=== PATIENT | female | born 1935 | race Caucasian/White ===

== ENCOUNTER 2021-02-03 11:57 | Inpatient (IN) | payer OTHER, SELFPAY ==
[2021-02-03] VITALS (9 sets, daily range): BP systolic 113–153; BP diastolic 66–95; PULSE 71–93; RESP 16–26; TEMP 36.2–36.6; O2SAT 92–95; BMI 28.5; BMI 29.1
--- NOTE | ~2021-02-03 | XR_ITS ---
XR chest 2V DATE: 02/03/2021 13:33 INDICATION: Cough. Weakness. TECHNIQUE: AP and lateral views COMPARISON: 07/11/2017 CTA chest scan 07/10/2017 two-view chest FINDINGS: Cardiomegaly. Aortic calcification and ectasia and unfolding. Minimal atelectasis is suggested at the lung bases. The lungs otherwise appear clear of infiltrate or consolidation. Diffuse osteopenia. IMPRESSION: Cardiomegaly; aortic calcification, ectasia and unfolding Reviewed, dictated and finalized at location A.
--- NOTE | ~2021-02-03 | CT_ITS ---
EXAMINATION: CT brain wo con DATE: 02/07/2021 11:18 INDICATION: Confusion. Hyponatremia. TECHNIQUE: Computed tomography (CT) of the head was performed without intravenous contrast. The mA wa s adjusted according to patient size. Iterative reconstruction technique was employed. The dose-lengt h product was 605.33 mGy-cm. COMPARISON: None FINDINGS: There are scattered areas of low attenuation in the cerebral white matter. There is no intr acranial hemorrhage, acute infarction, or abnormal intracranial mass lesion. The ventricles are david l in size. There are likely changes of right ocular lens replacement surgery. There is mild mucosal t hickening in the paranasal sinuses. The mastoid air cells are normal. IMPRESSION: 1. Moderate nonspecific cerebral white matter disease, which likely represents chronic small vessel i schemic disease. Reviewed, dictated and finalized at location B. IMPRESSION: 1. Moderate nonspecific cerebral white matter disease, which likely represents chronic small vessel ischemic disease.
--- NOTE | 2021-02-03 12:33 | ECG_ITS ---
Measurements Intervals [place] Rate: 73 P: [place]: 0 QRS: -35 QRSD: 114 T: 97 QT: 411 QTc: 453 Interpretive Statements ATRIAL FIBRILLATION LEFT AXIS DEVIATION BORDERLINE R WAVE PROGRESSION, ANTERIOR LEADS BORDERLINE ST-T WAVE ABNORMALITY- DIFFUSE LEADS BASELINE WANDER- V4-V6 ABNORMAL ECG Electronically Signed On 02-03-2021 14:35:37 CDT by Chung Soares D.O.
[2021-02-03 13:20] LABS: Add Urine Microscopic? YES; Appearance Urine Turbid (Clear); Bilirubin Urine Negative (Negative); Blood Urine 1+ (Negative); Color Urine Yellow (Yellow); Glucose Urine UA Negative (Negative); Ketones Urine Negative (Negative); Leukocyte Esterase Ur 3+ LEU/UL (Negative); Nitrate Urine Negative (Negative); Protein Urine 2+ mg/dL (Negative); RBC Urine 51-75 /hpf (0-2); Specific Grav Ur 1.016 (1.001-1.035); WBC Clumps Urine Present /HPF; WBC Urine >75 /hpf
--- NOTE | 2021-02-03 13:51 | ED.WEAKNESS ---
HPI - Weakness General Chief complaint: Weakness Stated complaint: fatigue Time Seen by Provider: 02/03/21 12:26 Source: patient Mode of arrival: EMS Limitations: clinical condition History of Present Illness HPI Narrative: 85-year-old female Patient complains of malaise for indeterminate amount of time Also notes that she feels blah She does not express any more acute or focal complaints Specifically she denies any new focal weakness, cough shortness of breath or fever, chest pains, nausea vomiting diarrhea or constipation MD Complaint: generalized weakness and lack of energy Related Data Home Medications Medication Instructions Recorded Confirmed amlodipine 02/03/21 02/03/21 aspirin [Adult Aspirin EC Low 02/03/21 Strength] cholecalciferol (vitamin D3) 02/03/21 [Vitamin D3] furosemide 02/03/21 levothyroxine 02/03/21 metoprolol tartrate 02/03/21 metoprolol tartrate 02/03/21 metoprolol tartrate 02/03/21 olmesartan-hydrochlorothiazide tablet 02/03/21 Allergies Allergy/AdvReac Type Severity Reaction Status Date / Time No Known Allergies Allergy Unverified 07/10/17 14:04 Review of Systems Review of Systems: All systems reviewed & are unremarkable except as noted in HPI and below Constitutional: Constitutional: Reports no additional constitutional complaints, Denies chills, Reports fatigue, Denies fever(s), Denies headache(s) and Reports weakness Eyes: Eyes: Reports no additional eye complaints and Denies change in vision ENT: Denies headache(s) and Denies sore throat Cardiovascular: Cardiovascular: Denies chest pain and Denies dyspnea Respiratory: Respiratory: Denies cough and Denies dyspnea Gastrointestinal: Gastrointestinal: Denies abdominal pain, Denies diarrhea and Denies vomiting Genitourinary: Genitourinary: Denies hematuria, Denies urinary frequency, Denies dysuria and Denies flank pain Musculoskeletal: Musculoskeletal: Denies deformity, Denies arthralgias, Denies joint swelling and Denies numbness Integumentary/Breasts: Skin/Breast: Denies rash and Denies wounds Neurologic: Denies headache(s), Denies focal weakness and Denies numbness Psychiatric: Psychiatric: Reports no additional psychiatric complaints Endocrine: Endocrine: Reports no additional endocrine complaints Hematologic/Lymphatic: Hematologic/Lymphatic: Reports no additional hematologic/lymphatic complaints Allergic/Immunologic: Allergic/Immunologic: Reports no additional allergic/immunologic complaints Exam Const: General: cooperative, no acute distress and alert Orientation/consciousness: patient oriented x3 (alert) Other: Frail, elderly HENMT: Head: normal to inspection, normocephalic, atraumatic, no contusions and no hematomas Ears: external ears normal General nose exam: no epistaxis Eyes: Conjunctivae: conjunctivae normal EOM: EOMs intact bilaterally Neck: Neck: normal visual inspection, supple and no JVD Resp: Effort & Inspection: normal respiratory effort and not labored Auscultation: clear to auscultation bilaterally, no rales, no rhonchi, no wheezes and other (BS =) Cardio: Rhythm: abnormal rhythm irregularly irregular Heart sounds: no murmurs GI: GI Palp: Yes Soft to palpation, No Tenderness to palpation present (GI), No Guarding due to palpation present (GI) and No Rebound tenderness present : General: Yes no CVA tenderness Skin: General skin exam: normal color and no rashes or lesions noted Neuro: General: patient oriented x3 (alert) and moves all extremities Speech: normal speech Other: Motor symmetric x4, no facial asymmetry Extrem: Other: 1-2+ edema bilaterally Psych: Attitude: cooperative Course Course Emergency Course: Started treatment for UTI, consideration of discharge until sodium returned to 117 and she will need to be admitted to correct that, discussed with Dr. Morley for admission, just wants normal saline and not hypertonic saline Vital Signs Vital
[2021-02-03 14:52] LABS: Basophils Percent Auto 0.3 % (0.2-1.2); Eosinophils Percent Auto 0.2 % (0-4.4); Hematocrit 38.6 % (37.0-47.0); Hemoglobin 13.6 g/dL (12.0-15.0); Immature Granulocyte Absolute 0.05 K/mm3 (0.00-0.031); Immature Granulocyte Percent A 0.4 % (0-0.5); Lymphocytes Absolute Auto 1.64 K/mm3 (0.9-3.2); Lymphocytes Percent Auto 14.1 % (18.3-44.2); Mean Corpuscular HGB Conc 35.2 g/dl (32-36); Mean Corpuscular Hemoglobin 31.1 pg (26-34); Mean Corpuscular Volume 88.1 fl (80-100); Mean Platelet Volume 8.9 fl (7.4-10.4); Monocytes Absolute Auto 1.1 K/mm3 (0.1-0.6); Monocytes Percent Auto 9.1 % (2.6-8.5); Neutrophils Absolute Auto 8.9 K/mm3 (1.3-6.7); Neutrophils Percent Auto 75.9 % (45.5-73.1); Platelet Count Result 328 k/mm3 (150-375); Red Blood Count 4.38 M/mm3 (4.2-5.4); Red Cell Distribution Width 13.7 % (11.5-14.5); White Blood Count 11.7 K/mm3 (4.5-10.0)
[2021-02-03 15:08] LABS: Alanine Aminotransferase 26 U/L (4-35); Albumin Level 4.1 g/dL (3.5-5.1); Alkaline Phosphatase 64 U/L (38-126); Anion Gap 10 mmol/L (8-16); Aspartate Amino Transferase 35 U/L (14-36); Bilirubin,Total 1.5 mg/dL (0.2-1.3); Blood Urea Nitrogen 16 mg/dL (7-17); Calcium 8.7 mg/dL (8.4-10.2); Carbon Dioxide 29 mmol/L (22-30); Chloride 78 mmol/L (98-107); Estimated Glomerular Filt Rate > 60; Glucose 96 mg/dL (65-110); Potassium 2.9 mmol/L (3.4-5.0); Sodium 117 mmol/L (137-145)
[2021-02-03] MEDS: SODIUM CHLORIDE 0.9% IV 1,000 ML 999 ML IV CONT (15:50)
[2021-02-03 17:04] LABS: Creatinine Urine 34.9 mg/dL
[2021-02-03 17:13] LABS: Sodium Urine Random 78 meq/L
[2021-02-03 17:37] LABS: Anion Gap 4 mmol/L (8-16); Blood Urea Nitrogen 13 mg/dL (7-17); Calcium 8.5 mg/dL (8.4-10.2); Carbon Dioxide 34 mmol/L (22-30); Chloride 78 mmol/L (98-107); Estimated Glomerular Filt Rate 59; Glucose 99 mg/dL (65-110); Potassium 2.6 mmol/L (3.4-5.0); Sodium 116 mmol/L (137-145)
[2021-02-03] MEDS: POTASSIUM CHLORIDE 20 MEQ PACKET (FOR LIQUID) 40 MEQ PO (17:58)
--- NOTE | 2021-02-03 18:55 | ADMGEN ---
This patient, Paula Gonzalez, was admitted to Medical Room 244-. Patient/family oriented to hospital policies and general routines including ID bracelet, bed and alarms, visiting hours, pain management, procedures, bathroom and other care routines, personal items, smoking policy, room service/diet, and visiting hours. Information on how to activate the Rapid Response Team has been discussed. Patient/Family are encouraged to report perceived risks to care and to ask questions if they do not understand what they are told or what they should do.
[2021-02-03] MEDS: SODIUM CHLORIDE 0.9% IV 1,000 ML 125 ML IV CONT (20:27)
[2021-02-03] MEDS: FAMOTIDINE 20 MG/2 ML VIAL IV PUSH (20:42)
--- NOTE | 2021-02-03 22:31 | PM.IMHP ---
H&P: HPI History of Present Illness Date/Time: 02/03/21 22:31 Chief Complaint: Increasing weakness Narrative: 85-year-old female with past medical history of vitamin-D deficiency, hypertension and hypothyroidism who presented to the ER via EMS from [facility] for evaluation of increasing weakness. The patient was reportedly evaluated at [place] recently and ?nothing was found?. detention decided to send her to our facility a day to see if they could find some answers for her weakness. Nursing staff tells me that when the interviewed the patient on admission she was alert orient x3 but had significant confusion regarding why she was at the hospital or recent events. At the time of my evaluation the patient was sleeping soundly. When I tried to wake the patient she asked me why she needed open her eyes. She would not open her eyes for me. She is chronically incontinent of urine. The patient will not answer questions. She does allow nursing staff to provide care. She has been afebrile since presentation. In the ER labs demonstrated significant hyponatremia and hypokalemia. Her urine was suggestive of UTI. She also had leukocytosis. At the time of my evaluation she smells strongly of urine. [facility] Past Medical History Medical History (Updated 02/04/21 @ 01:08 by Brittany Morley DO) Aortic aneurysm Atrial fibrillation Diastolic heart failure secondary to hypertension Diverticulitis Essential hypertension Hypothyroidism Urinary incontinence Vitamin D deficiency Surgical History Surgical History (Updated 02/04/21 @ 01:08 by Brittany Morley DO) History of hysterectomy Family History Family History Other Cerebrovascular accident Essential hypertension Social History Social History (Updated 02/03/21 @ 22:35 by Brittany Morley DO) Social History: Patient resides at [facility]. Code status: DNR/DNI Healthcare power of real estate attorney: Ana Maria Caballero Smoking status: Unknown if ever smoked Alcohol intake: unknown Substance use: unknown Substance use type: unknown Spiritual care concerns: No Meds Home Medications and Allergies Home Medications Medication Instructions Recorded Confirmed Type acetaminophen 650 mg PO Q4H PRN 02/03/21 02/03/21 History amlodipine 5 mg PO DAILY 02/03/21 02/03/21 History aspirin [Adult Aspirin EC Low 81 mg PO DAILY 02/03/21 02/03/21 History Strength] cholecalciferol (vitamin D3) 1,000 unit PO BID 02/03/21 02/03/21 History [Vitamin D3] furosemide 20 mg PO DAILY 02/03/21 02/03/21 History guaifenesin [Siltussin] 200 mg PO Q6H PRN 02/03/21 02/03/21 History levothyroxine 112 mcg PO DAILY 02/03/21 02/03/21 History lisinopril 40 mg PO DAILY 02/03/21 02/03/21 History metoprolol tartrate 25 mg PO BID 02/03/21 02/03/21 History Allergies Allergy/AdvReac Type Severity Reaction Status Date / Time No Known Allergies Allergy Verified 02/03/21 19:50 Vital Signs Vital Signs - 24 hr 02/03/21 11:57 02/03/21 12:06 02/03/21 13:00 Temperature 97.2 F L Pulse Rate 72 71 77 Respiratory Rate 20 20 20 Blood Pressure 149/80 H 149/80 H 136/85 Pulse Oximetry 93 93 93 02/03/21 14:10 02/03/21 15:00 02/03/21 16:32 Temperature Pulse Rate 72 77 71 Respiratory Rate 20 20 26 H Blood Pressure 141/66 H 144/83 H 153/95 H Pulse Oximetry 93 93 93 02/03/21 18:25 02/03/21 21:37 Temperature 97.8 F Pulse Rate 77 93 Respiratory Rate 20 16 Blood Pressure 113/70 135/89 Pulse Oximetry 95 92 Exam Narrative: PHYSICAL EXAM: WEIGHT 79.4 kg BMI 29.1 General: obese, elderly, no acute distress HEENT: Mucous membranes are dry, good dentition, pupils are equal and reactive, head is normocephalic atraumatic, large neck circumference Respiratory: Snoring respirations, otherwise clear, no tachypnea Cardiovascular: Regular rate, irregular rhythm, 2+ bilateral ra
[2021-02-03 23:06] LABS: Magnesium 1.8 mg/dL (1.6-2.3)
[2021-02-03] MEDS: METOPROLOL TARTRATE 25 MG TABLET PO (23:29)
[2021-02-04] MEDS: POTASSIUM CHLORIDE INJ 40 MEQ in DEXTROSE 5% IN WATER 500 ML 130 MEQ IVPB ×2 (01:09→05:36)
[2021-02-04 03:16] LABS: Hematocrit 36.3 % (37.0-47.0); Hemoglobin 12.7 g/dL (12.0-15.0); Mean Corpuscular Hemoglobin 31.3 pg (26-34); Mean Corpuscular Volume 89.4 fl (80-100); Mean Platelet Volume 8.7 fl (7.4-10.4); Platelet Count Result 301 k/mm3 (150-375); Red Blood Count 4.06 M/mm3 (4.2-5.4); Red Cell Distribution Width 13.6 % (11.5-14.5); White Blood Count 8.1 K/mm3 (4.5-10.0)
[2021-02-04 03:43] LABS: Sodium 120 mmol/L (137-145)
[2021-02-04 05:43] VITALS: BP 134/55; PULSE 84; RESP 16; TEMP 36; O2SAT 94
[2021-02-04] MEDS: LEVOTHYROXINE SODIUM 112 MCG TABLET PO (06:55)
[2021-02-04 08:30] LABS: Anion Gap 8 mmol/L (8-16); Blood Urea Nitrogen 8 mg/dL (7-17); Calcium 8.4 mg/dL (8.4-10.2); Carbon Dioxide 25 mmol/L (22-30); Chloride 83 mmol/L (98-107); Estimated CRCL calculation 60 ml/min; Estimated Glomerular Filt Rate > 60; Glucose 112 mg/dL (65-110); Potassium 4.4 mmol/L (3.4-5.0); Sodium 116 mmol/L (137-145)
[2021-02-04] MEDS: ASPIRIN 81 MG ENTERIC TABLET PO (09:19)
[2021-02-04] MEDS: FAMOTIDINE 20 MG/2 ML VIAL IV PUSH ×2 (09:19→22:08)
[2021-02-04] MEDS: lisinopriL 20 MG TABLET 40 MG PO (09:19)
[2021-02-04] MEDS: amLODIPine BESYLATE 5 MG TABLET PO (09:19)
[2021-02-04 09:20] VITALS: PULSE 81
[2021-02-04] MEDS: CHOLECALCIFEROL 1,000 UNITS TABLET 1000 UNITS PO ×2 (09:20→17:26)
[2021-02-04] MEDS: METOPROLOL TARTRATE 25 MG TABLET PO ×2 (09:20→22:09)
[2021-02-04 11:17] LABS: Anion Gap 7 mmol/L (8-16); Blood Urea Nitrogen 7 mg/dL (7-17); Calcium 8.8 mg/dL (8.4-10.2); Carbon Dioxide 30 mmol/L (22-30); Chloride 83 mmol/L (98-107); Estimated CRCL calculation 52 ml/min; Estimated Glomerular Filt Rate > 60; Glucose 115 mg/dL (65-110); Potassium 4.1 mmol/L (3.4-5.0); Sodium 120 mmol/L (137-145)
[2021-02-04 14:00] VITALS: BP 113/55; PULSE 76; RESP 20; TEMP 36.1; O2SAT 97
--- NOTE | 2021-02-04 14:48 | PM.IMPN ---
Progress Note: A&P Assessment and Plan (1) Urinary tract infection: Qualifiers: Hematuria presence: with hematuria Urinary tract infection type: site unspecified Qualified Code(s): N39.0 - Urinary tract infection, site not specified; R31.9 - Hematuria, unspecified Code(s): N39.0 - Urinary tract infection, site not specified Status: Acute Assessment and Plan: Follow UC Continue with rocephin (2) Hyponatremia: Code(s): E87.1 - Hypo-osmolality and hyponatremia Status: Acute Assessment and Plan: 117 on admission-->116-->120-->116-->120 this morning S/p IVF Fluid restriction 1200 ml daily Holding Lasix Urine osmolarity pending Monitor (3) Hypokalemia: Code(s): E87.6 - Hypokalemia Status: Acute Assessment and Plan: Resolved 4.4-->4.1 today S/p 80 meq IVPB Mg+ wnl Monitor (4) Lower extremity edema: Code(s): R60.0 - Localized edema Status: Acute Assessment and Plan: Generalized Could be 2/2 CCD Monitor Subjective Date/time seen: 02/04/21 14:48 Interval history: pt seen and evaluated; no acute events overnight; pt is confused Review of Systems Review of Systems: All systems reviewed & are unremarkable except as noted in HPI and below Exam Const: General: no acute distress, alert and awake Orientation/consciousness: oriented to person and confusion HENMT: Head: normocephalic and atraumatic Ears: hearing grossly normal bilaterally and external ears normal Face and sinus: face symmetric Mouth: Yes Normal oral and palatal mucosa present Eyes: EOM: EOMs intact bilaterally Neck: Neck: full ROM, trachea midline and no JVD Thyroid: thyroid normal Chest: Chest palpation & inspection: normal inspection of the chest Resp: Effort & Inspection: normal respiratory effort Auscultation: clear to auscultation bilaterally Cardio: Jugular venous distension: no JVD Rate: regular rate Heart sounds: S1 normal heart sound present and S2 normal heart sound present GI: Inspection: normal to inspection GI Palp: Yes Soft to palpation Percussion: Yes normal to percussion Auscultation: normal bowel sounds : General: Yes no CVA tenderness Back/Spine/Pelvis: Back: no CVA tenderness Skin: General skin exam: normal color Rashes: no rashes Neuro: General: oriented to person and confusion Cranial nerves: Yes Equal, round and reactive pupils present Speech: normal speech Extrem: Left upper extremity: edema Other: BLE generalzied edema Psych: Appearance: grossly normal Affect: normal affect Judgement: Good judgement present (Psych) Objective Data Vital Signs Vital Signs: Vital Signs - 24 hr 02/03/21 15:00 02/03/21 16:32 02/03/21 18:25 Temperature Pulse Rate 77 71 77 Respiratory Rate 20 26 H 20 Blood Pressure 144/83 H 153/95 H 113/70 Pulse Oximetry 93 93 95 02/03/21 21:37 02/03/21 23:29 02/04/21 05:43 Temperature 36.6 C 36.0 C L Pulse Rate 93 93 84 Respiratory Rate 16 16 Blood Pressure 135/89 134/55 L Pulse Oximetry 92 94 02/04/21 09:20 Temperature Pulse Rate 81 Respiratory Rate Blood Pressure Pulse Oximetry Intake/Output Intake/Output: Intake & Output 02/01/21 02/02/21 02/03/21 02/04/21 23:59 23:59 23:59 23:59 Intake Total 50 1710 Output Total 300 Balance -250 1710 Meds/Results Medications: Active Medications Generic Name Dose Route Start Last Admin Trade Name Freq PRN Reason Stop Dose Admin Acetaminophen 650 mg 02/03/21 16:33 Acetaminophen 325 Mg Tablet PO Q4H PRN Mild Pain (1-3) or Fever Amlodipine Besylate 5 mg 02/04/21 09:00 02/04/21 09:19 Amlodipine Besylate 5 Mg Tablet PO 5 mg DAILY LORI Administration Aspirin 81 mg 02/04/21 09:00 02/04/21 09:19 Aspirin 81 Mg Enteric Tablet PO 81 mg DAILY LORI Administration Famotidine 20 mg 02/03/21 21:00 02/04/21 09:19 Famotidine 20 Mg/2 Ml Vial IV PUSH 20 mg Q12HR LORI
[2021-02-04 16:43] LABS: Anion Gap 6 mmol/L (8-16); Blood Urea Nitrogen 8 mg/dL (7-17); Calcium 9.2 mg/dL (8.4-10.2); Carbon Dioxide 32 mmol/L (22-30); Chloride 83 mmol/L (98-107); Estimated CRCL calculation 52 ml/min; Estimated Glomerular Filt Rate > 60; Glucose 105 mg/dL (65-110); Sodium 121 mmol/L (137-145)
[2021-02-04 20:17] LABS: Anion Gap 10 mmol/L (8-16); Blood Urea Nitrogen 9 mg/dL (7-17); Calcium 8.7 mg/dL (8.4-10.2); Carbon Dioxide 26 mmol/L (22-30); Chloride 81 mmol/L (98-107); Estimated CRCL calculation 52 ml/min; Estimated Glomerular Filt Rate > 60; Glucose 99 mg/dL (65-110); Potassium 3.9 mmol/L (3.4-5.0); Sodium 117 mmol/L (137-145)
[2021-02-04 22:00] VITALS: BP 111/68; PULSE 76; RESP 20; TEMP 36.1; O2SAT 91
[2021-02-04] MEDS: SODIUM CHLORIDE 3% 500 ML 70 ML IV CONT (22:07)
[2021-02-04 22:09] VITALS: PULSE 76
[2021-02-05 02:31] LABS: Sodium 119 mmol/L (137-145)
[2021-02-05 05:20] VITALS: BP 138/65; PULSE 79; RESP 16; TEMP 36.1; O2SAT 91
[2021-02-05] MEDS: LEVOTHYROXINE SODIUM 112 MCG TABLET PO (06:12)
[2021-02-05 08:29] LABS: Albumin Level 3.6 g/dL (3.5-5.1); Anion Gap 3 mmol/L (8-16); Blood Urea Nitrogen 7 mg/dL (7-17); Calcium 8.4 mg/dL (8.4-10.2); Carbon Dioxide 27 mmol/L (22-30); Chloride 87 mmol/L (98-107); Estimated CRCL calculation 70 ml/min; Estimated Glomerular Filt Rate > 60; Glucose 98 mg/dL (65-110); Phosphorus 3.4 mg/dL (2.5-4.5); Potassium 3.7 mmol/L (3.4-5.0); Sodium 117 mmol/L (137-145)
--- NOTE | 2021-02-05 09:35 | PM.CNNEP ---
Assessment and Plan Assessment and plan (1) Hyponatremia: Code(s): E87.1 - Hypo-osmolality and hyponatremia Status: Acute Assessment and Plan: acute versus chronic versus acute on chronic? initially thought to be due to poor oral intake/volume depletion - however, no real improvement with normal saline infusion started on fluid restriction yesterday etiology?? - due to outpatient diuretics (but currently off) - urine lytes not prerenal check TSH, cortisol, UPEP, SPEP, and follow-up on serum/urine osmolality consider malignancy screening as well may need to use 3% saline just to get sodium above 120 mmol/L (particulary given her on/off confusion) goal of therapy is 4 - 6mmol/L rate of change in 24hours (at a minimum) but not to exceed 8mmol/L follow trend of repeat sodium levels (2) Hypokalemia: Code(s): E87.6 - Hypokalemia Status: Acute Assessment and Plan: due to poor oral intake versus diuretic therapy replete as needed follow magnesium (3) Urinary tract infection: Qualifiers: Hematuria presence: with hematuria Urinary tract infection type: site unspecified Qualified Code(s): N39.0 - Urinary tract infection, site not specified; R31.9 - Hematuria, unspecified Code(s): N39.0 - Urinary tract infection, site not specified Status: Acute Assessment and Plan: urine culture with E.coli on antibiotics (4) Altered mental status: Code(s): R41.82 - Altered mental status, unspecified Status: Acute Assessment and Plan: contineus to fluctuate due to UTI versus low sodium versus combination of both? follow mentation Will continue to follow. History of Present Illness Reason for Consult Consult date: 02/05/21 Reason for consult: hyponatremia Chief Complaint Chief complaint: Hyponatremia, UTI History of Present Illness Narrative: Most of the information I have obtained is from review of electronic medical record and discussion with the nurses involved in her care as is difficult to get a full and complete history from the patient. The patient is a 5-year-old female with a past medical history as outlined below who presented to [facility] Emergency room via EMS from her nursing facility for further evaluation of progressive/ generalized weakness. Apparently, the patient was recently hospitalized at [facility] for this same issue but despite a fairly extensive workup and evaluation at that facility, no discrete/concrete E all a GB was found with regard to her weakness. For reasons that are not entirely clear to me, her nursing facility decided to send her to [facility] to see if they could find an answer to her ongoing issues /problems with weakness. Further complicating matters is the fact that on admission to their facility, the patient was alert oriented x3 but has had recently had issues with confusion and altered mental status. Workup and evaluation in the emergency room demonstrated the patient to be hemodynamically stable. Routine blood test demonstrated significant hyponatremia in association with hypokalemia. Her urinalysis was also somewhat suggestive of a urinary tract infection and her CBC did show an elevated white blood cell count as well. ER notes also note that the patient smelled strongly of urine as well arguing in favor of urinary incontinence. For given her issues with confusion, weakness, along with her electrolyte abnormalities and a possible UTI, she was admitted the hospital for further evaluation therapy. Since her admission, her confusion has waxed and waned without a clear etiology. On the assumption that her low sodium level and hypokalemia were due to poor oral intake / volume depletion, she has received aggressive replacement potassium as well as normal saline IV fluids and although her potassium seems to be doing somewhat be
--- NOTE | 2021-02-05 10:18 | PM.IMPN ---
Progress Note: A&P Assessment and Plan (1) Urinary tract infection: Qualifiers: Hematuria presence: with hematuria Urinary tract infection type: site unspecified Qualified Code(s): N39.0 - Urinary tract infection, site not specified; R31.9 - Hematuria, unspecified Code(s): N39.0 - Urinary tract infection, site not specified Status: Acute Assessment and Plan: UC-->Escherichia Coli (ESBL) D/c Rocephin Will start zosyn (2) Hyponatremia: Code(s): E87.1 - Hypo-osmolality and hyponatremia Status: Acute Assessment and Plan: 117 on admission-->116-->120-->116-->120-->121-->117-->119-->117 S/p IVF Fluid restriction 1200 ml daily Holding Lasix Urine osmolarity pending Added Na+ tabs Nephrology consulted, will await recommendations, Monitor (3) Hypokalemia: Code(s): E87.6 - Hypokalemia Status: Acute Assessment and Plan: Resolved 4.4-->4.1-->3.7 today S/p 80 meq IVPB Mg+ wnl Monitor (4) Lower extremity edema: Code(s): R60.0 - Localized edema Status: Acute Assessment and Plan: Resolved Generalized Could be 2/2 CCD Monitor Additional Plan dvt ppx heparin Code status: DNR Subjective Date/time seen: 02/05/21 10:18 Interval history: pt seen and evaluated; no acute events overnight; pt is AOX 3 today; na+ unstableis confused Review of Systems Review of Systems: All systems reviewed & are unremarkable except as noted in HPI and below Exam Const: General: no acute distress and awake Orientation/consciousness: oriented to person and confusion HENMT: Head: normocephalic and atraumatic Ears: hearing grossly normal bilaterally and external ears normal Face and sinus: face symmetric Mouth: Yes Normal oral and palatal mucosa present Eyes: Pupils: Equal, round and reactive pupils present EOM: EOMs intact bilaterally Neck: Neck: full ROM, trachea midline and no JVD Thyroid: thyroid normal Chest: Chest palpation & inspection: normal inspection of the chest Resp: Effort & Inspection: normal respiratory effort Auscultation: clear to auscultation bilaterally Cardio: Jugular venous distension: no JVD Rate: regular rate Heart sounds: S1 normal heart sound present and S2 normal heart sound present GI: Inspection: normal to inspection Auscultation: normal bowel sounds : General: Yes no CVA tenderness Back/Spine/Pelvis: Back: no CVA tenderness Skin: General skin exam: normal color Rashes: no rashes Neuro: General: patient oriented x3 Cranial nerves: Yes Bilaterally intact EOM present Speech: normal speech Extrem: General: normal to inspection Psych: Appearance: grossly normal Affect: normal affect Judgement: Good judgement present (Psych) Objective Data Vital Signs Vital Signs: Vital Signs - 24 hr 02/04/21 14:00 02/04/21 22:00 02/04/21 22:09 Temperature 36.1 C L 36.1 C L Pulse Rate 76 76 76 Respiratory Rate 20 20 Blood Pressure 113/55 L 111/68 Pulse Oximetry 97 91 02/05/21 05:20 Temperature 36.1 C L Pulse Rate 79 Respiratory Rate 16 Blood Pressure 138/65 Pulse Oximetry 91 Intake/Output Intake/Output: Intake & Output 02/02/21 02/03/21 02/04/21 02/05/21 23:59 23:59 23:59 23:59 Intake Total 50 1880 210 Output Total 300 Balance -250 1880 210 Meds/Results Medications: Active Medications Generic Name Dose Route Start Last Admin Trade Name Simeon PRN Reason Stop Dose Admin Acetaminophen 650 mg 02/03/21 16:33 Acetaminophen 325 Mg Tablet PO Q4H PRN Mild Pain (1-3) or Fever Amlodipine Besylate 5 mg 02/04/21 09:00 02/04/21 09:19 Amlodipine Besylate 5 Mg Tablet PO 5 mg DAILY LORI Administration Aspirin 81 mg 02/04/21 09:00 02/04/21 09:19 Aspirin 81 Mg Enteric Tablet PO 81 mg DAILY LORI Administration Famotidine 20 mg 02/03/21 21:00 02/04/21 22:08 Famotidine 20 Mg/2 Ml Vial IV PUSH 20 mg Q12HR LORI Administration Guaifene
[2021-02-05 11:21] VITALS: PULSE 85
[2021-02-05] MEDS: METOPROLOL TARTRATE 25 MG TABLET PO ×2 (11:21→20:54)
[2021-02-05] MEDS: amLODIPine BESYLATE 5 MG TABLET PO (11:22)
[2021-02-05] MEDS: CHOLECALCIFEROL 1,000 UNITS TABLET 1000 UNITS PO ×2 (11:22→18:24)
[2021-02-05] MEDS: ASPIRIN 81 MG ENTERIC TABLET PO (11:23)
[2021-02-05] MEDS: lisinopriL 20 MG TABLET 40 MG PO (11:23)
[2021-02-05] MEDS: FAMOTIDINE 20 MG/2 ML VIAL IV PUSH ×2 (11:23→20:54)
[2021-02-05] MEDS: SODIUM CHLORIDE 1 GM TABLET PO (11:24)
[2021-02-05] MEDS: SODIUM CHLORIDE 3% 225 ML 75 ML IV CONT (12:09)
[2021-02-05 14:00] VITALS: BP 144/61; PULSE 73; RESP 20; TEMP 36.9; O2SAT 94
[2021-02-05 20:54] VITALS: PULSE 72
[2021-02-05] MEDS: HEPARIN SODIUM 5,000 UNITS/ML VIAL 5000 UNITS SUB-Q (20:54)
[2021-02-05 22:00] VITALS: BP 122/56; PULSE 86; RESP 16; TEMP 36.5; O2SAT 93
[2021-02-06 01:08] LABS: Anion Gap 4 mmol/L (8-16); Blood Urea Nitrogen 8 mg/dL (7-17); Calcium 8.7 mg/dL (8.4-10.2); Carbon Dioxide 27 mmol/L (22-30); Chloride 89 mmol/L (98-107); Estimated CRCL calculation 60 ml/min; Estimated Glomerular Filt Rate > 60; Glucose 99 mg/dL (65-110); Potassium 3.8 mmol/L (3.4-5.0); Sodium 120 mmol/L (137-145)
[2021-02-06 03:57] LABS: Free T4 Free Thyroxine Reflex 1.32 ng/dL (0.78-2.19)
[2021-02-06 05:08] LABS: Total Triiodothyronine (T3) 0.69 NG/ML (0.97-1.69)
[2021-02-06 05:32] LABS: Creatinine Urine 81.4 mg/dL; Total Protein Urine Random 38 mg/dL; Ur Ttl Prot Creatinine Ratio 0.47 mg/mg (0-0.20)
[2021-02-06 05:34] LABS: Sodium Urine Random 107 meq/L
[2021-02-06 06:00] VITALS: BP 142/67; PULSE 72; RESP 16; TEMP 36.6; O2SAT 94
[2021-02-06 06:03] LABS: Osmolality, Urine 310 mOsm/kg (50-1200)
[2021-02-06] MEDS: LEVOTHYROXINE SODIUM 112 MCG TABLET PO (06:24)
[2021-02-06 06:29] LABS: Albumin Level 3.5 g/dL (3.5-5.1); Anion Gap 3 mmol/L (8-16); Blood Urea Nitrogen 8 mg/dL (7-17); Calcium 8.6 mg/dL (8.4-10.2); Carbon Dioxide 28 mmol/L (22-30); Chloride 89 mmol/L (98-107); Estimated CRCL calculation 60 ml/min; Estimated Glomerular Filt Rate > 60; Glucose 94 mg/dL (65-110); Phosphorus 3.5 mg/dL (2.5-4.5); Potassium 3.6 mmol/L (3.4-5.0); Sodium 120 mmol/L (137-145)
--- NOTE | 2021-02-06 07:55 | PM.IMPN ---
Progress Note: A&P Assessment and Plan (1) Urinary tract infection: Qualifiers: Hematuria presence: with hematuria Urinary tract infection type: site unspecified Qualified Code(s): N39.0 - Urinary tract infection, site not specified; R31.9 - Hematuria, unspecified Code(s): N39.0 - Urinary tract infection, site not specified Status: Acute Assessment and Plan: UC-->Escherichia Coli (ESBL) D/c Rocephin Continue zosyn (2) Hyponatremia: Code(s): E87.1 - Hypo-osmolality and hyponatremia Status: Acute Assessment and Plan: 117 on admission-->116-->120-->116-->120-->121-->117-->119-->117 S/p IVF Fluid restriction 800 ml daily Holding Lasix Urine osmolarity pending Na+ tabs Nephrology consulted, will await recommendations TSH elevated, levothyroxine increased UPEP, SPEP pending CT of brain Consider oncology consult sodium tabs increased to bid; lasix added Monitor (3) Hypokalemia: Code(s): E87.6 - Hypokalemia Status: Acute Assessment and Plan: Resolved S/p 80 meq IVPB Mg+ wnl Monitor (4) Lower extremity edema: Code(s): R60.0 - Localized edema Status: Acute Assessment and Plan: Resolved Generalized Could be 2/2 CCD Monitor Additional Plan dvt ppx heparin Code status: DNR Subjective Date/time seen: 02/06/21 07:55 Interval history: pt seen and evaluated; no acute events overnight; pt is resting comfortably in bed; denies any complaints Review of Systems Review of Systems: All systems reviewed & are unremarkable except as noted in HPI and below Exam Const: General: no acute distress and awake Orientation/consciousness: patient oriented x3 HENMT: Head: normocephalic and atraumatic Ears: hearing grossly normal bilaterally and external ears normal Face and sinus: face symmetric Mouth: Yes Normal oral and palatal mucosa present Eyes: Pupils: Equal, round and reactive pupils present EOM: EOMs intact bilaterally Neck: Neck: full ROM, trachea midline and no JVD Thyroid: thyroid normal Chest: Chest palpation & inspection: normal inspection of the chest Resp: Effort & Inspection: normal respiratory effort Auscultation: clear to auscultation bilaterally Cardio: Jugular venous distension: no JVD Rate: regular rate Heart sounds: S1 normal heart sound present and S2 normal heart sound present GI: Inspection: normal to inspection Auscultation: normal bowel sounds : General: Yes no CVA tenderness Back/Spine/Pelvis: Back: no CVA tenderness Skin: General skin exam: normal color Rashes: no rashes Neuro: General: patient oriented x3 Cranial nerves: Yes Equal, round and reactive pupils present and Yes Bilaterally intact EOM present Speech: normal speech Extrem: General: normal to inspection Left upper extremity: edema Other: BLE generalzied edema Psych: Appearance: grossly normal Affect: normal affect Judgement: Good judgement present (Psych) Objective Data Vital Signs Vital Signs: Vital Signs - 24 hr 02/05/21 11:21 02/05/21 14:00 02/05/21 20:54 Temperature 36.9 C Pulse Rate 85 73 72 Respiratory Rate 20 Blood Pressure 144/61 H Pulse Oximetry 94 02/05/21 22:00 02/06/21 06:00 Temperature 36.5 C 36.6 C Pulse Rate 86 72 Respiratory Rate 16 16 Blood Pressure 122/56 L 142/67 H Pulse Oximetry 93 94 Intake/Output Intake/Output: Intake & Output 02/03/21 02/04/21 02/05/21 02/06/21 23:59 23:59 23:59 23:59 Intake Total 50 1880 620 50 Output Total 300 0 300 Balance -250 1880 620 -250 Meds/Results Medications: Active Medications Generic Name Dose Route Start Last Admin Trade Name Freq PRN Reason Stop Dose Admin Acetaminophen 650 mg 02/03/21 16:33 Acetaminophen 325 Mg Tablet PO Q4H PRN Mild Pain (1-3) or Fever Amlodipine Besylate 5 mg 02/04/21 09:00 02/05/21 11:22 Amlodipine Besylate 5 Mg Tablet PO 5 mg DAILY LORI Administration Aspi
[2021-02-06] MEDS: COSYNTROPIN 0.25 MG/ML VIAL IV PUSH (08:11)
[2021-02-06] MEDS: CHOLECALCIFEROL 1,000 UNITS TABLET 1000 UNITS PO ×2 (08:20→16:59)
[2021-02-06] MEDS: HEPARIN SODIUM 5,000 UNITS/ML VIAL 5000 UNITS SUB-Q ×2 (08:20→20:10)
[2021-02-06] MEDS: amLODIPine BESYLATE 5 MG TABLET PO (08:20)
[2021-02-06] MEDS: FAMOTIDINE 20 MG/2 ML VIAL IV PUSH ×2 (08:20→20:10)
[2021-02-06] MEDS: ASPIRIN 81 MG ENTERIC TABLET PO (08:20)
[2021-02-06 08:21] VITALS: PULSE 80
[2021-02-06] MEDS: lisinopriL 20 MG TABLET 40 MG PO (08:21)
[2021-02-06] MEDS: SODIUM CHLORIDE 1 GM TABLET PO ×2 (08:21→17:51)
[2021-02-06] MEDS: METOPROLOL TARTRATE 25 MG TABLET PO ×2 (08:21→20:10)
--- NOTE | 2021-02-06 10:26 | P.PNNP_ITS ---
Progress Note: A&P Assessment and Plan (1) Hyponatremia: Code(s): E87.1 - Hypo-osmolality and hyponatremia Status: Acute Assessment and Plan: * acute versus chronic versus acute on chronic? * cortisol level is borderline low. Will check Cortrosyn stim test. * TSH is high so will increase the levothyroxine supplementation. * S PE is pending. * Chest x-ray does not show any thing that would cause low sodium. 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 * Consider cancer workup? * Fluid restriction enhanced [id number] per day. * will increase sodium chloride tablets to b.i.d. and add furosemide 20 b.i.d. (2) Hypokalemia: Code(s): E87.6 - Hypokalemia Status: Acute Assessment and Plan: * Resolved * will continue to watch this though because I am putting her on furosemide (3) Urinary tract infection: Qualifiers: Hematuria presence: with hematuria Urinary tract infection type: site unspecified Qualified Code(s): N39.0 - Urinary tract infection, site not specified; R31.9 - Hematuria, unspecified Code(s): N39.0 - Urinary tract infection, site not specified Status: Acute Assessment and Plan: * urine culture with E.coli * on antibiotics (4) Altered mental status: Code(s): R41.82 - Altered mental status, unspecified Status: Acute Assessment and Plan: * contineus to fluctuate * due to UTI versus low sodium versus combination of both? * follow mentation * she seems alert and oriented to me. Subjective Date/time seen: 02/06/21 10:26 Interval history: Paula is feeling about the same. No chest pain or shortness of breath Review of Systems Cardiovascular: Cardiovascular: Reports no additional cardiovascular complaints Respiratory: Respiratory: Reports no additional respiratory complaints Gastrointestinal: Gastrointestinal: Reports no additional gastrointestinal complaints Genitourinary: Genitourinary: Reports no additional female genitourinary complaints Exam Narrative: WDWN in NAD skin no rash head ncat lungs clear cor reg no rub abd BS+ nontender and soft ext no edema. Objective Data Vital Signs Vital Signs: Vital Signs - 24 hr 02/05/21 11:21 02/05/21 14:00 02/05/21 20:54 Temperature 36.9 C Pulse Rate 85 73 72 Respiratory Rate 20 Blood Pressure 144/61 H Pulse Oximetry 94 02/05/21 22:00 02/06/21 06:00 02/06/21 08:21 Temperature 36.5 C 36.6 C Pulse Rate 86 72 80 Respiratory Rate 16 16 Blood Pressure 122/56 L 142/67 H Pulse Oximetry 93 94 Intake/Output Intake/Output: Intake & Output 02/03/21 02/04/21 02/05/21 02/06/21 23:59 23:59 23:59 23:59 Intake Total 50 1880 620 170 Output Total 300 0 300 Balance -250 1880 620 -130 Meds/Results Medications: Active Medications Generic Name Dose Route Start Last Admin Trade Name Freq PRN Reason Stop Dose Admin Acetaminophen 650 mg 02/03/21 16:33 Acetaminophen 325 Mg Tablet PO Q4H PRN Mild Pain (1-3) or Fever Amlodipine Besylate 5 mg 02/04/21 09:00 02/06/21 08:20 Amlodipine Besylate 5 Mg Tab
--- NOTE | 2021-02-06 10:26 | PM.PNNEP ---
Progress Note: A&P Assessment and Plan (1) Hyponatremia: Code(s): E87.1 - Hypo-osmolality and hyponatremia Status: Acute Assessment and Plan: acute versus chronic versus acute on chronic? cortisol level is borderline low. Will check Cortrosyn stim test. TSH is high so will increase the levothyroxine supplementation. S PE is pending. Chest x-ray does not show any thing that would cause low sodium. Will check CT of the brain to make sure there is nothing in the [employer]AD. Consider cancer workup? Fluid restriction enhanced [id number] per day. will increase sodium chloride tablets to b.i.d. and add furosemide 20 b.i.d. (2) Hypokalemia: Code(s): E87.6 - Hypokalemia Status: Acute Assessment and Plan: Resolved will continue to watch this though because I am putting her on furosemide (3) Urinary tract infection: Qualifiers: Hematuria presence: with hematuria Urinary tract infection type: site unspecified Qualified Code(s): N39.0 - Urinary tract infection, site not specified; R31.9 - Hematuria, unspecified Code(s): N39.0 - Urinary tract infection, site not specified Status: Acute Assessment and Plan: urine culture with E.coli on antibiotics (4) Altered mental status: Code(s): R41.82 - Altered mental status, unspecified Status: Acute Assessment and Plan: contineus to fluctuate due to UTI versus low sodium versus combination of both? follow mentation she seems alert and oriented to me. Subjective Date/time seen: 02/06/21 10:26 Interval history: Paula is feeling about the same. No chest pain or shortness of breath Review of Systems Cardiovascular: Cardiovascular: Reports no additional cardiovascular complaints Respiratory: Respiratory: Reports no additional respiratory complaints Gastrointestinal: Gastrointestinal: Reports no additional gastrointestinal complaints Genitourinary: Genitourinary: Reports no additional female genitourinary complaints Exam Narrative: WDWN in NAD skin no rash head ncat lungs clear cor reg no rub abd BS+ nontender and soft ext no edema. Objective Data Vital Signs Vital Signs: Vital Signs - 24 hr 02/05/21 11:21 02/05/21 14:00 02/05/21 20:54 Temperature 36.9 C Pulse Rate 85 73 72 Respiratory Rate 20 Blood Pressure 144/61 H Pulse Oximetry 94 02/05/21 22:00 02/06/21 06:00 02/06/21 08:21 Temperature 36.5 C 36.6 C Pulse Rate 86 72 80 Respiratory Rate 16 16 Blood Pressure 122/56 L 142/67 H Pulse Oximetry 93 94 Intake/Output Intake/Output: Intake & Output 02/03/21 02/04/21 02/05/21 02/06/21 23:59 23:59 23:59 23:59 Intake Total 50 1880 620 170 Output Total 300 0 300 Balance -250 1880 620 -130 Meds/Results Medications: Active Medications Generic Name Dose Route Start Last Admin Trade Name Freq PRN Reason Stop Dose Admin Acetaminophen 650 mg 02/03/21 16:33 Acetaminophen 325 Mg Tablet PO Q4H PRN Mild Pain (1-3) or Fever Amlodipine Besylate 5 mg 02/04/21 09:00 02/06/21 08:20 Amlodipine Besylate 5 Mg Tablet PO 5 mg DAILY LORI Administration Aspirin 81 mg 02/04/21 09:00 02/06/21 08:20 Aspirin 81 Mg Enteric Tablet PO 81 mg DAILY LORI Administration Famotidine 20 mg 02/03/21 21:00 02/06/21 08:20 Famotidine 20 Mg/2 Ml Vial IV PUSH 20 mg Q12HR LORI Administration Guaifenesin 200 mg 02/03/21 22:45 Guaifenesin 200 Mg/10 Ml Udc PO Q6H PRN Cough Heparin Sodium (Porcine) 5,000 units 02/05/21 21:00 02/06/21 08:20 Heparin Sodium 5,000 Units/Ml Vial SUB-Q 5,000 units Q12HR LORI Administration Piperacillin/Tazobactam/Dextrose 3.375 gm in 50 mls @ 100 mls/hr 02/06/21 09:00 02/06/21 09:36 Zosyn 3.375 Gm/D5w 50ml Pm IVPB 100 mls/hr Q6H LORI Administration Levothyroxine Sodium 125 mcg 02/07/21 06:30 Levothyroxine Sodium 125 Mcg Table
[2021-02-06 11:42] VITALS: BMI 29.1
[2021-02-06 14:15] VITALS: BP 131/68; PULSE 77; RESP 18; TEMP 36.7; O2SAT 93
[2021-02-06 16:11] LABS: Sodium 120 mmol/L (137-145)
[2021-02-06] MEDS: FUROSEMIDE 20 MG TABLET PO (16:59)
[2021-02-06 20:10] VITALS: PULSE 80
[2021-02-06 22:00] VITALS: BP 138/75; PULSE 76; RESP 20; TEMP 36.7; O2SAT 96
[2021-02-07] MEDS: LEVOTHYROXINE SODIUM 125 MCG TABLET PO (05:33)
[2021-02-07 06:00] VITALS: BP 142/81; PULSE 78; RESP 20; TEMP 36.6; O2SAT 94
[2021-02-07 06:07] LABS: Albumin Level 3.7 g/dL (3.5-5.1); Anion Gap 7 mmol/L (8-16); Blood Urea Nitrogen 9 mg/dL (7-17); Calcium 8.6 mg/dL (8.4-10.2); Carbon Dioxide 30 mmol/L (22-30); Chloride 86 mmol/L (98-107); Estimated CRCL calculation 52 ml/min; Estimated Glomerular Filt Rate > 60; Glucose 98 mg/dL (65-110); Phosphorus 3.3 mg/dL (2.5-4.5); Potassium 2.9 mmol/L (3.4-5.0); Sodium 123 mmol/L (137-145)
--- NOTE | 2021-02-07 07:36 | PM.PNNEP ---
Progress Note: A&P Assessment and Plan (1) Hyponatremia: Code(s): E87.1 - Hypo-osmolality and hyponatremia Status: Acute Assessment and Plan: acute versus chronic versus acute on chronic? cortisol level is borderline low. cosyntropin test was okay. TSH is high: increased the levothyroxine supplementation. S PE is pending. Chest x-ray does not show any thing that would cause low sodium. Will check CT of the brain to make sure there is nothing in the [employer]. Consider cancer workup? currently on fluid restriction, as well as sodium chloride tablets to b.i.d. and add furosemide 20 b.i.d. sodium increased to 123 today. Will check another sodium this afternoon (2) Hypokalemia: Code(s): E87.6 - Hypokalemia Status: Acute Assessment and Plan: low. supplement (3) Urinary tract infection: Qualifiers: Hematuria presence: with hematuria Urinary tract infection type: site unspecified Qualified Code(s): N39.0 - Urinary tract infection, site not specified; R31.9 - Hematuria, unspecified Code(s): N39.0 - Urinary tract infection, site not specified Status: Acute Assessment and Plan: urine culture with E.coli on antibiotics (4) Altered mental status: Code(s): R41.82 - Altered mental status, unspecified Status: Acute Assessment and Plan: contineus to fluctuate due to UTI versus low sodium versus combination of both? follow mentation conversive but a bit confused at times. Subjective Date/time seen: 02/07/21 07:36 Interval history: Paula is feeling about the same. She is a bit confused. She says people are in the room watching over her. No chest pain or shortness of breath Exam Narrative: WDWN in NAD skin no rash Or subcu nodule head ncat lungs clear cor reg no rub or gallop abd BS+ nontender and soft ext no edema. Objective Data Vital Signs Vital Signs: Vital Signs - 24 hr 02/06/21 08:21 02/06/21 14:15 02/06/21 20:10 Temperature 36.7 C Pulse Rate 80 77 80 Respiratory Rate 18 Blood Pressure 131/68 Pulse Oximetry 93 02/06/21 22:00 02/07/21 06:00 Temperature 36.7 C 36.6 C Pulse Rate 76 78 Respiratory Rate 20 20 Blood Pressure 138/75 142/81 H Pulse Oximetry 96 94 Intake/Output Intake/Output: Intake & Output 02/04/21 02/05/21 02/06/21 02/07/21 23:59 23:59 23:59 23:59 Intake Total 1880 620 660 150 Output Total 0 300 Balance 1880 620 360 150 Meds/Results Medications: Active Medications Generic Name Dose Route Start Last Admin Trade Name Freq PRN Reason Stop Dose Admin Acetaminophen 650 mg 02/03/21 16:33 Acetaminophen 325 Mg Tablet PO Q4H PRN Mild Pain (1-3) or Fever Amlodipine Besylate 5 mg 02/04/21 09:00 02/06/21 08:20 Amlodipine Besylate 5 Mg Tablet PO 5 mg DAILY LORI Administration Aspirin 81 mg 02/04/21 09:00 02/06/21 08:20 Aspirin 81 Mg Enteric Tablet PO 81 mg DAILY LORI Administration Famotidine 20 mg 02/03/21 21:00 02/06/21 20:10 Famotidine 20 Mg/2 Ml Vial IV PUSH 20 mg Q12HR LORI Administration Furosemide 20 mg 02/06/21 17:00 02/06/21 16:59 Furosemide 20 Mg Tablet PO 20 mg BIDWM LORI Administration Guaifenesin 200 mg 02/03/21 22:45 Guaifenesin 200 Mg/10 Ml Udc PO Q6H PRN Cough Heparin Sodium (Porcine) 5,000 units 02/05/21 21:00 02/06/21 20:10 Heparin Sodium 5,000 Units/Ml Vial SUB-Q 5,000 units Q12HR LORI Administration Piperacillin/Tazobactam/Dextrose 3.375 gm in 50 mls @ 100 mls/hr 02/06/21 09:00 02/07/21 03:53 Zosyn 3.375 Gm/D5w 50ml Pm IVPB Infused Q6H LORI Infusion Levothyroxine Sodium 125 mcg 02/07/21 06:30 02/07/21 05:33 Levothyroxine Sodium 125 Mcg Tablet PO 125 mcg DAILY@0630 LORI Administration Lisinopril 40 mg 02/04/21 09:00 02/06/21 08:21 Lisinopril 20 Mg Tablet PO 40 mg DAILY LORI Administrati
--- NOTE | 2021-02-07 09:26 | PCOTNOTE ---
Attempted to see patient this am, however patient refused stating, I've already cleaned up several times before. Encouraged patient to sit up in chair and participate in exercises, however patient replied, I have other things I have to do, and I won't be able to reach the things that you want me to do today. Thank you.
[2021-02-07] MEDS: lisinopriL 20 MG TABLET 40 MG PO (10:14)
[2021-02-07] MEDS: CHOLECALCIFEROL 1,000 UNITS TABLET 1000 UNITS PO ×2 (10:14→17:51)
[2021-02-07] MEDS: SODIUM CHLORIDE 1 GM TABLET PO ×2 (10:18→17:52)
[2021-02-07] MEDS: ASPIRIN 81 MG ENTERIC TABLET PO (10:18)
[2021-02-07] MEDS: POTASSIUM CHLORIDE 20 MEQ TABLET.ER 40 MEQ PO (10:18)
[2021-02-07] MEDS: FUROSEMIDE 20 MG TABLET PO ×2 (10:18→17:52)
[2021-02-07] MEDS: amLODIPine BESYLATE 5 MG TABLET PO (10:18)
[2021-02-07 10:19] VITALS: PULSE 80
[2021-02-07] MEDS: METOPROLOL TARTRATE 25 MG TABLET PO ×2 (10:19→22:47)
[2021-02-07] MEDS: FAMOTIDINE 20 MG/2 ML VIAL IV PUSH ×2 (10:20→22:47)
[2021-02-07] MEDS: HEPARIN SODIUM 5,000 UNITS/ML VIAL 5000 UNITS SUB-Q ×2 (10:20→22:46)
--- NOTE | 2021-02-07 12:00 | PM.IMPN ---
Progress Note: A&P Assessment and Plan (1) Urinary tract infection: Qualifiers: Hematuria presence: with hematuria Urinary tract infection type: site unspecified Qualified Code(s): N39.0 - Urinary tract infection, site not specified; R31.9 - Hematuria, unspecified Code(s): N39.0 - Urinary tract infection, site not specified Status: Acute Assessment and Plan: Urine culture growing Escherichia Coli (ESBL) -patient was placed on ceftriaxone initially which was switched to Zosyn due to culture results. Because of her mild symptoms and improving case, I will switch her to oral Bactrim and watch her renal function to narrow coverage. She has no signs or symptoms of UTI at this time -patient has slight confusion today and was unsure of the date. Will monitor her cognition throughout her stay -continue PT and OT. Patient plans to go back to her assisted living at discharge (2) Hyponatremia: Code(s): E87.1 - Hypo-osmolality and hyponatremia Status: Acute Assessment and Plan: 117 and now 123 -continue fluid restriction, sodium tablets, and Lasix was added today by Nephrology -CT of the brain without acute pathology, TSH elevated with a normal T4. Levothyroxine was increased by previous provider -will obtain records to see what her baseline is (3) Hypokalemia: Code(s): E87.6 - Hypokalemia Status: Acute Assessment and Plan: Low again today at 2.9 -40 mEq of potassium started daily today and she will get an extra 20 mEq tonight -will recheck with magnesium tomorrow morning (4) Lower extremity edema: Code(s): R60.0 - Localized edema Status: Acute Assessment and Plan: Resolved Additional Plan dvt ppx heparin Code status: DNR Time Spent With Patient Time with patient: 25 - 35 minutes Subjective Date/time seen: 02/07/21 12:00 Interval history: Pt is a 85-year-old female here for UTI and hyponatremia. Patient was seen today and states that she is feeling much better than yesterday. She denies any pain, nausea, vomiting, dysuria, hematuria, fevers, chills, abdominal pain, diarrhea, or constipation. She states she is eating and drinking okay. She thinks we are micro managing her . I explained her about the importance of a fluid restriction. She agrees to the plan. She does appear to have some baseline confusion. Review of Systems Review of Systems: All systems reviewed & are unremarkable except as noted in HPI and below Exam Narrative: General: Well developed well nourished patient in NAD HEENT: normocephalic Neck: supple Neuro: Alert and oriented to herself, birthday, location but she did not know the year. Cranial nerves 2-12 intact. Equal strength the upper lower extremities 5/5. Able to do rapid alternating movements and [id number] CV:RRR Resp: Coarse breath sounds throughout, no wheezing or rhonchi. No conversational dyspnea Abd: Soft, non distended. No pain to palpation. Positive bowel sounds Extremities: No swelling, erythema, or pain to palpation. Objective Data Vital Signs Vital Signs: Vital Signs - 24 hr 02/06/21 14:15 02/06/21 20:10 02/06/21 22:00 Temperature 98.0 F 98.0 F Pulse Rate 77 80 76 Respiratory Rate 18 20 Blood Pressure 131/68 138/75 Pulse Oximetry 93 96 02/07/21 06:00 02/07/21 10:19 Temperature 97.9 F Pulse Rate 78 80 Respiratory Rate 20 Blood Pressure 142/81 H Pulse Oximetry 94 Intake/Output Intake/Output: Intake & Output 02/04/21 02/05/21 02/06/21 02/07/21 23:59 23:59 23:59 23:59 Intake Total 1880 620 660 270 Output Total 0 300 Balance 1880 620 360 270 Meds/Results Medications: Active Medications Generic Name Dose Route Start Last Admin Trade Name Freq PRN Reason Stop Dose Admin Acetaminophen 650 mg 02/03/21 16:33 Acetaminophen 325 Mg Tablet PO Q4H PRN Mild Pain (1-3) or Fever Amlodipine Besylate 5 mg 08
--- NOTE | 2021-02-07 12:44 | PCOTNOTE ---
Attempted to see patient for PM after AM refusal. Pt. refused stating you are the third person to bother me today, no I don't want to do anything, no exercises, nothing!
[2021-02-07 14:00] VITALS: BP 137/78; PULSE 78; RESP 16; TEMP 36.3; O2SAT 96
[2021-02-07 16:01] LABS: Sodium 126 mmol/L (137-145)
[2021-02-07] MEDS: POTASSIUM CHLORIDE 20 MEQ TABLET PO (17:52)
[2021-02-07 20:59] VITALS: BP 125/75; PULSE 79; RESP 18; TEMP 36.7; O2SAT 96
[2021-02-07 22:47] VITALS: PULSE 80
[2021-02-08 06:00] VITALS: BP 148/84; PULSE 90; RESP 16; TEMP 37; O2SAT 95
[2021-02-08 06:10] LABS: Alanine Aminotransferase 19 U/L (4-35); Albumin Level 3.7 g/dL (3.5-5.1); Alkaline Phosphatase 59 U/L (38-126); Anion Gap 6 mmol/L (8-16); Aspartate Amino Transferase 24 U/L (14-36); Bilirubin,Total 0.9 mg/dL (0.2-1.3); Blood Urea Nitrogen 10 mg/dL (7-17); Calcium 9.1 mg/dL (8.4-10.2); Carbon Dioxide 29 mmol/L (22-30); Chloride 93 mmol/L (98-107); Estimated CRCL calculation 46 ml/min; Estimated Glomerular Filt Rate > 60; Glucose 88 mg/dL (65-110); Magnesium 1.7 mg/dL (1.6-2.3); Phosphorus 3.5 mg/dL (2.5-4.5); Potassium 4.1 mmol/L (3.4-5.0); Sodium 128 mmol/L (137-145)
[2021-02-08] MEDS: LEVOTHYROXINE SODIUM 125 MCG TABLET PO (06:54)
--- NOTE | 2021-02-08 07:39 | PM.PNNEP ---
Progress Note: A&P Assessment and Plan (1) Hyponatremia: Code(s): E87.1 - Hypo-osmolality and hyponatremia Status: Acute Assessment and Plan: acute versus chronic versus acute on chronic? cortisol level is borderline low. cosyntropin test was okay. TSH is high: increased the levothyroxine supplementation. SPE is pending. Chest x-ray does not show any thing that would cause low sodium. CT brain is okay. Consider cancer workup? currently on fluid restriction, as well as sodium chloride tablets b.i.d. and furosemide 20 b.i.d. 02/07 Na 123 02/08 Na 128 sodium increased to 128 today. Will check another sodium this afternoon. once above 130 she can go home but will need outpatient followup. (2) Hypokalemia: Code(s): E87.6 - Hypokalemia Status: Acute Assessment and Plan: Okay today. (3) Urinary tract infection: Qualifiers: Hematuria presence: with hematuria Urinary tract infection type: site unspecified Qualified Code(s): N39.0 - Urinary tract infection, site not specified; R31.9 - Hematuria, unspecified Code(s): N39.0 - Urinary tract infection, site not specified Status: Acute Assessment and Plan: urine culture with E.coli on TMP/sulfa (4) Altered mental status: Code(s): R41.82 - Altered mental status, unspecified Status: Acute Assessment and Plan: conversive but a bit confused at times. Subjective Date/time seen: 02/08/21 07:39 Interval history: Paula is feeling about the same. Conversive. No chest pain or shortness of breath Exam Narrative: WDWN in NAD skin no rash Or subcu nodule head ncat lungs clear bilaterally cor reg no rub or gallop abd BS+ nontender and soft ext no edema. Objective Data Vital Signs Vital Signs: Vital Signs - 24 hr 02/07/21 10:19 02/07/21 14:00 02/07/21 20:59 Temperature 36.3 C L 36.7 C Pulse Rate 80 78 79 Respiratory Rate 16 18 Blood Pressure 137/78 125/75 Pulse Oximetry 96 96 02/07/21 22:47 02/08/21 06:00 Temperature 37.0 C Pulse Rate 80 90 Respiratory Rate 16 Blood Pressure 148/84 H Pulse Oximetry 95 Intake/Output Intake/Output: Intake & Output 02/05/21 02/06/21 02/07/21 02/08/21 23:59 23:59 23:59 23:59 Intake Total 620 660 470 150 Output Total 0 300 Balance 620 360 470 150 Meds/Results Medications: Active Medications Generic Name Dose Route Start Last Admin Trade Name Freq PRN Reason Stop Dose Admin Acetaminophen 650 mg 02/03/21 16:33 Acetaminophen 325 Mg Tablet PO Q4H PRN Mild Pain (1-3) or Fever Amlodipine Besylate 5 mg 02/04/21 09:00 02/07/21 10:18 Amlodipine Besylate 5 Mg Tablet PO 5 mg DAILY LORI Administration Aspirin 81 mg 02/04/21 09:00 02/07/21 10:18 Aspirin 81 Mg Enteric Tablet PO 81 mg DAILY LORI Administration Famotidine 20 mg 02/03/21 21:00 02/07/21 22:47 Famotidine 20 Mg/2 Ml Vial IV PUSH 20 mg Q12HR LORI Administration Furosemide 20 mg 02/06/21 17:00 02/07/21 17:52 Furosemide 20 Mg Tablet PO 20 mg BIDWM LORI Administration Guaifenesin 200 mg 02/03/21 22:45 Guaifenesin 200 Mg/10 Ml Udc PO Q6H PRN Cough Heparin Sodium (Porcine) 5,000 units 02/05/21 21:00 02/07/21 22:46 Heparin Sodium 5,000 Units/Ml Vial SUB-Q 5,000 units Q12HR LORI Administration Levothyroxine Sodium 125 mcg 02/07/21 06:30 02/08/21 06:54 Levothyroxine Sodium 125 Mcg Tablet PO 125 mcg DAILY@0630 LORI Administration Lisinopril 40 mg 02/04/21 09:00 02/07/21 10:14 Lisinopril 20 Mg Tablet PO 40 mg DAILY LORI Administration Metoprolol Tartrate 25 mg 02/03/21 22:50 02/07/21 22:47 Metoprolol Tartrate 25 Mg Tablet PO 25 mg Q12HR LORI Administration Ondansetron HCl 4 mg 02/03/21 16:33 Ondansetron Inj 4 Mg/2 Ml Vial IV PUSH Q4H PRN Nausea Potassium Chloride 40 meq 08
--- NOTE | 2021-02-08 09:42 | PM.IMPN ---
Progress Note: A&P Assessment and Plan (1) Urinary tract infection: Qualifiers: Hematuria presence: with hematuria Urinary tract infection type: site unspecified Qualified Code(s): N39.0 - Urinary tract infection, site not specified; R31.9 - Hematuria, unspecified Code(s): N39.0 - Urinary tract infection, site not specified Status: Acute Assessment and Plan: Urine culture growing Escherichia Coli (ESBL) -patient was placed on ceftriaxone initially which was switched to Zosyn due to culture results. Because of her mild symptoms and improving case, Bactrim was started 02/07/21 -patient has slight confusion today and was unsure of the date. Will monitor her cognition throughout her stay. Rn from [place] states she usually does not have confusion. No neurofocal deficits noted -continue PT and OT. Patient plans to go back to her assisted living at discharge. I emphasized the importance of getting out of bed today with the patient if she wants to go back to assisted living. (2) Hyponatremia: Code(s): E87.1 - Hypo-osmolality and hyponatremia Status: Acute Assessment and Plan: 117 and now 128 -continue fluid restriction, sodium tablets, and Lasix -CT of the brain without acute pathology, TSH elevated with a normal T4. Levothyroxine was increased by previous provider -will obtain records to see what her baseline is (3) Hypokalemia: Code(s): E87.6 - Hypokalemia Status: Acute Assessment and Plan: Normal today, 4.1 -monitor (4) Lower extremity edema: Code(s): R60.0 - Localized edema Status: Acute Assessment and Plan: Resolved Additional Plan dvt ppx heparin Code status: DNR Subjective Date/time seen: 02/08/21 09:42 Interval history: Pt is a 85-year-old female here for UTI and hyponatremia. Patient was seen today and states that she is feeling fine. She did have dysuria earlier in the stay but this has resovled. She denies any pain, nausea, vomiting, dysuria, hematuria, fevers, chills, abdominal pain, diarrhea, or constipation. States her last BM was 2 days ago. She states she is eating and drinking okay. She states she uses the walker when she leaves her apartment for medium distances but uses the wheelchair around the apartment and long distances. Spoke to the RN at the assist living states pt is usually very sharp with no confusion. Exam Narrative: General: Well developed well nourished patient in NAD HEENT: normocephalic Neck: supple Neuro: Alert and oriented to herself, birthday, president, location (medical facility) but she did not know the year or month. no focal deficits CV:RRR Resp: Decreased breath sounds bilaterally with faint crackles. No conversational dyspnea Abd: Soft, non distended. No pain to palpation. Positive bowel sounds Extremities: Trace edema to the LE. No pain or erythema Objective Data Vital Signs Vital Signs: Vital Signs - 24 hr 02/07/21 10:19 02/07/21 14:00 02/07/21 20:59 Temperature 97.4 F L 98.0 F Pulse Rate 80 78 79 Respiratory Rate 16 18 Blood Pressure 137/78 125/75 Pulse Oximetry 96 96 02/07/21 22:47 02/08/21 06:00 Temperature 98.6 F Pulse Rate 80 90 Respiratory Rate 16 Blood Pressure 148/84 H Pulse Oximetry 95 Intake/Output Intake/Output: Intake & Output 02/05/21 02/06/21 02/07/21 02/08/21 23:59 23:59 23:59 23:59 Intake Total 620 660 470 150 Output Total 0 300 Balance 620 360 470 150 Meds/Results Medications: Active Medications Generic Name Dose Route Start Last Admin Trade Name Freq PRN Reason Stop Dose Admin Acetaminophen 650 mg 02/03/21 16:33 Acetaminophen 325 Mg Tablet PO Q4H PRN Mild Pain (1-3) or Fever Amlodipine Besylate 5 mg 02/04/21 09:00 02/07/21 10:18 Amlodipine Besylate 5 Mg Tablet PO 5 mg DAILY LORI Administration Aspirin 81 mg 02/04/21 09:00 02/07/21 10:18 Aspirin 81 Mg Enteric Table
[2021-02-08 10:14] VITALS: PULSE 83
[2021-02-08] MEDS: lisinopriL 20 MG TABLET 40 MG PO (10:14)
[2021-02-08] MEDS: METOPROLOL TARTRATE 25 MG TABLET PO ×2 (10:14→21:11)
[2021-02-08] MEDS: amLODIPine BESYLATE 5 MG TABLET PO (10:15)
[2021-02-08] MEDS: SODIUM CHLORIDE 1 GM TABLET PO ×2 (10:16→19:03)
[2021-02-08] MEDS: CHOLECALCIFEROL 1,000 UNITS TABLET 1000 UNITS PO ×2 (10:16→19:02)
[2021-02-08] MEDS: ASPIRIN 81 MG ENTERIC TABLET PO (10:16)
[2021-02-08] MEDS: FAMOTIDINE 20 MG/2 ML VIAL IV PUSH ×2 (10:17→21:11)
[2021-02-08] MEDS: HEPARIN SODIUM 5,000 UNITS/ML VIAL 5000 UNITS SUB-Q ×2 (10:18→21:11)
[2021-02-08] MEDS: FUROSEMIDE 20 MG TABLET PO ×2 (10:24→19:03)
[2021-02-08] MEDS: POTASSIUM CHLORIDE 20 MEQ TABLET.ER 40 MEQ PO (10:24)
[2021-02-08 13:54] VITALS: BP 112/63; PULSE 75; RESP 18; TEMP 36.6; O2SAT 97
[2021-02-08 18:07] LABS: Sodium 129 mmol/L (137-145)
[2021-02-08 21:11] VITALS: PULSE 80
[2021-02-08 22:00] VITALS: BP 105/84; PULSE 69; RESP 16; TEMP 36; O2SAT 92
[2021-02-08 23:31] LABS: Osmolality, Urine 427 mOsm/kg (50-1200)
[2021-02-09 05:45] VITALS: BP 139/68; PULSE 87; RESP 16; TEMP 36.2; O2SAT 96
[2021-02-09] MEDS: LEVOTHYROXINE SODIUM 125 MCG TABLET PO (05:49)
[2021-02-09 06:24] LABS: Albumin Level 3.8 g/dL (3.5-5.1); Anion Gap 7 mmol/L (8-16); Blood Urea Nitrogen 12 mg/dL (7-17); Carbon Dioxide 25 mmol/L (22-30); Chloride 96 mmol/L (98-107); Estimated CRCL calculation 41 ml/min; Estimated Glomerular Filt Rate 59; Glucose 85 mg/dL (65-110); Phosphorus 3.8 mg/dL (2.5-4.5); Potassium 4.4 mmol/L (3.4-5.0); Sodium 128 mmol/L (137-145)
--- NOTE | 2021-02-09 07:49 | PM.PNNEP ---
Progress Note: A&P Assessment and Plan (1) Hyponatremia: Code(s): E87.1 - Hypo-osmolality and hyponatremia Status: Acute Assessment and Plan: acute versus chronic versus acute on chronic? cortisol level is borderline low. cosyntropin test was okay. TSH is high: increased the levothyroxine supplementation. SPE is pending. Chest x-ray does not show any thing that would cause low sodium. CT brain is okay. Consider cancer workup? currently on fluid restriction, as well as sodium chloride tablets b.i.d. and furosemide 20 b.i.d. 02/07 Na 123 02/08 Na 128 01/31 Na 129 Will increase sodium chloride to 2g b.i.d.. (2) Hypokalemia: Code(s): E87.6 - Hypokalemia Status: Acute Assessment and Plan: Normal today (3) Urinary tract infection: Qualifiers: Hematuria presence: with hematuria Urinary tract infection type: site unspecified Qualified Code(s): N39.0 - Urinary tract infection, site not specified; R31.9 - Hematuria, unspecified Code(s): N39.0 - Urinary tract infection, site not specified Status: Acute Assessment and Plan: urine culture with E.coli on TMP/sulfa (4) Altered mental status: Code(s): R41.82 - Altered mental status, unspecified Status: Acute Assessment and Plan: conversive but a bit confused at times. Subjective Date/time seen: 02/09/21 07:49 Interval history: Paula is feeling about the same. Slept well and is in good spirits Conversive. No chest pain or shortness of breath Exam Narrative: WDWN in NAD skin no rash Or subcu nodule head ncat lungs clear to auscultation cor reg no rub or gallop abd BS+ nontender and soft ext no edema. Objective Data Vital Signs Vital Signs: Vital Signs - 24 hr 02/08/21 10:14 02/08/21 13:54 02/08/21 21:11 Temperature 36.6 C Pulse Rate 83 75 80 Respiratory Rate 18 Blood Pressure 112/63 Pulse Oximetry 97 02/08/21 22:00 02/09/21 05:45 Temperature 36.0 C L 36.2 C L Pulse Rate 69 87 Respiratory Rate 16 16 Blood Pressure 105/84 139/68 Pulse Oximetry 92 96 Intake/Output Intake/Output: Intake & Output 02/06/21 02/07/21 02/08/21 02/09/21 23:59 23:59 23:59 23:59 Intake Total 660 470 680 100 Output Total 300 Balance 360 470 680 100 Meds/Results Medications: Active Medications Generic Name Dose Route Start Last Admin Trade Name Freq PRN Reason Stop Dose Admin Acetaminophen 650 mg 02/03/21 16:33 Acetaminophen 325 Mg Tablet PO Q4H PRN Mild Pain (1-3) or Fever Amlodipine Besylate 5 mg 02/04/21 09:00 02/08/21 10:15 Amlodipine Besylate 5 Mg Tablet PO 5 mg DAILY LORI Administration Aspirin 81 mg 02/04/21 09:00 02/08/21 10:16 Aspirin 81 Mg Enteric Tablet PO 81 mg DAILY LORI Administration Famotidine 20 mg 02/03/21 21:00 02/08/21 21:11 Famotidine 20 Mg/2 Ml Vial IV PUSH 20 mg Q12HR LORI Administration Furosemide 20 mg 02/06/21 17:00 02/08/21 19:03 Furosemide 20 Mg Tablet PO 20 mg BIDWM LORI Administration Guaifenesin 200 mg 02/03/21 22:45 Guaifenesin 200 Mg/10 Ml Udc PO Q6H PRN Cough Heparin Sodium (Porcine) 5,000 units 02/05/21 21:00 02/08/21 21:11 Heparin Sodium 5,000 Units/Ml Vial SUB-Q 5,000 units Q12HR LORI Administration Levothyroxine Sodium 125 mcg 02/07/21 06:30 02/09/21 05:49 Levothyroxine Sodium 125 Mcg Tablet PO 125 mcg DAILY@0630 LORI Administration Lisinopril 40 mg 02/04/21 09:00 02/08/21 10:14 Lisinopril 20 Mg Tablet PO 40 mg DAILY LORI Administration Metoprolol Tartrate 25 mg 02/03/21 22:50 02/08/21 21:11 Metoprolol Tartrate 25 Mg Tablet PO 25 mg Q12HR LORI Administration Ondansetron HCl 4 mg 02/03/21 16:33 Ondansetron Inj 4 Mg/2 Ml Vial IV PUSH Q4H PRN Nausea Potassium Chloride 40 meq 02/07/21 08:00 02/08/21 10:24 Potassium Chlor
[2021-02-09 08:30] VITALS: BP 121/69; PULSE 77
[2021-02-09] MEDS: CHOLECALCIFEROL 1,000 UNITS TABLET 1000 UNITS PO (08:32)
[2021-02-09] MEDS: FUROSEMIDE 20 MG TABLET PO (08:32)
[2021-02-09] MEDS: amLODIPine BESYLATE 5 MG TABLET PO (08:32)
[2021-02-09] MEDS: lisinopriL 20 MG TABLET 40 MG PO (08:33)
[2021-02-09] MEDS: SODIUM CHLORIDE 1 GM TABLET 2 GM PO (08:33)
[2021-02-09] MEDS: ASPIRIN 81 MG ENTERIC TABLET PO (08:33)
[2021-02-09] MEDS: METOPROLOL TARTRATE 25 MG TABLET PO (08:33)
[2021-02-09] MEDS: POTASSIUM CHLORIDE 20 MEQ TABLET.ER 40 MEQ PO (08:33)
[2021-02-09] MEDS: HEPARIN SODIUM 5,000 UNITS/ML VIAL 5000 UNITS SUB-Q (08:34)
[2021-02-09] MEDS: FAMOTIDINE 20 MG/2 ML VIAL IV PUSH (08:34)
--- NOTE | 2021-02-09 09:53 | PM.DS ---
DS: Admitting Diagnosis Admitting Diagnosis uti hyponatremia DS: Discharge Diagnosis Discharge Diagnosis (1) Urinary tract infection: Qualifiers: Hematuria presence: with hematuria Urinary tract infection type: site unspecified Qualified Code(s): N39.0 - Urinary tract infection, site not specified; R31.9 - Hematuria, unspecified Code(s): N39.0 - Urinary tract infection, site not specified Status: Acute Assessment and Plan: Urine culture growing Escherichia Coli (ESBL) -patient was placed on ceftriaxone initially which was switched to Zosyn due to culture results. Because of her mild symptoms and improving case, Bactrim was started 02/07/21 and she was discharged on this. -pt worked with PT and OT while here and was contact guard with walker and was discharged back to [place] (2) Hyponatremia: Code(s): E87.1 - Hypo-osmolality and hyponatremia Status: Acute Assessment and Plan: 117 on admission and now 128 -pt was 123 in 12/2020 and 08/28/2019 it was 118 -discharged on sodium tabs and repeat bmp ordered for 1 week with results to go to dr. cooper -CT of the brain without acute pathology, TSH elevated with a normal T4. Levothyroxine was increased (3) Hypokalemia: Code(s): E87.6 - Hypokalemia Status: Acute Assessment and Plan: Normal today, 4.4 -monitor (4) Lower extremity edema: Code(s): R60.0 - Localized edema Status: Acute Assessment and Plan: Resolved DS: Summary Hospital Course Hospital Course: DOS 02/09/21 Patient is an 85-year-old female who presented emergency room for malaise and confusion (as told by the assisted living facility). Vitals in the ER were temperature 36.2? C, pulse 72, respiratory rate 20, blood pressure 149/80, pulse ox 93 on room air. Initial white blood cell count 11.7. UA suspicious for UTI. Chest x-ray without acute pathology. Patient was admitted to the hospital service and started on ceftriaxone. Her urine culture grew E coli ESBL and the patient was transition to Zosyn. Since she was doing well and was then transition to oral Bactrim. She did have low sodium throughout her stay. She was 117 on admission and improved to 128 at discharge. She does have a history of hyponatremia. She was started on salt tabs and was discharged on these. Nephrology was on board and recommended BMP in 1 week with results to be sent to him. Please see above for further details of this stay. Overall, the patient improved and was ready to go. She was educated about the worrisome signs and symptoms come back to emergency room for and was discharged stable condition. Status at Discharge Functional status at discharge: uses cane/walker Overall status at discharge: patient is progressing back to baseline Time Spent with Patient Time attestation: Total time spent providing and/or coordinating discharge services:36 min Time spent: Greater than 30 minutes Exam Narrative: General: Well developed well nourished patient in NAD HEENT: normocephalic Neck: supple Neuro: Alert and oriented to herself, birthday, president, location but she did not know the year or month. no focal deficits CV:RRR Resp: Decreased breath sounds bilaterally with faint crackles. No conversational dyspnea Abd: Soft, non distended. No pain to palpation. Positive bowel sounds Extremities: Trace edema to the LE. No pain or erythema DS: Data Data Completed and Pending Labs on day of discharge: Labs from last 24 hours 02/09/21 02/08/21 02/06/21 05:28 17:08 04:40 Sodium 128 L 129 L Potassium 4.4 Chloride 96 L Carbon Dioxide 25 Anion Gap 7 L BUN 12 Creatinine 0.90 Estim Creat Clear Calc 41 Estimated GFR 59 Glucose 85 Serum Osmolality Calcium 9.0 Phosphorus 3.8 Albumin 3.8 Urine Osmolality 427 02/06/21 00:36 Sodium Potassium Chloride Carbon Dioxide Anion Gap BUN
[2021-02-10 03:53] LABS: Albumin 3.4 g/dL (3.8-4.8); Alpha 1 Globulin 0.4 g/dL (0.2-0.3); Alpha 2 Globulin 0.9 g/dL (0.5-0.9); Beta 1 Globulin 0.4 g/dL (0.4-0.6); Gamma Globulin 1.6 g/dL (0.8-1.7); Protein, Total 6.9 g/dL (6.1-8.1)
[2021-02-10 05:13] LABS: Creatinine, Random Urine 84 mg/dL (20-275); Total Protein/Creatinine Ratio 762 mg/g creat (21-161)
[2021-02-11 05:27] LABS: Kappa\\Lambda Light Chains 1.88 (0.26-1.65); Lambda Light Chain 23.6 mg/L (5.7-26.3)
== END 2021-02-09 13:20 | DRG 690 ==
LOC: ANHED 15:09 → ANH2MED 02-04 14:50
PROVIDERS: Internal Medicine Nephrology; Admitting Provider Internal Medicine; Emergency Provider Emergency Medicine; PCP Family Medicine; Visit Provider Physician Assistant
DX: N39.0 Urinary tract infection, site not specified (principal); E87.1 Hypo-osmolality and hyponatremia; I50.32 Chronic diastolic (congestive) heart failure; Z16.12 Extended spectrum beta lactamase (ESBL) resistance; I11.0 Hypertensive heart disease with heart failure; R31.9 Hematuria, unspecified; B96.20 Unspecified Escherichia coli [E. coli] as the cause of diseases classified elsewhere; R41.82 Altered mental status, unspecified; E87.6 Hypokalemia; R60.0 Localized edema; E55.9 Vitamin D deficiency, unspecified; E03.9 Hypothyroidism, unspecified; Z66 Do not resuscitate; Z79.82 Long term (current) use of aspirin; Z79.899 Other long term (current) drug therapy
CPT/HCPCS: 36415; 51701; 70450; 71046; 80048; 80053; 80069; 81001; 82533; 82570; 83735; 83883; 83930; 83935; 84100; 84155; 84156; 84165; 84166; 84295; 84300; 84439; 84443; 84480; 85025; 85027; 87077; 87086; 87088; 87186; 93005; 96365; 97110; 97116; 97162; 97165; 97535; 99285; A9270; J0696; J0834; J1644; J2543; J3480; J7030; J7060; J7131

== ENCOUNTER 2022-06-07 11:51 | Inpatient (IN) | payer OTHER, SELFPAY ==
[2022-06-07] VITALS (7 sets, daily range): BP systolic 124–167; BP diastolic 60–74; PULSE 70; RESP 12–20; TEMP 36.3–36.5; O2SAT 92–99; BMI 28.3
--- NOTE | ~2022-06-07 | CT_ITS ---
EXAMINATION: CT brain wo con DATE: 06/07/2022 17:48 INDICATION: Neurologic symptoms with hyponatremia and confusion TECHNIQUE: Computed tomography (CT) of the head was performed without intravenous contrast. Sagittal and coronal reconstructions were performed. The mA was adjusted according to patient size. Iterative reconstruction technique was employed. The dose-length product was 605.33 mGy-cm. COMPARISON: head CT dated 02/07/2021 FINDINGS: Unchanged small old lacunar infarct at the left thalamus. There is moderate scattered white matter hy poattenuation consistent with chronic small vessel ischemic disease. No acute intracranial hemorrhag e, acute infarction or abnormal extra axial fluid collection. Symmetric prominence of the sulci consi stent with moderate age-appropriate diffuse cerebral volume loss. Ventricles are normal and symmetric . No mass/mass effect. Changes of right intraocular lens replacement. The orbits, paranasal sinuses a nd mastoid air cells are normal. IMPRESSION: 1. No acute intracranial process. 2. 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 3. Age-related changes including moderate diffuse on loss and moderate scattered white matter hypoatt enuation consistent with chronic small vessel ischemic disease. Reviewed, dictated and finalized at location A. ING TEACHER IMPRESSION: 1. No acute intracranial process. 2. 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 3. Age-related changes including moderate diffuse on loss and moderate scattere d white matter hypoattenuation consistent with chronic small vessel ischemic di sease.
--- NOTE | ~2022-06-07 | XR_ITS ---
Portable chest x-ray Comparison: 02/03/2021 Clinical History: Cough Findings: Lungs are clear, without focal consolidation or pleural effusion. Cardiomediastinal silho uette is stable, with pacemaker device. Bones and soft tissues are unremarkable. Impression: Clear lungs. Pacemaker device. Reviewed, dictated and finalized at location [] LITATION SPECIALIST Impression: Clear lungs. Pacemaker device.
--- NOTE | ~2022-06-07 | US_ITS ---
EXAMINATION: US venous doppler [facility] DATE: 06/07/2022 20:08 INDICATION: Lower limb pain, swelling and erythema TECHNIQUE: Grayscale ultrasound images without and with compression and Doppler ultrasound images of the bilateral lower extremity veins were obtained. COMPARISON: None. FINDINGS: The visualized portions of right common femoral vein, profunda (deep) femoral vein, femoral vein, pop liteal vein, posterior tibial veins, peroneal veins, gastrocnemius vein and greater saphenous vein ou tflow are patent. Subcutaneous edema at the right calf. The visualized portions of left common femoral vein, profunda femoral vein, femoral vein, popliteal v ein, posterior tibial veins, peroneal veins, gastrocnemius vein and greater saphenous vein outflow ar e patent. IMPRESSION: 1. No deep venous thrombosis in either lower limb. Reviewed, dictated and finalized at location A. OM SCRUBBER
--- NOTE | 2022-06-07 12:06 | ECG_ITS ---
Measurements Intervals [place] Rate: 69 P: 236 MT: 262 QRS: 123 QRSD: 182 T: 67 QT: 483 QTc: 521 Interpretive Statements ELECTRONIC ATRIAL PACEMAKER ELECTRONIC VENTRICULAR PACEMAKER ABNORMAL RHYTHM ECG COMPARED TO ECG 02/03/2021 14:28:32 PACED RHYTHM NOW PRESENT Electronically Signed On 06-07-2022 16:08:06 MACHINE HOOP MAKER HELPER by Ronda Jane M.D.
[2022-06-07 12:32] LABS: Basophils Percent Auto 0.6 % (0.2-1.2); Eosinophils Absolute Auto 0.1 K/mm3 (0-0.3); Eosinophils Percent Auto 1.9 % (0-4.4); Hemoglobin 9.9 g/dL (12.0-15.0); Immature Granulocyte Absolute 0.03 K/mm3 (0.00-0.031); Immature Granulocyte Percent A 0.6 % (0-0.5); Lymphocytes Absolute Auto 0.92 K/mm3 (0.9-3.2); Lymphocytes Percent Auto 17.7 % (18.3-44.2); Mean Corpuscular Hemoglobin 30.2 pg (26-34); Mean Corpuscular Volume 91.5 fl (80-100); Mean Platelet Volume 9.1 fl (7.4-10.4); Monocytes Absolute Auto 0.7 K/mm3 (0.1-0.6); Monocytes Percent Auto 13.2 % (2.6-8.5); Neutrophils Absolute Auto 3.4 K/mm3 (1.3-6.7); Platelet Count Result 270 k/mm3 (150-375); Red Blood Count 3.28 M/mm3 (4.2-5.4); Red Cell Distribution Width 16.2 % (11.5-14.5); White Blood Count 5.2 K/mm3 (4.5-10.0)
[2022-06-07 12:41] LABS: Add Urine Microscopic? NO; Appearance Urine Clear (Clear); Bilirubin Urine Negative (Negative); Blood Urine Negative (Negative); Color Urine Light Yellow (Yellow); Glucose Urine UA Negative (Negative); Ketones Urine Negative (Negative); Leukocyte Esterase Ur Negative LEU/UL (Negative); Nitrate Urine Negative (Negative); Protein Urine Negative (Negative); Urobilinogen Urine 0.2 mg/dL (<2.0); pH Urine 5.5 (5.0-9.0)
[2022-06-07 12:42] LABS: Alanine Aminotransferase 64 U/L (6-35); Albumin Level 3.4 g/dL (3.5-5.1); Alkaline Phosphatase 184 U/L (38-126); Anion Gap 5 mmol/L (8-16); Aspartate Amino Transferase 89 U/L (14-36); Bilirubin,Total 0.6 mg/dL (0.2-1.3); Blood Urea Nitrogen 14 mg/dL (7-17); Carbon Dioxide 27 mmol/L (22-30); Chloride 93 mmol/L (98-107); Estimated CRCL calculation 31 ml/min; Estimated Glomerular Filt Rate 42; Glucose 105 mg/dL (65-110); Potassium 3.9 mmol/L (3.4-5.0); Sodium 125 mmol/L (137-145)
[2022-06-07 12:43] LABS: INR 3.9; Prothrombin Time 37.2 Seconds (11.1-14.7)
[2022-06-07 12:44] LABS: Partial Thromboplastin Time 47.1 SECONDS (22.3-36.8)
--- NOTE | 2022-06-07 13:05 | ED.GENADULT ---
HPI - General Adult General Chief complaint: Psychiatric Symptoms Stated complaint: psych eval Time Seen by Provider: 06/07/22 12:15 Source: patient Mode of arrival: EMS Limitations: no limitations History of Present Illness HPI narrative: 86-year-old with a history of hypertension, atrial fibrillation, aortic stenosis recurrent UTI, hyponatremia was sent from [facility] with complaints of having auditory and visual hallucination since last night. Patient states that she was diagnosed with cellulitis of her right leg and UTI and was started on Bactrim which she thinks is making her to have these hallucinations. Patient presently denies any chest pain, shortness of breath has occasional cough. She denies any fever or chills. No history of nausea or vomiting. She states that her right leg is bothering her. Onset (ago): week(s) (1) Location: lower extremity (Right leg) Severity: moderate Quality: aching Pain Consistency: constant Relieving factors: none Exacerbating factors: none Associated symptoms: confusion Related Data Home Medications Medication Instructions Recorded Confirmed acetaminophen 325 mg tablet 650 mg PO Q4H PRN Pain 02/03/21 02/03/21 amlodipine 10 mg tablet 5 mg PO DAILY 02/03/21 02/03/21 aspirin 81 mg tablet,delayed 81 mg PO DAILY 02/03/21 02/03/21 release cholecalciferol (vitamin D3) 25 1,000 unit PO BID 02/03/21 02/03/21 mcg (1,000 unit) tablet (Vitamin D3) furosemide 40 mg tablet 20 mg PO DAILY 02/03/21 02/03/21 guaifenesin 100 mg/5 mL oral syrup 200 mg PO Q6H PRN Cough 02/03/21 02/03/21 lisinopril 40 mg tablet 40 mg PO DAILY 02/03/21 02/03/21 metoprolol tartrate 25 mg tablet 25 mg PO BID 02/03/21 02/03/21 Allergies Allergy/AdvReac Type Severity Reaction Status Date / Time No Known Allergies Allergy Verified 02/03/21 19:50 Review of Systems Review of Systems: All systems reviewed & are unremarkable except as noted in HPI and below Constitutional: Constitutional: Reports no additional constitutional complaints Eyes: Eyes: Reports no additional eye complaints ENT: Reports system reviewed and no additional complaints, except as documented Cardiovascular: Cardiovascular: Reports no additional cardiovascular complaints Respiratory: Respiratory: Reports no additional respiratory complaints Gastrointestinal: Gastrointestinal: Reports as per HPI Genitourinary: Genitourinary: Reports as per HPI Musculoskeletal: Musculoskeletal: Reports as per HPI Integumentary/Breasts: Skin/Breast: Reports as per HPI Neurologic: Reports system reviewed and no additional complaints, except as documented PMFSH Past Medical History Medical History Aortic aneurysm Artificial pacemaker Atrial fibrillation Diastolic heart failure secondary to hypertension Diverticulitis Essential hypertension Hypothyroidism Urinary incontinence Vitamin D deficiency Surgical History Surgical History H/O cataract extraction History of hysterectomy Family History Family History (Reviewed 06/07/22 @ 15: by See Rees MD) Other Cerebrovascular accident Essential hypertension Social History Social History (Reviewed 06/07/22 @ 15: by See Rees MD) Social History: 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 HEAD: Normocephalic, atraumatic. EYES: PERRLA and EOMI.. NECK: Supple. CHEST: Clear to auscultation. No respiratory distress. HEART: Regular rate and rhythm. No murmur heard. Normal peripheral pulses. ABDOMEN: Soft, nontender
[2022-06-07 13:33] LABS: Influenza A QL RT-PCR Negative (Negative); Influenza B QL RT-PCR Negative (Negative); SARS-CoV-2 RNA PCR Negative
[2022-06-07 13:35] LABS: NT Pro B Type Natriuretic Pept 1170 pg/mL (5-100)
[2022-06-07 13:59] LABS: Lactic Acid Reflex 1.2 mmol/L (0.7-2.0)
--- NOTE | 2022-06-07 14:52 | PM.IMHP ---
H&P: HPI History of Present Illness Date/Time: 06/07/22 14:52 Chief Complaint: Hallucinations Narrative: This is a 86-year-old female patient who has a history of hypertension, atrial fibrillation, aortic stenosis, recurrent UTIs and hyponatremia. The patient comes from [facility] with auditory and visual hallucinations since last night. She recently was diagnosed with a right leg cellulitis and UTI and was placed on Bactrim. She has significant redness to her right lower extremity that is comes up to her right knee. The patient denies any fever chills. Her white count is normal. H&H is 9.9 and 30.0. Her sodium is 125 which appears to be her baseline. Creatinine is 1.2 which is normally within normal limits. AST is 89 ALT 64 alkaline phosphatase 184 BNP 1170. Patient is negative for influenza A/B and COVID. Chest x-ray was read as clear lungs. No head CT was performed today. Her urinalysis was clear. The patient was started on cefepime and vancomycin. The patient had previously been on Bactrim and she stated she could not tolerate the Bactrim. She said the Bactrim made her sick. The patient is being admitted to inpatient status on the date of service of 06/07/2022. Review of Systems Review of Systems: See HPI All systems reviewed & are unremarkable except as noted in HPI and below Constitutional: Constitutional: Reports as per HPI and Reports no additional constitutional complaints Eyes: Eyes: Reports as per HPI and Reports no additional eye complaints ENT: Reports system reviewed and no additional complaints, except as documented and Reports Normal hearing present Cardiovascular: Cardiovascular: Reports no additional cardiovascular complaints Respiratory: Respiratory: Reports no additional respiratory complaints and Reports no additional respiratory complaints Gastrointestinal: Gastrointestinal: Reports as per HPI and Reports no additional gastrointestinal complaints Musculoskeletal: Musculoskeletal: Reports no additional musculoskeletal complaints Integumentary/Breasts: Skin/Breast: Reports system reviewed and no additional complaints, except as docu and Reports as per HPI Neurologic: Reports system reviewed and no additional complaints, except as documented, Reports as per HPI and Reports Normal hearing present Psychiatric: Psychiatric: Reports no additional psychiatric complaints and Reports as per HPI Endocrine: Endocrine: Reports no additional endocrine complaints Hematologic/Lymphatic: Hematologic/Lymphatic: Reports no additional hematologic/lymphatic complaints Allergic/Immunologic: Allergic/Immunologic: Reports no additional allergic/immunologic complaints [facility] Past Medical History Medical History (Updated 12/15/22 @ 18:06 by Sylvia Albarran NP) Aortic aneurysm Artificial pacemaker Atrial fibrillation Diastolic 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. 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 She is single and has not had any children. She is a lifelong nonsmoker. She does not use any alcohol, marijuana or illicit drugs. Code status: DNR/DNI Healthcare power of metal handler: Ana Maria Caballero Smoking status: Never smoker Alcohol intake: unknown Substance use: unknown Substance use type: unknown Spiritual care concerns: No Meds Home Medications and Allergies Home Medications Medication Instructions Recorded Confirmed Type acetaminoph
--- NOTE | 2022-06-07 18:05 | PC.NURSE ---
This patient, Paula Gonzalez, was admitted to [facility] Surg Room 324-01. Patient/family oriented to hospital policies and general routines including ID bracelet, bed and alarms, visiting hours, pain management, procedures, bathroom and other care routines, personal items, smoking policy, room service/diet, and visiting hours. Information on how to activate the Rapid Response Team has been discussed. Patient/Family are encouraged to report perceived risks to care and to ask questions if they do not understand what they are told or what they should do.
[2022-06-07] MEDS: carvediloL 6.25 MG TABLET PO (23:49)
[2022-06-08] MEDS: LEVOTHYROXINE SODIUM 75 MCG TABLET PO (05:36)
[2022-06-08] MEDS: LEVOTHYROXINE SODIUM 100 MCG TABLET PO (05:36)
[2022-06-08 06:36] VITALS: BP 136/60; PULSE 70; RESP 20; TEMP 36.8; O2SAT 96
[2022-06-08 08:00] VITALS: PULSE 70; RESP 20; O2SAT 96
[2022-06-08 09:11] LABS: Basophils Absolute Auto 0.1 K/mm3 (0.0-0.1); Eosinophils Absolute Auto 0.2 K/mm3 (0-0.3); Eosinophils Percent Auto 3.1 % (0-4.4); Hematocrit 27.2 % (37.0-47.0); Hemoglobin 9.1 g/dL (12.0-15.0); Immature Granulocyte Absolute 0.02 K/mm3 (0.00-0.031); Immature Granulocyte Percent A 0.4 % (0-0.5); Lymphocytes Percent Auto 24.9 % (18.3-44.2); Mean Corpuscular HGB Conc 33.5 g/dl (32-36); Mean Corpuscular Hemoglobin 30.5 pg (26-34); Mean Corpuscular Volume 91.3 fl (80-100); Mean Platelet Volume 8.4 fl (7.4-10.4); Monocytes Absolute Auto 0.7 K/mm3 (0.1-0.6); Monocytes Percent Auto 13.4 % (2.6-8.5); Neutrophils Percent Auto 57.2 % (45.5-73.1); Platelet Count Result 246 k/mm3 (150-375); Red Blood Count 2.98 M/mm3 (4.2-5.4); Red Cell Distribution Width 16.1 % (11.5-14.5); White Blood Count 5.2 K/mm3 (4.5-10.0)
[2022-06-08 09:22] LABS: Lactic Acid Reflex 0.8 mmol/L (0.7-2.0)
[2022-06-08 09:23] LABS: Anion Gap 3 mmol/L (8-16); Blood Urea Nitrogen 12 mg/dL (7-17); Calcium 7.6 mg/dL (8.4-10.2); Carbon Dioxide 29 mmol/L (22-30); Chloride 94 mmol/L (98-107); Estimated CRCL calculation 40 ml/min; Estimated Glomerular Filt Rate 59; Glucose 91 mg/dL (65-110); Magnesium 1.9 mg/dL (1.6-2.3); Potassium 4.2 mmol/L (3.4-5.0); Sodium 126 mmol/L (137-145)
[2022-06-08] MEDS: OLMESARTAN MEDOXOMIL 20 MG TABLET 40 MG PO (09:42)
[2022-06-08] MEDS: carvediloL 6.25 MG TABLET PO ×2 (09:43→20:31)
[2022-06-08] MEDS: SENNA/DOCUSATE SODIUM TABLET 1 TAB PO (09:43)
[2022-06-08] MEDS: CHOLECALCIFEROL 1,000 UNITS TABLET 1000 UNITS PO ×2 (09:43→17:59)
[2022-06-08] MEDS: POTASSIUM CHLORIDE 10 MEQ TABLET.ER 20 MEQ PO (09:43)
[2022-06-08] MEDS: SODIUM CHLORIDE 1 GM TABLET PO ×2 (09:44→17:59)
[2022-06-08] MEDS: FUROSEMIDE 40 MG TABLET PO (09:44)
[2022-06-08] MEDS: MAGNESIUM OXIDE 400 MG TABLET PO ×2 (09:44→17:59)
[2022-06-08 13:55] LABS: Free T4 Free Thyroxine Reflex 1.69 ng/dL (0.78-2.19)
[2022-06-08 14:00] VITALS: BP 133/63; PULSE 70; RESP 20; TEMP 36.2; O2SAT 96
--- NOTE | 2022-06-08 14:56 | PM.IMPN ---
Progress Note: A&P Assessment and Plan (1) Cellulitis of leg, right: Code(s): L03.115 - Cellulitis of right lower limb Status: Acute Assessment and Plan: -the patient had been on outpatient Bactrim which she cannot tolerate -the patient has extensive redness from her toes to just below her right knee. -the patient was started on cefazolin and vancomycin as per antibiotic stewardship. -the patient does not appear to be septic. -no leukocytosis is noted. -blood pressure is 141/70. Heart rate is in the 70s. The patient is afebrile. -tailor antibiotics according to cultures (2) Hallucination: Code(s): R44.3 - Hallucinations, unspecified Status: Acute Assessment and Plan: -unknown etiology. Possible adverse reaction to antibiotics? Possibly related to infectious process. (3) Atrial fibrillation: Qualifiers: Atrial fibrillation type: unspecified Qualified Code(s): I48.91 - Unspecified atrial fibrillation Code(s): I48.91 - Unspecified atrial fibrillation Status: Acute Assessment and Plan: The patient is paced on the monitor. -patient is on metoprolol continue with that. The patient is not on any anticoagulation. (4) Hyponatremia: Code(s): E87.1 - Hypo-osmolality and hyponatremia Status: Acute Assessment and Plan: -patient's creatinine is 125 however she is chronically low. Her low sodiums go back 1 year It is not clear if the patient is on any diuretics or have any chronic diarrhea. -however on an old med reconciliation she was on Lasix (5) Hypothyroidism: Code(s): E03.9 - Hypothyroidism, unspecified Status: Acute Assessment and Plan: -check thyroid level continue with levothyroxine. (6) Essential hypertension: Code(s): I10 - Essential (primary) hypertension Status: Acute Assessment and Plan: -continue metoprolol -continue amlodipine -continue lisinopril Plan Medication reconciliation is have not been completed at this time. Subjective Date/time seen: 06/08/22 14:56 Patient was seen during the morning rounds today. Patient right leg is slightly less swollen. No shortness of breath or chest pain. No pain, nausea, no vomiting. Mood stable. Review of Systems Review of Systems: All systems reviewed & are unremarkable except as noted in HPI and below Constitutional: Constitutional: Reports as per HPI and Reports no additional constitutional complaints Eyes: Eyes: Reports as per HPI and Reports no additional eye complaints ENT: Reports system reviewed and no additional complaints, except as documented and Reports Normal hearing present Cardiovascular: Cardiovascular: Reports no additional cardiovascular complaints Respiratory: Respiratory: Reports no additional respiratory complaints and Reports no additional respiratory complaints Gastrointestinal: Gastrointestinal: Reports as per HPI and Reports no additional gastrointestinal complaints Musculoskeletal: Musculoskeletal: Reports no additional musculoskeletal complaints Integumentary/Breasts: Skin/Breast: Reports system reviewed and no additional complaints, except as docu and Reports as per HPI Neurologic: Reports system reviewed and no additional complaints, except as documented, Reports as per HPI and Reports Normal hearing present Psychiatric: Psychiatric: Reports no additional psychiatric complaints and Reports as per HPI Endocrine: Endocrine: Reports no additional endocrine complaints Hematologic/Lymphatic: Hematologic/Lymphatic: Reports no additional hematologic/lymphatic complaints Allergic/Immunologic: Allergic/Immunologic: Reports no additional allergic/immunologic complaints Exam Const: General: cooperative, comfortable, no acute distress, well developed, alert, awake, Physically active, average body habitus, well nourished and overweight Nutritional Appearance: average body habitus, well nourished and overweight Iván
[2022-06-08 14:59] LABS: Total Triiodothyronine (T3) 0.75 NG/ML (0.97-1.69)
[2022-06-08] MEDS: RIVAROXABAN 20 MG TABLET PO (17:59)
[2022-06-08 20:00] VITALS: PULSE 70; RESP 20; O2SAT 96
[2022-06-08 22:00] VITALS: BP 114/56; PULSE 69; RESP 18; TEMP 36.9; O2SAT 95
[2022-06-09 06:00] VITALS: BP 139/57; PULSE 70; RESP 18; TEMP 36.6; O2SAT 95
[2022-06-09] MEDS: LEVOTHYROXINE SODIUM 75 MCG TABLET PO (06:02)
[2022-06-09] MEDS: LEVOTHYROXINE SODIUM 150 MCG TABLET PO (06:02)
[2022-06-09 07:00] LABS: INR 2.9; Prothrombin Time 29.3 Seconds (11.1-14.7)
[2022-06-09 07:03] LABS: Alanine Aminotransferase 56 U/L (6-35); Albumin Level 2.9 g/dL (3.5-5.1); Alkaline Phosphatase 163 U/L (38-126); Anion Gap 2 mmol/L (8-16); Aspartate Amino Transferase 92 U/L (14-36); Bilirubin,Total 0.7 mg/dL (0.2-1.3); Blood Urea Nitrogen 12 mg/dL (7-17); Calcium 7.8 mg/dL (8.4-10.2); Carbon Dioxide 32 mmol/L (22-30); Chloride 89 mmol/L (98-107); Estimated CRCL calculation 40 ml/min; Estimated Glomerular Filt Rate 59; Glucose 90 mg/dL (65-110); Potassium 3.9 mmol/L (3.4-5.0); Sodium 123 mmol/L (137-145)
[2022-06-09 08:00] VITALS: O2SAT 95
[2022-06-09] MEDS: SODIUM CHLORIDE 1 GM TABLET PO ×2 (08:43→16:11)
[2022-06-09] MEDS: OLMESARTAN MEDOXOMIL 20 MG TABLET 40 MG PO (08:43)
[2022-06-09] MEDS: POTASSIUM CHLORIDE 10 MEQ TABLET.ER 20 MEQ PO (08:43)
[2022-06-09 08:44] VITALS: PULSE 86
[2022-06-09] MEDS: carvediloL 6.25 MG TABLET PO ×2 (08:44→20:48)
[2022-06-09] MEDS: FUROSEMIDE 40 MG TABLET PO (08:44)
[2022-06-09] MEDS: MAGNESIUM OXIDE 400 MG TABLET PO ×2 (08:44→16:11)
[2022-06-09] MEDS: CHOLECALCIFEROL 1,000 UNITS TABLET 1000 UNITS PO ×2 (08:44→16:10)
--- NOTE | 2022-06-09 10:42 | PM.IMPN ---
Progress Note: A&P Assessment and Plan (1) Cellulitis of leg, right: Code(s): L03.115 - Cellulitis of right lower limb Status: Acute Assessment and Plan: -the patient had been on outpatient Bactrim which she cannot tolerate -the patient has extensive redness from her toes to just below her right knee. -the patient was started on cefazolin and vancomycin as per antibiotic stewardship. -the patient does not appear to be septic. -no leukocytosis is noted. -blood pressure is 141/70. Heart rate is in the 70s. The patient is afebrile. -tailor antibiotics according to cultures (2) Hallucination: Code(s): R44.3 - Hallucinations, unspecified Status: Acute Assessment and Plan: -unknown etiology. Possible adverse reaction to antibiotics? Possibly related to infectious process. (3) Atrial fibrillation: Qualifiers: Atrial fibrillation type: unspecified Qualified Code(s): I48.91 - Unspecified atrial fibrillation Code(s): I48.91 - Unspecified atrial fibrillation Status: Acute Assessment and Plan: The patient is paced on the monitor. -patient is on metoprolol continue with that. The patient is not on any anticoagulation. (4) Hyponatremia: Code(s): E87.1 - Hypo-osmolality and hyponatremia Status: Acute Assessment and Plan: -patient's creatinine is 125 however she is chronically low. Her low sodiums go back 1 year It is not clear if the patient is on any diuretics or have any chronic diarrhea. -however on an old med reconciliation she was on Lasix (5) Hypothyroidism: Code(s): E03.9 - Hypothyroidism, unspecified Status: Acute Assessment and Plan: -check thyroid level continue with levothyroxine. (6) Essential hypertension: Code(s): I10 - Essential (primary) hypertension Status: Acute Assessment and Plan: -continue metoprolol -continue amlodipine -continue lisinopril Plan Medication reconciliation is have not been completed at this time. Subjective Date/time seen: 06/09/22 10:42 Patient was seen during the morning rounds today. Patient is feeling slightly better. Slight decrease in swelling and redness of leg. No shortness of breath or chest pain. Mood stable. Review of Systems Review of Systems: All systems reviewed & are unremarkable except as noted in HPI and below Constitutional: Constitutional: Reports as per HPI and Reports no additional constitutional complaints Eyes: Eyes: Reports as per HPI and Reports no additional eye complaints ENT: Reports system reviewed and no additional complaints, except as documented and Reports Normal hearing present Cardiovascular: Cardiovascular: Reports no additional cardiovascular complaints Respiratory: Respiratory: Reports no additional respiratory complaints and Reports no additional respiratory complaints Gastrointestinal: Gastrointestinal: Reports as per HPI and Reports no additional gastrointestinal complaints Musculoskeletal: Musculoskeletal: Reports no additional musculoskeletal complaints Integumentary/Breasts: Skin/Breast: Reports system reviewed and no additional complaints, except as docu and Reports as per HPI Neurologic: Reports system reviewed and no additional complaints, except as documented, Reports as per HPI and Reports Normal hearing present Psychiatric: Psychiatric: Reports no additional psychiatric complaints and Reports as per HPI Endocrine: Endocrine: Reports no additional endocrine complaints Hematologic/Lymphatic: Hematologic/Lymphatic: Reports no additional hematologic/lymphatic complaints Allergic/Immunologic: Allergic/Immunologic: Reports no additional allergic/immunologic complaints Exam Const: General: cooperative, comfortable, no acute distress, well developed, alert, awake, Physically active, average body habitus, well nourished and overweight Nutritional Appearance: average body habitus, well nourished and overweigh
[2022-06-09 14:00] VITALS: BP 128/71; PULSE 70; RESP 20; TEMP 36.5; O2SAT 96
[2022-06-09] MEDS: RIVAROXABAN 20 MG TABLET PO (16:10)
[2022-06-09 20:31] VITALS: BP 145/54; PULSE 70; RESP 17; TEMP 36.9; O2SAT 97
[2022-06-09 20:48] VITALS: PULSE 70
--- NOTE | 2022-06-09 22:18 | PC.NURSE ---
Pt is forgetful at times. Pt has been in bed, getting up to the commode x1 when needing to use the restroom. Pt partially participated and contributed in plan of care. Pt denies any pain and expresses no needs at this time. Will continue to monitor pt.
[2022-06-10 04:19] VITALS: BP 107/53; PULSE 58; RESP 20; TEMP 36.6; O2SAT 92
[2022-06-10] MEDS: LEVOTHYROXINE SODIUM 150 MCG TABLET PO (05:50)
[2022-06-10] MEDS: LEVOTHYROXINE SODIUM 75 MCG TABLET PO (05:50)
[2022-06-10] MEDS: POTASSIUM CHLORIDE 10 MEQ TABLET.ER 20 MEQ PO (08:41)
[2022-06-10] MEDS: OLMESARTAN MEDOXOMIL 20 MG TABLET 40 MG PO (08:41)
[2022-06-10] MEDS: MAGNESIUM OXIDE 400 MG TABLET PO ×2 (08:41→17:01)
[2022-06-10 08:42] VITALS: PULSE 62
[2022-06-10] MEDS: carvediloL 6.25 MG TABLET PO ×2 (08:42→20:26)
[2022-06-10] MEDS: FUROSEMIDE 40 MG TABLET PO (08:42)
[2022-06-10] MEDS: CHOLECALCIFEROL 1,000 UNITS TABLET 1000 UNITS PO ×2 (08:42→17:01)
[2022-06-10] MEDS: SODIUM CHLORIDE 1 GM TABLET PO ×2 (08:42→17:01)
[2022-06-10 09:00] VITALS: O2SAT 97
--- NOTE | 2022-06-10 11:27 | PM.IMPN ---
Progress Note: A&P Assessment and Plan (1) Cellulitis of leg, right: Code(s): L03.115 - Cellulitis of right lower limb Status: Acute Assessment and Plan: -the patient had been on outpatient Bactrim which she cannot tolerate -the patient has extensive redness from her toes to just below her right knee. -the patient was started on cefazolin and vancomycin as per antibiotic stewardship. -the patient does not appear to be septic. -no leukocytosis is noted. -blood pressure is 141/70. Heart rate is in the 70s. The patient is afebrile. -tailor antibiotics according to cultures (2) Hallucination: Code(s): R44.3 - Hallucinations, unspecified Status: Acute Assessment and Plan: -unknown etiology. Possible adverse reaction to antibiotics? Possibly related to infectious process. (3) Atrial fibrillation: Qualifiers: Atrial fibrillation type: unspecified Qualified Code(s): I48.91 - Unspecified atrial fibrillation Code(s): I48.91 - Unspecified atrial fibrillation Status: Acute Assessment and Plan: The patient is paced on the monitor. -patient is on metoprolol continue with that. The patient is not on any anticoagulation. (4) Hyponatremia: Code(s): E87.1 - Hypo-osmolality and hyponatremia Status: Acute Assessment and Plan: -patient's creatinine is 125 however she is chronically low. Her low sodiums go back 1 year It is not clear if the patient is on any diuretics or have any chronic diarrhea. -however on an old med reconciliation she was on Lasix (5) Hypothyroidism: Code(s): E03.9 - Hypothyroidism, unspecified Status: Acute Assessment and Plan: -check thyroid level continue with levothyroxine. (6) Essential hypertension: Code(s): I10 - Essential (primary) hypertension Status: Acute Assessment and Plan: -continue metoprolol -continue amlodipine -continue lisinopril Plan Medication reconciliation is have not been completed at this time. Subjective Date/time seen: 06/10/22 11:27 Patient was seen during the morning rounds today. Patient right leg is less swollen. No shortness for chest pain. No abdominal pain, nausea, no vomiting. Mood stable. Review of Systems Review of Systems: All systems reviewed & are unremarkable except as noted in HPI and below Constitutional: Constitutional: Reports as per HPI and Reports no additional constitutional complaints Eyes: Eyes: Reports as per HPI and Reports no additional eye complaints ENT: Reports system reviewed and no additional complaints, except as documented and Reports Normal hearing present Cardiovascular: Cardiovascular: Reports no additional cardiovascular complaints Respiratory: Respiratory: Reports no additional respiratory complaints and Reports no additional respiratory complaints Gastrointestinal: Gastrointestinal: Reports as per HPI and Reports no additional gastrointestinal complaints Musculoskeletal: Musculoskeletal: Reports no additional musculoskeletal complaints Integumentary/Breasts: Skin/Breast: Reports system reviewed and no additional complaints, except as docu and Reports as per HPI Neurologic: Reports system reviewed and no additional complaints, except as documented, Reports as per HPI and Reports Normal hearing present Psychiatric: Psychiatric: Reports no additional psychiatric complaints and Reports as per HPI Endocrine: Endocrine: Reports no additional endocrine complaints Hematologic/Lymphatic: Hematologic/Lymphatic: Reports no additional hematologic/lymphatic complaints Allergic/Immunologic: Allergic/Immunologic: Reports no additional allergic/immunologic complaints Exam Const: General: cooperative, comfortable, no acute distress, well developed, alert, awake, Physically active, average body habitus, well nourished and overweight Nutritional Appearance: average body habitus, well nourished and overweight Orientation
[2022-06-10 14:00] VITALS: BP 117/58; PULSE 67; RESP 16; TEMP 36.2; O2SAT 97
[2022-06-10 16:54] LABS: Vancomycin Trough 11.6 ug/mL (10.0-20.0)
[2022-06-10] MEDS: RIVAROXABAN 20 MG TABLET PO (17:02)
[2022-06-10 20:26] VITALS: PULSE 76; O2SAT 97
[2022-06-10 22:00] VITALS: BP 129/62; PULSE 70; RESP 2; TEMP 36.6; O2SAT 97
[2022-06-11] VITALS (8 sets, daily range): BP systolic 107–125; BP diastolic 58–67; PULSE 69–82; RESP 17–18; TEMP 36.2–36.6; O2SAT 86–99
[2022-06-11] MEDS: LEVOTHYROXINE SODIUM 150 MCG TABLET PO (05:55)
[2022-06-11] MEDS: LEVOTHYROXINE SODIUM 75 MCG TABLET PO (05:55)
[2022-06-11 06:47] LABS: Hematocrit 27.1 % (37.0-47.0); Hemoglobin 8.8 g/dL (12.0-15.0); Mean Corpuscular HGB Conc 32.5 g/dl (32-36); Mean Corpuscular Volume 89.4 fl (80-100); Mean Platelet Volume 8.3 fl (7.4-10.4); Platelet Count Result 258 k/mm3 (150-375); Red Blood Count 3.03 M/mm3 (4.2-5.4); Red Cell Distribution Width 16.1 % (11.5-14.5); White Blood Count 4.4 K/mm3 (4.5-10.0)
[2022-06-11 06:56] LABS: Alanine Aminotransferase 53 U/L (6-35); Albumin Level 2.8 g/dL (3.5-5.1); Alkaline Phosphatase 165 U/L (38-126); Anion Gap 1 mmol/L (8-16); Aspartate Amino Transferase 113 U/L (14-36); Bilirubin,Total 0.6 mg/dL (0.2-1.3); Blood Urea Nitrogen 11 mg/dL (7-17); Calcium 7.6 mg/dL (8.4-10.2); Carbon Dioxide 37 mmol/L (22-30); Chloride 92 mmol/L (98-107); Estimated CRCL calculation 39 ml/min; Estimated Glomerular Filt Rate 59; Glucose 88 mg/dL (65-110); Sodium 130 mmol/L (137-145)
[2022-06-11] MEDS: POTASSIUM CHLORIDE 10 MEQ TABLET.ER 20 MEQ PO (09:19)
[2022-06-11] MEDS: carvediloL 6.25 MG TABLET PO ×2 (09:19→21:07)
[2022-06-11] MEDS: CHOLECALCIFEROL 1,000 UNITS TABLET 1000 UNITS PO ×2 (09:20→17:19)
[2022-06-11] MEDS: MAGNESIUM OXIDE 400 MG TABLET PO ×2 (09:20→17:19)
[2022-06-11] MEDS: SODIUM CHLORIDE 1 GM TABLET PO ×2 (09:20→17:19)
[2022-06-11] MEDS: OLMESARTAN MEDOXOMIL 20 MG TABLET 40 MG PO (09:20)
[2022-06-11] MEDS: FUROSEMIDE 40 MG TABLET PO (09:20)
--- NOTE | 2022-06-11 15:20 | PM.IMPN ---
Progress Note: A&P Assessment and Plan (1) Cellulitis of leg, right: Code(s): L03.115 - Cellulitis of right lower limb Status: Acute Assessment and Plan: -the patient had been on outpatient Bactrim which she cannot tolerate continue Abx, symptoms improving possible discharge tomorrow (2) Hallucination: Code(s): R44.3 - Hallucinations, unspecified Status: Acute Assessment and Plan: -unknown etiology. Possible adverse reaction to antibiotics? Possibly related to infectious process. (3) Atrial fibrillation: Qualifiers: Atrial fibrillation type: unspecified Qualified Code(s): I48.91 - Unspecified atrial fibrillation Code(s): I48.91 - Unspecified atrial fibrillation Status: Acute Assessment and Plan: The patient is paced on the monitor. -Patient is on metoprolol continue with that. -Patient noted she has recurrent epistaxis at least every 10 days -Patient declined to start anticoagulation therefore -Recommended watchman device evaluation outpatient. (4) Hyponatremia: Code(s): E87.1 - Hypo-osmolality and hyponatremia Status: Acute Assessment and Plan: Na 130 today Low sodium noted about 1 year ago, ?Chronic hyponatremia Clarify chronic diarrhea vs lasix use -however on an old med reconciliation she was on Lasix (5) Hypothyroidism: Code(s): E03.9 - Hypothyroidism, unspecified Status: Acute Assessment and Plan: -check thyroid level continue with levothyroxine. (6) Essential hypertension: Code(s): I10 - Essential (primary) hypertension Status: Acute Assessment and Plan: -continue metoprolol -continue amlodipine -continue lisinopril Plan Medication reconciliation is have not been completed at this time. Subjective Date/time seen: 06/11/22 15:20 Interval history: Seen and examined at bedside this morning, noted improving pain right leg, denies any chest pain or SOB or bad pain. Review of Systems Review of Systems: All systems reviewed & are unremarkable except as noted in HPI and below Constitutional: Constitutional: Reports as per HPI and Reports no additional constitutional complaints Eyes: Eyes: Reports as per HPI and Reports no additional eye complaints ENT: Reports system reviewed and no additional complaints, except as documented and Reports Normal hearing present Cardiovascular: Cardiovascular: Reports no additional cardiovascular complaints Respiratory: Respiratory: Reports no additional respiratory complaints and Reports no additional respiratory complaints Gastrointestinal: Gastrointestinal: Reports as per HPI and Reports no additional gastrointestinal complaints Musculoskeletal: Musculoskeletal: Reports no additional musculoskeletal complaints Integumentary/Breasts: Skin/Breast: Reports system reviewed and no additional complaints, except as docu and Reports as per HPI Comments: right leg erythema and differential warmth Neurologic: Reports system reviewed and no additional complaints, except as documented, Reports as per HPI and Reports Normal hearing present Psychiatric: Psychiatric: Reports no additional psychiatric complaints and Reports as per HPI Endocrine: Endocrine: Reports no additional endocrine complaints Hematologic/Lymphatic: Hematologic/Lymphatic: Reports no additional hematologic/lymphatic complaints Allergic/Immunologic: Allergic/Immunologic: Reports no additional allergic/immunologic complaints Exam Const: General: cooperative, comfortable, no acute distress, well developed, alert, awake, Physically active, average body habitus, well nourished and overweight Nutritional Appearance: average body habitus, well nourished and overweight Orientation/consciousness: oriented to person, oriented to place, oriented to time and patient oriented x3 Limitations: no limitations HENMT: Head: normal to inspection, No palpable skull fracture present, normoc
[2022-06-11] MEDS: RIVAROXABAN 20 MG TABLET PO (17:19)
[2022-06-12] VITALS (7 sets, daily range): BP systolic 91–136; BP diastolic 43–67; PULSE 68–70; RESP 18–20; TEMP 36.2–36.7; O2SAT 95–98
[2022-06-12] MEDS: LEVOTHYROXINE SODIUM 75 MCG TABLET PO (05:43)
[2022-06-12] MEDS: LEVOTHYROXINE SODIUM 150 MCG TABLET PO (05:44)
[2022-06-12] MEDS: carvediloL 6.25 MG TABLET PO ×2 (08:55→20:44)
[2022-06-12] MEDS: OLMESARTAN MEDOXOMIL 20 MG TABLET 40 MG PO (08:55)
[2022-06-12] MEDS: SODIUM CHLORIDE 1 GM TABLET PO ×2 (08:55→17:41)
[2022-06-12] MEDS: FUROSEMIDE 40 MG TABLET PO (08:55)
[2022-06-12] MEDS: POTASSIUM CHLORIDE 10 MEQ TABLET.ER 20 MEQ PO (08:56)
[2022-06-12] MEDS: CHOLECALCIFEROL 1,000 UNITS TABLET 1000 UNITS PO ×2 (08:56→17:40)
[2022-06-12] MEDS: MAGNESIUM OXIDE 400 MG TABLET PO ×2 (08:56→17:41)
[2022-06-12 10:31] LABS: Iron 36 ug/dL (37-170)
[2022-06-12 10:40] LABS: Percent Iron Saturation 9 % (20-50)
--- NOTE | 2022-06-12 16:20 | PM.IMPN ---
Progress Note: A&P Assessment and Plan (1) Cellulitis of leg, right: Code(s): L03.115 - Cellulitis of right lower limb Status: Acute Assessment and Plan: -the patient had been on outpatient Bactrim which she could not tolerate continue Vancomcyin Blood culture negative possible discharge tomorrow on MRSA coverage (2) Hallucination: Code(s): R44.3 - Hallucinations, unspecified Status: Acute Assessment and Plan: -unknown etiology. Possible adverse reaction to antibiotics? Possibly related to infectious process. (3) Atrial fibrillation: Qualifiers: Atrial fibrillation type: unspecified Qualified Code(s): I48.91 - Unspecified atrial fibrillation Code(s): I48.91 - Unspecified atrial fibrillation Status: Acute Assessment and Plan: The patient is paced on the monitor. -Patient is on metoprolol continue with that. -Patient noted she has recurrent epistaxis at least every 10 days -Patient declined to start anticoagulation therefore -Recommended watchman device evaluation outpatient. (4) Hyponatremia: Code(s): E87.1 - Hypo-osmolality and hyponatremia Status: Acute Assessment and Plan: Na 130 today Low sodium noted about 1 year ago, ?Chronic hyponatremia Clarify chronic diarrhea vs lasix use -however on an old med reconciliation she was on Lasix Monitor (5) Hypothyroidism: Code(s): E03.9 - Hypothyroidism, unspecified Status: Acute Assessment and Plan: -check thyroid level continue with levothyroxine. (6) Essential hypertension: Code(s): I10 - Essential (primary) hypertension Status: Acute Assessment and Plan: -continue metoprolol -continue amlodipine -continue lisinopril (7) Anemia: Code(s): D64.9 - Anemia, unspecified Status: Acute Assessment and Plan: Likely from chronically recurernt epistaxis Iron panel ordered, threshold for transfusion of Hb of 7 f/u (8) Epistaxis: Code(s): R04.0 - Epistaxis Status: Acute Assessment and Plan: Reccurrent epistaxis patient noted she was not on anticogulation, but review today showed she may be on Xarelto and currently on Xarelto. she yesterday declined AC, will hold Xarelto while epistaxis is on going and rediscuss Ac with her ENT has been consulted Plan Medication reconciliation is have not been completed at this time. Subjective Date/time seen: 06/12/22 16:20 Interval history: Seen and examined at bedside this morning, noted improving pain right leg, denies any chest pain or SOB or bad pain. Patient having epistaxis. WIll need to discuss anticoagulation beofre discharge, patient thinks she is not on AC, but home appears to show she is on and Xarelto stopped today. If epistaxis resolved will discharge tomorrow, ENT consult also put in too. Review of Systems Review of Systems: All systems reviewed & are unremarkable except as noted in HPI and below Constitutional: Constitutional: Reports as per HPI and Reports no additional constitutional complaints Eyes: Eyes: Reports as per HPI and Reports no additional eye complaints ENT: Reports system reviewed and no additional complaints, except as documented and Reports Normal hearing present Cardiovascular: Cardiovascular: Reports no additional cardiovascular complaints Respiratory: Respiratory: Reports no additional respiratory complaints and Reports no additional respiratory complaints Gastrointestinal: Gastrointestinal: Reports as per HPI and Reports no additional gastrointestinal complaints Musculoskeletal: Musculoskeletal: Reports no additional musculoskeletal complaints Integumentary/Breasts: Skin/Breast: Reports system reviewed and no additional complaints, except as docu and Reports as per HPI Neurologic: Reports system reviewed and no additional complaints, except as documented, Reports as per HPI and Reports Normal hearing present Psychi
[2022-06-12 18:55] LABS: Iron 22 ug/dL (37-170)
[2022-06-12 19:06] LABS: Percent Iron Saturation 6 % (20-50)
[2022-06-12 21:40] LABS: IFOB Positive Control Positive; Immunochemical Fecal Occult Bl Negative (N)
[2022-06-13 06:00] VITALS: BP 123/53; PULSE 70; RESP 20; TEMP 36.3; O2SAT 97
[2022-06-13] MEDS: LEVOTHYROXINE SODIUM 150 MCG TABLET PO (06:27)
[2022-06-13] MEDS: LEVOTHYROXINE SODIUM 75 MCG TABLET PO (06:27)
[2022-06-13 07:59] VITALS: RESP 20; O2SAT 97
[2022-06-13 08:00] LABS: Basophils Absolute Auto 0.1 K/mm3 (0.0-0.1); Eosinophils Absolute Auto 0.3 K/mm3 (0-0.3); Eosinophils Percent Auto 4.8 % (0-4.4); Hematocrit 27.8 % (37.0-47.0); Hemoglobin 8.7 g/dL (12.0-15.0); Immature Granulocyte Absolute 0.03 K/mm3 (0.00-0.031); Immature Granulocyte Percent A 0.6 % (0-0.5); Lymphocytes Percent Auto 24.9 % (18.3-44.2); Mean Corpuscular HGB Conc 31.3 g/dl (32-36); Mean Corpuscular Hemoglobin 28.8 pg (26-34); Mean Corpuscular Volume 92.1 fl (80-100); Mean Platelet Volume 8.8 fl (7.4-10.4); Monocytes Absolute Auto 0.7 K/mm3 (0.1-0.6); Neutrophils Absolute Auto 2.9 K/mm3 (1.3-6.7); Neutrophils Percent Auto 54.7 % (45.5-73.1); Platelet Count Result 276 k/mm3 (150-375); Red Blood Count 3.02 M/mm3 (4.2-5.4); Red Cell Distribution Width 16.2 % (11.5-14.5); White Blood Count 5.2 K/mm3 (4.5-10.0)
[2022-06-13 08:32] LABS: Alanine Aminotransferase 60 U/L (6-35); Albumin Level 2.8 g/dL (3.5-5.1); Alkaline Phosphatase 188 U/L (38-126); Anion Gap 2 mmol/L (8-16); Aspartate Amino Transferase 117 U/L (14-36); Bilirubin,Total 0.6 mg/dL (0.2-1.3); Blood Urea Nitrogen 22 mg/dL (7-17); Calcium 7.7 mg/dL (8.4-10.2); Carbon Dioxide 37 mmol/L (22-30); Chloride 94 mmol/L (98-107); Estimated CRCL calculation 23 ml/min; Estimated Glomerular Filt Rate 30; Glucose 85 mg/dL (65-110); Potassium 4.4 mmol/L (3.4-5.0); Sodium 133 mmol/L (137-145)
[2022-06-13] MEDS: POTASSIUM CHLORIDE 10 MEQ TABLET.ER 20 MEQ PO (08:38)
[2022-06-13] MEDS: MAGNESIUM OXIDE 400 MG TABLET PO ×2 (08:39→17:31)
[2022-06-13] MEDS: FUROSEMIDE 40 MG TABLET PO (08:39)
[2022-06-13] MEDS: SODIUM CHLORIDE 1 GM TABLET PO ×2 (08:39→17:30)
[2022-06-13] MEDS: OLMESARTAN MEDOXOMIL 20 MG TABLET 40 MG PO (08:39)
[2022-06-13] MEDS: CHOLECALCIFEROL 1,000 UNITS TABLET 1000 UNITS PO ×2 (08:39→17:30)
[2022-06-13 08:40] VITALS: PULSE 70
[2022-06-13] MEDS: carvediloL 6.25 MG TABLET PO ×2 (08:40→20:17)
--- NOTE | 2022-06-13 09:05 | PCNWS ---
Weekly nutritional screen. Patient is tolerating current diet with adequate intake. No weight loss reported. No nutritional needs at this time.
[2022-06-13] MEDS: NEOMYCIN/POLYMYXIN/BACITRACIN OINTMENT PACKET 1 PACKET TOPICAL (10:54)
[2022-06-13 15:46] VITALS: BP 106/55; PULSE 70; RESP 16; TEMP 36.4; O2SAT 91
--- NOTE | 2022-06-13 17:34 | WPDCN ---
Assessment and Plan Assessment and plan (1) Epistaxis: Code(s): R04.0 - Epistaxis Status: Acute Assessment and Plan: mupirocin, not Neosporin, upfront 3-4 times per day saline 4 times per day follow-up with me as needed. HPI Data of Consult Date/Time: 06/13/22 17:34 Requesting Physician: Low Mejia MD Primary Care Provider: Sree Valero MD Consult Narrative Narrative: Paula Gonzalez is a 87 year old female with epistaxis Review of Systems Review of Systems: All systems reviewed & are unremarkable except as noted in HPI and below PMFSH Past Medical History Medical History (Updated 06/12/22 @ 16:23 by Leatha Wilkins MD) Aortic aneurysm Artificial pacemaker Atrial fibrillation Diastolic heart failure secondary to hypertension Diverticulitis Essential hypertension Hypothyroidism Urinary incontinence Vitamin D deficiency Surgical History Surgical History H/O cataract extraction History of hysterectomy Family History Family History (Updated 06/07/22 @ 18:40 by Iris Kellogg RN) Mother Essential hypertension Social History Social History (Updated 06/07/22 @ 17:30 by Sylvia Albarran NP) Social History: Patient resides at [facility]. 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 She is single and has not had any children. She is a lifelong nonsmoker. She does not use any alcohol, marijuana or illicit drugs. Code status: DNR/DNI Healthcare power of associate attorney: Ana Maria Caballero Smoking status: Never smoker Alcohol intake: never Substance use: never Substance use type: unknown Lack of Transportation: No Lack of Food: Never True Current Housing: I Have Housing Concerned About Future Housing: No Difficulty Paying Gas/Electric Bills: No Difficulty Paying for Meds: No Currently Unemployed: No Education: Bachelor's Degree Difficulty w/ Childcare or Family Care: No Spiritual care concerns: No Meds Home Medications and Allergies Home Medications Medication Instructions Recorded Confirmed Type acetaminophen 325 mg tablet 650 mg PO Q4H PRN Pain 02/03/21 06/07/22 History cholecalciferol (vitamin D3) 25 1,000 unit PO BID 02/03/21 06/07/22 History mcg (1,000 unit) tablet (Vitamin D3) furosemide 40 mg tablet 40 mg PO DAILY 02/03/21 06/07/22 History sulfamethoxazole 800 1 tablet PO Q12HR 4 days #8 tabs 02/09/21 06/07/22 Rx mg-trimethoprim 160 mg tablet albuterol sulfate 90 mcg/actuation 2 puff inhalation QID PRN SOB 06/07/22 06/07/22 History aerosol inhaler (ProAir HFA) amiodarone 200 mg tablet 200 mg PO DAILY 06/07/22 06/07/22 History bisacodyl 5 mg tablet 10 mg PO DAILY PRN Constipation 06/07/22 06/07/22 History carvedilol 6.25 mg tablet 6.25 mg PO BID 06/07/22 06/07/22 History diltiazem HCl 30 mg tablet 30 mg PO TID 06/07/22 06/07/22 History levothyroxine 175 mcg tablet 175 mcg PO DAILY 06/07/22 06/07/22 History magnesium oxide 400 mg (241.3 mg 400 mg PO BID 06/07/22 06/07/22 History magnesium) tablet olmesartan 40 mg tablet 40 mg PO DAILY 06/07/22 06/07/22 History polyethylene glycol 3350 17 gram 17 g PO DAILY PRN Constipation 06/07/22 06/07/22 History oral powder packet (ClearLax) potassium chloride 10 mEq 20 meq PO DAILY 06/07/22 06/07/22 History tablet,extended release rivaroxaban 20 mg tablet (Xarelto) 20 mg PO DAILY 06/07/22 06/07/22 History sennosides 8.6 mg-docusate sodium 1 tab-cap PO BID PRN Constipation 06/07/22 06/07/22 History 50 mg tablet (Senna Plus) sodium chloride 0.65 % nasal spray 2 spray intranasal Q4H PRN 06/07/22 06/07/22 History aerosol (Deep Sea Nasal) Allergic Symptoms sodium chloride 1,000 mg soluble 1,000 mg PO BID 06/07/22 06/07/22 History tablet vibegron 75 mg tablet (Gemtesa) 75 mg PO DAILY 06/07/22 06/07/22 History Allergies Allergy/AdvReac Type Severity Reaction Status Date / Time No K
--- NOTE | 2022-06-13 18:10 | PM.IMPN ---
Progress Note: A&P Assessment and Plan (1) Cellulitis of leg, right: Code(s): L03.115 - Cellulitis of right lower limb Status: Acute Assessment and Plan: -the patient had been on outpatient Bactrim which she could not tolerate continue Vancomcyin Blood culture negative possible discharge tomorrow on MRSA coverage 06/13/2022 interval history: patient with epistaxis patient was seen by by ENT examine the patient recommended apply Bactroban and monitor, patient is also found to right lower extremity cellulitis failed outpatient therapy and being treated with vancomycin, will culture no growth so far, patient remains clinically stable, will continue to monitor (2) Hallucination: Code(s): R44.3 - Hallucinations, unspecified Status: Acute Assessment and Plan: -unknown etiology. Possible adverse reaction to antibiotics? Possibly related to infectious process. (3) Atrial fibrillation: Qualifiers: Atrial fibrillation type: unspecified Qualified Code(s): I48.91 - Unspecified atrial fibrillation Code(s): I48.91 - Unspecified atrial fibrillation Status: Acute Assessment and Plan: The patient is paced on the monitor. -Patient is on metoprolol continue with that. -Patient noted she has recurrent epistaxis at least every 10 days -Patient declined to start anticoagulation therefore -Recommended watchman device evaluation outpatient. (4) Hyponatremia: Code(s): E87.1 - Hypo-osmolality and hyponatremia Status: Acute Assessment and Plan: Na 130 today Low sodium noted about 1 year ago, ?Chronic hyponatremia Clarify chronic diarrhea vs lasix use -however on an old med reconciliation she was on Lasix Monitor (5) Hypothyroidism: Code(s): E03.9 - Hypothyroidism, unspecified Status: Acute Assessment and Plan: -check thyroid level continue with levothyroxine. (6) Essential hypertension: Code(s): I10 - Essential (primary) hypertension Status: Acute Assessment and Plan: -continue metoprolol -continue amlodipine -continue lisinopril (7) Anemia: Code(s): D64.9 - Anemia, unspecified Status: Acute Assessment and Plan: Likely from chronically recurernt epistaxis Iron panel ordered, threshold for transfusion of Hb of 7 f/u (8) Epistaxis: Code(s): R04.0 - Epistaxis Status: Acute Assessment and Plan: Reccurrent epistaxis patient noted she was not on anticogulation, but review today showed she may be on Xarelto and currently on Xarelto. she yesterday declined AC, will hold Xarelto while epistaxis is on going and rediscuss Ac with her ENT has been consulted Plan Medication reconciliation is have not been completed at this time. Subjective Date/time seen: 06/13/22 18:10 Interval history: Seen and examined at bedside this morning, noted improving pain right leg, denies any chest pain or SOB or bad pain. Patient having epistaxis. WIll need to discuss anticoagulation beofre discharge, patient thinks she is not on AC, but home appears to show she is on and Xarelto stopped today. If epistaxis resolved will discharge tomorrow, ENT consult also put in too. 06/13/2022 interval history: patient with epistaxis patient was seen by by ENT examine the patient recommended apply Bactroban and monitor, patient is also found to right lower extremity cellulitis failed outpatient therapy and being treated with vancomycin, will culture no growth so far, patient remains clinically stable, will continue to monitor Review of Systems Review of Systems: All systems reviewed & are unremarkable except as noted in HPI and below Exam Narrative: elderly frail Patient is comfortable, NAD HEENT: eyes are clear and none icteric LUNGS:CTA HEART: RR S1S2 ABD: BS+, Soft and nontender Lower extremities: no edema SKIN: nonjaundiced Neuro: grossly intact. Objective Data Vital
[2022-06-13 20:17] VITALS: PULSE 88; RESP 16; O2SAT 91
[2022-06-13 22:00] VITALS: BP 139/52; PULSE 70; RESP 14; TEMP 36.4; O2SAT 92
[2022-06-14] MEDS: LEVOTHYROXINE SODIUM 150 MCG TABLET PO (05:41)
[2022-06-14] MEDS: LEVOTHYROXINE SODIUM 75 MCG TABLET PO (05:41)
[2022-06-14 06:00] VITALS: BP 159/59; PULSE 70; RESP 16; TEMP 36.5; O2SAT 90
[2022-06-14 06:45] LABS: Estimated CRCL calculation 21 ml/min; Estimated Glomerular Filt Rate 28
[2022-06-14] MEDS: POTASSIUM CHLORIDE 10 MEQ TABLET.ER 20 MEQ PO (09:16)
[2022-06-14] MEDS: MAGNESIUM OXIDE 400 MG TABLET PO (09:17)
[2022-06-14 09:18] VITALS: PULSE 70
[2022-06-14] MEDS: SODIUM CHLORIDE 1 GM TABLET PO (09:18)
[2022-06-14] MEDS: carvediloL 6.25 MG TABLET PO (09:18)
[2022-06-14] MEDS: FUROSEMIDE 40 MG TABLET PO (09:18)
[2022-06-14] MEDS: OLMESARTAN MEDOXOMIL 20 MG TABLET 40 MG PO (09:18)
[2022-06-14] MEDS: CHOLECALCIFEROL 1,000 UNITS TABLET 1000 UNITS PO (09:18)
[2022-06-14] MEDS: MUPIROCIN 2% OINT 22 GM TUBE 1 APPLIC EACH NARE ×2 (09:18→12:40)
--- NOTE | 2022-06-14 12:36 | PM.DS ---
DS: Admitting Diagnosis Discharge Date 06/14/2022 Admitting Diagnosis Hallucinations DS: Discharge Diagnosis Discharge Diagnosis (1) Cellulitis of leg, right: Code(s): L03.115 - Cellulitis of right lower limb Status: Acute Assessment and Plan: -the patient had been on outpatient Bactrim which she could not tolerate continue Vancomcyin Blood culture negative possible discharge tomorrow on MRSA coverage 06/13/2022 interval history: patient with epistaxis patient was seen by ENT examine the patient recommended apply Bactroban and monitor, patient is also found to right lower extremity cellulitis failed outpatient therapy and being treated with vancomycin, will culture no growth so far, patient remains clinically stable, will continue to monitor. (2) Hallucination: Code(s): R44.3 - Hallucinations, unspecified Status: Acute Assessment and Plan: -unknown etiology. Possible adverse reaction to antibiotics? Possibly related to infectious process. (3) Atrial fibrillation: Qualifiers: Atrial fibrillation type: unspecified Qualified Code(s): I48.91 - Unspecified atrial fibrillation Code(s): I48.91 - Unspecified atrial fibrillation Status: Acute Assessment and Plan: The patient is paced on the monitor. -Patient is on metoprolol continue with that. -Patient noted she has recurrent epistaxis at least every 10 days -Patient declined to start anticoagulation therefore -Recommended watchman device evaluation outpatient. (4) Hyponatremia: Code(s): E87.1 - Hypo-osmolality and hyponatremia Status: Acute Assessment and Plan: Na 130 today Low sodium noted about 1 year ago, ?Chronic hyponatremia Clarify chronic diarrhea vs lasix use -however on an old med reconciliation she was on Lasix Monitor (5) Hypothyroidism: Code(s): E03.9 - Hypothyroidism, unspecified Status: Acute Assessment and Plan: -check thyroid level continue with levothyroxine. (6) Essential hypertension: Code(s): I10 - Essential (primary) hypertension Status: Acute Assessment and Plan: -continue metoprolol -continue amlodipine -continue lisinopril (7) Anemia: Code(s): D64.9 - Anemia, unspecified Status: Acute Assessment and Plan: Likely from chronically recurernt epistaxis Iron panel ordered, threshold for transfusion of Hb of 7 f/u (8) Epistaxis: Code(s): R04.0 - Epistaxis Status: Acute Assessment and Plan: Reccurrent epistaxis patient noted she was not on anticogulation, but review today showed she may be on Xarelto and currently on Xarelto. she yesterday declined AC, will hold Xarelto while epistaxis is on going and rediscuss Ac with her ENT has been consulted Plan Medication reconciliation is have not been completed at this time. DS: Summary Hospital Course Reason for hospitalization: Hallucinations Narrative: This is a 86-year-old female patient who has a history of hypertension, atrial fibrillation, aortic stenosis, recurrent UTIs and hyponatremia.? The patient comes from [facility] with auditory and visual hallucinations since last night.? She recently was diagnosed with a right leg cellulitis and UTI and was placed on Bactrim.? She has significant redness to her right lower extremity that is comes up to her right knee.? The patient denies any fever chills.? Her white count is normal.? H&H is 9.9 and 30.0.? Her sodium is 125 which appears to be her baseline.? Creatinine is 1.2 which is normally within normal limits.? AST is 89 ALT 64 alkaline phosphatase 184 BNP 1170.? Patient is negative for influenza A/B and COVID.? Chest x-ray was read as clear lungs.? No head CT was performed today.? Her urinalysis was clear.? The patient was started on cefepime and vancomycin.? The patient had previously been on Bactrim and she stated she could not tolerate the Bactrim.? She sa
[2022-06-14 12:58] LABS: EDCOVIDSCREEN Negative (Negative)
[2022-06-14 14:00] VITALS: BP 121/53; PULSE 70; RESP 22; TEMP 36.7; O2SAT 94
== END 2022-06-14 16:59 | DRG 603 ==
LOC: ANHED 15:32 → ANH3MEDSUR 17:23
PROVIDERS: Emergency Medicine; Internal Medicine; Nurse Practitioner; Admitting Provider Internal Medicine; Emergency Provider Family Medicine; PCP Family Medicine; Visit Provider Family Medicine
DX: L03.115 Cellulitis of right lower limb (principal); E87.1 Hypo-osmolality and hyponatremia; I50.32 Chronic diastolic (congestive) heart failure; R44.0 Auditory hallucinations; N39.0 Urinary tract infection, site not specified; T36.95XA Adverse effect of unspecified systemic antibiotic, initial encounter; D64.9 Anemia, unspecified; E55.9 Vitamin D deficiency, unspecified; E03.9 Hypothyroidism, unspecified; I48.91 Unspecified atrial fibrillation; I35.0 Nonrheumatic aortic (valve) stenosis; I11.0 Hypertensive heart disease with heart failure; R44.1 Visual hallucinations; R04.0 Epistaxis; Z20.822 Contact with and (suspected) exposure to COVID-19; Z90.710 Acquired absence of both cervix and uterus; Z98.49 Cataract extraction status, unspecified eye; Z66 Do not resuscitate; Z79.82 Long term (current) use of aspirin; Z95.0 Presence of cardiac pacemaker
CPT/HCPCS: 36415; 51701; 70450; 71045; 80048; 80053; 80202; 81003; 82274; 82565; 83540; 83550; 83605; 83735; 83880; 84439; 84443; 84480; 85025; 85027; 85610; 85730; 87040; 87426; 87636; 93005; 93970; 99285; A9270; C9803; J0690; J0692; J3370

== ENCOUNTER 2022-06-21 17:35 | Emergency (ER) | payer OTHER, SELFPAY ==
[2022-06-21 17:42] VITALS: BP 167/76; PULSE 70; RESP 16; TEMP 36.4; O2SAT 96
[2022-06-21 19:05] LABS: Basophils Absolute Auto 0.1 K/mm3 (0.0-0.1); Basophils Percent Auto 1.1 % (0.2-1.2); Eosinophils Absolute Auto 0.1 K/mm3 (0-0.3); Eosinophils Percent Auto 2.5 % (0-4.4); Hematocrit 28.7 % (37.0-47.0); Hemoglobin 9.2 g/dL (12.0-15.0); Immature Granulocyte Absolute 0.03 K/mm3 (0.00-0.031); Immature Granulocyte Percent A 0.5 % (0-0.5); Lymphocytes Absolute Auto 1.25 K/mm3 (0.9-3.2); Lymphocytes Percent Auto 22.2 % (18.3-44.2); Mean Corpuscular HGB Conc 32.1 g/dl (32-36); Mean Corpuscular Hemoglobin 29.4 pg (26-34); Mean Corpuscular Volume 91.7 fl (80-100); Mean Platelet Volume 8.5 fl (7.4-10.4); Monocytes Absolute Auto 0.7 K/mm3 (0.1-0.6); Monocytes Percent Auto 12.8 % (2.6-8.5); Neutrophils Absolute Auto 3.4 K/mm3 (1.3-6.7); Neutrophils Percent Auto 60.9 % (45.5-73.1); Platelet Count Result 286 k/mm3 (150-375); Red Blood Count 3.13 M/mm3 (4.2-5.4); Red Cell Distribution Width 16.3 % (11.5-14.5); White Blood Count 5.6 K/mm3 (4.5-10.0)
[2022-06-21 19:16] LABS: Alanine Aminotransferase 77 U/L (6-35); Albumin Level 3.3 g/dL (3.5-5.1); Alkaline Phosphatase 221 U/L (38-126); Anion Gap 4 mmol/L (8-16); Aspartate Amino Transferase 129 U/L (14-36); Bilirubin,Total 0.6 mg/dL (0.2-1.3); Blood Urea Nitrogen 23 mg/dL (7-17); Calcium 8.2 mg/dL (8.4-10.2); Carbon Dioxide 30 mmol/L (22-30); Chloride 100 mmol/L (98-107); Estimated CRCL calculation 16 ml/min; Estimated Glomerular Filt Rate 24; Glucose 104 mg/dL (65-110); Lactic Acid Reflex 1.5 mmol/L (0.7-2.0); Potassium 4.5 mmol/L (3.4-5.0); Sodium 134 mmol/L (137-145)
--- NOTE | 2022-06-21 22:31 | ED.SKABFB ---
HPI - Skin/Abscess/Foreign Bdy General Chief complaint: Skin/Abscess/Foreign Body Stated complaint: CELLULITIS Time Seen by Provider: 06/21/22 21:08 Source: patient and RN notes reviewed Mode of arrival: ambulatory Limitations: no limitations History of Present Illness HPI narrative: THis is an 87 year old female who presents for evaluation of bilateral leg swelling and redness. PAtient was discharged from hospital 1 week ago after treatment for right leg cellulitis. PAtient states that her swelling has worsened again and she is also having right leg redness again. She reports pain to right leg with palpation. She denies fever, chills, nausea, vomiting, chest pain or sob. Related Data Home Medications Medication Instructions Recorded Confirmed acetaminophen 325 mg tablet 650 mg PO Q4H PRN Pain 02/03/21 06/07/22 cholecalciferol (vitamin D3) 25 1,000 unit PO BID 02/03/21 06/07/22 mcg (1,000 unit) tablet (Vitamin D3) furosemide 40 mg tablet 40 mg PO DAILY 02/03/21 06/07/22 albuterol sulfate 90 mcg/actuation 2 puff inhalation QID PRN SOB 06/07/22 06/07/22 aerosol inhaler (ProAir HFA) amiodarone 200 mg tablet 200 mg PO DAILY 06/07/22 06/07/22 bisacodyl 5 mg tablet 10 mg PO DAILY PRN Constipation 06/07/22 06/07/22 carvedilol 6.25 mg tablet 6.25 mg PO BID 06/07/22 06/07/22 diltiazem HCl 30 mg tablet 30 mg PO TID 06/07/22 06/07/22 levothyroxine 175 mcg tablet 175 mcg PO DAILY 06/07/22 06/07/22 magnesium oxide 400 mg (241.3 mg 400 mg PO BID 06/07/22 06/07/22 magnesium) tablet olmesartan 40 mg tablet 40 mg PO DAILY 06/07/22 06/07/22 polyethylene glycol 3350 17 gram 17 g PO DAILY PRN Constipation 06/07/22 06/07/22 oral powder packet (ClearLax) potassium chloride 10 mEq 20 meq PO DAILY 06/07/22 06/07/22 tablet,extended release rivaroxaban 20 mg tablet (Xarelto) 20 mg PO DAILY 06/07/22 06/07/22 sennosides 8.6 mg-docusate sodium 1 tab-cap PO BID PRN Constipation 06/07/22 06/07/22 50 mg tablet (Senna Plus) sodium chloride 0.65 % nasal spray 2 spray intranasal Q4H PRN 06/07/22 06/07/22 aerosol (Deep Sea Nasal) Allergic Symptoms sodium chloride 1,000 mg soluble 1,000 mg PO BID 06/07/22 06/07/22 tablet vibegron 75 mg tablet (Gemtesa) 75 mg PO DAILY 06/07/22 06/07/22 Allergies Allergy/AdvReac Type Severity Reaction Status Date / Time No Known Allergies Allergy Verified 06/07/22 20:00 Review of Systems Review of Systems: All systems reviewed & are unremarkable except as noted in HPI and below Constitutional: Constitutional: Denies chills, Denies fatigue and Denies fever(s) Cardiovascular: Cardiovascular: Denies chest pain and Denies rapid heart rate Respiratory: Respiratory: Denies chest congestion and Denies dyspnea Gastrointestinal: Gastrointestinal: Denies abdominal pain, Denies nausea and Denies vomiting Integumentary/Breasts: Skin/Breast: Reports erythema and Reports rash PMFSH Past Medical History Medical History Aortic aneurysm Artificial pacemaker Atrial fibrillation Diastolic heart failure secondary to hypertension Diverticulitis Essential hypertension Hypothyroidism Urinary incontinence Vitamin D deficiency Surgical History Surgical History H/O cataract extraction History of hysterectomy Family History Family History (Updated 06/07/22 @ 18:40 by Iris Kellogg RN) Mother Essential hypertension Social History Social History Social History: Patient resides at [facility]. 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 She is single and has not had any children. She is a lifelong nonsmoker. She does not use any alcohol, marijuana or illicit drugs. Code status: DNR/DNI Healthcare power of trade mark attorney: Ana Maria Caballero Smoking status: Never smoker Alcohol intake: never Substance use: never Lizama
--- NOTE | 2022-06-21 22:47 | PM.IMHP ---
H&P: HPI History of Present Illness Date/Time: 06/21/22 22:47 [facility] Past Medical History Medical History (Updated 06/12/22 @ 16:23 by Leatha Wilkins MD) Aortic aneurysm Artificial pacemaker Atrial fibrillation Diastolic heart failure secondary to hypertension Diverticulitis Essential hypertension Hypothyroidism Urinary incontinence Vitamin D deficiency Surgical History Surgical History H/O cataract extraction History of hysterectomy Family History Family History (Updated 06/07/22 @ 18:40 by Iris Kellogg RN) Mother Essential hypertension Social History Social History (Updated 06/07/22 @ 17:30 by Sylvia Albarran NP) Social History: Patient resides at [facility]. 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 She is single and has not had any children. She is a lifelong nonsmoker. She does not use any alcohol, marijuana or illicit drugs. Code status: DNR/DNI Healthcare power of staff attorney: Ana Maria Caballero Smoking status: Never smoker Alcohol intake: never Substance use: never Substance use type: unknown Lack of Transportation: No Lack of Food: Never True Current Housing: I Have Housing Concerned About Future Housing: No Difficulty Paying Gas/Electric Bills: No Difficulty Paying for Meds: No Currently Unemployed: No Education: Bachelor's Degree Difficulty w/ Childcare or Family Care: No Spiritual care concerns: No Meds Home Medications and Allergies Home Medications Medication Instructions Recorded Confirmed Type acetaminophen 325 mg tablet 650 mg PO Q4H PRN Pain 02/03/21 06/07/22 History cholecalciferol (vitamin D3) 25 1,000 unit PO BID 02/03/21 06/07/22 History mcg (1,000 unit) tablet (Vitamin D3) furosemide 40 mg tablet 40 mg PO DAILY 02/03/21 06/07/22 History albuterol sulfate 90 mcg/actuation 2 puff inhalation QID PRN SOB 06/07/22 06/07/22 History aerosol inhaler (ProAir HFA) amiodarone 200 mg tablet 200 mg PO DAILY 06/07/22 06/07/22 History bisacodyl 5 mg tablet 10 mg PO DAILY PRN Constipation 06/07/22 06/07/22 History carvedilol 6.25 mg tablet 6.25 mg PO BID 06/07/22 06/07/22 History diltiazem HCl 30 mg tablet 30 mg PO TID 06/07/22 06/07/22 History levothyroxine 175 mcg tablet 175 mcg PO DAILY 06/07/22 06/07/22 History magnesium oxide 400 mg (241.3 mg 400 mg PO BID 06/07/22 06/07/22 History magnesium) tablet olmesartan 40 mg tablet 40 mg PO DAILY 06/07/22 06/07/22 History polyethylene glycol 3350 17 gram 17 g PO DAILY PRN Constipation 06/07/22 06/07/22 History oral powder packet (ClearLax) potassium chloride 10 mEq 20 meq PO DAILY 06/07/22 06/07/22 History tablet,extended release rivaroxaban 20 mg tablet (Xarelto) 20 mg PO DAILY 06/07/22 06/07/22 History sennosides 8.6 mg-docusate sodium 1 tab-cap PO BID PRN Constipation 06/07/22 06/07/22 History 50 mg tablet (Senna Plus) sodium chloride 0.65 % nasal spray 2 spray intranasal Q4H PRN 06/07/22 06/07/22 History aerosol (Deep Sea Nasal) Allergic Symptoms sodium chloride 1,000 mg soluble 1,000 mg PO BID 06/07/22 06/07/22 History tablet vibegron 75 mg tablet (Gemtesa) 75 mg PO DAILY 06/07/22 06/07/22 History mupirocin 2 % topical ointment 1 applic EACH NARE TID #22 grams 06/14/22 Rx Allergies Allergy/AdvReac Type Severity Reaction Status Date / Time No Known Allergies Allergy Verified 06/07/22 20:00 Vital Signs Vital Signs - 24 hr 06/21/22 17:42 Temperature 97.6 F Pulse Rate 70 Respiratory Rate 16 Blood Pressure 167/76 H Pulse Oximetry 96 Oxygen Delivery Room Air H&P: Results Labs Labs: Short CBC 06/21/22 Range/Units 19:00 WBC 5.6 (4.5-10.0) K/mm3 Hgb 9.2 L (12.0-15.0) g/dL Hct 28.7 L (37.0-47.0) % Plt Count 286 (150-375) k/mm3 BMP 06/21/22 19:00 Sodium 134 L Potassium 4.5 Chloride 100 Carbon Dioxide 30 BUN 23 H Creatinine 2.00 H Glucose 1
== END 2022-06-22 05:14 ==
PROVIDERS: Nurse Practitioner Family; Emergency Provider General Practice; PCP Internal Medicine
DX: N17.9 Acute kidney failure, unspecified (principal); R60.0 Localized edema; I48.91 Unspecified atrial fibrillation; I11.0 Hypertensive heart disease with heart failure; I50.30 Unspecified diastolic (congestive) heart failure; E03.9 Hypothyroidism, unspecified; E55.9 Vitamin D deficiency, unspecified; R32 Unspecified urinary incontinence; Z95.0 Presence of cardiac pacemaker; Z98.49 Cataract extraction status, unspecified eye; Z90.710 Acquired absence of both cervix and uterus; Z66 Do not resuscitate; Z79.01 Long term (current) use of anticoagulants
CPT/HCPCS: 36415; 80053; 83605; 85025; 99283

== ENCOUNTER 2022-08-22 15:02 | Inpatient (IN) | payer OTHER, SELFPAY ==
[2022-08-22] VITALS (18 sets, daily range): BP systolic 117–180; BP diastolic 50–78; PULSE 70–80; RESP 17–24; TEMP 36.3–36.9; O2SAT 88–99; BMI 28.5
--- NOTE | ~2022-08-22 | XR_ITS ---
EXAMINATION: XR chest 1V portable DATE: 09/02/2022 09:05 INDICATION: Hypoxia TECHNIQUE: frontal view of the chest was obtained. COMPARISON: Chest radiograph dated 08/30/2022 FINDINGS: Unchanged linear discoid atelectasis/scarring at the right midlung zone. Interval decrease in the int erstitial and airspace opacities in the left mid to lower lung zone. No pleural effusion or pneumotho rax. Cardiomegaly. Dual lead pacemaker/AICD seen with leads projecting over the expected locations of the right atrium and right ventricle. IMPRESSION: 1. Decreasing opacities in the left mid and lower lung zones consistent with improving pulmonary scott a or pneumonia. 2. Cardiomegaly. Reviewed, dictated and finalized at location A. IMPRESSION: 1. Decreasing opacities in the left mid and lower lung zones consistent with im proving pulmonary edema or pneumonia. 2. Cardiomegaly.
--- NOTE | ~2022-08-22 | XR_ITS ---
EXAMINATION: XR chest 1V portable DATE: 08/28/2022 06:34 INDICATION: Congestive heart failure TECHNIQUE: frontal view of the chest was obtained. COMPARISON: Chest radiograph dated 08/26/22 and 07/10/[address] dated 07/11/2014 FINDINGS: No significant interval change in diffuse increased interstitial pattern with subtle patchy airspace opacities in the right lower and bilateral mid lung zones. No pleural effusion or pneumothorax. Cardi omegaly. Chronic widening of the right side of the superior mediastinum which on prior CT corresponds to tortuous vasculature. Dual lead pacemaker seen with leads projecting over the expected locations of the right atrium and right ventricle. IMPRESSION: 1. No significant change in bilateral interstitial and airspace opacities which could represent pulmo nary edema, pneumonia, atelectasis or combination thereof. 2. Cardiomegaly. Reviewed, dictated and finalized at location A. NG MACHINES SALESPERSON IMPRESSION: 1. No significant change in bilateral interstitial and airspace opacities which could represent pulmonary edema, pneumonia, atelectasis or combination thereof . 2. Cardiomegaly.
--- NOTE | ~2022-08-22 | XR_ITS ---
XR chest 1V portable DATE: 08/30/2022 12:46 INDICATION: Hypoxia TECHNIQUE: Portable upright AP chest on 09/09/2022 at 1237 hours COMPARISON: 08/29/2022 portable AP chest at 1710 hours FINDINGS: Left dual-lead pacemaker device, leads overlying right atrium and right ventricle. Cardiomegaly. Aortic calcification, unfolding and tortuosity. Mild discoid atelectasis or scarring in the right mid lung. There is patchy infiltrate and/atelectasis in the left mid and to a greater extent left lower lung fi eld. No pleural effusion or pulmonary vascular congestion or pneumothorax is detected. Diffuse osteopenia. Dextroscoliosis and degenerative change of the thoracic spine. IMPRESSION: Dual-lead left pacemaker Cardiomegaly Aortic atherosclerosis Mild discoid atelectasis or scarring, right mid lung Infiltrate and/atelectasis of mid and to a greater extent left lower lung, increased since 08/29/2022 Reviewed, dictated and finalized at location L. TENDER IMPRESSION: Dual-lead left pacemaker Cardiomegaly Aortic atherosclerosis Mild discoid atelectasis or scarring, right mid lung Infiltrate and/atelectasis of mid and to a greater extent left lower lung, incr eased since 08/29/2022
--- NOTE | ~2022-08-22 | XR_ITS ---
EXAMINATION: XR chest 1V portable Exam Date/Time: 08/29/2022 16:50 TELEPHONE LINEWORKER HISTORY: CHF Comparison: 08/28/2022. RESULT: Lines, tubes, and devices: Left chest pacer with intact leads. Surgical clips or anchors over the GE junction. Lungs and pleura: Decreasing diffuse reticular and patchy airspace opacities. Cardiomediastinal silhouette: Stable. Other: No acute osseous or upper abdominal finding. IMPRESSION: Improving pulmonary opacities, likely representing improving edema and atelectasis. Reviewed, dictated and finalized at location K. PHONE LINEWORKER IMPRESSION: Improving pulmonary opacities, likely representing improving edema and atelecta sis.
--- NOTE | ~2022-08-22 | XR_ITS ---
EXAMINATION: XR chest 1V portable DATE: 08/25/2022 13:44 INDICATION: Congestive heart failure. TECHNIQUE: A single frontal view of the chest was obtained. COMPARISON: Chest 2 views 08/22/2022, chest CT 07/11/2017 FINDINGS: There is a diffuse interstitial pattern, consistent with mild pulmonary edema. No pleural e ffusion or pneumothorax. Cardiomegaly is noted. There is a left chest wall pacer with leads in the ri ght atrium and right ventricle. IMPRESSION: 1. Mild pulmonary edema. 2. Cardiomegaly. Reviewed, dictated and finalized at location A. N SORTER
--- NOTE | ~2022-08-22 | XR_ITS ---
XR chest 2V 08/22/2022 15:49 Indication: Shortness of breath for 2 days Procedure: 2 view chest Comparison: 06/07/2022 Findings: Cardiomegaly with mild interstitial edema. No significant effusion. There is atherosclerosi s. No pneumothorax. No acute osseous abnormality. Impression: 1: Cardiomegaly with mild interstitial edema. Reviewed, dictated and finalized at location B. LE SAW OPERATOR Impression: 1: Cardiomegaly with mild interstitial edema.
--- NOTE | ~2022-08-22 | XR_ITS ---
EXAMINATION: XR chest 1V portable DATE: 08/26/2022 07:56 INDICATION: Hypoxia. TECHNIQUE: A single frontal view of the chest was obtained. COMPARISON: Chest single view 08/25/2022, chest CT 07/11/2017 FINDINGS: There is a diffuse interstitial pattern, consistent with mild pulmonary edema. No pleural e ffusion or pneumothorax. Cardiomegaly is noted. There is a left chest wall pacer with leads in the ri ght atrium and right ventricle. Again seen is a fusiform aneurysm of ascending aorta. IMPRESSION: 1. Mild pulmonary edema. 2. Cardiomegaly. 3. Ascending aortic aneurysm again seen. Reviewed, dictated and finalized at location A. HHA
--- NOTE | 2022-08-22 15:17 | ECG_ITS ---
Measurements Intervals [place] Rate: 69 P: 225 VA: 251 QRS: 158 QRSD: 197 T: 43 QT: 468 QTc: 504 Interpretive Statements ELECTRONIC ATRIAL PACEMAKER ELECTRONIC VENTRICULAR PACEMAKER BASELINE ARTIFACT- I, III, AVR, AVL, V6 NO FURTHER INTERPRETATION IS POSSIBLE ATYPICAL ECG COMPARED TO ECG 06/07/2022 11:58:33 NO SIGNIFICANT CHANGES Electronically Signed On 08-22-2022 15:39:49 [employer] by Chung Soares D.O.
--- NOTE | 2022-08-22 15:19 | ED.GENADULT ---
HPI - General Adult General Chief complaint: Shortness of Breath/Dyspnea Stated complaint: SOB History of Present Illness HPI narrative: 87-year-old female with history of CHF, atrial fibrillation, hyponatremia hypokalemia hypothyroidism hypertension presented the emergency department for evaluation of increased shortness of breath and lower extremity swelling. Patient normally has not oxygen but was complaining of shortness of breath and was found to be 88% on room air. Patient was placed on 2 L of oxygen by nasal cannula during transport and was saturating at 98% upon arrival to the ED. Patient states she has had some worsening lower extremity edema over the last few days but denies any associated chest pain. Patient denies any falls or injuries. Patient denies any cough colds or fevers. Medical record states patient is on Xarelto Related Data Home Medications Medication Instructions Recorded Confirmed acetaminophen 325 mg tablet 650 mg PO Q4H PRN Pain 02/03/21 06/07/22 cholecalciferol (vitamin D3) 25 1,000 unit PO BID 02/03/21 06/07/22 mcg (1,000 unit) tablet (Vitamin D3) furosemide 40 mg tablet 40 mg PO DAILY 02/03/21 06/07/22 albuterol sulfate 90 mcg/actuation 2 puff inhalation QID PRN SOB 06/07/22 06/07/22 aerosol inhaler (ProAir HFA) amiodarone 200 mg tablet 200 mg PO DAILY 06/07/22 06/07/22 bisacodyl 5 mg tablet 10 mg PO DAILY PRN Constipation 06/07/22 06/07/22 carvedilol 6.25 mg tablet 6.25 mg PO BID 06/07/22 06/07/22 diltiazem HCl 30 mg tablet 30 mg PO TID 06/07/22 06/07/22 levothyroxine 175 mcg tablet 175 mcg PO DAILY 06/07/22 06/07/22 magnesium oxide 400 mg (241.3 mg 400 mg PO BID 06/07/22 06/07/22 magnesium) tablet olmesartan 40 mg tablet 40 mg PO DAILY 06/07/22 06/07/22 polyethylene glycol 3350 17 gram 17 g PO DAILY PRN Constipation 06/07/22 06/07/22 oral powder packet (ClearLax) potassium chloride 10 mEq 20 meq PO DAILY 06/07/22 06/07/22 tablet,extended release rivaroxaban 20 mg tablet (Xarelto) 20 mg PO DAILY 06/07/22 06/07/22 sennosides 8.6 mg-docusate sodium 1 tab-cap PO BID PRN Constipation 06/07/22 06/07/22 50 mg tablet (Senna Plus) sodium chloride 0.65 % nasal spray 2 spray intranasal Q4H PRN 06/07/22 06/07/22 aerosol (Deep Sea Nasal) Allergic Symptoms sodium chloride 1,000 mg soluble 1,000 mg PO BID 06/07/22 06/07/22 tablet vibegron 75 mg tablet (Gemtesa) 75 mg PO DAILY 06/07/22 06/07/22 Allergies Allergy/AdvReac Type Severity Reaction Status Date / Time No Known Allergies Allergy Verified 06/07/22 20:00 Review of Systems Review of Systems: CONSTITUTIONAL: Denies fever, chills, or sweats. EYES: Denies visual changes, redness, or discharge. ENT: Denies rhinorrhea, congestion, sore throat, or otalgia. CARDIOVASCULAR: See HPI RESPIRATORY: See HPI GASTROINTESTINAL: Denies abdominal pain, nausea, vomiting, or diarrhea. GENITOURINARY: Denies dysuria or hematuria. SKIN: Denies rash or itching. MUSCULOSKELETAL: Denies back pain, joint pain, or myalgia. NEUROLOGIC: Denies headache, numbness, or weakness. [facility] Past Medical History Medical History (Updated 08/22/22 @ 19:45 by Brody Faulkner MD) Aortic aneurysm Artificial pacemaker Atrial fibrillation Diastolic heart failure secondary to hypertension Diverticulitis Essential hypertension Hepatitis Hypothyroidism Urinary incontinence Vitamin D deficiency Surgical History Surgical History H/O cataract extraction History of hysterectomy Family History Family History (Updated 06/07/22 @ 18:40 by Iris Kellogg RN) Mother Essential hypertension Social History Social History Social History: Patient resides at [facility]. 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 She is single and has not had any children. She is a lifelong nonsmoker. She does not use any alcohol, marijuana or illicit drug
[2022-08-22 15:30] LABS: Basophils Percent Auto 0.5 % (0.2-1.2); Eosinophils Absolute Auto 0.1 K/mm3 (0-0.3); Eosinophils Percent Auto 2.2 % (0-4.4); Immature Granulocyte Absolute 0.03 K/mm3 (0.00-0.031); Immature Granulocyte Percent A 0.5 % (0-0.5); Lymphocytes Absolute Auto 1.25 K/mm3 (0.9-3.2); Mean Corpuscular HGB Conc 31.3 g/dl (32-36); Mean Corpuscular Hemoglobin 26.4 pg (26-34); Mean Corpuscular Volume 84.1 fl (80-100); Mean Platelet Volume 8.9 fl (7.4-10.4); Monocytes Absolute Auto 0.9 K/mm3 (0.1-0.6); Monocytes Percent Auto 15.6 % (2.6-8.5); Neutrophils Absolute Auto 3.6 K/mm3 (1.3-6.7); Neutrophils Percent Auto 60.2 % (45.5-73.1); Platelet Count Result 356 k/mm3 (150-375); Red Blood Count 2.39 M/mm3 (4.2-5.4); Red Cell Distribution Width 15.1 % (11.5-14.5)
[2022-08-22 15:36] LABS: Hemoglobin 6.3 g/dL (12.0-15.0)
[2022-08-22 15:37] LABS: Hematocrit 20.1 % (37.0-47.0)
[2022-08-22 15:46] LABS: INR 2.8; Partial Thromboplastin Time 41.6 SECONDS (22.3-36.8); Prothrombin Time 28.9 Seconds (11.1-14.7)
[2022-08-22] MEDS: PANTOPRAZOLE SODIUM IV 40 MG VIAL 80 MG IV PUSH (16:55)
[2022-08-22 17:42] LABS: NT Pro B Type Natriuretic Pept 682 pg/mL (19.9-100); Troponin I < 0.012 ng/mL (0.000-0.034)
--- NOTE | 2022-08-22 17:43 | PM.IMHP ---
H&P: HPI History of Present Illness Date/Time: 08/22/22 17:43 Chief Complaint: Shortness of breath Narrative: This is an 87-year-old female patient who resides at a [facility]. Her POA is at the bedside answering most questions for her. The patient has a history of congestive heart failure, atrial fibrillation and hypertension. The patient came to the emergency room with complaints of increased shortness of breath and increased swelling to her lower extremities. The patient was found to be 88% on room air was placed on oxygen at 2 L per nasal cannula. The patient is very pale and fatigued. Her H&H is 6.3 and 20.1. Patient's baseline hemoglobin is somewhere between 8 and 9. She does have chronic renal failure. Her creatinine is 1.1 today with a baseline somewhere around 1.6. Her GFR is 47 which is improved from her last GFR of 24. Her BMP is 682. Patient was found to be guaiac-positive. Patient was ordered 2 units of packed red blood cells. Patient has a history of being on Xarelto for her AFib. Chest x-ray was read as cardiomegaly with mild interstitial edema. She also has 3+ pitting edema to lower extremities. The patient was given IV fluids in the emergency room and started on a Protonix drip. GI has been consulted. The patient is being admitted to inpatient status on the date of service of 08/22/2022. Review of Systems Review of Systems: See HPI All systems reviewed & are unremarkable except as noted in HPI and below Constitutional: Constitutional: Reports as per HPI and Reports no additional constitutional complaints Eyes: Eyes: Reports as per HPI and Reports no additional eye complaints ENT: Reports system reviewed and no additional complaints, except as documented and Reports Normal hearing present Cardiovascular: Cardiovascular: Reports no additional cardiovascular complaints Respiratory: Respiratory: Reports no additional respiratory complaints and Reports no additional respiratory complaints Gastrointestinal: Gastrointestinal: Reports as per HPI and Reports no additional gastrointestinal complaints Musculoskeletal: Musculoskeletal: Reports no additional musculoskeletal complaints Integumentary/Breasts: Skin/Breast: Reports system reviewed and no additional complaints, except as docu and Reports as per HPI Neurologic: Reports system reviewed and no additional complaints, except as documented, Reports as per HPI and Reports Normal hearing present Psychiatric: Psychiatric: Reports no additional psychiatric complaints and Reports as per HPI Endocrine: Endocrine: Reports no additional endocrine complaints Hematologic/Lymphatic: Hematologic/Lymphatic: Reports no additional hematologic/lymphatic complaints Allergic/Immunologic: Allergic/Immunologic: Reports no additional allergic/immunologic complaints [facility] Past Medical History Medical History Aortic aneurysm Artificial pacemaker Atrial fibrillation Diastolic heart failure secondary to hypertension Diverticulitis Essential hypertension Hepatitis Hypothyroidism Urinary incontinence Vitamin D deficiency Surgical History Surgical History H/O cataract extraction History of hysterectomy Family History Family History (Updated 08/23/22 @ 00:52 by Sylvia Albarran NP) Mother Essential hypertension Father Heart disease Sibling Heart disease Social History Social History Social History: Patient resides at [facility]. 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 She is single and has not had any children. She is a lifelong nonsmoker. She does not use any alcohol, marijuana or illicit drugs. Code status: DNR/DNI Healthcare power of trial attorney: Ana Maria Caballero Smoking status: Never smoker Alcohol intake: never Substance use: never Subst
[2022-08-22 17:50] LABS: Alanine Aminotransferase 44 U/L (6-35); Albumin Level 3.2 g/dL (3.5-5.1); Alkaline Phosphatase 194 U/L (38-126); Anion Gap 3 mmol/L (8-16); Aspartate Amino Transferase 55 U/L (14-36); Bilirubin,Total 0.5 mg/dL (0.2-1.3); Blood Urea Nitrogen 20 mg/dL (7-17); Carbon Dioxide 26 mmol/L (22-30); Chloride 95 mmol/L (98-107); Estimated CRCL calculation 34 ml/min; Estimated Glomerular Filt Rate 47; Glucose 100 mg/dL (65-110); Potassium 4.6 mmol/L (3.4-5.0); Sodium 124 mmol/L (137-145)
[2022-08-22] MEDS: SODIUM CHLORIDE 0.9% IV 250 ML 30 ML IV CONT (18:41)
[2022-08-22] MEDS: TUBING, BLOOD PLUM PUMP TUBING 1 EACH XX (18:52)
--- NOTE | 2022-08-22 19:09 | PC.NURSE ---
Patient report received from TODD Strange. All questions answered and care of patient assumed.
--- NOTE | 2022-08-22 19:35 | PC.NURSE ---
Updates provided to NORBERT at [facility] in [place].
--- NOTE | 2022-08-22 20:32 | ADMGEN ---
This patient, Paula Gonzalez, was admitted to IMU Room 204-01. Patient/family oriented to hospital policies and general routines including ID bracelet, bed and alarms, visiting hours, pain management, procedures, bathroom and other care routines, personal items, smoking policy, room service/diet, and visiting hours. Information on how to activate the Rapid Response Team has been discussed. Patient/Family are encouraged to report perceived risks to care and to ask questions if they do not understand what they are told or what they should do.
[2022-08-22] MEDS: FUROSEMIDE INJ 40 MG/4 ML VIAL IV PUSH (21:57)
[2022-08-23] VITALS (15 sets, daily range): BP systolic 112–151; BP diastolic 59–87; PULSE 65–72; RESP 14–20; TEMP 36.3–36.6; O2SAT 90–97
--- NOTE | 2022-08-23 | ECHO_ITS ---
Patient Info Name: Paula Gonzalez Age: 87 years : 1935 Gender: Female Ht: 64 in Wt: 195 lbs BSA: 2.03 m2 HR: 72 bpm BP: 151 / 65 mmHg Heart Rhythm: Paced Exam Date: 08/23/2022 8:17 AM Exam Location: [facility] Patient Status: Inpatient Admit Date: 08/22/2022 Staff Ordering Physician: Sylvia Albarran NP Workforce Management Manager: Maynor Tracy RDCS, RT Attending Provider: Juan Ford MD Referring Physician: Avis KOVACS; Exam Type: CA echo dop color flow w con Study Info Indications I50.9 - Heart failure, unspecified Complete two-dimensional, color flow and Doppler transthoracic echocardiogram is performed with contrast to opacify the left ventricle and to improve the deliniation of the left ventricle endocardial borders. Strain analysis performed. Summary 1. Left ventricular chamber dimension is normal. 2. There is mildly increased left ventricular wall thickness. 3. Left ventricular systolic function is moderately reduced, estimated at 35-40%. 4. Left ventricular septal wall motion is abnormal with septal motion related to pacing. 5. The apex appears akinetic. 6. The left ventricular diastolic function is grade I diastolic dysfunction. 7. Global longitudinal strain is abnormal at -10 %. 8. Right ventricular systolic function is normal. 9. Left atrial chamber dimension is mildly enlarged. 10. Right atrial chamber dimension is mildly enlarged. 11. There is moderate aortic valve calcification. 12. There is moderate aortic valve regurgitation. 13. The mitral valve has thickened leaflets. 14. The mitral valve annulus is moderately calcified. 15. There is mild mitral valve regurgitation. 16. There is mild to moderate tricuspid valve regurgitation. 17. Dilated inferior vena cava with <50% collapse upon inspiration consistent with elevated right atrial pressure, 15 mmHg. 18. The aortic root size at the sinus of Valsalva is dilated. 19. Pulmonary hypertension with estimated PASP of 68mmHg. Left Ventricle The apex appears akinetic. Left ventricular chamber dimension is normal. Left ventricular systolic function is moderately reduced, estimated at 35-40%. There is mildly increased left ventricular wall thickness. Left ventricular septal wall motion is abnormal with septal motion related to pacing. The left ventricular diastolic function is grade I diastolic dysfunction. Global longitudinal strain is abnormal at -10 %. Right Ventricle Linear artifact in right ventricle suggestive of catheter(s), pacemaker lead(s), or ICD lead(s). Right ventricular chamber dimension is normal. Right ventricular systolic function is normal. Left Atria Left atrial chamber dimension is mildly enlarged. Right Atria Linear artifact in the right atrium suggestive of catheter(s), pacemaker lead(s), or ICD lead(s). Right atrial chamber dimension is mildly enlarged. Atrial Septum Intact interatrial septum visualized by color flow imaging. Aortic Valve The aortic valve is not well visualized. There is no aortic valve stenosis. There is moderate aortic valve regurgitation. There is moderate aortic valve calcification. Pulmonic Valve The pulmonic valve is not well visualized. Mitral Valve The mitral valve has thickened leaflets. There is mild mitral valve regurgitation. The mitral valve annulus is moderately calcified. Tricuspid Valve There is mild to moderate tricuspid valve regurgitation. Pericardium/Pleural There is no pericardial effusion.
[2022-08-23 02:43] LABS: Basophils Absolute Auto 0.1 K/mm3 (0.0-0.1); Basophils Percent Auto 0.9 % (0.2-1.2); Eosinophils Absolute Auto 0.1 K/mm3 (0-0.3); Eosinophils Percent Auto 1.4 % (0-4.4); Hematocrit 27.8 % (37.0-47.0); Hemoglobin 9.1 g/dL (12.0-15.0); Immature Granulocyte Absolute 0.04 K/mm3 (0.00-0.031); Immature Granulocyte Percent A 0.6 % (0-0.5); Lymphocytes Absolute Auto 1.11 K/mm3 (0.9-3.2); Lymphocytes Percent Auto 15.7 % (18.3-44.2); Mean Corpuscular HGB Conc 32.7 g/dl (32-36); Mean Corpuscular Hemoglobin 27.5 pg (26-34); Mean Platelet Volume 8.2 fl (7.4-10.4); Monocytes Absolute Auto 1.1 K/mm3 (0.1-0.6); Monocytes Percent Auto 15.3 % (2.6-8.5); Neutrophils Absolute Auto 4.7 K/mm3 (1.3-6.7); Neutrophils Percent Auto 66.1 % (45.5-73.1); Platelet Count Result 324 k/mm3 (150-375); Red Blood Count 3.31 M/mm3 (4.2-5.4); Red Cell Distribution Width 14.1 % (11.5-14.5); White Blood Count 7.1 K/mm3 (4.5-10.0)
[2022-08-23 02:55] LABS: Alanine Aminotransferase 47 U/L (6-35); Albumin Level 3.4 g/dL (3.5-5.1); Alkaline Phosphatase 177 U/L (38-126); Anion Gap 6 mmol/L (8-16); Aspartate Amino Transferase 61 U/L (14-36); Bilirubin,Total 1.2 mg/dL (0.2-1.3); Blood Urea Nitrogen 18 mg/dL (7-17); Calcium 8.1 mg/dL (8.4-10.2); Carbon Dioxide 27 mmol/L (22-30); Chloride 90 mmol/L (98-107); Estimated CRCL calculation 35 ml/min; Estimated Glomerular Filt Rate 52; Glucose 104 mg/dL (65-110); Phosphorus 3.5 mg/dL (2.5-4.5); Sodium 123 mmol/L (137-145)
[2022-08-23 03:06] LABS: Potassium Urine Random 15.8 meq/L; Sodium Urine Random 118 meq/L
[2022-08-23 03:29] LABS: Eosinophil Urine None Seen % (None Seen); Urine Eos QC 2nd Tech Confirmed
[2022-08-23] MEDS: LEVOTHYROXINE SODIUM 75 MCG TABLET PO (06:09)
--- NOTE | 2022-08-23 06:10 | PC.NURSE ---
monitored the charting and medication dispensing on this patient done by deb medina rn and i agree with everything.
--- NOTE | 2022-08-23 06:44 | WPDGICN ---
Assessment and Plan Assessment and plan (1) Acute upper GI bleeding: Code(s): K92.2 - Gastrointestinal hemorrhage, unspecified Status: Acute Assessment and Plan: although there is no definite evidence of bleeding at this point, her hemoglobin did drop from 9.9 month or 2 ago to 6.3. This is accompanied by significant shortness of breath. It is now up to 9.1 after transfusion. (2) Anemia: Qualifiers: Anemia type: unspecified type Qualified Code(s): D64.9 - Anemia, unspecified Code(s): D64.9 - Anemia, unspecified Status: Acute Assessment and Plan: She is not think that she has been anemic in the past. It appears that she usually runs around 10 however (3) Hyponatremia: Code(s): E87.1 - Hypo-osmolality and hyponatremia Status: Acute Assessment and Plan: her sodium has dropped to 123. in May was 134 still somewhat low. She has been started on sodium tablets. (4) CHF (congestive heart failure): Qualifiers: Heart failure chronicity: unspecified Code(s): I50.9 - Heart failure, unspecified Status: Acute Assessment and Plan: She has chronic congestive heart failure. Her maintenance medications are furosemide 40 mg per day, amiodarone 200 mg per day, carvedilol 6.25 mg daily. (5) Atrial fibrillation: Qualifiers: Atrial fibrillation type: unspecified Qualified Code(s): I48.91 - Unspecified atrial fibrillation Code(s): I48.91 - Unspecified atrial fibrillation Status: Acute Assessment and Plan: She is on Xarelto 20 mg daily. This has been held given the possible GI bleed (6) Artificial pacemaker: Code(s): Z95.0 - Presence of cardiac pacemaker Status: Acute GI Consult Note Consult date/time: 08/23/22 06:44 HPI: Paula Gonzalez is a 87 year old female who was a resident of [facility]. She states that she was feeling short of breath. She was brought to the emergency room with complaints of swelling of the lower extremities and dyspnea. She was found to be markedly anemic with a hemoglobin of 6.3. She states that she has had dark stools lately but was not aware that that might be blood. She does not believe that she has ever had an ulcer or gastrointestinal bleeding in the past. She does take Xarelto for atrial fibrillation but denies taking any other NSAIDs. She is not having abdominal pain nausea vomiting or dysphagia. She denies chronic heartburn. 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 She is single and has not had any children. She is a lifelong nonsmoker. She does not use any alcohol, marijuana or illicit drugs. Code status: DNR/DNI Healthcare power of admitted attorneys: Ana Maria Caballero Smoking status: Never smoker Alcohol intake: never Substance use: never Substance use type: does not use Lack of Transportation: No Lack of Food: Never True Current Housing: I Have Housing Concerned About Future Housing: No Difficulty Paying Gas/Electric Bills: No Difficul
[2022-08-23 07:00] LABS: Free T4 Free Thyroxine Reflex 1.93 ng/dL (0.78-2.19)
[2022-08-23] MEDS: PERFLUTREN LIPID MICROSPHERES 1.5 ML VIAL DILUTED TO 10 ML TOTAL VOLUME IV PUSH (08:43)
--- NOTE | 2022-08-23 08:44 | IVDEFINITY ---
Prior to administration of IV Definity the patient was educated on the risks and benefits of the imaging enhancing agent including potential adverse side effects. The patient verbalized understanding. Allergies were verified. No exclusion criteria were identified and at least one of the following inclusion criteria were met: 1) physician request, 2) patient technically difficult to image (per the [place] [employer]ocardi[employer] guidelines of two or more segments not discernable within the apical view), or 3) questionable left ventricular function. ?
[2022-08-23] MEDS: dilTIAZem HCL 60 MG TABLET PO ×2 (08:53→16:30)
[2022-08-23] MEDS: FUROSEMIDE 40 MG TABLET PO (08:53)
[2022-08-23] MEDS: OLMESARTAN MEDOXOMIL 20 MG TABLET 40 MG PO (08:54)
[2022-08-23] MEDS: carvediloL 12.5 MG TABLET PO ×2 (08:54→20:36)
[2022-08-23] MEDS: SODIUM CHLORIDE 1 GM TABLET PO ×2 (08:55→16:30)
[2022-08-23 09:40] LABS: Hematocrit 26.5 % (37.0-47.0); Hemoglobin 8.9 g/dL (12.0-15.0)
[2022-08-23 09:48] LABS: Total Triiodothyronine (T3) 1.29 NG/ML (0.97-1.69)
[2022-08-23] MEDS: CHOLECALCIFEROL 1,000 UNITS TABLET 2000 UNITS PO (16:30)
[2022-08-23] MEDS: MAGNESIUM OXIDE 400 MG TABLET PO (16:30)
--- NOTE | 2022-08-23 17:17 | PM.IMPN ---
Progress Note: A&P Assessment and Plan (1) Acute upper GI bleeding: Code(s): K92.2 - Gastrointestinal hemorrhage, unspecified Status: Acute Assessment and Plan: H&H every 6 hours -the patient will receive 2 units of packed red blood cells with Lasix in between. -stool was found to be positive for occult blood GI has been consulted The patient is on a Protonix drip Holding Xarelto HPI-Narrative: This is an 87-year-old female patient who resides at a [facility].? Her POA is at the bedside answering most questions for her.? The patient has a history of congestive heart failure, atrial fibrillation and hypertension.? The patient came to the emergency room with complaints of increased shortness of breath and increased swelling to her lower extremities.? The patient was found to be 88% on room air was placed on oxygen at 2 L per nasal cannula.? The patient is very? pale and fatigued.? Her H&H is 6.3 and 20.1.? Patient's baseline hemoglobin is somewhere between 8 and 9.? She does have chronic renal failure.? Her creatinine is 1.1 today with a baseline somewhere around 1.6.? Her GFR is 47 which is improved from her last GFR of 24.? Her BMP is 682.? Patient was found to be guaiac-positive.? Patient was ordered 2 units of packed red blood cells.? Patient has a history of being on Xarelto for her AFib.? Chest x-ray was read as cardiomegaly with mild interstitial edema.? She also has 3+ pitting edema to lower extremities.? The patient was given IV fluids in the emergency room and started on a Protonix drip.? GI has been consulted.? 08/23/2022 interval history: 87-year-old female presented with shortness of her oxygen saturation was 88% on room patient was found to have anemia with a hemoglobin of 6.3 resulting in shortness of breath with also history of stent congestive heart, patient was given 2 units of pack RBC her hemoglobin has improved to 9.1 her clinical symptoms have also improved, patient seen by GI there is no obvious source of bleeding her recommending EGD and colonoscopy which is scheduled for tomorrow, patient with history congestive heart failure cardiac echo showed severe cardiomyopathy with ejection fraction 35-40%, and grade 1 diastolic dysfunction most likely patient is having, combine acute on chronic systolic diastolic congestive heart failure, will continue to diurese the patient. (2) Hyponatremia: Code(s): E87.1 - Hypo-osmolality and hyponatremia Status: Acute Assessment and Plan: The patient is on sodium tablets. Her sodium is 124 today and recently had been 134. She does have history of congestive heart failure. (3) Anemia: Qualifiers: Anemia type: unspecified type Qualified Code(s): D64.9 - Anemia, unspecified Code(s): D64.9 - Anemia, unspecified Status: Acute Assessment and Plan: Patient typically has anemia which could be related to her renal failure. However today her hemoglobin is worse than her baseline. Her H&H was found to be 6.3 and 20.1 with a baseline hemoglobin anywhere between 8 and 9. She was found to be Hemoccult positive She is currently on a Protonix drip and GI has been consulted She is to receive 2 units of packed red blood cells and her Xarelto on hold (4) CHF (congestive heart failure): Qualifiers: Heart failure chronicity: unspecified Code(s): I50.9 - Heart failure, unspecified Status: Acute Assessment and Plan: I was unable to locate any recent echo to determine what her EF. An echo has been ordered. Continue with p.o. Lasix Continue with Coreg if blood pressure allows initially a blood pressure was 163/58 and currently it is 149/50. (5) Essential hypertension: Code(s): I10 - Essential (primary) hypertension Status: Acute Assessment and Plan: Continue with Coreg -continue with Benicar (6) Hypothyroidism: Code(s): E03.9 - Hypothyroidism, unspecified
--- NOTE | 2022-08-23 17:26 | PC.NURSE ---
This patient, Paula Gonzalez, was transferred to [[facility] ] on 08/23/22 at 1710. Personal belongings sent with patient. Report given to [ ]. Appropriate documentation sent with patient.
--- NOTE | 2022-08-23 17:26 | PC.NURSE ---
This patient, Paula Gonzalez, was transferred to [ [facility]] on 08/23/22 at 1726. Personal belongings sent with patient. Report given to [ [facility]]. Appropriate documentation sent with patient.
--- NOTE | 2022-08-23 17:43 | PC.NURSE ---
This patient, Paula Gonzalez, was received from IMU on 08/23/22 at 1705. Report received from TODD Strange. Patient/family oriented to unit policies and routines.
[2022-08-23] MEDS: TOLNAFTATE 1% POWDER 45 GM BTL 1 APPLIC TOPICAL (20:50)
[2022-08-24] VITALS (8 sets, daily range): BP systolic 107–158; BP diastolic 57–68; PULSE 66–84; RESP 14–20; TEMP 36–36.4; O2SAT 90–94
[2022-08-24] MEDS: LEVOTHYROXINE SODIUM 75 MCG TABLET PO (06:17)
[2022-08-24] MEDS: LEVOTHYROXINE SODIUM 100 MCG TABLET PO (06:19)
[2022-08-24 06:31] LABS: Magnesium 1.8 mg/dL (1.6-2.3)
[2022-08-24 08:52] LABS: Hematocrit 27.1 % (37.0-47.0); Hemoglobin 8.9 g/dL (12.0-15.0); Mean Corpuscular HGB Conc 32.8 g/dl (32-36); Mean Corpuscular Hemoglobin 27.6 pg (26-34); Mean Corpuscular Volume 83.9 fl (80-100); Mean Platelet Volume 8.5 fl (7.4-10.4); Platelet Count Result 328 k/mm3 (150-375); Red Blood Count 3.23 M/mm3 (4.2-5.4); Red Cell Distribution Width 14.6 % (11.5-14.5); White Blood Count 6.6 K/mm3 (4.5-10.0)
[2022-08-24 09:09] LABS: Anion Gap 3 mmol/L (8-16); Blood Urea Nitrogen 13 mg/dL (7-17); Calcium 7.9 mg/dL (8.4-10.2); Carbon Dioxide 28 mmol/L (22-30); Chloride 84 mmol/L (98-107); Estimated CRCL calculation 39 ml/min; Estimated Glomerular Filt Rate 59; Glucose 101 mg/dL (65-110); Potassium 3.9 mmol/L (3.4-5.0); Sodium 115 mmol/L (137-145)
[2022-08-24] MEDS: SODIUM CHLORIDE 1 GM TABLET PO (09:39)
[2022-08-24] MEDS: TOLNAFTATE 1% POWDER 45 GM BTL 1 APPLIC TOPICAL ×2 (09:41→21:30)
[2022-08-24 10:18] LABS: Sodium 115 mmol/L (137-145)
[2022-08-24] MEDS: PANTOPRAZOLE SODIUM IV 80 MG in SODIUM CHLORIDE 0.9% IV 500 ML 50 MG IV CONT (10:21)
[2022-08-24] MEDS: OLMESARTAN MEDOXOMIL 20 MG TABLET 40 MG PO (10:21)
[2022-08-24] MEDS: MAGNESIUM OXIDE 400 MG TABLET PO (10:21)
[2022-08-24] MEDS: carvediloL 12.5 MG TABLET PO (10:21)
[2022-08-24] MEDS: FUROSEMIDE 40 MG TABLET PO (10:22)
[2022-08-24] MEDS: CYANOCOBALAMIN 1,000 MCG TABLET 1000 MCG PO (10:22)
[2022-08-24] MEDS: CHOLECALCIFEROL 1,000 UNITS TABLET 2000 UNITS PO (10:22)
[2022-08-24] MEDS: POTASSIUM CHLORIDE 10 MEQ TABLET.ER 20 MEQ PO (10:22)
[2022-08-24] MEDS: dilTIAZem HCL 60 MG TABLET PO (10:22)
--- NOTE | 2022-08-24 13:10 | PM.CNNEP ---
Assessment and Plan Assessment and plan (1) Hyponatremia: Code(s): E87.1 - Hypo-osmolality and hyponatremia Status: Acute Assessment and Plan: acute on chronic (has been present at least as far back as January 2021) baseline sodium runs ~ 128 - 134 (at her best) admitted with a sodium of 123 with acute drop to 115 by AM labs likely due to D5W carrier fluid in protonix gtt - carrier fluid changed to normal saline suspect a component of CHF playing a role as well extensive evaluation on past hospitalization (01/2021) regarding this issue: TSH elevated but on levothyroxine cortisol borderline low but cosyntropin testing okay CT of brain negative CXR without massess/tumors; recent CXR with PVC she responded to fluid restriction, salt tabs, and lasix in the past will re-institute these measures may need 3% saline depending on response to therapy (2) Acute upper GI bleeding: Code(s): K92.2 - Gastrointestinal hemorrhage, unspecified Status: Acute Assessment and Plan: low H/H on admission guaiac positive on protonix gtt following serial H/Hs Gastroenterology following xarelto on hold (3) CHF (congestive heart failure): Qualifiers: Heart failure chronicity: unspecified Code(s): I50.9 - Heart failure, unspecified Status: Acute Assessment and Plan: acute on chronic versus acute (?) recent echo (08/23/22) with EF 35-40%, mild LVH, grade I diastolic dysfunction, mild biatrial enlargement, mild MR, mild-mod TR, RVSP 68 Cardiology consulted already on diuretic therapy (4) Essential hypertension: Code(s): I10 - Essential (primary) hypertension Status: Acute Assessment and Plan: a bit elevated follow trend of hemodynamics continue current medications for now (5) Atrial fibrillation: Qualifiers: Atrial fibrillation type: unspecified Qualified Code(s): I48.91 - Unspecified atrial fibrillation Code(s): I48.91 - Unspecified atrial fibrillation Status: Acute Assessment and Plan: s/p pacemaker placement on amiodarone holding anticoagulation give #2 Will continue to follow. History of Present Illness Reason for Consult Consult date: 08/24/22 Reason for consult: hyponatremia Chief Complaint Chief complaint: Hypoxia, CHF, anemia History of Present Illness Narrative: The patient is an 87-year-old female with a past medical history as outlined below who presented to [facility] Emergency room with complaints of increased shortness of breath and lower extremity edema. It is difficult to get a full incomplete history from the patient as she seems to go off on tangents when I ask her questions so most information I have obtained is from review of the electronic medical record and discussion with the physician/nurses involved in her care. Apparently for an undisclosed period of time, patient has had worsening shortness of breath and increase in her lower extremity edema. These symptoms became an issue to the point where eventually she was transferred to the emergency room here at [facility] for further assessment. Workup and evaluation in the emergency room demonstrated patient be hypoxic at 88% on room air but this improved with application of 2 L of oxygen by nasal cannula. Routine blood test demonstrated a CBC with severe anemia with a hemoglobin of 6.3 and hematocrit 20.1. Her BNP was mildly elevated and her chest x-ray demonstrated cardiomegaly with mild interstitial edema. Her chemistry showed her renal function being somewhat better than baseline but with a sodium level of 123 (she does have known chronic hyponatremia). On exam, she appeared to be pale and fatigued and was noted to have two to 3+ pitting edema in her lower extremities. She was found to be guaiac-positive. In the emergency room, she was started on a Protonix drip and gastroenterology was consu
--- NOTE | 2022-08-24 13:10 | P.CONNP_ITS ---
Assessment and Plan Assessment and plan (1) Hyponatremia: Code(s): E87.1 - Hypo-osmolality and hyponatremia Status: Acute Assessment and Plan: * acute on chronic (has been present at least as far back as January 2021) * baseline sodium runs ~ 128 - 134 (at her best) * admitted with a sodium of 123 with acute drop to 115 by AM labs * likely due to D5W carrier fluid in protonix gtt - carrier fluid changed to normal saline * suspect a component of CHF playing a role as well * extensive evaluation on past hospitalization (01/2021) regarding this issue: * TSH elevated but on levothyroxine * cortisol borderline low but cosyntropin testing okay * CT of brain negative * CXR without massess/tumors; recent CXR with PVC * she responded to fluid restriction, salt tabs, and lasix in the past * will re-institute these measures * may need 3% saline depending on response to therapy (2) Acute upper GI bleeding: Code(s): K92.2 - Gastrointestinal hemorrhage, unspecified Status: Acute Assessment and Plan: * low H/H on admission * guaiac positive * on protonix gtt * following serial H/Hs * Gastroenterology following * xarelto on hold (3) CHF (congestive heart failure): Qualifiers: Heart failure chronicity: unspecified Code(s): I50.9 - Heart failure, unspecified Status: Acute Assessment and Plan: * acute on chronic versus acute (?) * recent echo (08/23/22) with EF 35-40%, mild LVH, grade I diastolic dysfunction, mild biatrial enlargement, mild MR, mild-mod TR, RVSP 68 * Cardiology consulted * already on diuretic therapy (4) Essential hypertension: Code(s): I10 - Essential (primary) hypertension Status: Acute Assessment and Plan: * a bit elevated * follow trend of hemodynamics * continue current medications for now (5) Atrial fibrillation: Qualifiers: Atrial fibrillation type: unspecified Qualified Code(s): I48.91 - Unspecified atrial fibrillation Code(s): I48.91 - Unspecified atrial fibrillation Status: Acute Assessment and Plan: * s/p pacemaker placement * on amiodarone * holding anticoagulation give #2 Will continue to follow. History of Present Illness Reason for Consult Consult date: 08/24/22 Reason for consult: hyponatremia Chief Complaint Chief complaint: Hypoxia, CHF, anemia History of Present Illness Narrative: The patient is an 87-year-old female with a past medical history as outlined below who presented to [facility] Emergency room with complaints of increased shortness of breath and lower extremity edema. It is difficult to get a full incomplete history from the patient as she seems to go off on tangents when I ask her questions so most information I have obtained is from review of the electronic medical record and discussion with the physician/nurses involved in her care. Apparently for an undisclosed period of time, patient has had worsening shortness of breath and increase in her lower extremity edema. These symptoms became an issue to the point where eventually she was transferred to the emergency room here at [facility] for further assessment. Workup and evaluation in the emergency room demonstrated patient be hypoxic at 88% on room air but this improved with application of 2 L of oxygen by nasal cannula. Routine blood test demonstrated a CBC with severe anemia with a hemoglobin of 6.3 and hematocrit 20.1. Her BNP was mildly elevated and her chest x-ray demonstrated cardiomegal
--- NOTE | 2022-08-24 13:27 | PM.IMPN ---
Progress Note: A&P Assessment and Plan (1) Acute upper GI bleeding: Code(s): K92.2 - Gastrointestinal hemorrhage, unspecified Status: Acute Assessment and Plan: H&H every 6 hours -the patient will receive 2 units of packed red blood cells with Lasix in between. -stool was found to be positive for occult blood GI has been consulted The patient is on a Protonix drip Holding Xarelto HPI-Narrative: This is an 87-year-old female patient who resides at a [facility].? Her POA is at the bedside answering most questions for her.? The patient has a history of congestive heart failure, atrial fibrillation and hypertension.? The patient came to the emergency room with complaints of increased shortness of breath and increased swelling to her lower extremities.? The patient was found to be 88% on room air was placed on oxygen at 2 L per nasal cannula.? The patient is very? pale and fatigued.? Her H&H is 6.3 and 20.1.? Patient's baseline hemoglobin is somewhere between 8 and 9.? She does have chronic renal failure.? Her creatinine is 1.1 today with a baseline somewhere around 1.6.? Her GFR is 47 which is improved from her last GFR of 24.? Her BMP is 682.? Patient was found to be guaiac-positive.? Patient was ordered 2 units of packed red blood cells.? Patient has a history of being on Xarelto for her AFib.? Chest x-ray was read as cardiomegaly with mild interstitial edema.? She also has 3+ pitting edema to lower extremities.? The patient was given IV fluids in the emergency room and started on a Protonix drip.? GI has been consulted.? 08/24/2022 interval history: 87-year-old female presented with shortness of her oxygen saturation was 88% on room patient was found to have anemia with a hemoglobin of 6.3 resulting in shortness of breath with also history of congestive heart failure, patient was given 2 units of pack RBC her hemoglobin has improved to 8.9 her clinical symptoms have also improved, patient was seen by GI, her stool hemoccult is positive, recommended EGD and colonoscopy which was scheduled for today however it is cancel for today as her sodium has dropped to 115 today, we have placed her on fluid restriction and patient will be seen media analytics manager and further recommendation to follow, , patient with history congestive heart failure cardiac echo showed severe cardiomyopathy with ejection fraction 35-40%, and grade 1 diastolic dysfunction most likely patient is having, combine acute on chronic systolic diastolic congestive heart failure, will consult slider assembler for further recomendation to follow, will continue to diurese the patient. (2) Hyponatremia: Code(s): E87.1 - Hypo-osmolality and hyponatremia Status: Acute Assessment and Plan: The patient is on sodium tablets. Her sodium is 124 today and recently had been 134. She does have history of congestive heart failure. (3) Anemia: Qualifiers: Anemia type: unspecified type Qualified Code(s): D64.9 - Anemia, unspecified Code(s): D64.9 - Anemia, unspecified Status: Acute Assessment and Plan: Patient typically has anemia which could be related to her renal failure. However today her hemoglobin is worse than her baseline. Her H&H was found to be 6.3 and 20.1 with a baseline hemoglobin anywhere between 8 and 9. She was found to be Hemoccult positive She is currently on a Protonix drip and GI has been consulted She is to receive 2 units of packed red blood cells and her Xarelto on hold (4) CHF (congestive heart failure): Qualifiers: Heart failure chronicity: unspecified Code(s): I50.9 - Heart failure, unspecified Status: Acute Assessment and Plan: I was unable to locate any recent echo to determine what her EF. An echo has been ordered. Continue with p.o. Lasix Continue with Coreg if blood pressure allows initially a blood pressure was 163/58 and currently it is 149/50. (5) Radhika
[2022-08-24 15:10] LABS: Sodium 119 mmol/L (137-145)
--- NOTE | 2022-08-24 15:42 | PM.CNCAR ---
Assessment and Plan Assessment and plan (1) CHF (congestive heart failure): Qualifiers: Heart failure chronicity: unspecified Code(s): I50.9 - Heart failure, unspecified Status: Acute Assessment and Plan: Acute on chronic systolic and diastolic heart failure. I don't have her last echo to see if this is new LV systolic dysfunction or chronic. 08/23/22 Echo: EF 35-40%, mild LVH, grade I diastolic dysfunction, mild biatrial enlargement, mild MR, mild-mod TR, RVSP 68 mmHg. She does not want any invasive procedures. She is on Coreg, Olmesartan, Lasix 40 mg daily. Stop Diltiazem and Olmesartan. Increase Coreg 25 mg BID. Start Entresto 49-51 mg BID. Monitor BP and HR. (2) Atrial fibrillation: Qualifiers: Atrial fibrillation type: unspecified Qualified Code(s): I48.91 - Unspecified atrial fibrillation Code(s): I48.91 - Unspecified atrial fibrillation Status: Acute Assessment and Plan: She is in paced rhythm. Was on Amiodarone 200 mg daily. Resume Amiodarone. On Xarelto normally but on hold due to GI bleed. (3) Artificial pacemaker: Code(s): Z95.0 - Presence of cardiac pacemaker Status: Acute Assessment and Plan: Follows with Dr. Sauceda. (4) Essential hypertension: Code(s): I10 - Essential (primary) hypertension Status: Acute Assessment and Plan: High. Monitor. (5) Hyponatremia: Code(s): E87.1 - Hypo-osmolality and hyponatremia Status: Acute Assessment and Plan: Monitor sodium level. On salt tablets. History of Present Illness History of Present Illness Consult date/time: 08/24/22 15:42 Reason For Visit: Hypoxia, CHF, anemia Narrative: 87 yr old woman admitted on 08/22/22 from [facility] for sob. She has a history of pacemaker, hypertension, CHF, PAF. Her regular foot tender is Dr. Sauceda. Reports she was sob but not anymore. It was found she was anemic with Hb 6.3, and given 2 units PRBC. She is able to walk 3 blocks normally. Has moderate edema of legs. Denies chest pain, orthopnea, PND, palpitations, dizziness. Review of Systems Review of Systems: All systems reviewed & are unremarkable except as noted in HPI and below Constitutional: Constitutional: Reports as per HPI, Denies chills and Denies fever(s) Cardiovascular: Cardiovascular: Reports as per HPI, Denies chest pain, Denies irregular heart rhythm, Reports leg edema and Denies lightheadedness Respiratory: Respiratory: Reports as per HPI and Reports dyspnea Gastrointestinal: Gastrointestinal: Reports as per HPI and Denies abdominal pain Genitourinary: Genitourinary: Reports as per HPI and Denies dysuria Musculoskeletal: Musculoskeletal: Reports as per HPI Neurologic: Reports as per HPI, Denies dizziness and Denies syncope [facility] Past Medical History Medical History Aortic aneurysm Artificial pacemaker Atrial fibrillation Diastolic heart failure secondary to hypertension Diverticulitis Essential hypertension Hepatitis Hypothyroidism Urinary incontinence Vitamin D deficiency Surgical History Surgical History H/O cataract extraction History of hysterectomy Family History Family History (Updated 08/23/22 @ 00:52 by Sylvia Albarran NP) Mother Essential hypertension Father Heart disease Sibling Heart disease Social History Social History Social History: Patient resides at [facility]. 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 She is single and has not had any children. She is a lifelong nonsmoker. She does not use any alcohol, marijuana or illicit drugs. Code status: DNR/DNI Healthcare power of attorney law clerk: Ana Maria Caballero Smoking status: Never smoker Alcohol intake: never Substance use: never Substance use t
[2022-08-24 20:10] LABS: Sodium 120 mmol/L (137-145)
[2022-08-24] MEDS: SACUBITRIL/VALSARTAN 49-51 MG TABLET 1 TABLET PO (20:36)
[2022-08-24] MEDS: carvediloL 25 MG TABLET PO (20:36)
[2022-08-25] VITALS (11 sets, daily range): BP systolic 105–130; BP diastolic 40–54; PULSE 69–82; RESP 16–22; TEMP 36.3–36.7; O2SAT 90–98
[2022-08-25 00:09] LABS: Sodium 120 mmol/L (137-145)
[2022-08-25] MEDS: PANTOPRAZOLE SODIUM IV 80 MG in SODIUM CHLORIDE 0.9% IV 500 ML 50 MG IV CONT ×3 (00:26→17:45)
[2022-08-25] MEDS: LEVOTHYROXINE SODIUM 75 MCG TABLET PO (06:28)
[2022-08-25] MEDS: LEVOTHYROXINE SODIUM 100 MCG TABLET PO (06:28)
[2022-08-25 06:38] LABS: Hematocrit 27.3 % (37.0-47.0); Hemoglobin 9.2 g/dL (12.0-15.0); Mean Corpuscular HGB Conc 33.7 g/dl (32-36); Mean Corpuscular Hemoglobin 27.8 pg (26-34); Mean Corpuscular Volume 82.5 fl (80-100); Mean Platelet Volume 7.9 fl (7.4-10.4); Platelet Count Result 285 k/mm3 (150-375); Red Blood Count 3.31 M/mm3 (4.2-5.4); Red Cell Distribution Width 14.5 % (11.5-14.5); White Blood Count 7.6 K/mm3 (4.5-10.0)
[2022-08-25 06:49] LABS: Anion Gap 2 mmol/L (8-16); Blood Urea Nitrogen 12 mg/dL (7-17); Calcium 7.6 mg/dL (8.4-10.2); Carbon Dioxide 31 mmol/L (22-30); Chloride 85 mmol/L (98-107); Estimated CRCL calculation 44 ml/min; Estimated Glomerular Filt Rate > 60; Glucose 100 mg/dL (65-110); Potassium 3.5 mmol/L (3.4-5.0); Sodium 118 mmol/L (137-145)
--- NOTE | 2022-08-25 07:43 | PM.PNCARD ---
Progress Note: A&P Assessment and Plan (1) CHF (congestive heart failure): Qualifiers: Heart failure chronicity: unspecified Code(s): I50.9 - Heart failure, unspecified Status: Acute Assessment and Plan: Acute on chronic systolic and diastolic heart failure. I don't have her last echo to see if this is new LV systolic dysfunction or chronic. 08/23/22 Echo: EF 35-40%, mild LVH, grade I diastolic dysfunction, mild biatrial enlargement, mild MR, mild-mod TR, RVSP 68 mmHg. She does not want any invasive procedures. She was on Coreg, Olmesartan, Lasix 40 mg daily. Stopped Diltiazem and Olmesartan. Increased Coreg 25 mg BID. Started Entresto 49-51 mg BID. Monitor BP and HR. (2) Atrial fibrillation: Qualifiers: Atrial fibrillation type: unspecified Qualified Code(s): I48.91 - Unspecified atrial fibrillation Code(s): I48.91 - Unspecified atrial fibrillation Status: Acute Assessment and Plan: She is in paced rhythm. Was on Amiodarone 200 mg daily. Resumed Amiodarone. On Xarelto normally but on hold due to GI bleed. (3) Artificial pacemaker: Code(s): Z95.0 - Presence of cardiac pacemaker Status: Acute Assessment and Plan: Follows with Dr. Sauceda. (4) Essential hypertension: Code(s): I10 - Essential (primary) hypertension Status: Acute Assessment and Plan: Stable. Monitor. (5) Hyponatremia: Code(s): E87.1 - Hypo-osmolality and hyponatremia Status: Acute Assessment and Plan: Monitor sodium level. On salt tablets. Subjective Date/time seen: 08/25/22 07:43 Interval history: Denies chest pain or sob. Exam Const: General: cooperative, healthy appearing and comfortable Orientation/consciousness: oriented to person, oriented to place and oriented to time Resp: Auscultation: no crackles, no rales, no rhonchi and no wheezes Cardio: Rate: regular rate Rhythm: regular rhythm Heart sounds: no murmurs Peripheral pulses: dorsalis pedis present Neuro: General: oriented to person, oriented to place and oriented to time Extrem: Right lower extremity: edema Left lower extremity: edema Other: Mild-moderate edema of both legs Objective Data Vital Signs Vital Signs: Vital Signs - 24 hr 08/24/22 08:00 08/24/22 08:10 08/24/22 10:21 Temperature 97.0 F L Pulse Rate 70 66 Respiratory Rate 20 Blood Pressure 158/66 H Pulse Oximetry 93 91 Oxygen Delivery Nasal Cannula Oxygen Flow Rate 1 08/24/22 16:00 08/24/22 20:36 08/24/22 22:00 Temperature 96.8 F L 97.5 F L Pulse Rate 70 84 70 Respiratory Rate 20 18 Blood Pressure 132/57 L 107/68 Pulse Oximetry 94 91 Oxygen Delivery Oxygen Flow Rate 08/24/22 20:00 08/25/22 06:00 Temperature 97.3 F L Pulse Rate 70 Respiratory Rate 22 H Blood Pressure 130/46 L Pulse Oximetry 91 90 Oxygen Delivery Nasal Cannula Oxygen Flow Rate 1 Intake/Output Intake/Output: Intake & Output 08/22/22 08/23/22 08/24/22 08/25/22 23:59 23:59 23:59 23:59 Intake Total 350 2346 1000 510 Output Total 2500 400 Balance 350 -154 1000 110 Meds/Results Medications: Active Medications Generic Name Dose Route Start Last Admin Trade Name Freq PRN Reason Stop Dose Admin Acetaminophen 650 mg 08/23/22 00:43 Acetaminophen 325 Mg Tablet PO Q4H PRN Pain Rated 1-3 Albuterol 2 puff 08/23/22 00:43 Albuterol Sulfate (*Sp) Aerosol 1 Puff INHALATION QID PRN Shortness Of Breath Amiodarone HCl 200 mg 08/25/22 08:00 Amiodarone Hcl 200 Mg Tablet PO DAILY@0800 [facility] Bisacodyl 10 mg 08/23/22 00:43 Bisacodyl 5 Mg Tablet Ec PO DAILY PRN Constipation Carvedilol 25 mg 08/24/22 21:00 08/24/22 20:36 Carvedilol 25 Mg Tablet PO 25 mg Q12HR [facility] Administration Cyanocobalamin 1,000 mcg 08/23/22 09:00 08/24/22 10:22 Cyanocobalamin 1,000 Mcg Tablet PO 1,000 mcg DAILY [facility] Adminis
[2022-08-25] MEDS: SODIUM CHLORIDE 3% 225 ML 75 ML IV CONT (08:28)
[2022-08-25] MEDS: CHOLECALCIFEROL 1,000 UNITS TABLET 2000 UNITS PO ×2 (08:36→17:46)
[2022-08-25] MEDS: POTASSIUM CHLORIDE 10 MEQ TABLET.ER 20 MEQ PO (08:36)
[2022-08-25] MEDS: CYANOCOBALAMIN 1,000 MCG TABLET 1000 MCG PO (08:36)
[2022-08-25] MEDS: MAGNESIUM OXIDE 400 MG TABLET PO ×2 (08:36→17:46)
[2022-08-25] MEDS: AMIODARONE HCL 200 MG TABLET PO (08:36)
[2022-08-25] MEDS: carvediloL 25 MG TABLET PO ×2 (08:37→20:44)
[2022-08-25] MEDS: TOLNAFTATE 1% POWDER 45 GM BTL 1 APPLIC TOPICAL ×2 (08:37→20:46)
[2022-08-25] MEDS: SODIUM CHLORIDE 1 GM TABLET PO ×2 (08:37→17:46)
[2022-08-25] MEDS: FUROSEMIDE 40 MG TABLET PO (08:37)
[2022-08-25] MEDS: SACUBITRIL/VALSARTAN 49-51 MG TABLET 1 TABLET PO ×2 (08:37→20:45)
--- NOTE | 2022-08-25 10:47 | WPDGIPROGNO ---
Progress Note: A&P Assessment and Plan (1) Acute upper GI bleeding: Code(s): K92.2 - Gastrointestinal hemorrhage, unspecified Status: Acute Assessment and Plan: although there is no definite evidence of bleeding at this point, her hemoglobin did drop from 9.9 month or 2 ago to 6.3. This is accompanied by significant shortness of breath. It is now up to 9.1 after transfusion. 08/25/2022 hemoglobin is still hovering around 9 with no further drop since transfusion, and since Xarelto has been held (2) Anemia: Qualifiers: Anemia type: unspecified type Qualified Code(s): D64.9 - Anemia, unspecified Code(s): D64.9 - Anemia, unspecified Status: Acute Assessment and Plan: She is not think that she has been anemic in the past. It appears that she usually runs around 10 however (3) Hyponatremia: Code(s): E87.1 - Hypo-osmolality and hyponatremia Status: Acute Assessment and Plan: her sodium has dropped to 123. in May was 134 still somewhat low. She has been started on sodium tablets. now sodium is down to 118. She has been started on sodium chloride 3% infusion. (4) CHF (congestive heart failure): Qualifiers: Heart failure chronicity: unspecified Code(s): I50.9 - Heart failure, unspecified Status: Acute Assessment and Plan: She has chronic congestive heart failure. Her maintenance medications are furosemide 40 mg per day, amiodarone 200 mg per day, carvedilol 6.25 mg daily. (5) Atrial fibrillation: Qualifiers: Atrial fibrillation type: unspecified Qualified Code(s): I48.91 - Unspecified atrial fibrillation Code(s): I48.91 - Unspecified atrial fibrillation Status: Acute Assessment and Plan: She is on Xarelto 20 mg daily. This has been held given the possible GI bleed (6) Artificial pacemaker: Code(s): Z95.0 - Presence of cardiac pacemaker Status: Acute Plan We will then she perform EGD for suspected upper gastrointestinal bleed, before restarting her on anticoagulation. We will need to wait until her sodium reaches a level acceptable for anesthesia, at least high 120s Subjective Date/time seen: 08/25/22 10:47 Paula Gonzalez is a 87 year old female? who was a resident of [facility].? She states that she was feeling short of breath.? She was brought to the emergency room with complaints of swelling of the lower extremities and dyspnea.? She was found to be markedly anemic with a hemoglobin of 6.3.? She states that she has had dark stools lately but was not aware that that might be blood.? She does not believe that she has ever had an ulcer or gastrointestinal bleeding in the past.? She does take Xarelto for atrial fibrillation but denies taking any other NSAIDs.? She is not having abdominal pain nausea vomiting or dysphagia.? She denies chronic heartburn. we had scheduled her for endoscopy to be done yesterday but unfortunately she has had a persistent hyponatremia. Her sodium had been in the low 120s and then dropped to 118. She is currently receiving sodium chloride 3%. Exam Const: General: other ( Drowsy and sleepy this morning) Orientation/consciousness: patient oriented x3 Resp: Auscultation: clear to auscultation bilaterally Cardio: Rhythm: regular rhythm GI: Inspection: normal to inspection GI Palp: No abdominal tenderness, Yes Soft to palpation and No Guarding due to palpation present (GI) Auscultation: normal bowel sounds Neuro: General: patient oriented x3 Objective Data Vital Signs Vital Signs: Vital Signs - 24 hr 08/24/22 16:00 08/24/22 20:36 08/24/22 22:00 Temperature 36.0 C L 36.4 C L Pulse Rate 70 84 70 Respiratory Rate 20 18 Blood Pressure 132/57 L 107/68 Pulse Oximetry 94 91 Oxygen Delivery Oxygen Flow Rate Fraction of Inspired Oxygen 08/24/22 20:00 08/25/22 06:00 08/25/22 08:13 Temperature 36.3
--- NOTE | 2022-08-25 11:35 | PCPTNOTE ---
Attempted to do evaluation, but the patient is asleep and unable to stay awake. Will attempt to do evaluation tomorrow
--- NOTE | 2022-08-25 12:35 | P.PNNP_ITS ---
Progress Note: A&P Assessment and Plan (1) Hyponatremia: Code(s): E87.1 - Hypo-osmolality and hyponatremia Status: Acute Assessment and Plan: * acute on chronic (has been present at least as far back as January 2021) * baseline sodium runs ~ 128 - 134 (at her best) * admitted with a sodium of 123 with acute drop to 115 on 08/25/22 * likely due to D5W carrier fluid in protonix gtt - carrier fluid changed to normal saline * suspect a component of CHF playing a role as well * extensive evaluation on past hospitalization (01/2021) regarding this issue: * TSH elevated but on levothyroxine * cortisol borderline low but cosyntropin testing okay * CT of brain negative * CXR without massess/tumors; recent CXR with PVC * she responded to fluid restriction, salt tabs, and lasix in the past * will re-institute these measures * 3% saline today (this is not a good skilled nursing solution given #3) * may need to consider more aggressive diuresis * follow trend of repeat sodium levels (2) Acute upper GI bleeding: Code(s): K92.2 - Gastrointestinal hemorrhage, unspecified Status: Acute Assessment and Plan: * low H/H on admission * guaiac positive * on protonix gtt * following serial H/Hs * Gastroenterology following * xarelto on hold (3) CHF (congestive heart failure): Qualifiers: Heart failure chronicity: unspecified Code(s): I50.9 - Heart failure, unspecified Status: Acute Assessment and Plan: * acute on chronic versus acute (?) * recent echo (08/23/22) with EF 35-40%, mild LVH, grade I diastolic dysfunction, mild biatrial enlargement, mild MR, mild-mod TR, RVSP 68 * Cardiology recommendations noted * already on diuretic therapy (4) Essential hypertension: Code(s): I10 - Essential (primary) hypertension Status: Acute Assessment and Plan: * better control at this time * follow trend of hemodynamics * continue current medications with recent changes by Cardiology (5) Atrial fibrillation: Qualifiers: Atrial fibrillation type: unspecified Qualified Code(s): I48.91 - Unspecified atrial fibrillation Code(s): I48.91 - Unspecified atrial fibrillation Status: Acute Assessment and Plan: * s/p pacemaker placement * on amiodarone * holding anticoagulation give #2 Will continue to follow. Subjective Date/time seen: 08/25/22 12:35 Seems to be doing reasonably well at this time; sodium level transiently improved but by AM labs, sodium dropped again so 3% saline being given to compensate; H/H appears stable after PRBC transfusion; no apparent distress voiced. Exam Narrative: General: elderly female in NAD Heart: normal S1 and S2; no rub Lungs: coarse and decreased at bases Abdomen: soft, nontender, nondistended, positive bowel sounds Extremities: no cyanosis or clubbing; 2+ edema Skin: warm and dry Objective Data Vital Signs Vital Signs: Vital Signs Temp Pulse Resp BP Pulse Ox O2 Del Method O2 Flow Rate 08/25/22 08:40 92 Nasal Cannula 1 08/25/22 08:37 70 08/25/22 08:36 70 08/25/22 08:13 92 Nasal Cannula 1 08/25/22 06:00 97.3 F L 70 22 H 130/46 L 90 08/24/22 20:00 91 Nasal Cannula 1 08/24/22 22:00 97.5 F L 70 18 107/68 91 08/24/22 20:36 84
--- NOTE | 2022-08-25 12:35 | PM.PNNEP ---
Progress Note: A&P Assessment and Plan (1) Hyponatremia: Code(s): E87.1 - Hypo-osmolality and hyponatremia Status: Acute Assessment and Plan: acute on chronic (has been present at least as far back as January 2021) baseline sodium runs ~ 128 - 134 (at her best) admitted with a sodium of 123 with acute drop to 115 on 08/25/22 likely due to D5W carrier fluid in protonix gtt - carrier fluid changed to normal saline suspect a component of CHF playing a role as well extensive evaluation on past hospitalization (01/2021) regarding this issue: TSH elevated but on levothyroxine cortisol borderline low but cosyntropin testing okay CT of brain negative CXR without massess/tumors; recent CXR with PVC she responded to fluid restriction, salt tabs, and lasix in the past will re-institute these measures 3% saline today (this is not a good mcc solution given #3) may need to consider more aggressive diuresis follow trend of repeat sodium levels (2) Acute upper GI bleeding: Code(s): K92.2 - Gastrointestinal hemorrhage, unspecified Status: Acute Assessment and Plan: low H/H on admission guaiac positive on protonix gtt following serial H/Hs Gastroenterology following xarelto on hold (3) CHF (congestive heart failure): Qualifiers: Heart failure chronicity: unspecified Code(s): I50.9 - Heart failure, unspecified Status: Acute Assessment and Plan: acute on chronic versus acute (?) recent echo (08/23/22) with EF 35-40%, mild LVH, grade I diastolic dysfunction, mild biatrial enlargement, mild MR, mild-mod TR, RVSP 68 Cardiology recommendations noted already on diuretic therapy (4) Essential hypertension: Code(s): I10 - Essential (primary) hypertension Status: Acute Assessment and Plan: better control at this time follow trend of hemodynamics continue current medications with recent changes by Cardiology (5) Atrial fibrillation: Qualifiers: Atrial fibrillation type: unspecified Qualified Code(s): I48.91 - Unspecified atrial fibrillation Code(s): I48.91 - Unspecified atrial fibrillation Status: Acute Assessment and Plan: s/p pacemaker placement on amiodarone holding anticoagulation give #2 Will continue to follow. Subjective Date/time seen: 08/25/22 12:35 Seems to be doing reasonably well at this time; sodium level transiently improved but by AM labs, sodium dropped again so 3% saline being given to compensate; H/H appears stable after PRBC transfusion; no apparent distress voiced. Exam Narrative: General: elderly female in NAD Heart: normal S1 and S2; no rub Lungs: coarse and decreased at bases Abdomen: soft, nontender, nondistended, positive bowel sounds Extremities: no cyanosis or clubbing; 2+ edema Skin: warm and dry Objective Data Vital Signs Vital Signs: Vital Signs Temp Pulse Resp BP Pulse Ox O2 Del Method O2 Flow Rate 08/25/22 08:40 92 Nasal Cannula 1 08/25/22 08:37 70 08/25/22 08:36 70 08/25/22 08:13 92 Nasal Cannula 1 08/25/22 06:00 97.3 F L 70 22 H 130/46 L 90 08/24/22 20:00 91 Nasal Cannula 1 08/24/22 22:00 97.5 F L 70 18 107/68 91 08/24/22 20:36 84 08/24/22 16:00 96.8 F L 70 20 132/57 L 94 Intake/Output Intake/Output: Intake & Output 08/22/22 08/23/22 08/24/22 08/25/22 23:59 23:59 23:59 23:59 Intake Total 350 2346 1000 1353 Output Total 2500 400 Balance 350 -154 1000 953 Meds/Results Medications: Active Medications Generic Name Dose Route Start Last Admin Trade Name Freq PRN Reason Stop Dose Admin Acetaminophen 650 mg 08/23/22 00:43 Acetaminophen 325 Mg Tablet PO Q4H PRN Pain Rated 1-3 Albuterol 2 puff 08/23/22 00:43 Albuterol Sulfate (*Sp) Aerosol 1 Puff INHALATION QID PRN Shortness Of Breath Amiod
[2022-08-25 13:14] LABS: Sodium 123 mmol/L (137-145)
--- NOTE | 2022-08-25 13:56 | PM.IMPN ---
Progress Note: A&P Assessment and Plan (1) Acute upper GI bleeding: Code(s): K92.2 - Gastrointestinal hemorrhage, unspecified Status: Acute Assessment and Plan: H&H every 6 hours -the patient will receive 2 units of packed red blood cells with Lasix in between. -stool was found to be positive for occult blood GI has been consulted The patient is on a Protonix drip Holding Xarelto HPI-Narrative: This is an 87-year-old female patient who resides at a [facility].? Her POA is at the bedside answering most questions for her.? The patient has a history of congestive heart failure, atrial fibrillation and hypertension.? The patient came to the emergency room with complaints of increased shortness of breath and increased swelling to her lower extremities.? The patient was found to be 88% on room air was placed on oxygen at 2 L per nasal cannula.? The patient is very? pale and fatigued.? Her H&H is 6.3 and 20.1.? Patient's baseline hemoglobin is somewhere between 8 and 9.? She does have chronic renal failure.? Her creatinine is 1.1 today with a baseline somewhere around 1.6.? Her GFR is 47 which is improved from her last GFR of 24.? Her BMP is 682.? Patient was found to be guaiac-positive.? Patient was ordered 2 units of packed red blood cells.? Patient has a history of being on Xarelto for her AFib.? Chest x-ray was read as cardiomegaly with mild interstitial edema.? She also has 3+ pitting edema to lower extremities.? The patient was given IV fluids in the emergency room and started on a Protonix drip.? GI has been consulted.? 08/25/2022 interval history: 87-year-old female presented with shortness of her oxygen saturation was 88% on room patient was found to have anemia with a hemoglobin of 6.3 resulting in shortness of breath with also history of congestive heart failure, patient was given 2 units of pack RBC her hemoglobin has improved to 9.2 today her clinical symptoms have also improved, patient was seen by GI, her stool hemoccult is positive, recommended EGD and colonoscopy which was scheduled for 08/24 however it was cancel as her sodium has dropped to 115 and today is 118 today, we have placed her on fluid restriction and patient is seen messenger floorperson, workup is in progress and further recommendation to follow, , patient with history congestive heart failure cardiac echo showed severe cardiomyopathy with ejection fraction 35-40%, and grade 1 diastolic dysfunction most likely patient is having, combine 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 increased Coreg 25 mg BID. Started Entresto 49-51 mg BID. Monitor BP and HR.aby, further recomendation to follow, will continue to diurese the patient. (2) Hyponatremia: Code(s): E87.1 - Hypo-osmolality and hyponatremia Status: Acute Assessment and Plan: The patient is on sodium tablets. Her sodium is 124 today and recently had been 134. She does have history of congestive heart failure. (3) Anemia: Qualifiers: Anemia type: unspecified type Qualified Code(s): D64.9 - Anemia, unspecified Code(s): D64.9 - Anemia, unspecified Status: Acute Assessment and Plan: Patient typically has anemia which could be related to her renal failure. However today her hemoglobin is worse than her baseline. Her H&H was found to be 6.3 and 20.1 with a baseline hemoglobin anywhere between 8 and 9. She was found to be Hemoccult positive She is currently on a Protonix drip and GI has been consulted She is to receive 2 units of packed red blood cells and her Xarelto on hold (4) CHF (congestive heart failure): Qualifiers: Heart failure chronicity: unspecified Code(s): I50.9 - Heart failure, unspecified Status: Acute Assessment and Plan: I was unable to locate any re
--- NOTE | 2022-08-25 16:41 | PCOTNOTE ---
Attempted to see pt for Occupational Therapy treatment. Pt was sleeping when therapist entered room and was unable to keep awake despite verbal and tactile cues from therapist. Due to decrease alertness, pt is not being seen for therapy on this date. Will continue per poc duration/frequency tomorrow.
[2022-08-25 17:23] LABS: Sodium 121 mmol/L (137-145)
[2022-08-25] MEDS: FUROSEMIDE INJ 40 MG/4 ML VIAL 20 MG IV PUSH (17:45)
[2022-08-25] MEDS: ALBUTEROL SULFATE (*SP) AEROSOL 1 PUFF 2 PUFF INHALATION (21:09)
[2022-08-25 21:41] LABS: Sodium 122 mmol/L (137-145)
[2022-08-26] VITALS (7 sets, daily range): BP systolic 95–114; BP diastolic 46–57; PULSE 68–70; RESP 12–18; TEMP 36.3–37; O2SAT 95–98
[2022-08-26] MEDS: PANTOPRAZOLE SODIUM IV 80 MG in SODIUM CHLORIDE 0.9% IV 500 ML 50 MG IV CONT ×2 (04:48→15:22)
[2022-08-26] MEDS: LEVOTHYROXINE SODIUM 75 MCG TABLET PO (05:51)
[2022-08-26] MEDS: LEVOTHYROXINE SODIUM 100 MCG TABLET PO (05:51)
[2022-08-26 06:08] LABS: Hematocrit 28.8 % (37.0-47.0); Hemoglobin 9.1 g/dL (12.0-15.0); Mean Corpuscular HGB Conc 31.6 g/dl (32-36); Mean Corpuscular Hemoglobin 26.8 pg (26-34); Mean Platelet Volume 8.1 fl (7.4-10.4); Platelet Count Result 297 k/mm3 (150-375); Red Blood Count 3.39 M/mm3 (4.2-5.4); Red Cell Distribution Width 14.8 % (11.5-14.5); White Blood Count 5.8 K/mm3 (4.5-10.0)
[2022-08-26 06:17] LABS: Anion Gap 3 mmol/L (8-16); Blood Urea Nitrogen 11 mg/dL (7-17); Calcium 7.4 mg/dL (8.4-10.2); Carbon Dioxide 33 mmol/L (22-30); Chloride 92 mmol/L (98-107); Estimated CRCL calculation 35 ml/min; Estimated Glomerular Filt Rate 52; Glucose 96 mg/dL (65-110); Potassium 3.4 mmol/L (3.4-5.0); Sodium 128 mmol/L (137-145)
--- NOTE | 2022-08-26 06:58 | ECG_ITS ---
Measurements Intervals [place] Rate: 70 P: 232 OH: 249 QRS: 258 QRSD: 180 T: 70 QT: 470 QTc: 507 Interpretive Statements ELECTRONIC ATRIAL PACEMAKER ELECTRONIC VENTRICULAR PACEMAKER NO FURTHER INTERPRETATION IS POSSIBLE ATYPICAL ECG COMPARED TO ECG 08/22/2022 15:21:06 NO SIGNIFICANT CHANGES Electronically Signed On 08-26-2022 14:31:57 SUPPORT SERVICES TECH by Chung Soares D.O.
--- NOTE | 2022-08-26 08:09 | PM.PNCARD ---
Progress Note: A&P Assessment and Plan (1) CHF (congestive heart failure): Qualifiers: Heart failure chronicity: unspecified Code(s): I50.9 - Heart failure, unspecified Status: Acute Assessment and Plan: Acute on chronic systolic and diastolic heart failure. I don't have her last echo to see if this is new LV systolic dysfunction or chronic. 08/23/22 Echo: EF 35-40%, mild LVH, grade I diastolic dysfunction, mild biatrial enlargement, mild MR, mild-mod TR, RVSP 68 mmHg. She does not want any invasive procedures. She was on Coreg, Olmesartan, Lasix 40 mg daily. Stopped Diltiazem and Olmesartan. Decrease back to Coreg 12.5 mg BID. Started Entresto 49-51 mg BID. Monitor BP and HR. (2) Atrial fibrillation: Qualifiers: Atrial fibrillation type: unspecified Qualified Code(s): I48.91 - Unspecified atrial fibrillation Code(s): I48.91 - Unspecified atrial fibrillation Status: Acute Assessment and Plan: She is in paced rhythm. Was on Amiodarone 200 mg daily. Resumed Amiodarone. On Xarelto normally but on hold due to GI bleed. Check EKG. (3) Artificial pacemaker: Code(s): Z95.0 - Presence of cardiac pacemaker Status: Acute Assessment and Plan: Follows with Dr. Sauceda. (4) Essential hypertension: Code(s): I10 - Essential (primary) hypertension Status: Acute Assessment and Plan: Stable. Monitor. (5) Hyponatremia: Code(s): E87.1 - Hypo-osmolality and hyponatremia Status: Acute Assessment and Plan: Monitor sodium level. On salt tablets and free water restriction. Subjective Date/time seen: 08/26/22 08:09 Interval history: Denies chest pain or sob. Exam Const: General: cooperative, healthy appearing and comfortable Orientation/consciousness: oriented to person, oriented to place and oriented to time Resp: Auscultation: no crackles, no rales, no rhonchi and no wheezes Cardio: Rate: regular rate Rhythm: regular rhythm Heart sounds: no murmurs Peripheral pulses: dorsalis pedis present Neuro: General: oriented to person, oriented to place and oriented to time Extrem: Right lower extremity: edema Left lower extremity: edema Other: Mild-moderate edema of both legs Objective Data Vital Signs Vital Signs: Vital Signs - 24 hr 08/25/22 08:13 08/25/22 08:36 08/25/22 08:37 Temperature Pulse Rate 70 70 Respiratory Rate Blood Pressure Pulse Oximetry 92 Oxygen Delivery Nasal Cannula Oxygen Flow Rate 1 Fraction of Inspired Oxygen 24 08/25/22 08:40 08/25/22 14:00 08/25/22 20:44 Temperature 98.0 F Pulse Rate 70 82 Respiratory Rate 20 Blood Pressure 105/40 L Pulse Oximetry 92 98 Oxygen Delivery Nasal Cannula Oxygen Flow Rate 1 Fraction of Inspired Oxygen 08/25/22 21:13 08/25/22 21:14 08/25/22 21:26 Temperature 98.1 F Pulse Rate 70 69 Respiratory Rate 16 16 Blood Pressure 118/54 L Pulse Oximetry 93 96 Oxygen Delivery Nasal Cannula Oxygen Flow Rate 1 Fraction of Inspired Oxygen 08/25/22 20:00 08/26/22 05:28 Temperature 97.6 F Pulse Rate 70 Respiratory Rate 18 Blood Pressure 110/46 L Pulse Oximetry 96 96 Oxygen Delivery Nasal Cannula Oxygen Flow Rate 1 Fraction of Inspired Oxygen Intake/Output Intake/Output: Intake & Output 08/23/22 08/24/22 08/25/22 08/26/22 23:59 23:59 23:59 23:59 Intake Total 2346 1000 2091 720 Output Total 2500 1050 Balance -154 1000 1041 720 Meds/Results Medications: Active Medications Generic Name Dose Route Start Last Admin Trade Name Freq PRN Reason Stop Dose Admin Acetaminophen 650 mg 08/23/22 00:43 Acetaminophen 325 Mg Tablet PO Q4H PRN Pain Rated 1-3 Albuterol 2 puff 08/23/22 00:43 08/25/22 21:09 Albuterol Sulfate (*Sp) Aerosol 1 Puff INHALATION 2 puff QID PRN Administration Shortness Of Breath Amiodarone HCl 200 mg 08/25/22 08:00 03
[2022-08-26] MEDS: CYANOCOBALAMIN 1,000 MCG TABLET 1000 MCG PO (08:19)
[2022-08-26] MEDS: CHOLECALCIFEROL 1,000 UNITS TABLET 2000 UNITS PO ×2 (08:19→17:33)
[2022-08-26] MEDS: carvediloL 12.5 MG TABLET PO ×2 (08:19→20:44)
[2022-08-26] MEDS: POTASSIUM CHLORIDE 10 MEQ TABLET.ER 20 MEQ PO (08:20)
[2022-08-26] MEDS: MAGNESIUM OXIDE 400 MG TABLET PO ×2 (08:20→17:34)
[2022-08-26] MEDS: AMIODARONE HCL 200 MG TABLET PO (08:20)
[2022-08-26] MEDS: TOLNAFTATE 1% POWDER 45 GM BTL 1 APPLIC TOPICAL ×2 (08:21→20:46)
[2022-08-26] MEDS: SACUBITRIL/VALSARTAN 49-51 MG TABLET 1 TABLET PO ×2 (08:21→20:44)
[2022-08-26] MEDS: POTASSIUM CHLORIDE 20 MEQ TABLET 40 MEQ PO (08:23)
[2022-08-26 10:21] LABS: Sodium 121 mmol/L (137-145)
[2022-08-26 10:23] LABS: INR 1.3
[2022-08-26] MEDS: SODIUM CHLORIDE 1 GM TABLET PO ×3 (11:21→20:44)
[2022-08-26] MEDS: FUROSEMIDE 40 MG TABLET PO (11:21)
--- NOTE | 2022-08-26 11:50 | PM.PNNEP ---
Progress Note: A&P Assessment and Plan (1) Hyponatremia: Code(s): E87.1 - Hypo-osmolality and hyponatremia Status: Acute Assessment and Plan: acute on chronic (has been present at least as far back as January 2021) baseline sodium runs ~ 128 - 134 (at her best) admitted with a sodium of 123 with acute drop to 115 on 08/25/22 likely due to D5W carrier fluid in protonix gtt - carrier fluid changed to normal saline suspect a component of CHF playing a role as well extensive evaluation on past hospitalization (01/2021) regarding this issue: TSH elevated but on levothyroxine cortisol borderline low but cosyntropin testing okay CT of brain negative CXR without massess/tumors; recent CXR with PVC she responded to fluid restriction, salt tabs, and lasix in the past will re-institute these measures s/p 3% saline on 08/25/22 (this is not a good intermodal truck driver solution given #3) may need to consider more aggressive diuresis given CXR findings follow trend of repeat sodium levels (2) Acute upper GI bleeding: Code(s): K92.2 - Gastrointestinal hemorrhage, unspecified Status: Acute Assessment and Plan: low H/H on admission guaiac positive on protonix gtt following serial H/Hs Gastroenterology following xarelto on hold (3) CHF (congestive heart failure): Qualifiers: Heart failure chronicity: unspecified Code(s): I50.9 - Heart failure, unspecified Status: Acute Assessment and Plan: acute on chronic versus acute (?) recent echo (08/23/22) with EF 35-40%, mild LVH, grade I diastolic dysfunction, mild biatrial enlargement, mild MR, mild-mod TR, RVSP 68 Cardiology recommendations noted already on diuretic therapy (4) Essential hypertension: Code(s): I10 - Essential (primary) hypertension Status: Acute Assessment and Plan: better control at this time follow trend of hemodynamics continue current medications with recent changes by Cardiology (5) Atrial fibrillation: Qualifiers: Atrial fibrillation type: unspecified Qualified Code(s): I48.91 - Unspecified atrial fibrillation Code(s): I48.91 - Unspecified atrial fibrillation Status: Acute Assessment and Plan: s/p pacemaker placement on amiodarone holding anticoagulation give #2 Will continue to follow. Subjective Date/time seen: 08/26/22 11:50 Sodium this AM was 128 which was concerning for overcorrection but then 4 hours later, sodium down to 121; suspect reading of 128 was probably incorrect; in spite of these fluctuation in her sodium level, mentation seems stable; did get 3% saline yesterday and tolerated reasonably well; no apparent distress noted. Exam Narrative: General: elderly female in NAD Heart: normal S1 and S2; no rub Lungs: coarse and decreased at bases Abdomen: soft, nontender, nondistended, positive bowel sounds Extremities: no cyanosis or clubbing; 2+ edema Skin: warm and dry Objective Data Vital Signs Vital Signs: Vital Signs Temp Pulse Resp BP Pulse Ox O2 Del Method O2 Flow Rate 08/26/22 11:29 Nasal Cannula 1 08/26/22 08:00 96 Nasal Cannula 1 08/26/22 08:20 70 08/26/22 08:19 70 08/26/22 05:28 97.6 F 70 18 110/46 L 96 08/25/22 20:00 96 Nasal Cannula 1 08/25/22 21:26 98.1 F 69 16 118/54 L 96 08/25/22 21:14 93 Nasal Cannula 1 08/25/22 21:13 70 16 08/25/22 20:44 82 08/25/22 14:00 98.0 F 70 20 105/40 L 98 Intake/Output Intake/Output: Intake & Output 08/23/22 08/24/22 08/25/22 08/26/22 23:59 23:59 23:59 23:59 Intake Total 2346 1000 2091 1078 Output Total 2500 1050 Balance -154 1000 1041 1078 Meds/Results Medications: Active Medications Generic Name Dose Route Start Last Admin Trade Name Freq PRN Reason Stop Dose Admin Acetaminophen 650 mg 08/23/22 00:43 Acetaminophen 325 M
--- NOTE | 2022-08-26 11:50 | P.PNNP_ITS ---
Progress Note: A&P Assessment and Plan (1) Hyponatremia: Code(s): E87.1 - Hypo-osmolality and hyponatremia Status: Acute Assessment and Plan: * acute on chronic (has been present at least as far back as January 2021) * baseline sodium runs ~ 128 - 134 (at her best) * admitted with a sodium of 123 with acute drop to 115 on 08/25/22 * likely due to D5W carrier fluid in protonix gtt - carrier fluid changed to normal saline * suspect a component of CHF playing a role as well * extensive evaluation on past hospitalization (01/2021) regarding this issue: * TSH elevated but on levothyroxine * cortisol borderline low but cosyntropin testing okay * CT of brain negative * CXR without massess/tumors; recent CXR with PVC * she responded to fluid restriction, salt tabs, and lasix in the past * will re-institute these measures * s/p 3% saline on 08/25/22 (this is not a good fdc solution given #3) * may need to consider more aggressive diuresis given CXR findings * follow trend of repeat sodium levels (2) Acute upper GI bleeding: Code(s): K92.2 - Gastrointestinal hemorrhage, unspecified Status: Acute Assessment and Plan: * low H/H on admission * guaiac positive * on protonix gtt * following serial H/Hs * Gastroenterology following * xarelto on hold (3) CHF (congestive heart failure): Qualifiers: Heart failure chronicity: unspecified Code(s): I50.9 - Heart failure, unspecified Status: Acute Assessment and Plan: * acute on chronic versus acute (?) * recent echo (08/23/22) with EF 35-40%, mild LVH, grade I diastolic dysfunction, mild biatrial enlargement, mild MR, mild-mod TR, RVSP 68 * Cardiology recommendations noted * already on diuretic therapy (4) Essential hypertension: Code(s): I10 - Essential (primary) hypertension Status: Acute Assessment and Plan: * better control at this time * follow trend of hemodynamics * continue current medications with recent changes by Cardiology (5) Atrial fibrillation: Qualifiers: Atrial fibrillation type: unspecified Qualified Code(s): I48.91 - Unspecified atrial fibrillation Code(s): I48.91 - Unspecified atrial fibrillation Status: Acute Assessment and Plan: * s/p pacemaker placement * on amiodarone * holding anticoagulation give #2 Will continue to follow. Subjective Date/time seen: 08/26/22 11:50 Sodium this AM was 128 which was concerning for overcorrection but then 4 hours later, sodium down to 121; suspect reading of 128 was probably incorrect; in spite of these fluctuation in her sodium level, mentation seems stable; did get 3% saline yesterday and tolerated reasonably well; no apparent distress noted. Exam Narrative: General: elderly female in NAD Heart: normal S1 and S2; no rub Lungs: coarse and decreased at bases Abdomen: soft, nontender, nondistended, positive bowel sounds Extremities: no cyanosis or clubbing; 2+ edema Skin: warm and dry Objective Data Vital Signs Vital Signs: Vital Signs Temp Pulse Resp BP Pulse Ox O2 Del Method O2 Flow Rate 08/26/22 11:29 Nasal Cannula 1 08/26/22 08:00 96 Nasal Cannula 1 08/26/22 08:20 70 08/26/22 08:19 70 08/26/22 05:28 97.6 F 70 18 110/46 L 96 08/25/22 20:00 96 Nasal Cannul
--- NOTE | 2022-08-26 12:56 | PM.IMPN ---
Progress Note: A&P Assessment and Plan (1) Acute upper GI bleeding: Code(s): K92.2 - Gastrointestinal hemorrhage, unspecified Status: Acute Assessment and Plan: H&H every 6 hours -the patient will receive 2 units of packed red blood cells with Lasix in between. -stool was found to be positive for occult blood GI has been consulted The patient is on a Protonix drip Holding Xarelto HPI-Narrative: This is an 87-year-old female patient who resides at a [facility].? Her POA is at the bedside answering most questions for her.? The patient has a history of congestive heart failure, atrial fibrillation and hypertension.? The patient came to the emergency room with complaints of increased shortness of breath and increased swelling to her lower extremities.? The patient was found to be 88% on room air was placed on oxygen at 2 L per nasal cannula.? The patient is very? pale and fatigued.? Her H&H is 6.3 and 20.1.? Patient's baseline hemoglobin is somewhere between 8 and 9.? She does have chronic renal failure.? Her creatinine is 1.1 today with a baseline somewhere around 1.6.? Her GFR is 47 which is improved from her last GFR of 24.? Her BMP is 682.? Patient was found to be guaiac-positive.? Patient was ordered 2 units of packed red blood cells.? Patient has a history of being on Xarelto for her AFib.? Chest x-ray was read as cardiomegaly with mild interstitial edema.? She also has 3+ pitting edema to lower extremities.? The patient was given IV fluids in the emergency room and started on a Protonix drip.? GI has been consulted.? 08/26/2022 interval history: 87-year-old female presented with shortness of her oxygen saturation was 88% on room patient was found to have anemia with a hemoglobin of 6.3 resulting in shortness of breath with also history of congestive heart failure, patient was given 2 units of pack RBC her hemoglobin has improved to 9.1 today her clinical symptoms have also improved, patient was seen by GI, her stool hemoccult is positive, recommended EGD and colonoscopy which was scheduled for 08/24 however it was cancel as her sodium has dropped to 115 and today is 1128 today, we have placed her on fluid restriction and patient is seen jde developer, workup is in progress and further recommendation to follow, , patient with history congestive heart failure cardiac echo showed severe cardiomyopathy with ejection fraction 35-40%, and grade 1 diastolic dysfunction most likely patient is having, combine acute on chronic systolic diastolic congestive heart failure, patient was seen by her Atomic Fuel Assembler patient refused cardiac catheterization, the operator and truck driver dc diltiazem and Olmesartan. increased Coreg 25 mg BID. Started Entresto 49-51 mg BID. Monitor BP and HR.aby, patient states feeling better denies any chest, further recommendations to follow, will continue to diurese the patient. (2) Hyponatremia: Code(s): E87.1 - Hypo-osmolality and hyponatremia Status: Acute Assessment and Plan: The patient is on sodium tablets. Her sodium is 124 today and recently had been 134. She does have history of congestive heart failure. (3) Anemia: Qualifiers: Anemia type: unspecified type Qualified Code(s): D64.9 - Anemia, unspecified Code(s): D64.9 - Anemia, unspecified Status: Acute Assessment and Plan: Patient typically has anemia which could be related to her renal failure. However today her hemoglobin is worse than her baseline. Her H&H was found to be 6.3 and 20.1 with a baseline hemoglobin anywhere between 8 and 9. She was found to be Hemoccult positive She is currently on a Protonix drip and GI has been consulted She is to receive 2 units of packed red blood cells and her Xarelto on hold (4) CHF (congestive heart failure): Qualifiers: Heart failure chronicity: unspecified Code(s): I50.9 - Heart failure, unspecified Status: Acute
[2022-08-26 14:36] LABS: Sodium 121 mmol/L (137-145)
[2022-08-26] MEDS: FUROSEMIDE INJ 40 MG/4 ML VIAL 20 MG IV PUSH (15:22)
--- NOTE | 2022-08-26 15:23 | PC.NURSE ---
Sodium chloride 1 gram po given now in place of 1700 doese, per Dr. Albrecht.
[2022-08-26 18:10] LABS: Sodium 123 mmol/L (137-145)
[2022-08-26 23:05] LABS: Sodium 123 mmol/L (137-145)
[2022-08-27] VITALS (12 sets, daily range): BP systolic 104–141; BP diastolic 37–98; PULSE 69–74; RESP 14–26; TEMP 36.4–36.9; O2SAT 90–98
[2022-08-27] MEDS: PANTOPRAZOLE SODIUM IV 80 MG in SODIUM CHLORIDE 0.9% IV 500 ML 50 MG IV CONT (02:41)
--- NOTE | 2022-08-27 03:54 | PC.NURSE ---
This nurse went to patient room to discontinue 3% saline as ordered found patient with IV pulled out and line wrapped into a ball, pump not alarming New IV placed and 3% saline restarted to infuse dose ordered
[2022-08-27 07:19] LABS: Hematocrit 28.1 % (37.0-47.0); Hemoglobin 8.9 g/dL (12.0-15.0); Mean Corpuscular HGB Conc 31.7 g/dl (32-36); Mean Corpuscular Hemoglobin 26.5 pg (26-34); Mean Corpuscular Volume 83.6 fl (80-100); Mean Platelet Volume 8.1 fl (7.4-10.4); Platelet Count Result 287 k/mm3 (150-375); Red Blood Count 3.36 M/mm3 (4.2-5.4); Red Cell Distribution Width 15.1 % (11.5-14.5); White Blood Count 5.9 K/mm3 (4.5-10.0)
[2022-08-27 07:29] LABS: Anion Gap 3 mmol/L (8-16); Blood Urea Nitrogen 13 mg/dL (7-17); Calcium 7.4 mg/dL (8.4-10.2); Carbon Dioxide 33 mmol/L (22-30); Chloride 93 mmol/L (98-107); Estimated CRCL calculation 35 ml/min; Estimated Glomerular Filt Rate 52; Glucose 103 mg/dL (65-110); Potassium 3.5 mmol/L (3.4-5.0); Sodium 129 mmol/L (137-145)
--- NOTE | 2022-08-27 07:32 | PM.PNCARD ---
Progress Note: A&P Assessment and Plan (1) CHF (congestive heart failure): Qualifiers: Heart failure chronicity: unspecified Code(s): I50.9 - Heart failure, unspecified Status: Acute Assessment and Plan: Acute on chronic systolic and diastolic heart failure. I don't have her last echo to see if this is new LV systolic dysfunction or chronic. 08/23/22 Echo: EF 35-40%, mild LVH, grade I diastolic dysfunction, mild biatrial enlargement, mild MR, mild-mod TR, RVSP 68 mmHg. She does not want any invasive procedures. She was on Coreg, Olmesartan, Lasix 40 mg daily. Stopped Diltiazem and Olmesartan. Low normal BP. Decrease back to Coreg 12.5 mg BID. Decrease Entresto 44-26 mg BID. Monitor BP and HR. (2) Atrial fibrillation: Qualifiers: Atrial fibrillation type: unspecified Qualified Code(s): I48.91 - Unspecified atrial fibrillation Code(s): I48.91 - Unspecified atrial fibrillation Status: Acute Assessment and Plan: She is in paced rhythm. Was on Amiodarone 200 mg daily. Resumed Amiodarone. On Xarelto normally but on hold due to GI bleed. Check EKG. (3) Artificial pacemaker: Code(s): Z95.0 - Presence of cardiac pacemaker Status: Acute Assessment and Plan: Follows with Dr. Sauceda. (4) Essential hypertension: Code(s): I10 - Essential (primary) hypertension Status: Acute Assessment and Plan: Stable. Monitor. (5) Hyponatremia: Code(s): E87.1 - Hypo-osmolality and hyponatremia Status: Acute Assessment and Plan: Monitor sodium level. On salt tablets and free water restriction. Subjective Date/time seen: 08/27/22 07:32 Interval history: Denies chest pain or sob. Exam Const: General: cooperative, healthy appearing and comfortable Orientation/consciousness: oriented to person, oriented to place and oriented to time Resp: Auscultation: no crackles, no rales, no rhonchi and no wheezes Cardio: Rate: regular rate Rhythm: regular rhythm Heart sounds: no murmurs Peripheral pulses: dorsalis pedis present Neuro: General: oriented to person, oriented to place and oriented to time Extrem: Right lower extremity: edema Left lower extremity: edema Other: Mild-moderate edema of both legs Objective Data Vital Signs Vital Signs: Vital Signs - 24 hr 08/26/22 08:19 08/26/22 08:20 08/26/22 08:00 Temperature Pulse Rate 70 70 Respiratory Rate Blood Pressure Pulse Oximetry 96 Oxygen Delivery Nasal Cannula Oxygen Flow Rate 1 08/26/22 11:29 08/26/22 14:00 08/26/22 20:44 Temperature 98.6 F Pulse Rate 68 70 Respiratory Rate 12 Blood Pressure 95/57 L Pulse Oximetry 98 Oxygen Delivery Nasal Cannula Oxygen Flow Rate 1 08/26/22 21:27 08/27/22 05:40 Temperature 97.4 F L 98.4 F Pulse Rate 70 70 Respiratory Rate 18 18 Blood Pressure 114/46 L 122/38 L Pulse Oximetry 95 92 Oxygen Delivery Oxygen Flow Rate Intake/Output Intake/Output: Intake & Output 08/24/22 08/25/22 08/26/22 08/27/22 23:59 23:59 23:59 23:59 Intake Total 1000 2091 1814 810 Output Total 1050 Balance 1000 1041 1814 810 Meds/Results Medications: Active Medications Generic Name Dose Route Start Last Admin Trade Name Freq PRN Reason Stop Dose Admin Acetaminophen 650 mg 08/23/22 00:43 Acetaminophen 325 Mg Tablet PO Q4H PRN Pain Rated 1-3 Albuterol 2 puff 08/23/22 00:43 08/25/22 21:09 Albuterol Sulfate (*Sp) Aerosol 1 Puff INHALATION 2 puff QID PRN Administration Shortness Of Breath Amiodarone HCl 200 mg 08/25/22 08:00 08/26/22 08:20 Amiodarone Hcl 200 Mg Tablet PO 200 mg DAILY@0800 [facility] Administration Bisacodyl 10 mg 08/23/22 00:43 Bisacodyl 5 Mg Tablet Ec PO DAILY PRN Constipation Carvedilol 12.5 mg 08/26/22 09:00 08/26/22 20:44 Carvedilol 12.5 Mg Tablet PO 12.5 mg Q12HR LORI Administration Cyanocobalamin
--- NOTE | 2022-08-27 09:05 | P.PNNP_ITS ---
Progress Note: A&P Assessment and Plan (1) Hyponatremia: Code(s): E87.1 - Hypo-osmolality and hyponatremia Status: Acute Assessment and Plan: * improving * acute on chronic (has been present at least as far back as January 2021) * baseline sodium runs ~ 128 - 134 (at her best) * admitted with a sodium of 123 with acute drop to 115 on 08/25/22 * likely due to D5W carrier fluid in protonix gtt - carrier fluid changed to normal saline * suspect a component of CHF playing a role as well * extensive evaluation on past hospitalization (01/2021) regarding this issue: * TSH elevated but on levothyroxine * cortisol borderline low but cosyntropin testing okay * CT of brain negative * CXR without massess/tumors; recent CXR with PVC * she responded to fluid restriction, salt tabs, and lasix in the past * have re-instituted these measures * s/p 3% saline on 08/25/22 and 08/26/22 (this is not a good extermination supervisor solution given #3) * may need to consider more aggressive diuresis given CXR findings * follow trend of repeat sodium levels (2) Acute upper GI bleeding: Code(s): K92.2 - Gastrointestinal hemorrhage, unspecified Status: Acute Assessment and Plan: * low H/H on admission * guaiac positive * on protonix gtt * following serial H/Hs * Gastroenterology following - EGD planned for today * xarelto on hold (3) CHF (congestive heart failure): Qualifiers: Heart failure chronicity: unspecified Code(s): I50.9 - Heart failure, unspecified Status: Acute Assessment and Plan: * acute on chronic versus acute (?) * recent echo (08/23/22) with EF 35-40%, mild LVH, grade I diastolic dysfunction, mild biatrial enlargement, mild MR, mild-mod TR, RVSP 68 * Cardiology recommendations noted * already on diuretic therapy (4) Essential hypertension: Code(s): I10 - Essential (primary) hypertension Status: Acute Assessment and Plan: * better control at this time * follow trend of hemodynamics * continue current medications with recent changes by Cardiology (5) Atrial fibrillation: Qualifiers: Atrial fibrillation type: unspecified Qualified Code(s): I48.91 - Unspecified atrial fibrillation Code(s): I48.91 - Unspecified atrial fibrillation Status: Acute Assessment and Plan: * s/p pacemaker placement * on amiodarone * holding anticoagulation give #2 Will continue to follow. Subjective Date/time seen: 08/27/22 09:05 No apparent issues or problems to report; sodium doing better by AM labs with additional salt tabs, diuretics, and 3% saline in the last 24 hours; no other acute issues/events overnight or earlier this morning; respiratory status seems stable. Exam Narrative: General: elderly female in NAD Heart: normal S1 and S2; no rub Lungs: coarse and decreased at bases Abdomen: soft, nontender, nondistended, positive bowel sounds Extremities: no cyanosis or clubbing; 2+ edema Skin: warm and intact Objective Data Vital Signs Vital Signs: Vital Signs Temp Pulse Resp BP Pulse Ox O2 Del Method O2 Flow Rate 08/27/22 07:40 92 Nasal Cannula 1 08/27/22 10:40 97.7 F 70 16 140/52 L 98 Nasal Cannula 2 08/27/22 05:40 98.4 F 70 18 122/38 L 92 08/26/22 21:27 97.4 F L 70 18 114/46 L 95 08/26/22 20:44 70
--- NOTE | 2022-08-27 09:05 | PM.PNNEP ---
Progress Note: A&P Assessment and Plan (1) Hyponatremia: Code(s): E87.1 - Hypo-osmolality and hyponatremia Status: Acute Assessment and Plan: improving acute on chronic (has been present at least as far back as January 2021) baseline sodium runs ~ 128 - 134 (at her best) admitted with a sodium of 123 with acute drop to 115 on 08/25/22 likely due to D5W carrier fluid in protonix gtt - carrier fluid changed to normal saline suspect a component of CHF playing a role as well extensive evaluation on past hospitalization (01/2021) regarding this issue: TSH elevated but on levothyroxine cortisol borderline low but cosyntropin testing okay CT of brain negative CXR without massess/tumors; recent CXR with PVC she responded to fluid restriction, salt tabs, and lasix in the past have re-instituted these measures s/p 3% saline on 08/25/22 and 08/26/22 (this is not a good care home solution given #3) may need to consider more aggressive diuresis given CXR findings follow trend of repeat sodium levels (2) Acute upper GI bleeding: Code(s): K92.2 - Gastrointestinal hemorrhage, unspecified Status: Acute Assessment and Plan: low H/H on admission guaiac positive on protonix gtt following serial H/Hs Gastroenterology following - EGD planned for today xarelto on hold (3) CHF (congestive heart failure): Qualifiers: Heart failure chronicity: unspecified Code(s): I50.9 - Heart failure, unspecified Status: Acute Assessment and Plan: acute on chronic versus acute (?) recent echo (08/23/22) with EF 35-40%, mild LVH, grade I diastolic dysfunction, mild biatrial enlargement, mild MR, mild-mod TR, RVSP 68 Cardiology recommendations noted already on diuretic therapy (4) Essential hypertension: Code(s): I10 - Essential (primary) hypertension Status: Acute Assessment and Plan: better control at this time follow trend of hemodynamics continue current medications with recent changes by Cardiology (5) Atrial fibrillation: Qualifiers: Atrial fibrillation type: unspecified Qualified Code(s): I48.91 - Unspecified atrial fibrillation Code(s): I48.91 - Unspecified atrial fibrillation Status: Acute Assessment and Plan: s/p pacemaker placement on amiodarone holding anticoagulation give #2 Will continue to follow. Subjective Date/time seen: 08/27/22 09:05 No apparent issues or problems to report; sodium doing better by AM labs with additional salt tabs, diuretics, and 3% saline in the last 24 hours; no other acute issues/events overnight or earlier this morning; respiratory status seems stable. Exam Narrative: General: elderly female in NAD Heart: normal S1 and S2; no rub Lungs: coarse and decreased at bases Abdomen: soft, nontender, nondistended, positive bowel sounds Extremities: no cyanosis or clubbing; 2+ edema Skin: warm and intact Objective Data Vital Signs Vital Signs: Vital Signs Temp Pulse Resp BP Pulse Ox O2 Del Method O2 Flow Rate 08/27/22 07:40 92 Nasal Cannula 1 08/27/22 10:40 97.7 F 70 16 140/52 L 98 Nasal Cannula 2 08/27/22 05:40 98.4 F 70 18 122/38 L 92 08/26/22 21:27 97.4 F L 70 18 114/46 L 95 08/26/22 20:44 70 08/26/22 14:00 98.6 F 68 12 95/57 L 98 08/26/22 11:29 Nasal Cannula 1 Intake/Output Intake/Output: Intake & Output 08/24/22 08/25/22 08/26/22 08/27/22 23:59 23:59 23:59 23:59 Intake Total 1000 2091 1814 810 Output Total 1050 Balance 1000 1041 1814 810 Meds/Results Medications: Active Medications Generic Name Dose Route Start Last Admin Trade Name Freq PRN Reason Stop Dose Admin Acetaminophen 650 mg 08/23/22 00:43 Acetaminophen 325 Mg Tablet PO Q4H PRN Pain Rated 1-3 Albuterol 2 puff 08/23/22 00:43 08/25/22 21:09 Albuterol Sulfate (*Sp) Aerosol
--- NOTE | 2022-08-27 10:59 | WPDANESEPPF ---
Anes - Initial Pre Proc Eval Procedure: Operation Date: 08/24/22 11:00 Proposed Procedures p Esophagogastroduodenoscopy - Karthik Galvez MD Operation Date: 08/27/22 11:30 Proposed Procedures p Esophagogastroduodenoscopy - Karthik Galvez MD Date/Time: 08/27/22 10:59 Surgeon: Juan Ford MD Pre Op Diagnosis: Hypoxia, CHF, anemia Patient Data Age: 87 Gender: F Height: 1.65 m Weight: 75 kg Last Vital Signs Temp 36.5 C 08/27/22 10:40 Pulse 70 08/27/22 10:40 Resp 16 08/27/22 10:40 BP 140/52 L 08/27/22 10:40 Pulse Ox 98 08/27/22 10:40 O2 Del Method Nasal Cannula 08/27/22 10:40 O2 Flow Rate 2 08/27/22 10:40 FiO2 24 08/25/22 08:13 Allergies Allergy/AdvReac Type Severity Reaction Status Date / Time No Known Allergies Allergy Verified 06/07/22 20:00 Home Medications Medication Instructions Recorded Confirmed Type acetaminophen 325 mg tablet 650 mg PO Q4H PRN Pain 02/03/21 08/22/22 History cholecalciferol (vitamin D3) 25 2,000 unit PO BID 02/03/21 08/22/22 History mcg (1,000 unit) tablet (Vitamin D3) furosemide 40 mg tablet 40 mg PO DAILY 02/03/21 08/22/22 History albuterol sulfate 90 mcg/actuation 2 puff inhalation QID PRN SOB 06/07/22 08/22/22 History aerosol inhaler (ProAir HFA) bisacodyl 5 mg tablet 10 mg PO DAILY PRN Constipation 06/07/22 08/22/22 History carvedilol 6.25 mg tablet 12.5 mg PO BID 06/07/22 08/22/22 History diltiazem HCl 30 mg tablet 60 mg PO BID 06/07/22 08/22/22 History levothyroxine 175 mcg tablet 175 mcg PO DAILY 06/07/22 08/22/22 History magnesium oxide 400 mg (241.3 mg 400 mg PO BID 06/07/22 08/22/22 History magnesium) tablet olmesartan 40 mg tablet 40 mg PO DAILY 06/07/22 08/22/22 History polyethylene glycol 3350 17 gram 17 g PO DAILY PRN Constipation 06/07/22 08/22/22 History oral powder packet (ClearLax) potassium chloride 10 mEq 20 meq PO DAILY 06/07/22 08/22/22 History tablet,extended release rivaroxaban 20 mg tablet (Xarelto) 20 mg PO DAILY 06/07/22 08/22/22 History sennosides 8.6 mg-docusate sodium 1 tab-cap PO BID PRN Constipation 06/07/22 08/22/22 History 50 mg tablet (Senna Plus) sodium chloride 0.65 % nasal spray 2 spray intranasal Q4H PRN 06/07/22 08/22/22 History aerosol (Deep Sea Nasal) Allergic Symptoms sodium chloride 1,000 mg soluble 1,000 mg PO BID 06/07/22 08/22/22 History tablet vibegron 75 mg tablet (Gemtesa) 75 mg PO DAILY 06/07/22 08/22/22 History cyanocobalamin (vitamin B-12) 1,000 mcg PO DAILY 08/22/22 08/22/22 History 1,000 mcg tablet Laboratory Tests 08/26/22 08/26/22 08/26/22 13:53 17:58 22:34 WBC RBC Hgb Hct MCV MCH MCHC RDW Plt Count MPV Sodium 121 mmol/L L mmol/L 123 mmol/L L mmol/L 123 mmol/L L mmol/L (137-145) (137-145) (137-145) Potassium Chloride Carbon Dioxide Anion Gap BUN Creatinine Estim Creat Clear Calc Estimated GFR Glucose Calcium 08/27/22 08/27/22 06:52 06:52 WBC 5.9 K/mm3 K/mm3 (4.5-10.0) RBC 3.36 M/mm3 L M/mm3 (4.2-5.4) Hgb 8.9 g/dL L g/dL (12.0-15.0) Hct 28.1 % L % (37.0-47.0) MCV 83.6 fl fl (80-100) MCH 26.5 pg pg (26-34) MCHC 31.7 g/dl L g/dl (32-36) RDW 15.1 % H % (11.5-14.5) Plt Count 287 k/mm3 k/mm3 (150-375) MPV 8.1 fl fl (7.4-10.4) Sodium 129 mmol/L L mmol/L (137-145) Potassium 3.5 mmol/L mmol/L (3.4-5.0) Chloride 93 mmol/L L mmol/L (98-107) Carbon Dioxide 33 mmol/L H mmol/L (22-30) Anion Gap 3 mmol/L L mmol/L (8-16) BUN 13 mg/dL mg/dL (7-17) Creatinine 1.00 mg/dL mg/dL (0.7-1.0) Estim Creat Clear Calc 35 ml/min ml/min Estimated
[2022-08-27] MEDS: LACTATED RINGERS 1,000 ML 150 ML IV CONT (12:17)
--- NOTE | 2022-08-27 13:28 | PM.IMPN ---
Progress Note: A&P Assessment and Plan (1) Acute upper GI bleeding: Code(s): K92.2 - Gastrointestinal hemorrhage, unspecified Status: Acute Assessment and Plan: H&H every 6 hours -the patient will receive 2 units of packed red blood cells with Lasix in between. -stool was found to be positive for occult blood GI has been consulted The patient is on a Protonix drip Holding Xarelto HPI-Narrative: This is an 87-year-old female patient who resides at a [facility].? Her POA is at the bedside answering most questions for her.? The patient has a history of congestive heart failure, atrial fibrillation and hypertension.? The patient came to the emergency room with complaints of increased shortness of breath and increased swelling to her lower extremities.? The patient was found to be 88% on room air was placed on oxygen at 2 L per nasal cannula.? The patient is very? pale and fatigued.? Her H&H is 6.3 and 20.1.? Patient's baseline hemoglobin is somewhere between 8 and 9.? She does have chronic renal failure.? Her creatinine is 1.1 today with a baseline somewhere around 1.6.? Her GFR is 47 which is improved from her last GFR of 24.? Her BMP is 682.? Patient was found to be guaiac-positive.? Patient was ordered 2 units of packed red blood cells.? Patient has a history of being on Xarelto for her AFib.? Chest x-ray was read as cardiomegaly with mild interstitial edema.? She also has 3+ pitting edema to lower extremities.? The patient was given IV fluids in the emergency room and started on a Protonix drip.? GI has been consulted.? 08/27/2022 interval history: 87-year-old female presented with shortness of her oxygen saturation was 88% on room patient was found to have anemia with a hemoglobin of 6.3 resulting in shortness of breath with also history of congestive heart failure, patient was given 2 units of pack RBC her hemoglobin has improved to 9.1 today her clinical symptoms have also improved, patient was seen by GI, her stool hemoccult is positive, recommended EGD and colonoscopy which was scheduled for 08/24 however it was cancel as her sodium has dropped to 115 and today is 129 we have placed her on fluid restriction and patient is seen education paraprofessional, workup is in progress and further recommendation to follow, , patient with history congestive heart failure cardiac echo showed today patient was seen by GI and patient had a EGD which showed nonbleeding varics, gastritis and polyps biopsy was collected, recommending to hold Eliquis for now, and avoid NSAIDs, 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 increased Coreg 25 mg BID. Started Entresto 49-51 mg BID. however patient BP soft molded goods operator today decreased Coreg 12.5mg BID, and Entresto 44-26 and will monitor blood pressure and HR.aby, patient states feeling better denies any chest, further recommendations to follow, will continue to diurese the patient. (2) Hyponatremia: Code(s): E87.1 - Hypo-osmolality and hyponatremia Status: Acute Assessment and Plan: The patient is on sodium tablets. Her sodium is 124 today and recently had been 134. She does have history of congestive heart failure. (3) Anemia: Qualifiers: Anemia type: unspecified type Qualified Code(s): D64.9 - Anemia, unspecified Code(s): D64.9 - Anemia, unspecified Status: Acute Assessment and Plan: Patient typically has anemia which could be related to her renal failure. However today her hemoglobin is worse than her baseline. Her H&H was found to be 6.3 and 20.1 with a baseline hemoglobin anywhere between 8 and 9. She was found to be Hemoccult positive She is currently on a Protonix
[2022-08-27 14:22] LABS: Osmolality, Urine 288 mOsm/kg (50-1200)
[2022-08-27] MEDS: CYANOCOBALAMIN 1,000 MCG TABLET 1000 MCG PO (14:44)
[2022-08-27] MEDS: TOLNAFTATE 1% POWDER 45 GM BTL 1 APPLIC TOPICAL ×2 (14:46→20:18)
[2022-08-27] MEDS: AMIODARONE HCL 200 MG TABLET PO (14:46)
[2022-08-27] MEDS: carvediloL 12.5 MG TABLET PO ×2 (14:47→20:17)
[2022-08-27] MEDS: CHOLECALCIFEROL 1,000 UNITS TABLET 2000 UNITS PO ×2 (14:48→16:26)
[2022-08-27] MEDS: MAGNESIUM OXIDE 400 MG TABLET PO ×2 (14:49→16:26)
[2022-08-27] MEDS: FUROSEMIDE 40 MG TABLET PO (14:49)
[2022-08-27] MEDS: SACUBITRIL/VALSARTAN 24-26 MG TABLET 1 TAB PO ×2 (14:50→20:17)
[2022-08-27] MEDS: POTASSIUM CHLORIDE 10 MEQ TABLET.ER 20 MEQ PO (14:50)
[2022-08-27] MEDS: SODIUM CHLORIDE 1 GM TABLET PO ×2 (14:51→16:26)
[2022-08-27] MEDS: LEVOTHYROXINE SODIUM 75 MCG TABLET PO (14:51)
[2022-08-27] MEDS: LEVOTHYROXINE SODIUM 100 MCG TABLET PO (14:51)
[2022-08-27 19:06] LABS: Sodium 128 mmol/L (137-145)
[2022-08-28] VITALS (11 sets, daily range): BP systolic 104–134; BP diastolic 45–65; PULSE 69–80; RESP 14–18; TEMP 36.1–37.5; O2SAT 79–96
[2022-08-28 06:13] LABS: Anion Gap 2 mmol/L (8-16); Blood Urea Nitrogen 12 mg/dL (7-17); Calcium 7.6 mg/dL (8.4-10.2); Carbon Dioxide 35 mmol/L (22-30); Chloride 92 mmol/L (98-107); Estimated CRCL calculation 31 ml/min; Estimated Glomerular Filt Rate 52; Glucose 111 mg/dL (65-110); Potassium 3.6 mmol/L (3.4-5.0); Sodium 129 mmol/L (137-145)
[2022-08-28 06:14] LABS: Hematocrit 27.7 % (37.0-47.0); Hemoglobin 8.7 g/dL (12.0-15.0); Mean Corpuscular HGB Conc 31.4 g/dl (32-36); Mean Corpuscular Hemoglobin 26.5 pg (26-34); Mean Corpuscular Volume 84.5 fl (80-100); Mean Platelet Volume 8.2 fl (7.4-10.4); Platelet Count Result 278 k/mm3 (150-375); Red Blood Count 3.28 M/mm3 (4.2-5.4)
--- NOTE | 2022-08-28 07:52 | PM.PNCARD ---
Progress Note: A&P Assessment and Plan (1) CHF (congestive heart failure): Qualifiers: Heart failure chronicity: unspecified Code(s): I50.9 - Heart failure, unspecified Status: Acute Assessment and Plan: Acute on chronic systolic and diastolic heart failure. I don't have her last echo to see if this is new LV systolic dysfunction or chronic. 08/23/22 Echo: EF 35-40%, mild LVH, grade I diastolic dysfunction, mild biatrial enlargement, mild MR, mild-mod TR, RVSP 68 mmHg. She does not want any invasive procedures. She was on Coreg, Olmesartan, Lasix 40 mg daily. Stopped Diltiazem and Olmesartan. Low normal BP. On Coreg 12.5 mg BID, Entresto 44-26 mg BID. Monitor BP and HR. (2) Atrial fibrillation: Qualifiers: Atrial fibrillation type: unspecified Qualified Code(s): I48.91 - Unspecified atrial fibrillation Code(s): I48.91 - Unspecified atrial fibrillation Status: Acute Assessment and Plan: She is in paced rhythm. Was on Amiodarone 200 mg daily. Resumed Amiodarone. On Xarelto normally but on hold due to GI bleed. (3) Artificial pacemaker: Code(s): Z95.0 - Presence of cardiac pacemaker Status: Acute Assessment and Plan: Follows with Dr. Sauceda. (4) Essential hypertension: Code(s): I10 - Essential (primary) hypertension Status: Acute Assessment and Plan: Stable. Monitor. (5) Hyponatremia: Code(s): E87.1 - Hypo-osmolality and hyponatremia Status: Acute Assessment and Plan: Monitor sodium level. On salt tablets and free water restriction. Subjective Date/time seen: 08/28/22 07:52 Interval history: Denies chest pain or sob. Exam Const: General: cooperative, healthy appearing and comfortable Orientation/consciousness: oriented to person, oriented to place and oriented to time Resp: Auscultation: no crackles, no rales, no rhonchi and no wheezes Cardio: Rate: regular rate Rhythm: regular rhythm Heart sounds: no murmurs Peripheral pulses: dorsalis pedis present Neuro: General: oriented to person, oriented to place and oriented to time Extrem: Right lower extremity: edema Left lower extremity: edema Other: Mild-moderate edema of both legs Objective Data Vital Signs Vital Signs: Vital Signs - 24 hr 08/27/22 10:40 08/27/22 12:15 08/27/22 12:25 Temperature 97.7 F Pulse Rate 70 70 69 Respiratory Rate 16 20 26 H Blood Pressure 140/52 L 138/56 L 134/52 L Pulse Oximetry 98 90 93 Oxygen Delivery Nasal Cannula Nasal Cannula Nasal Cannula Oxygen Flow Rate 2 4 4 08/27/22 12:35 08/27/22 14:46 08/27/22 14:47 Temperature Pulse Rate 70 74 72 Respiratory Rate 22 H Blood Pressure 130/86 Pulse Oximetry 96 Oxygen Delivery Nasal Cannula Oxygen Flow Rate 4 08/27/22 14:00 08/27/22 20:17 08/27/22 21:35 Temperature 97.5 F L 98.5 F Pulse Rate 70 69 70 Respiratory Rate 24 H 14 Blood Pressure 141/98 H 104/37 L Pulse Oximetry 95 96 Oxygen Delivery Oxygen Flow Rate 08/27/22 20:00 08/28/22 05:53 Temperature 99.5 F Pulse Rate 69 Respiratory Rate 14 Blood Pressure 134/45 L Pulse Oximetry 92 90 Oxygen Delivery Nasal Cannula Oxygen Flow Rate 2 Intake/Output Intake/Output: Intake & Output 08/25/22 08/26/22 08/27/22 08/28/22 23:59 23:59 23:59 23:59 Intake Total 2091 1814 1028 500 Output Total 1050 Balance 1041 1814 1028 500 Meds/Results Medications: Active Medications Generic Name Dose Route Start Last Admin Trade Name Freq PRN Reason Stop Dose Admin Acetaminophen 650 mg 08/23/22 00:43 Acetaminophen 325 Mg Tablet PO Q4H PRN Pain Rated 1-3 Albuterol 2 puff 08/23/22 00:43 08/25/22 21:09 Albuterol Sulfate (*Sp) Aerosol 1 Puff INHALATION 2 puff QID PRN Administration Shortness Of Breath Amiodarone HCl 200 mg 08/25/22 08:00 08/27/22 14:46 Amiodarone Hcl 200 Mg Tablet PO 200 mg DAILY@0800 [facility]
[2022-08-28] MEDS: TOLNAFTATE 1% POWDER 45 GM BTL 1 APPLIC TOPICAL ×2 (08:30→21:07)
[2022-08-28] MEDS: FUROSEMIDE 40 MG TABLET PO (08:30)
[2022-08-28] MEDS: SACUBITRIL/VALSARTAN 24-26 MG TABLET 1 TAB PO ×2 (08:30→21:07)
[2022-08-28] MEDS: AMIODARONE HCL 200 MG TABLET PO (08:30)
[2022-08-28] MEDS: CHOLECALCIFEROL 1,000 UNITS TABLET 2000 UNITS PO ×2 (08:31→16:15)
[2022-08-28] MEDS: POTASSIUM CHLORIDE 10 MEQ TABLET.ER 20 MEQ PO (08:31)
[2022-08-28] MEDS: SODIUM CHLORIDE 1 GM TABLET PO ×2 (08:31→16:15)
[2022-08-28] MEDS: carvediloL 12.5 MG TABLET PO ×2 (08:31→21:05)
[2022-08-28] MEDS: CYANOCOBALAMIN 1,000 MCG TABLET 1000 MCG PO (08:32)
[2022-08-28] MEDS: MAGNESIUM OXIDE 400 MG TABLET PO ×2 (08:32→16:15)
--- NOTE | 2022-08-28 09:42 | P.PNNP_ITS ---
Progress Note: A&P Assessment and Plan (1) Hyponatremia: Code(s): E87.1 - Hypo-osmolality and hyponatremia Status: Acute Assessment and Plan: * improving * acute on chronic (has been present at least as far back as January 2021) * baseline sodium runs ~ 128 - 134 (at her best) * admitted with a sodium of 123 with acute drop to 115 on 08/25/22 * likely due to D5W carrier fluid in protonix gtt - carrier fluid changed to normal saline * suspect a component of CHF playing a role as well * extensive evaluation on past hospitalization (01/2021) regarding this issue: * TSH elevated but on levothyroxine * cortisol borderline low but cosyntropin testing okay * CT of brain negative * CXR without masses/tumors; recent CXR results noted * she responded to fluid restriction, salt tabs, and lasix in the past * have re-instituted these measures * s/p 3% saline on 08/25/22 and 08/26/22 (this is not a good watermaster solution giv en #3) * may need to consider more aggressive diuresis given CXR findings * follow trend of repeat sodium levels (2) Acute upper GI bleeding: Code(s): K92.2 - Gastrointestinal hemorrhage, unspecified Status: Acute Assessment and Plan: * low H/H on admission * guaiac positive * Gastroenterology following * EGD (on 08/27/22) with nonbleeding esophageal varices, gastritis, and gastric polyp * xarelto on hold (3) CHF (congestive heart failure): Qualifiers: Heart failure chronicity: unspecified Code(s): I50.9 - Heart failure, unspecified Status: Acute Assessment and Plan: * acute on chronic versus acute (?) * recent echo (08/23/22) with EF 35-40%, mild LVH, grade I diastolic dysfunction, mild biatrial enlargement, mild MR, mild-mod TR, RVSP 68 * Cardiology recommendations noted * already on diuretic therapy -- need to be more aggressive(?) (4) Essential hypertension: Code(s): I10 - Essential (primary) hypertension Status: Acute Assessment and Plan: * better control at this time * follow trend of hemodynamics * continue current medications with recent changes by Cardiology (5) Atrial fibrillation: Qualifiers: Atrial fibrillation type: unspecified Qualified Code(s): I48.91 - Unspecified atrial fibrillation Code(s): I48.91 - Unspecified atrial fibrillation Status: Acute Assessment and Plan: * s/p pacemaker placement * on amiodarone * holding anticoagulation give #2 Will continue to follow. Subjective Date/time seen: 08/28/22 09:42 S/P EGD yesterday with findings noted; sodium has remained relatively stable in the last 24 hours; no other acute issues or complaints; CXR unchanged but denies any shortness of breath but requiring more oxygen support. Exam Narrative: General: elderly female in NAD Heart: normal S1 and S2; no rub Lungs: coarse and decreased at bases Abdomen: soft, nontender, nondistended, positive bowel sounds Extremities: no cyanosis or clubbing; 1 - 2+ edema Skin: no rash or nodules Objective Data Vital Signs Vital Signs: Vital Signs Temp Pulse Resp BP Pulse Ox O2 Del Method O2 Flow Rate 08/28/22 08:36 95 Nasal Cannula 4 08/28/22 08:31 79 L Room Air 08/28/22 08:31 70 08/28/22 08:30 70 08/28/22 08:29 97.6 F 70 17 130/50 L 93 08/28/22
--- NOTE | 2022-08-28 09:42 | PM.PNNEP ---
Progress Note: A&P Assessment and Plan (1) Hyponatremia: Code(s): E87.1 - Hypo-osmolality and hyponatremia Status: Acute Assessment and Plan: improving acute on chronic (has been present at least as far back as January 2021) baseline sodium runs ~ 128 - 134 (at her best) admitted with a sodium of 123 with acute drop to 115 on 08/25/22 likely due to D5W carrier fluid in protonix gtt - carrier fluid changed to normal saline suspect a component of CHF playing a role as well extensive evaluation on past hospitalization (01/2021) regarding this issue: TSH elevated but on levothyroxine cortisol borderline low but cosyntropin testing okay CT of brain negative CXR without masses/tumors; recent CXR results noted she responded to fluid restriction, salt tabs, and lasix in the past have re-instituted these measures s/p 3% saline on 08/25/22 and 08/26/22 (this is not a good long wall mining machine tender solution given #3) may need to consider more aggressive diuresis given CXR findings follow trend of repeat sodium levels (2) Acute upper GI bleeding: Code(s): K92.2 - Gastrointestinal hemorrhage, unspecified Status: Acute Assessment and Plan: low H/H on admission guaiac positive Gastroenterology following EGD (on 08/27/22) with nonbleeding esophageal varices, gastritis, and gastric polyp xarelto on hold (3) CHF (congestive heart failure): Qualifiers: Heart failure chronicity: unspecified Code(s): I50.9 - Heart failure, unspecified Status: Acute Assessment and Plan: acute on chronic versus acute (?) recent echo (08/23/22) with EF 35-40%, mild LVH, grade I diastolic dysfunction, mild biatrial enlargement, mild MR, mild-mod TR, RVSP 68 Cardiology recommendations noted already on diuretic therapy -- need to be more aggressive(?) (4) Essential hypertension: Code(s): I10 - Essential (primary) hypertension Status: Acute Assessment and Plan: better control at this time follow trend of hemodynamics continue current medications with recent changes by Cardiology (5) Atrial fibrillation: Qualifiers: Atrial fibrillation type: unspecified Qualified Code(s): I48.91 - Unspecified atrial fibrillation Code(s): I48.91 - Unspecified atrial fibrillation Status: Acute Assessment and Plan: s/p pacemaker placement on amiodarone holding anticoagulation give #2 Will continue to follow. Subjective Date/time seen: 08/28/22 09:42 S/P EGD yesterday with findings noted; sodium has remained relatively stable in the last 24 hours; no other acute issues or complaints; CXR unchanged but denies any shortness of breath but requiring more oxygen support. Exam Narrative: General: elderly female in NAD Heart: normal S1 and S2; no rub Lungs: coarse and decreased at bases Abdomen: soft, nontender, nondistended, positive bowel sounds Extremities: no cyanosis or clubbing; 1 - 2+ edema Skin: no rash or nodules Objective Data Vital Signs Vital Signs: Vital Signs Temp Pulse Resp BP Pulse Ox O2 Del Method O2 Flow Rate 08/28/22 08:36 95 Nasal Cannula 4 08/28/22 08:31 79 L Room Air 08/28/22 08:31 70 08/28/22 08:30 70 08/28/22 08:29 97.6 F 70 17 130/50 L 93 08/28/22 05:53 99.5 F 69 14 134/45 L 90 08/27/22 20:00 92 Nasal Cannula 2 08/27/22 21:35 98.5 F 70 14 104/37 L 96 08/27/22 20:17 69 08/27/22 14:00 97.5 F L 70 24 H 141/98 H 95 08/27/22 14:47 72 08/27/22 14:46 74 08/27/22 12:35 70 22 H 130/86 96 Nasal Cannula 4 08/27/22 12:25 69 26 H 134/52 L 93 Nasal Cannula 4 08/27/22 12:15 70 20 138/56 L 90 Nasal Cannula 4 08/27/22 10:40 97.7 F 70 16 140/52 L 98 Nasal Cannula 2 Intake/Output Intake/Output: Intake & Output 08/25/22 08/26/22 08/27/22 08/28/22 23:59 23:59 23:59 23:59 [place]
[2022-08-28 10:27] LABS: Alveolar/Arterial O2 Gradient 112.5 mmHg; Base Excess ABG 6.7 mEq/l (+/-2.0); Fractional Inspired Oxygen 36 %; HCO3 ABG 33.1 mEq/l (22.0-26.0); Oxyhemoglobin 93.9 % THb (90.0-100.0); PCO2 ABG 57.3 mmHg (35.0-45.0); PO2 ABG 77.7 mmHg (80.0-100.0); PO2 FiO2 Ratio Arterial Blood 2.16 %; Total Hemoglobin 9.8 g/dL (12.0-18.0); pH ABG 7.379 (7.350-7.450)
[2022-08-28 10:30] LABS: Device NASAL CANNULA; Modified Allen's Test Pass; Site Drawn RIGHT RADIAL
--- NOTE | 2022-08-28 12:41 | WPDGIPROGNO ---
Progress Note: A&P Assessment and Plan (1) Acute upper GI bleeding: Code(s): K92.2 - Gastrointestinal hemorrhage, unspecified Status: Acute Assessment and Plan: although there is no definite evidence of bleeding at this point, her hemoglobin did drop from 9.9 month or 2 ago to 6.3. This is accompanied by significant shortness of breath. It is now up to 9.1 after transfusion. 08/25/2022 hemoglobin is still hovering around 9 with no further drop since transfusion, and since Xarelto has been held 08/28/2022 EGD yesterday revealed the large polyp with superficial ulceration in the gastric cardia. This was removed. I suspect that this was the source of bleeding. The specimen for H pylori was negative. (2) Anemia: Qualifiers: Anemia type: unspecified type Qualified Code(s): D64.9 - Anemia, unspecified Code(s): D64.9 - Anemia, unspecified Status: Acute Assessment and Plan: She is not think that she has been anemic in the past. It appears that she usually runs around 10 however Her hemoglobin is holding steady, 8.7 today. (3) Hyponatremia: Code(s): E87.1 - Hypo-osmolality and hyponatremia Status: Acute Assessment and Plan: her sodium has dropped to 123. in May was 134 still somewhat low. She has been started on sodium tablets. now sodium is down to 118. She has been started on sodium chloride 3% infusion. (4) CHF (congestive heart failure): Qualifiers: Heart failure chronicity: unspecified Code(s): I50.9 - Heart failure, unspecified Status: Acute Assessment and Plan: She has chronic congestive heart failure. Her maintenance medications are furosemide 40 mg per day, amiodarone 200 mg per day, carvedilol 6.25 mg daily. (5) Atrial fibrillation: Qualifiers: Atrial fibrillation type: unspecified Qualified Code(s): I48.91 - Unspecified atrial fibrillation Code(s): I48.91 - Unspecified atrial fibrillation Status: Acute Assessment and Plan: She is on Xarelto 20 mg daily. This has been held given the possible GI bleed Will need to hold her anticoagulant for few more days because of the large polyp that was removed. (6) Artificial pacemaker: Code(s): Z95.0 - Presence of cardiac pacemaker Status: Acute Plan Await histology on the polyp. Slowly advanced her diet. Hold off another day or 2 on restarting anticoagulant because of the high risk of bleeding at the polypectomy site. Subjective Date/time seen: 08/28/22 12:41 She is resting comfortably today. She has no complaints. She has tolerated her clear liquid diet and I will therefore advance her to full liquids. Because multiple clips were placed at the gastroesophageal junction over the polypectomy site, I am reluctant to give her solid food for another day or so for fear of dislodging these clips while the cautery site heals. Exam Const: General: other ( Drowsy and sleepy this morning) Orientation/consciousness: patient oriented x3 Resp: Auscultation: clear to auscultation bilaterally Cardio: Rhythm: regular rhythm GI: Inspection: normal to inspection GI Palp: No abdominal tenderness, Yes Soft to palpation and No Guarding due to palpation present (GI) Auscultation: normal bowel sounds Neuro: General: patient oriented x3 Objective Data Vital Signs Vital Signs: Vital Signs - 24 hr 08/27/22 14:46 08/27/22 14:47 08/27/22 14:00 Temperature 36.4 C L Pulse Rate 74 72 70 Respiratory Rate 24 H Blood Pressure 141/98 H Pulse Oximetry 95 Oxygen Delivery Oxygen Flow Rate 08/27/22 20:17 08/27/22 21:35 08/27/22 20:00 Temperature 36.9 C Pulse Rate 69 70 Respiratory Rate 14 Blood Pressure 104/37 L Pulse Oximetry 96 92 Oxygen Delivery Nasal Cannula Oxygen Flow Rate 2 08/28/22 05:53 08/28/22 08:29 08/28/22 08:30 Temperature 37.5 C 36.4 C Pulse Rate 69 70 70 Respiratory R
--- NOTE | 2022-08-28 13:02 | WPDANESPN ---
Anes - Prog Note Post-Op Date/Time: 08/28/22 13:02 Cardiovascular status: normal Respiratory status: normal Airway patency: baseline Mental status: baseline Post-Op hydration status: normal Vital Signs: Last Vital Signs Temp 36.4 C 08/28/22 08:29 Pulse 70 08/28/22 08:31 Resp 17 08/28/22 08:29 BP 130/50 L 08/28/22 08:29 Pulse Ox 95 08/28/22 08:36 O2 Del Method Nasal Cannula 08/28/22 08:36 O2 Flow Rate 4 08/28/22 08:36 FiO2 24 08/25/22 08:13 Pain Score (VAS): No nonverbal signs of pain I/O: Intake & Output 08/27/22 08/28/22 08/28/22 23:59 07:59 15:59 Intake Total 118 500 340 Balance 118 500 340 Laboratory Tests 08/28/22 05:33 08/28/22 05:33 08/23/22 08/27/22 08/28/22 02:50 18:40 05:33 WBC 8.0 RBC 3.28 L Hgb 8.7 L Hct 27.7 L MCV 84.5 MCH 26.5 MCHC 31.4 L RDW 15.0 H Plt Count 278 MPV 8.2 Puncture Site ABG pH ABG pCO2 ABG pO2 ABG PO2/FiO2 Ratio ABG HCO3 ABG O2 Saturation ABG O2 Content ABG Base Excess A-a Gradient Oxyhemoglobin Total Hemoglobin O2 Delivery Device O2 Liters/Min FiO2 Sodium 128 L Potassium Chloride Carbon Dioxide Anion Gap BUN Creatinine Estim Creat Clear Calc Estimated GFR Glucose Calcium Urine Osmolality 288 08/28/22 08/28/22 05:33 10:24 WBC RBC Hgb Hct MCV MCH MCHC RDW Plt Count MPV Puncture Site Right radial ABG pH 7.379 ABG pCO2 57.3 H ABG pO2 77.7 L ABG PO2/FiO2 Ratio 2.16 ABG HCO3 33.1 H ABG O2 Saturation 95.0 ABG O2 Content 13.0 L ABG Base Excess 6.7 A-a Gradient 112.5 Oxyhemoglobin 93.9 Total Hemoglobin 9.8 L O2 Delivery Device Nasal cannula O2 Liters/Min 4.0 FiO2 36 Sodium 129 L Potassium 3.6 Chloride 92 L Carbon Dioxide 35 H Anion Gap 2 L BUN 12 Creatinine 1.00 Estim Creat Clear Calc 31 Estimated GFR 52 L Glucose 111 H Calcium 7.6 L Urine Osmolality Post-procedural complaints: none Patient Feedback: Patient satisfied with anesthetic care.
--- NOTE | 2022-08-28 14:11 | PM.IMPN ---
Progress Note: A&P Assessment and Plan (1) Acute upper GI bleeding: Code(s): K92.2 - Gastrointestinal hemorrhage, unspecified Status: Acute Assessment and Plan: H&H every 6 hours -the patient will receive 2 units of packed red blood cells with Lasix in between. -stool was found to be positive for occult blood GI has been consulted The patient is on a Protonix drip Holding Xarelto HPI-Narrative: This is an 87-year-old female patient who resides at a [facility].? Her POA is at the bedside answering most questions for her.? The patient has a history of congestive heart failure, atrial fibrillation and hypertension.? The patient came to the emergency room with complaints of increased shortness of breath and increased swelling to her lower extremities.? The patient was found to be 88% on room air was placed on oxygen at 2 L per nasal cannula.? The patient is very? pale and fatigued.? Her H&H is 6.3 and 20.1.? Patient's baseline hemoglobin is somewhere between 8 and 9.? She does have chronic renal failure.? Her creatinine is 1.1 today with a baseline somewhere around 1.6.? Her GFR is 47 which is improved from her last GFR of 24.? Her BMP is 682.? Patient was found to be guaiac-positive.? Patient was ordered 2 units of packed red blood cells.? Patient has a history of being on Xarelto for her AFib.? Chest x-ray was read as cardiomegaly with mild interstitial edema.? She also has 3+ pitting edema to lower extremities.? The patient was given IV fluids in the emergency room and started on a Protonix drip.? GI has been consulted.? 08/28/2022 interval history: 87-year-old female presented with shortness of her oxygen saturation was 88% on room patient was found to have anemia with a hemoglobin of 6.3 resulting in shortness of breath with also history of congestive heart failure, patient was given 2 units of pack RBC her hemoglobin has improved to 9.1 today her clinical symptoms have also improved, patient was seen by GI, her stool hemoccult is positive, recommended EGD and colonoscopy which was scheduled for 08/24 however it was cancel as her sodium has dropped to 115 and today is 129 we have placed her on fluid restriction and patient is seen immigration case manager, workup is in progress and further recommendation to follow, , patient with history congestive heart failure cardiac echo showed on 08/28 patient was seen by GI and patient had a EGD which showed nonbleeding varics, gastritis and polyps biopsy was collected, recommending to hold Eliquis for now, and avoid NSAIDs, severe cardiomyopathy with ejection fraction 35-40%, and grade 1 diastolic dysfunction most likely patient is having, combine acute on chronic systolic diastolic congestive heart failure, patient was seen by her Electrical Accessories Assembler patient refused cardiac catheterization, the footwear sales leader dc diltiazem and Olmesartan. increased Coreg 25 mg BID. Started Entresto 49-51 mg BID. however patient BP soft footwear sales leader on 08/27 decreased Coreg 12.5mg BID, and Entresto 44-26 and will monitor blood pressure and HR.aby, today immigration case manager gave 1 time dose of lasix 40mg IV x1, further recommendations to follow, will continue to diurese the patient. (2) Hyponatremia: Code(s): E87.1 - Hypo-osmolality and hyponatremia Status: Acute Assessment and Plan: The patient is on sodium tablets. Her sodium is 124 today and recently had been 134. She does have history of congestive heart failure. (3) Anemia: Qualifiers: Anemia type: unspecified type Qualified Code(s): D64.9 - Anemia, unspecified Code(s): D64.9 - Anemia, unspecified Status: Acute Assessment and Plan: Patient typically has anemia which could be related to her renal failure. However today her hemoglobin is worse than her baseline. Her H&H was found to be 6.3 and 20.1 with a baseline hemoglobin anywhere between 8 and 9. She was found to be Hemoccult positive She is currently
[2022-08-28] MEDS: FUROSEMIDE INJ 40 MG/4 ML VIAL IV PUSH (14:16)
--- NOTE | 2022-08-28 15:11 | PCOTNOTE ---
Patient refused treatment this session due to stating, I'm trying to nap, I need sleep, maybe tomorrow, to tired .
[2022-08-29] VITALS (9 sets, daily range): BP systolic 103–146; BP diastolic 49–66; PULSE 66–70; RESP 16–18; TEMP 36.2–36.6; O2SAT 87–97; BMI 27.1
[2022-08-29] MEDS: LEVOTHYROXINE SODIUM 100 MCG TABLET PO (05:50)
[2022-08-29] MEDS: LEVOTHYROXINE SODIUM 75 MCG TABLET PO (05:50)
[2022-08-29 07:12] LABS: Hematocrit 27.7 % (37.0-47.0); Hemoglobin 8.6 g/dL (12.0-15.0); Mean Corpuscular Volume 87.1 fl (80-100); Platelet Count Result 222 k/mm3 (150-375); Red Blood Count 3.18 M/mm3 (4.2-5.4); Red Cell Distribution Width 14.9 % (11.5-14.5); White Blood Count 6.4 K/mm3 (4.5-10.0)
[2022-08-29 07:23] LABS: Anion Gap 0 mmol/L (8-16); Blood Urea Nitrogen 11 mg/dL (7-17); Calcium 7.6 mg/dL (8.4-10.2); Carbon Dioxide 39 mmol/L (22-30); Chloride 89 mmol/L (98-107); Estimated CRCL calculation 34 ml/min; Estimated Glomerular Filt Rate 59; Glucose 106 mg/dL (65-110); Potassium 3.6 mmol/L (3.4-5.0); Sodium 128 mmol/L (137-145)
--- NOTE | 2022-08-29 07:54 | PM.PNCARD ---
Progress Note: A&P Assessment and Plan (1) CHF (congestive heart failure): Qualifiers: Heart failure chronicity: unspecified Code(s): I50.9 - Heart failure, unspecified Status: Acute Assessment and Plan: Acute on chronic systolic and diastolic heart failure. I don't have her last echo to see if this is new LV systolic dysfunction or chronic. 08/23/22 Echo: EF 35-40%, mild LVH, grade I diastolic dysfunction, mild biatrial enlargement, mild MR, mild-mod TR, RVSP 68 mmHg. She does not want any invasive procedures. She was on Coreg, Olmesartan, Lasix 40 mg daily. Stopped Diltiazem and Olmesartan. Low normal BP. On Coreg 12.5 mg BID, Entresto 44-26 mg BID. Monitor BP and HR. (2) Atrial fibrillation: Qualifiers: Atrial fibrillation type: unspecified Qualified Code(s): I48.91 - Unspecified atrial fibrillation Code(s): I48.91 - Unspecified atrial fibrillation Status: Acute Assessment and Plan: She is in paced rhythm. Was on Amiodarone 200 mg daily. Resumed Amiodarone. On Xarelto normally but on hold due to GI bleed. Resume Xarelto when OK by GI. (3) Artificial pacemaker: Code(s): Z95.0 - Presence of cardiac pacemaker Status: Acute Assessment and Plan: Follows with Dr. Sauceda. (4) Essential hypertension: Code(s): I10 - Essential (primary) hypertension Status: Acute Assessment and Plan: Stable. Monitor. (5) Hyponatremia: Code(s): E87.1 - Hypo-osmolality and hyponatremia Status: Acute Assessment and Plan: Monitor sodium level. On salt tablets and free water restriction. Subjective Date/time seen: 08/29/22 07:54 Interval history: Denies chest pain or sob. Exam Const: General: cooperative, healthy appearing and comfortable Orientation/consciousness: oriented to person, oriented to place and oriented to time Resp: Auscultation: no crackles, no rales, no rhonchi and no wheezes Cardio: Rate: regular rate Rhythm: regular rhythm Heart sounds: no murmurs Peripheral pulses: dorsalis pedis present Neuro: General: oriented to person, oriented to place and oriented to time Extrem: Right lower extremity: edema Left lower extremity: edema Other: Mild-moderate edema of both legs Objective Data Vital Signs Vital Signs: Vital Signs - 24 hr 08/28/22 08:29 08/28/22 08:30 08/28/22 08:31 Temperature 97.6 F Pulse Rate 70 70 70 Respiratory Rate 17 Blood Pressure 130/50 L Pulse Oximetry 93 Oxygen Delivery Oxygen Flow Rate Fraction of Inspired Oxygen 08/28/22 08:31 08/28/22 08:36 08/28/22 14:00 Temperature 97 F L Pulse Rate 70 Respiratory Rate 16 Blood Pressure 104/52 L Pulse Oximetry 79 L 95 96 Oxygen Delivery Room Air Nasal Cannula Oxygen Flow Rate 4 Fraction of Inspired Oxygen 08/28/22 14:15 08/28/22 16:45 08/28/22 21:05 Temperature Pulse Rate 70 80 Respiratory Rate Blood Pressure 124/65 Pulse Oximetry 95 96 Oxygen Delivery Nasal Cannula Oxygen Flow Rate 1 Fraction of Inspired Oxygen 08/28/22 20:30 08/28/22 20:45 08/29/22 05:31 Temperature 97.7 F 97.3 F L Pulse Rate 80 70 70 Respiratory Rate 16 18 18 Blood Pressure 111/45 L 146/54 H Pulse Oximetry 96 96 95 Oxygen Delivery Nasal Cannula Oxygen Flow Rate 1 Fraction of Inspired Oxygen 24 Intake/Output Intake/Output: Intake & Output 08/26/22 08/27/22 08/28/22 08/29/22 23:59 23:59 23:59 23:59 Intake Total 1814 1028 1677 Output Total 500 Balance 1814 1028 1177 Meds/Results Medications: Active Medications Generic Name Dose Route Start Last Admin Trade Name Freq PRN Reason Stop Dose Admin Acetaminophen 650 mg 08/23/22 00:43 Acetaminophen 325 Mg Tablet PO Q4H PRN Pain Rated 1-3 Albuterol 2 puff 08/23/22 00:43 08/25/22 21:09 Albuterol Sulfate (*Sp) Aerosol 1 Puff INHALATION 2 puff QID PRN Administration Shortness O
[2022-08-29] MEDS: CHOLECALCIFEROL 1,000 UNITS TABLET 2000 UNITS PO ×2 (08:14→17:34)
[2022-08-29] MEDS: SODIUM CHLORIDE 1 GM TABLET PO ×2 (08:14→17:34)
[2022-08-29] MEDS: MAGNESIUM OXIDE 400 MG TABLET PO ×2 (08:15→17:34)
[2022-08-29] MEDS: POTASSIUM CHLORIDE 10 MEQ TABLET.ER 20 MEQ PO (08:15)
[2022-08-29] MEDS: carvediloL 12.5 MG TABLET PO ×2 (08:15→21:08)
[2022-08-29] MEDS: CYANOCOBALAMIN 1,000 MCG TABLET 1000 MCG PO (08:15)
[2022-08-29] MEDS: AMIODARONE HCL 200 MG TABLET PO (08:15)
[2022-08-29] MEDS: FUROSEMIDE 40 MG TABLET PO (08:15)
[2022-08-29] MEDS: SACUBITRIL/VALSARTAN 24-26 MG TABLET 1 TAB PO ×2 (08:15→21:08)
[2022-08-29] MEDS: TOLNAFTATE 1% POWDER 45 GM BTL 1 APPLIC TOPICAL ×2 (08:16→21:09)
--- NOTE | 2022-08-29 12:14 | P.PNNP_ITS ---
Progress Note: A&P Assessment and Plan (1) Hyponatremia: Code(s): E87.1 - Hypo-osmolality and hyponatremia Status: Acute Assessment and Plan: * improving * acute on chronic (has been present at least as far back as January 2021) * baseline sodium runs ~ 128 - 134 (at her best) * admitted with a sodium of 123 with acute drop to 115 on 08/25/22 * likely due to D5W carrier fluid in protonix gtt - carrier fluid changed to normal saline * suspect a component of CHF playing a role as well * extensive evaluation on past hospitalization (01/2021) regarding this issue: * TSH elevated but on levothyroxine * cortisol borderline low but cosyntropin testing okay * CT of brain negative * CXR without masses/tumors; recent CXR results noted * she responded to fluid restriction, salt tabs, and lasix in the past * have re-instituted these measures * s/p 3% saline on 08/25/22 and 08/26/22 (this is not a good medical terminologist solution giv en #3) * may need to consider more aggressive diuresis given CXR findings * follow trend of repeat sodium levels (2) Acute upper GI bleeding: Code(s): K92.2 - Gastrointestinal hemorrhage, unspecified Status: Acute Assessment and Plan: * low H/H on admission * guaiac positive * Gastroenterology following * EGD (on 08/27/22) with nonbleeding esophageal varices, gastritis, and gastric polyp * xarelto on hold (3) CHF (congestive heart failure): Qualifiers: Heart failure chronicity: unspecified Code(s): I50.9 - Heart failure, unspecified Status: Acute Assessment and Plan: * acute on chronic versus acute (?) * recent echo (08/23/22) with EF 35-40%, mild LVH, grade I diastolic dysfunction, mild biatrial enlargement, mild MR, mild-mod TR, RVSP 68 * Cardiology recommendations noted * already on diuretic therapy -- will add low dose lasix in evening (4) Essential hypertension: Code(s): I10 - Essential (primary) hypertension Status: Acute Assessment and Plan: * better control at this time * follow trend of hemodynamics * continue current medications with recent changes by Cardiology (5) Atrial fibrillation: Qualifiers: Atrial fibrillation type: unspecified Qualified Code(s): I48.91 - Unspecified atrial fibrillation Code(s): I48.91 - Unspecified atrial fibrillation Status: Acute Assessment and Plan: * s/p pacemaker placement * on amiodarone * holding anticoagulation give #2 Will continue to follow. Subjective Date/time seen: 08/29/22 12:14 No acute issues or complaints voiced at this time; sodium remains relatively stable at this time with current interventions; breathing/respiratory status seems to be improving; no apparent distress to report when seen. Exam 2 Narrative: General: elderly female in NAD Heart: normal S1 and S2; no rub Lungs: coarse and decreased at bases Abdomen: soft, nontender, nondistended, positive bowel sounds Extremities: no cyanosis or clubbing; 1 - 2+ edema Skin: no rash or nodules Objective Data Vital Signs Vital Signs: Vital Signs Temp Pulse Resp BP Pulse Ox O2 Del Method O2 Flow Rate 08/29/22 08:00 92 Nasal Cannula 1 08/29/22 08:15 66 08/29/22 08:15 66 08/29/22 05:31 97.3 F L 70 18 146/54 H 95 08/28/22 20:45 97.7 F 70 18 111/45 L 96
--- NOTE | 2022-08-29 12:14 | PM.PNNEP ---
Progress Note: A&P Assessment and Plan (1) Hyponatremia: Code(s): E87.1 - Hypo-osmolality and hyponatremia Status: Acute Assessment and Plan: improving acute on chronic (has been present at least as far back as January 2021) baseline sodium runs ~ 128 - 134 (at her best) admitted with a sodium of 123 with acute drop to 115 on 08/25/22 likely due to D5W carrier fluid in protonix gtt - carrier fluid changed to normal saline suspect a component of CHF playing a role as well extensive evaluation on past hospitalization (01/2021) regarding this issue: TSH elevated but on levothyroxine cortisol borderline low but cosyntropin testing okay CT of brain negative CXR without masses/tumors; recent CXR results noted she responded to fluid restriction, salt tabs, and lasix in the past have re-instituted these measures s/p 3% saline on 08/25/22 and 08/26/22 (this is not a good youth services specialist solution given #3) may need to consider more aggressive diuresis given CXR findings follow trend of repeat sodium levels (2) Acute upper GI bleeding: Code(s): K92.2 - Gastrointestinal hemorrhage, unspecified Status: Acute Assessment and Plan: low H/H on admission guaiac positive Gastroenterology following EGD (on 08/27/22) with nonbleeding esophageal varices, gastritis, and gastric polyp xarelto on hold (3) CHF (congestive heart failure): Qualifiers: Heart failure chronicity: unspecified Code(s): I50.9 - Heart failure, unspecified Status: Acute Assessment and Plan: acute on chronic versus acute (?) recent echo (08/23/22) with EF 35-40%, mild LVH, grade I diastolic dysfunction, mild biatrial enlargement, mild MR, mild-mod TR, RVSP 68 Cardiology recommendations noted already on diuretic therapy -- will add low dose lasix in evening (4) Essential hypertension: Code(s): I10 - Essential (primary) hypertension Status: Acute Assessment and Plan: better control at this time follow trend of hemodynamics continue current medications with recent changes by Cardiology (5) Atrial fibrillation: Qualifiers: Atrial fibrillation type: unspecified Qualified Code(s): I48.91 - Unspecified atrial fibrillation Code(s): I48.91 - Unspecified atrial fibrillation Status: Acute Assessment and Plan: s/p pacemaker placement on amiodarone holding anticoagulation give #2 Will continue to follow. Subjective Date/time seen: 08/29/22 12:14 No acute issues or complaints voiced at this time; sodium remains relatively stable at this time with current interventions; breathing/respiratory status seems to be improving; no apparent distress to report when seen. Exam Narrative: General: elderly female in NAD Heart: normal S1 and S2; no rub Lungs: coarse and decreased at bases Abdomen: soft, nontender, nondistended, positive bowel sounds Extremities: no cyanosis or clubbing; 1 - 2+ edema Skin: no rash or nodules Objective Data Vital Signs Vital Signs: Vital Signs Temp Pulse Resp BP Pulse Ox O2 Del Method O2 Flow Rate 08/29/22 08:00 92 Nasal Cannula 1 08/29/22 08:15 66 08/29/22 08:15 66 08/29/22 05:31 97.3 F L 70 18 146/54 H 95 08/28/22 20:45 97.7 F 70 18 111/45 L 96 08/28/22 20:30 80 16 96 Nasal Cannula 1 08/28/22 21:05 80 08/28/22 16:45 96 Nasal Cannula 1 Intake/Output Intake/Output: Intake & Output 08/26/22 08/27/22 08/28/22 08/29/22 23:59 23:59 23:59 23:59 Intake Total 1814 1028 1677 120 Output Total 500 Balance 1814 1028 1177 120 Meds/Results Medications: Active Medications Generic Name Dose Route Start Last Admin Trade Name Freq PRN Reason Stop Dose Admin Acetaminophen 650 mg 08/23/22 00:43 Acetaminophen 325 Mg Tablet PO Q4H PRN Pain Rated 1-3 Albuterol 2 puff 08/23/22 00:43 08/25/22 21:09
--- NOTE | 2022-08-29 12:26 | PM.IMPN ---
Progress Note: A&P Assessment and Plan (1) Acute upper GI bleeding: Code(s): K92.2 - Gastrointestinal hemorrhage, unspecified Status: Acute Assessment and Plan: H&H every 6 hours -the patient will receive 2 units of packed red blood cells with Lasix in between. -stool was found to be positive for occult blood GI has been consulted The patient is on a Protonix drip Holding Xarelto -may resume in 1-2 days (2) Hyponatremia: Code(s): E87.1 - Hypo-osmolality and hyponatremia Status: Acute Assessment and Plan: The patient is on sodium tablets. Sodium improving She does have history of congestive heart failure. (3) Anemia: Qualifiers: Anemia type: unspecified type Qualified Code(s): D64.9 - Anemia, unspecified Code(s): D64.9 - Anemia, unspecified Status: Acute Assessment and Plan: Monitor H&H likely discharge tomorrow xarelto on hold (4) CHF (congestive heart failure): Qualifiers: Heart failure chronicity: unspecified Code(s): I50.9 - Heart failure, unspecified Status: Acute Assessment and Plan: I was unable to locate any recent echo to determine what her EF. An echo has been ordered. Continue with p.o. Lasix Continue with Coreg if blood pressure allows initially a blood pressure was 163/58 and currently it is 149/50. (5) Essential hypertension: Code(s): I10 - Essential (primary) hypertension Status: Acute Assessment and Plan: Continue with Coreg -continue with Benicar (6) Hypothyroidism: Code(s): E03.9 - Hypothyroidism, unspecified Status: Acute Assessment and Plan: Continue with levothyroxine Check thyroid level (7) Atrial fibrillation: Qualifiers: Atrial fibrillation type: unspecified Qualified Code(s): I48.91 - Unspecified atrial fibrillation Code(s): I48.91 - Unspecified atrial fibrillation Status: Acute Assessment and Plan: Holding Xarelto due to GI bleed Patient has a pacemaker and is rate controlled at this time. Continue with Coreg Subjective Date/time seen: 08/29/22 12:26 No complaints Exam Narrative: moderately obese Patient is comfortable, NAD HEENT: eyes are clear and none icteric LUNGS: normal respiratory effort ABD: distended Lower extremities edema SKIN: nonjaundiced Neuro: grossly intact. Objective Data Vital Signs Vital Signs: Vital Signs - 24 hr 08/28/22 14:00 08/28/22 14:15 08/28/22 16:45 Temperature 97 F L Pulse Rate 70 70 Respiratory Rate 16 Blood Pressure 104/52 L 124/65 Pulse Oximetry 96 95 96 Oxygen Delivery Nasal Cannula Oxygen Flow Rate 1 Fraction of Inspired Oxygen 08/28/22 21:05 08/28/22 20:30 08/28/22 20:45 Temperature 97.7 F Pulse Rate 80 80 70 Respiratory Rate 16 18 Blood Pressure 111/45 L Pulse Oximetry 96 96 Oxygen Delivery Nasal Cannula Oxygen Flow Rate 1 Fraction of Inspired Oxygen 24 08/29/22 05:31 08/29/22 08:15 08/29/22 08:15 Temperature 97.3 F L Pulse Rate 70 66 66 Respiratory Rate 18 Blood Pressure 146/54 H Pulse Oximetry 95 Oxygen Delivery Oxygen Flow Rate Fraction of Inspired Oxygen 08/29/22 08:00 Temperature Pulse Rate Respiratory Rate Blood Pressure Pulse Oximetry 92 Oxygen Delivery Nasal Cannula Oxygen Flow Rate 1 Fraction of Inspired Oxygen Intake/Output Intake/Output: Intake & Output 08/26/22 08/27/22 08/28/22 08/29/22 23:59 23:59 23:59 23:59 Intake Total 1814 1028 1677 120 Output Total 500 Balance 1814 1028 1177 120 Meds/Results Medications: Active Medications Generic Name Dose Route Start Last Admin Trade Name Freq PRN Reason Stop Dose Admin Acetaminophen 650 mg 08/23/22 00:43 Acetaminophen 325 Mg Tablet PO Q4H PRN Pain Rated 1-3 Albuterol 2 puff 08/23/22 00:43 08/25/22 21:09 Albuterol Sulfate (*Sp) Aerosol 1 Puff INHALATION 2 puff
--- NOTE | 2022-08-29 15:02 | WPDGIPROGNO ---
Progress Note: A&P Assessment and Plan (1) Acute upper GI bleeding: Code(s): K92.2 - Gastrointestinal hemorrhage, unspecified Status: Acute Assessment and Plan: although there is no definite evidence of bleeding at this point, her hemoglobin did drop from 9.9 month or 2 ago to 6.3. This is accompanied by significant shortness of breath. It is now up to 9.1 after transfusion. 08/25/2022 hemoglobin is still hovering around 9 with no further drop since transfusion, and since Xarelto has been held 08/28/2022 EGD yesterday revealed the large polyp with superficial ulceration in the gastric cardia. This was removed. I suspect that this was the source of bleeding. The specimen for H pylori was negative. 08/29/2022 the polyp that was removed was benign. (2) Anemia: Qualifiers: Anemia type: unspecified type Qualified Code(s): D64.9 - Anemia, unspecified Code(s): D64.9 - Anemia, unspecified Status: Acute Assessment and Plan: She is not think that she has been anemic in the past. It appears that she usually runs around 10 however Her hemoglobin is holding steady, 8.7 today. 08/29/2022 hemoglobin remains stable. (3) Hyponatremia: Code(s): E87.1 - Hypo-osmolality and hyponatremia Status: Acute Assessment and Plan: her sodium has dropped to 123. in May was 134 still somewhat low. She has been started on sodium tablets. now sodium is down to 118. She has been started on sodium chloride 3% infusion. (4) CHF (congestive heart failure): Qualifiers: Heart failure chronicity: unspecified Code(s): I50.9 - Heart failure, unspecified Status: Acute Assessment and Plan: She has chronic congestive heart failure. Her maintenance medications are furosemide 40 mg per day, amiodarone 200 mg per day, carvedilol 6.25 mg daily. (5) Atrial fibrillation: Qualifiers: Atrial fibrillation type: unspecified Qualified Code(s): I48.91 - Unspecified atrial fibrillation Code(s): I48.91 - Unspecified atrial fibrillation Status: Acute Assessment and Plan: She is on Xarelto 20 mg daily. This has been held given the possible GI bleed Will need to hold her anticoagulant for few more days because of the large polyp that was removed. 08/29/2022. I discussed her case with Brendan Dougherty. I think would be okay to restart her blood thinner tomorrow. We have advanced her to a soft diet. (6) Artificial pacemaker: Code(s): Z95.0 - Presence of cardiac pacemaker Status: Acute Plan Await histology on the polyp. Slowly advanced her diet. Hold off another day or 2 on restarting anticoagulant because of the high risk of bleeding at the polypectomy site. Subjective Date/time seen: 08/29/22 15:02 she has no complaints and is tolerating her diet. She is resting comfortably in bed. Exam Const: General: other ( Drowsy and sleepy this morning) Orientation/consciousness: patient oriented x3 Resp: Auscultation: clear to auscultation bilaterally Cardio: Rhythm: regular rhythm GI: Inspection: normal to inspection GI Palp: No abdominal tenderness, Yes Soft to palpation and No Guarding due to palpation present (GI) Auscultation: normal bowel sounds Neuro: General: patient oriented x3 Objective Data Vital Signs Vital Signs: Vital Signs - 24 hr 08/28/22 16:45 08/28/22 21:05 08/28/22 20:30 Temperature Pulse Rate 80 80 Respiratory Rate 16 Blood Pressure Pulse Oximetry 96 96 Oxygen Delivery Nasal Cannula Nasal Cannula Oxygen Flow Rate 1 1 Fraction of Inspired Oxygen 24 08/28/22 20:45 08/29/22 05:31 08/29/22 08:15 Temperature 36.5 C 36.3 C L Pulse Rate 70 70 66 Respiratory Rate 18 18 Blood Pressure 111/45 L 146/54 H Pulse Oximetry 96 95 Oxygen Delivery Oxygen Flow Rate Fraction of Inspired Oxygen 08/29/22 08:15 08/29/22 08:00 08/29/22 14:00 Temperatur
--- NOTE | 2022-08-29 21:00 | PC.NURSE ---
When she is sleeping her O2 drops down to 82-86% on room air, 1LNC applied and is now 90-94%.
[2022-08-30] VITALS (10 sets, daily range): BP systolic 96–131; BP diastolic 49–54; PULSE 69–77; RESP 16–18; TEMP 36.2–36.6; O2SAT 91–96
[2022-08-30] MEDS: LEVOTHYROXINE SODIUM 75 MCG TABLET PO (06:17)
[2022-08-30] MEDS: LEVOTHYROXINE SODIUM 100 MCG TABLET PO (06:17)
[2022-08-30 06:53] LABS: Hematocrit 27.3 % (37.0-47.0); Hemoglobin 8.5 g/dL (12.0-15.0); Mean Corpuscular HGB Conc 31.1 g/dl (32-36); Mean Corpuscular Hemoglobin 26.3 pg (26-34); Mean Corpuscular Volume 84.5 fl (80-100); Mean Platelet Volume 8.2 fl (7.4-10.4); Platelet Count Result 252 k/mm3 (150-375); Red Blood Count 3.23 M/mm3 (4.2-5.4); Red Cell Distribution Width 15.4 % (11.5-14.5); White Blood Count 5.4 K/mm3 (4.5-10.0)
[2022-08-30 07:04] LABS: Anion Gap -2 mmol/L (8-16); Blood Urea Nitrogen 14 mg/dL (7-17); Calcium 7.6 mg/dL (8.4-10.2); Carbon Dioxide 39 mmol/L (22-30); Chloride 89 mmol/L (98-107); Estimated CRCL calculation 34 ml/min; Estimated Glomerular Filt Rate 59; Glucose 98 mg/dL (65-110); Sodium 126 mmol/L (137-145)
--- NOTE | 2022-08-30 08:00 | PM.PNCARD ---
Progress Note: A&P Assessment and Plan (1) CHF (congestive heart failure): Qualifiers: Heart failure chronicity: unspecified Code(s): I50.9 - Heart failure, unspecified Status: Acute Assessment and Plan: Acute on chronic systolic and diastolic heart failure. I don't have her last echo to see if this is new LV systolic dysfunction or chronic. 08/23/22 Echo: EF 35-40%, mild LVH, grade I diastolic dysfunction, mild biatrial enlargement, mild MR, mild-mod TR, RVSP 68 mmHg. She does not want any invasive procedures. She was on Coreg, Olmesartan, Lasix 40 mg daily. Stopped Diltiazem and Olmesartan. Stable BP. On Coreg 12.5 mg BID, Entresto 44-26 mg BID. Monitor BP and HR. (2) Atrial fibrillation: Qualifiers: Atrial fibrillation type: unspecified Qualified Code(s): I48.91 - Unspecified atrial fibrillation Code(s): I48.91 - Unspecified atrial fibrillation Status: Acute Assessment and Plan: She is in paced rhythm. Was on Amiodarone 200 mg daily. Resumed Amiodarone. On Xarelto normally but on hold due to GI bleed. Resume Xarelto when OK by GI. (3) Artificial pacemaker: Code(s): Z95.0 - Presence of cardiac pacemaker Status: Acute Assessment and Plan: Follows with Dr. Sauceda. (4) Essential hypertension: Code(s): I10 - Essential (primary) hypertension Status: Acute Assessment and Plan: Stable. Monitor. (5) Hyponatremia: Code(s): E87.1 - Hypo-osmolality and hyponatremia Status: Acute Assessment and Plan: Monitor sodium level. On salt tablets and free water restriction. Subjective Date/time seen: 08/30/22 08:00 Interval history: Denies chest pain or sob. Exam Const: General: cooperative, healthy appearing and comfortable Orientation/consciousness: oriented to person, oriented to place and oriented to time Resp: Auscultation: no crackles, no rales, no rhonchi and no wheezes Cardio: Rate: regular rate Rhythm: regular rhythm Heart sounds: no murmurs Peripheral pulses: dorsalis pedis present Neuro: General: oriented to person, oriented to place and oriented to time Extrem: Right lower extremity: edema Left lower extremity: edema Other: Mild-moderate edema of both legs Objective Data Vital Signs Vital Signs: Vital Signs - 24 hr 08/29/22 08:15 08/29/22 08:15 08/29/22 14:00 Temperature 97.1 F L Pulse Rate 66 66 70 Respiratory Rate 16 Blood Pressure 103/49 L Pulse Oximetry 97 Oxygen Delivery Oxygen Flow Rate 08/29/22 15:21 08/29/22 21:08 08/29/22 20:00 Temperature Pulse Rate 68 Respiratory Rate Blood Pressure Pulse Oximetry 93 87 L Oxygen Delivery Room Air Room Air Oxygen Flow Rate 08/29/22 20:10 08/29/22 22:45 08/30/22 05:42 Temperature 97.9 F 97.7 F Pulse Rate 70 77 Respiratory Rate 16 18 Blood Pressure 136/66 131/54 L Pulse Oximetry 92 96 93 Oxygen Delivery Nasal Cannula Oxygen Flow Rate 1 Intake/Output Intake/Output: Intake & Output 08/27/22 08/28/22 08/29/22 08/30/22 23:59 23:59 23:59 23:59 Intake Total 1028 1677 456 Output Total 500 400 Balance 1028 1177 456 -400 Meds/Results Medications: Active Medications Generic Name Dose Route Start Last Admin Trade Name Freq PRN Reason Stop Dose Admin Acetaminophen 650 mg 08/23/22 00:43 Acetaminophen 325 Mg Tablet PO Q4H PRN Pain Rated 1-3 Albuterol 2 puff 08/23/22 00:43 08/25/22 21:09 Albuterol Sulfate (*Sp) Aerosol 1 Puff INHALATION 2 puff QID PRN Administration Shortness Of Breath Amiodarone HCl 200 mg 08/25/22 08:00 08/29/22 08:15 Amiodarone Hcl 200 Mg Tablet PO 200 mg DAILY@0800 [facility] Administration Bisacodyl 10 mg 08/23/22 00:43 Bisacodyl 5 Mg Tablet Ec PO DAILY PRN Constipation Carvedilol 12.5 mg 08/26/22 09:00 08/29/22 21:08 Carvedilol 12.5 Mg Tablet PO 12.5 mg Q12HR [facility] Administra
[2022-08-30] MEDS: carvediloL 12.5 MG TABLET PO ×2 (08:22→20:03)
[2022-08-30] MEDS: AMIODARONE HCL 200 MG TABLET PO (08:23)
[2022-08-30] MEDS: CHOLECALCIFEROL 1,000 UNITS TABLET 2000 UNITS PO ×2 (08:23→16:25)
[2022-08-30] MEDS: POTASSIUM CHLORIDE 10 MEQ TABLET.ER 20 MEQ PO (08:23)
[2022-08-30] MEDS: CYANOCOBALAMIN 1,000 MCG TABLET 1000 MCG PO (08:23)
[2022-08-30] MEDS: MAGNESIUM OXIDE 400 MG TABLET PO ×2 (08:23→16:25)
[2022-08-30] MEDS: FUROSEMIDE 40 MG TABLET PO (08:23)
[2022-08-30] MEDS: SACUBITRIL/VALSARTAN 24-26 MG TABLET 1 TAB PO ×2 (08:24→20:03)
[2022-08-30] MEDS: SODIUM CHLORIDE 1 GM TABLET PO ×2 (08:24→16:25)
[2022-08-30] MEDS: TOLNAFTATE 1% POWDER 45 GM BTL 1 APPLIC TOPICAL ×2 (08:24→20:04)
--- NOTE | 2022-08-30 11:33 | PM.IMPN ---
Progress Note: A&P Assessment and Plan (1) Acute upper GI bleeding: Code(s): K92.2 - Gastrointestinal hemorrhage, unspecified Status: Acute Assessment and Plan: Stabilized. Resume Xarelto on discharge (2) Hyponatremia: Code(s): E87.1 - Hypo-osmolality and hyponatremia Status: Acute Assessment and Plan: The patient is on sodium tablets. Sodium improving She does have history of congestive heart failure. Appreciate nephrology input (3) Anemia: Qualifiers: Anemia type: unspecified type Qualified Code(s): D64.9 - Anemia, unspecified Code(s): D64.9 - Anemia, unspecified Status: Acute Assessment and Plan: Monitor H&H likely discharge tomorrow xarelto on hold (4) CHF (congestive heart failure): Qualifiers: Heart failure chronicity: unspecified Code(s): I50.9 - Heart failure, unspecified Status: Acute Assessment and Plan: 1 dose of Lasix today. (5) Essential hypertension: Code(s): I10 - Essential (primary) hypertension Status: Acute Assessment and Plan: Continue with Coreg -continue with Benicar (6) Hypothyroidism: Code(s): E03.9 - Hypothyroidism, unspecified Status: Acute Assessment and Plan: Continue with levothyroxine Check thyroid level (7) Atrial fibrillation: Qualifiers: Atrial fibrillation type: unspecified Qualified Code(s): I48.91 - Unspecified atrial fibrillation Code(s): I48.91 - Unspecified atrial fibrillation Status: Acute Assessment and Plan: Holding Xarelto due to GI bleed Patient has a pacemaker and is rate controlled at this time. Continue with Coreg Plan Need to correct hyponatremia and get patient off oxygen and can be discharged Subjective Date/time seen: 08/30/22 11:33 No new complaints Exam Narrative: moderately obese Patient is comfortable, NAD HEENT: eyes are clear and none icteric LUNGS: normal respiratory effort ABD: distended Lower extremities edema SKIN: nonjaundiced Neuro: grossly intact. Const: General: cooperative, healthy appearing, comfortable, no acute distress, well developed, alert, awake, Physically active, average body habitus and well nourished Nutritional Appearance: average body habitus and well nourished Orientation/consciousness: oriented to person, oriented to place, oriented to time and patient oriented x3 Limitations: no limitations Other: Very pale HENMT: Head: normal to inspection, No palpable skull fracture present, normocephalic and atraumatic Ears: hearing grossly normal bilaterally and external ears normal Face/Nose/Sinus: Normal external nose present and Normal nares present Eyes: General: appearance normal, both eyes and all related structures Alignment and Position: alignment normal Periorbital: periorbital findings normal Eyelids: eyelids normal Sclera: sclerae normal Pupils: Equal, round and reactive pupils present EOM: EOMs intact bilaterally Neck: Neck: normal visual inspection, full ROM, no lymphadenopathy, trachea midline and supple Chest: Chest palpation & inspection: normal inspection of the chest Resp: Effort & Inspection: normal respiratory effort Auscultation: clear to auscultation bilaterally Percussion: percussion normal Cardio: Palpation: normal PMI Rate: regular rate Rhythm: regular rhythm Heart sounds: S1 normal heart sound present and S2 normal heart sound present Peripheral pulses: Peripheral pulses 2+ throughout Other: Pacer spikes seen on the monitor GI: Inspection: normal to inspection Auscultation: normal bowel sounds Rectal Exam: deferred Back/Spine/Pelvis: Cervical Spine: cervical ROM normal Skin: General skin exam: normal color Lesions: no lesions Rashes: no rashes Trauma: no lacerations or abrasions Wounds: no wounds Hair: normal Nails: normal Neuro: General: oriented to person, oriented to place, oriented to time
[2022-08-30] MEDS: FUROSEMIDE INJ 40 MG/4 ML VIAL 20 MG IV PUSH (11:57)
--- NOTE | 2022-08-30 13:15 | PM.PNNEP ---
Progress Note: A&P Assessment and Plan (1) Hyponatremia: Code(s): E87.1 - Hypo-osmolality and hyponatremia Status: Acute Assessment and Plan: improving acute on chronic (has been present at least as far back as January 2021) baseline sodium runs ~ 128 - 134 (at her best) admitted with a sodium of 123 with acute drop to 115 on 08/25/22 likely due to D5W carrier fluid in protonix gtt - carrier fluid changed to normal saline suspect a component of CHF playing a role as well extensive evaluation on past hospitalization (01/2021) regarding this issue: TSH elevated but on levothyroxine cortisol borderline low but cosyntropin testing okay CT of brain negative CXR without masses/tumors; recent CXR results noted she responded to fluid restriction, salt tabs, and lasix in the past have re-instituted these measures s/p 3% saline on 08/25/22 and 08/26/22 (this is not a good ocean transportation intermediary solution given #3) may need to consider more aggressive diuresis given CXR findings follow trend of repeat sodium levels (2) Acute upper GI bleeding: Code(s): K92.2 - Gastrointestinal hemorrhage, unspecified Status: Acute Assessment and Plan: low H/H on admission guaiac positive Gastroenterology following EGD (on 08/27/22) with nonbleeding esophageal varices, gastritis, and gastric polyp xarelto on hold (3) CHF (congestive heart failure): Qualifiers: Heart failure chronicity: unspecified Code(s): I50.9 - Heart failure, unspecified Status: Acute Assessment and Plan: acute on chronic versus acute (?) recent echo (08/23/22) with EF 35-40%, mild LVH, grade I diastolic dysfunction, mild biatrial enlargement, mild MR, mild-mod TR, RVSP 68 Cardiology recommendations noted already on diuretic therapy (4) Essential hypertension: Code(s): I10 - Essential (primary) hypertension Status: Acute Assessment and Plan: better control at this time follow trend of hemodynamics continue current medications with recent changes by Cardiology (5) Atrial fibrillation: Qualifiers: Atrial fibrillation type: unspecified Qualified Code(s): I48.91 - Unspecified atrial fibrillation Code(s): I48.91 - Unspecified atrial fibrillation Status: Acute Assessment and Plan: s/p pacemaker placement on amiodarone holding anticoagulation give #2 Will continue to follow. Subjective Date/time seen: 08/30/22 13:15 Breathing/respiratory status seems to be improving/stabilizing; sodium dropped a little by AM labs; remains on oral diuretic therapy along with PRN IV doses of lasix based on CXR findings; no apparent distress voiced at the time of my visit. Exam Narrative: General: elderly female in NAD Heart: normal S1 and S2; no rub Lungs: coarse and decreased at bases Abdomen: soft, nontender, nondistended, positive bowel sounds Extremities: no cyanosis or clubbing; 1+ edema Skin: warm and dry Objective Data Vital Signs Vital Signs: Vital Signs Temp Pulse Resp BP Pulse Ox O2 Del Method O2 Flow Rate 08/30/22 08:56 69 18 92 Nasal Cannula 1 08/30/22 08:00 77 18 93 Nasal Cannula 1 08/30/22 08:23 77 08/30/22 08:22 77 08/30/22 05:42 97.7 F 77 18 131/54 L 93 08/29/22 22:45 97.9 F 70 16 136/66 96 08/29/22 20:10 92 Nasal Cannula 1 08/29/22 20:00 87 L Room Air 08/29/22 21:08 68 08/29/22 15:21 93 Room Air 08/29/22 14:00 97.1 F L 70 16 103/49 L 97 Intake/Output Intake/Output: Intake & Output 08/27/22 08/28/22 08/29/22 08/30/22 23:59 23:59 23:59 23:59 Intake Total 1028 1677 456 476 Output Total 500 400 Balance 1028 1177 456 76 Meds/Results Medications: Active Medications Generic Name Dose Route Start Last Admin Trade Name Freq PRN Reason Stop Dose Admin Acetaminophen 650 mg 08/23/22 00:43 Acetaminophen 32
--- NOTE | 2022-08-30 13:15 | P.PNNP_ITS ---
Progress Note: A&P Assessment and Plan (1) Hyponatremia: Code(s): E87.1 - Hypo-osmolality and hyponatremia Status: Acute Assessment and Plan: * improving * acute on chronic (has been present at least as far back as January 2021) * baseline sodium runs ~ 128 - 134 (at her best) * admitted with a sodium of 123 with acute drop to 115 on 08/25/22 * likely due to D5W carrier fluid in protonix gtt - carrier fluid changed to normal saline * suspect a component of CHF playing a role as well * extensive evaluation on past hospitalization (01/2021) regarding this issue: * TSH elevated but on levothyroxine * cortisol borderline low but cosyntropin testing okay * CT of brain negative * CXR without masses/tumors; recent CXR results noted * she responded to fluid restriction, salt tabs, and lasix in the past * have re-instituted these measures * s/p 3% saline on 08/25/22 and 08/26/22 (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 giv en #3) * may need to consider more aggressive diuresis given CXR findings * follow trend of repeat sodium levels (2) Acute upper GI bleeding: Code(s): K92.2 - Gastrointestinal hemorrhage, unspecified Status: Acute Assessment and Plan: * low H/H on admission * guaiac positive * Gastroenterology following * EGD (on 08/27/22) with nonbleeding esophageal varices, gastritis, and gastric polyp * xarelto on hold (3) CHF (congestive heart failure): Qualifiers: Heart failure chronicity: unspecified Code(s): I50.9 - Heart failure, unspecified Status: Acute Assessment and Plan: * acute on chronic versus acute (?) * recent echo (08/23/22) with EF 35-40%, mild LVH, grade I diastolic dysfunction, mild biatrial enlargement, mild MR, mild-mod TR, RVSP 68 * Cardiology recommendations noted * already on diuretic therapy (4) Essential hypertension: Code(s): I10 - Essential (primary) hypertension Status: Acute Assessment and Plan: * better control at this time * follow trend of hemodynamics * continue current medications with recent changes by Cardiology (5) Atrial fibrillation: Qualifiers: Atrial fibrillation type: unspecified Qualified Code(s): I48.91 - Unspecified atrial fibrillation Code(s): I48.91 - Unspecified atrial fibrillation Status: Acute Assessment and Plan: * s/p pacemaker placement * on amiodarone * holding anticoagulation give #2 Will continue to follow. Subjective Date/time seen: 08/30/22 13:15 Breathing/respiratory status seems to be improving/stabilizing; sodium dropped a little by AM labs; remains on oral diuretic therapy along with PRN IV doses of lasix based on CXR findings; no apparent distress voiced at the time of my visit. Exam Narrative: General: elderly female in NAD Heart: normal S1 and S2; no rub Lungs: coarse and decreased at bases Abdomen: soft, nontender, nondistended, positive bowel sounds Extremities: no cyanosis or clubbing; 1+ edema Skin: warm and dry Objective Data Vital Signs Vital Signs: Vital Signs Temp Pulse Resp BP Pulse Ox O2 Del Method O2 Flow Rate 08/30/22 08:56 69 18 92 Nasal Cannula 1 08/30/22 08:00 77 18 93 Nasal Cannula 1 08/30/22 08:23 77 08/30/22 08:22 77 08/30/22 05:42 97.7 F 77 18 131/54 L 93 08/29/22
[2022-08-30] MEDS: acetaZOLAMIDE SODIUM FOR INJ 500 MG VIAL 250 MG IV PUSH (13:51)
--- NOTE | 2022-08-30 19:12 | PC.NURSE ---
On 08/30/22, the GM, Yojana Dawson, provided care and completed [facility] documentation on this patient. I have reviewed the GM's documentation and agree with the findings.
[2022-08-31] VITALS (8 sets, daily range): BP systolic 122–140; BP diastolic 48–58; PULSE 70–71; RESP 15–24; TEMP 36.4–36.7; O2SAT 93–96
[2022-08-31] MEDS: LEVOTHYROXINE SODIUM 100 MCG TABLET PO (06:28)
[2022-08-31] MEDS: LEVOTHYROXINE SODIUM 75 MCG TABLET PO (06:29)
[2022-08-31 07:13] LABS: Hematocrit 28.1 % (37.0-47.0); Hemoglobin 8.9 g/dL (12.0-15.0); Mean Corpuscular HGB Conc 31.7 g/dl (32-36); Mean Corpuscular Hemoglobin 26.5 pg (26-34); Mean Corpuscular Volume 83.6 fl (80-100); Mean Platelet Volume 8.3 fl (7.4-10.4); Platelet Count Result 262 k/mm3 (150-375); Red Blood Count 3.36 M/mm3 (4.2-5.4); Red Cell Distribution Width 15.4 % (11.5-14.5); White Blood Count 5.1 K/mm3 (4.5-10.0)
[2022-08-31 07:20] LABS: Anion Gap 0 mmol/L (8-16); Blood Urea Nitrogen 18 mg/dL (7-17); Carbon Dioxide 34 mmol/L (22-30); Chloride 89 mmol/L (98-107); Estimated CRCL calculation 28 ml/min; Estimated Glomerular Filt Rate 47; Glucose 95 mg/dL (65-110); Potassium 3.8 mmol/L (3.4-5.0); Sodium 123 mmol/L (137-145)
--- NOTE | 2022-08-31 07:52 | PM.PNCARD ---
Progress Note: A&P Assessment and Plan (1) CHF (congestive heart failure): Qualifiers: Heart failure chronicity: unspecified Code(s): I50.9 - Heart failure, unspecified Status: Acute Assessment and Plan: Acute on chronic systolic and diastolic heart failure. I don't have her last echo to see if this is new LV systolic dysfunction or chronic. 08/23/22 Echo: EF 35-40%, mild LVH, grade I diastolic dysfunction, mild biatrial enlargement, mild MR, mild-mod TR, RVSP 68 mmHg. She does not want any invasive procedures. She was on Coreg, Olmesartan, Lasix 40 mg daily and 20 mg in PM. Stopped Diltiazem and Olmesartan. Stable BP. On Coreg 12.5 mg BID, Entresto 44-26 mg BID. Monitor BP and HR. No further cardiac workup is needed. Will sign off. Her regular director building is Dr. Sauceda and will need f/u with him in 1 week upon discharge. (2) Atrial fibrillation: Qualifiers: Atrial fibrillation type: unspecified Qualified Code(s): I48.91 - Unspecified atrial fibrillation Code(s): I48.91 - Unspecified atrial fibrillation Status: Acute Assessment and Plan: She is in paced rhythm. Was on Amiodarone 200 mg daily. Resumed Amiodarone. On Xarelto normally but on hold due to GI bleed. Resume Xarelto when OK by GI. (3) Artificial pacemaker: Code(s): Z95.0 - Presence of cardiac pacemaker Status: Acute Assessment and Plan: Follows with Dr. Sauceda. (4) Essential hypertension: Code(s): I10 - Essential (primary) hypertension Status: Acute Assessment and Plan: Stable. Monitor. (5) Hyponatremia: Code(s): E87.1 - Hypo-osmolality and hyponatremia Status: Acute Assessment and Plan: Monitor sodium level. On salt tablets and free water restriction. Subjective Date/time seen: 08/31/22 07:52 Interval history: Denies chest pain or sob. States she is feeling great. Exam Const: General: cooperative, healthy appearing and comfortable Orientation/consciousness: oriented to person, oriented to place and oriented to time Resp: Auscultation: no crackles, no rales, no rhonchi and no wheezes Cardio: Rate: regular rate Rhythm: regular rhythm Heart sounds: no murmurs Peripheral pulses: dorsalis pedis present Neuro: General: oriented to person, oriented to place and oriented to time Extrem: Right lower extremity: edema Left lower extremity: edema Other: Mild-moderate edema of both legs Objective Data Vital Signs Vital Signs: Vital Signs - 24 hr 08/30/22 08:22 08/30/22 08:23 08/30/22 08:00 Temperature Pulse Rate 77 77 77 Respiratory Rate 18 Blood Pressure Pulse Oximetry 93 Oxygen Delivery Nasal Cannula Oxygen Flow Rate 1 Fraction of Inspired Oxygen 24 08/30/22 08:56 08/30/22 13:56 08/30/22 20:03 Temperature 97.8 F Pulse Rate 69 69 70 Respiratory Rate 18 16 Blood Pressure 96/49 L Pulse Oximetry 92 96 Oxygen Delivery Nasal Cannula Oxygen Flow Rate 1 Fraction of Inspired Oxygen 24 08/30/22 20:06 08/30/22 20:00 08/30/22 22:05 Temperature 97.2 F L Pulse Rate 70 Respiratory Rate 16 Blood Pressure 122/51 L Pulse Oximetry 94 96 91 Oxygen Delivery Room Air Room Air Oxygen Flow Rate Fraction of Inspired Oxygen 08/31/22 05:38 Temperature 98.0 F Pulse Rate 71 Respiratory Rate 16 Blood Pressure 122/48 L Pulse Oximetry 93 Oxygen Delivery Oxygen Flow Rate Fraction of Inspired Oxygen Intake/Output Intake/Output: Intake & Output 08/28/22 08/29/22 08/30/22 08/31/22 23:59 23:59 23:59 23:59 Intake Total 1677 456 916 500 Output Total 500 400 300 Balance 1177 456 516 200 Meds/Results Medications: Active Medications Generic Name Dose Route Start Last Admin Trade Name Freq PRN Reason Stop Dose Admin Acetaminophen 650 mg 08/23/22 00:43 Acetaminophen 325 Mg Tablet PO Q4H PRN Pain Rated 1-3 Albuterol 2 puff 08/23/22 00:43 0
[2022-08-31] MEDS: carvediloL 12.5 MG TABLET PO ×2 (09:37→21:12)
[2022-08-31] MEDS: SODIUM CHLORIDE 1 GM TABLET PO ×2 (09:37→17:47)
[2022-08-31] MEDS: MAGNESIUM OXIDE 400 MG TABLET PO ×2 (09:37→17:47)
[2022-08-31] MEDS: SACUBITRIL/VALSARTAN 24-26 MG TABLET 1 TAB PO ×2 (09:37→21:12)
[2022-08-31] MEDS: CYANOCOBALAMIN 1,000 MCG TABLET 1000 MCG PO (09:37)
[2022-08-31] MEDS: POTASSIUM CHLORIDE 10 MEQ TABLET.ER 20 MEQ PO (09:38)
[2022-08-31] MEDS: TOLNAFTATE 1% POWDER 45 GM BTL 1 APPLIC TOPICAL ×2 (09:38→21:12)
[2022-08-31] MEDS: AMIODARONE HCL 200 MG TABLET PO (09:38)
[2022-08-31] MEDS: CHOLECALCIFEROL 1,000 UNITS TABLET 2000 UNITS PO ×2 (09:38→17:47)
[2022-08-31] MEDS: FUROSEMIDE 40 MG TABLET PO (09:38)
--- NOTE | 2022-08-31 11:09 | PM.IMPN ---
Progress Note: A&P Assessment and Plan (1) Acute upper GI bleeding: Code(s): K92.2 - Gastrointestinal hemorrhage, unspecified Status: Acute Assessment and Plan: Hemoglobin stable. Monitor. (2) Hyponatremia: Code(s): E87.1 - Hypo-osmolality and hyponatremia Status: Acute Assessment and Plan: Continue sodium chloride tablets. Await plan from Nephrology has sodium is 123 today. (3) Anemia: Qualifiers: Anemia type: unspecified type Qualified Code(s): D64.9 - Anemia, unspecified Code(s): D64.9 - Anemia, unspecified Status: Acute Assessment and Plan: Improved (4) CHF (congestive heart failure): Qualifiers: Heart failure chronicity: unspecified Code(s): I50.9 - Heart failure, unspecified Status: Acute Assessment and Plan: Appears euvolemic. Continue cardiac regimen. (5) Essential hypertension: Code(s): I10 - Essential (primary) hypertension Status: Acute Assessment and Plan: Monitor (6) Hypothyroidism: Code(s): E03.9 - Hypothyroidism, unspecified Status: Acute (7) Atrial fibrillation: Qualifiers: Atrial fibrillation type: unspecified Qualified Code(s): I48.91 - Unspecified atrial fibrillation Code(s): I48.91 - Unspecified atrial fibrillation Status: Acute Subjective Date/time seen: 08/31/22 11:09 Sodium level still low. Not requiring any more oxygen. Exam Const: General: cooperative, healthy appearing, comfortable, no acute distress, well developed, alert, awake, Physically active, average body habitus, well nourished and other ( Drowsy and sleepy this morning) Nutritional Appearance: average body habitus and well nourished Orientation/consciousness: oriented to person, oriented to place, oriented to time and patient oriented x3 Limitations: no limitations HENMT: Head: normal to inspection, No palpable skull fracture present, normocephalic and atraumatic Ears: hearing grossly normal bilaterally and external ears normal Face/Nose/Sinus: Normal external nose present and Normal nares present Eyes: General: appearance normal, both eyes and all related structures Alignment and Position: alignment normal Periorbital: periorbital findings normal Eyelids: eyelids normal Sclera: sclerae normal Pupils: Equal, round and reactive pupils present EOM: EOMs intact bilaterally Neck: Neck: normal visual inspection, full ROM, no lymphadenopathy, trachea midline and supple Chest: Chest palpation & inspection: normal inspection of the chest Resp: Effort & Inspection: normal respiratory effort Auscultation: clear to auscultation bilaterally, no crackles, no rales, no rhonchi and no wheezes Percussion: percussion normal Cardio: Palpation: normal PMI Rate: regular rate Rhythm: regular rhythm Heart sounds: S1 normal heart sound present, S2 normal heart sound present and no murmurs Peripheral pulses: Peripheral pulses 2+ throughout and dorsalis pedis present GI: Inspection: normal to inspection Auscultation: normal bowel sounds Rectal Exam: deferred Back/Spine/Pelvis: Cervical Spine: cervical ROM normal Skin: General skin exam: normal color Lesions: no lesions Rashes: no rashes Trauma: no lacerations or abrasions Wounds: no wounds Hair: normal Nails: normal Neuro: General: oriented to person, oriented to place, oriented to time and patient oriented x3 Cranial nerves: Yes Equal, round and reactive pupils present and Yes Normal hearing present Cognition (Neuro): normal cognition Speech: normal speech Motor exam (neuro): 5/5 motor strength present throughout Sensory Exam: normal sensation Extrem: General: normal to inspection Right upper extremity: normal to inspection and shoulder/upper arm Left upper extremity: normal to inspection and shoulder/upper arm Right lower extremity: edema Details: 3+ and lower leg Left lower extremity: edema Details: 3+ and low
--- NOTE | 2022-08-31 13:34 | P.PNNP_ITS ---
Progress Note: A&P Assessment and Plan (1) Hyponatremia: Code(s): E87.1 - Hypo-osmolality and hyponatremia Status: Acute Assessment and Plan: * hyponatremia. * acute on chronic (has been present at least as far back as January 2021) * baseline sodium runs ~ 128 - 134 (at her best) * admitted with a sodium of 123 with acute drop to 115 on 08/25/22 * acute drop due to fluids and chf (echo earlier showed low EF, AI, TR). * extensive evaluation on past hospitalization (01/2021) regarding this issue: * TSH elevated but on levothyroxine * cortisol borderline low but cosyntropin testing okay * CT of brain negative * CXR without masses/tumors; recent CXR results noted * on furos 40qd, nacl 1000 bid, * sodium dropped down again to 123 today. * will add fluid restriction. * consider more 3% saline (2) Acute upper GI bleeding: Code(s): K92.2 - Gastrointestinal hemorrhage, unspecified Status: Acute Assessment and Plan: * low H/H on admission * guaiac positive * hb stable in the 8s * Gastroenterology following * EGD (on 08/27/22) with nonbleeding esophageal varices, gastritis, and gastric polyp * xarelto on hold (3) CHF (congestive heart failure): Qualifiers: Heart failure chronicity: unspecified Code(s): I50.9 - Heart failure, unspecified Status: Acute Assessment and Plan: * acute on chronic versus acute (?) * recent echo (08/23/22) with EF 35-40%, mild LVH, grade I diastolic dysfunction, mild biatrial enlargement, mild MR, mild-mod TR, RVSP 68 * Cardiology recommendations noted * already on diuretic therapy (4) Essential hypertension: Code(s): I10 - Essential (primary) hypertension Status: Acute Assessment and Plan: * better control at this time * follow trend of hemodynamics * continue current medications with recent changes by Cardiology (5) Atrial fibrillation: Qualifiers: Atrial fibrillation type: unspecified Qualified Code(s): I48.91 - Unspecified atrial fibrillation Code(s): I48.91 - Unspecified atrial fibrillation Status: Acute Assessment and Plan: * s/p pacemaker placement * on amiodarone * holding anticoagulation give #2 Will continue to follow. Subjective Date/time seen: 08/31/22 13:34 Interval history: alert, feels okay, no cp or sob Exam Narrative: General: elderly female in NAD Heart: normal S1 and S2; no rub or gallop Lungs: coarse and decreased at bases Abdomen: soft, nontender, nondistended, positive bowel sounds Extremities: no cyanosis or clubbing; 1+ edema Skin: no rash Objective Data Vital Signs Vital Signs: Vital Signs - 24 hr 08/30/22 13:56 08/30/22 20:03 08/30/22 20:06 Temperature 97.8 F Pulse Rate 69 70 Respiratory Rate 16 Blood Pressure 96/49 L Pulse Oximetry 96 94 Oxygen Delivery Room Air Oxygen Flow Rate 08/30/22 20:00 08/30/22 22:05 08/31/22 05:38 Temperature 97.2 F L 98.0 F Pulse Rate 70 71 Respiratory Rate 16 16 Blood Pressure 122/51 L 122/48 L Pulse Oximetry 96 91 93 Oxygen Delivery Room Air Oxygen Flow Rate 08/31/22 08:21 08/31/22 09:37 08/31/22 09:38 Temperature Pulse Rate 71 71
--- NOTE | 2022-08-31 13:34 | PM.PNNEP ---
Progress Note: A&P Assessment and Plan (1) Hyponatremia: Code(s): E87.1 - Hypo-osmolality and hyponatremia Status: Acute Assessment and Plan: hyponatremia. acute on chronic (has been present at least as far back as January 2021) baseline sodium runs ~ 128 - 134 (at her best) admitted with a sodium of 123 with acute drop to 115 on 08/25/22 acute drop due to fluids and chf (echo earlier showed low EF, AI, TR). extensive evaluation on past hospitalization (01/2021) regarding this issue: TSH elevated but on levothyroxine cortisol borderline low but cosyntropin testing okay CT of brain negative CXR without masses/tumors; recent CXR results noted on furos 40qd, nacl 1000 bid, sodium dropped down again to 123 today. will add fluid restriction. consider more 3% saline (2) Acute upper GI bleeding: Code(s): K92.2 - Gastrointestinal hemorrhage, unspecified Status: Acute Assessment and Plan: low H/H on admission guaiac positive hb stable in the 8s Gastroenterology following EGD (on 08/27/22) with nonbleeding esophageal varices, gastritis, and gastric polyp xarelto on hold (3) CHF (congestive heart failure): Qualifiers: Heart failure chronicity: unspecified Code(s): I50.9 - Heart failure, unspecified Status: Acute Assessment and Plan: acute on chronic versus acute (?) recent echo (08/23/22) with EF 35-40%, mild LVH, grade I diastolic dysfunction, mild biatrial enlargement, mild MR, mild-mod TR, RVSP 68 Cardiology recommendations noted already on diuretic therapy (4) Essential hypertension: Code(s): I10 - Essential (primary) hypertension Status: Acute Assessment and Plan: better control at this time follow trend of hemodynamics continue current medications with recent changes by Cardiology (5) Atrial fibrillation: Qualifiers: Atrial fibrillation type: unspecified Qualified Code(s): I48.91 - Unspecified atrial fibrillation Code(s): I48.91 - Unspecified atrial fibrillation Status: Acute Assessment and Plan: s/p pacemaker placement on amiodarone holding anticoagulation give #2 Will continue to follow. Subjective Date/time seen: 08/31/22 13:34 Interval history: alert, feels okay, no cp or sob Exam Narrative: General: elderly female in NAD Heart: normal S1 and S2; no rub or gallop Lungs: coarse and decreased at bases Abdomen: soft, nontender, nondistended, positive bowel sounds Extremities: no cyanosis or clubbing; 1+ edema Skin: no rash Objective Data Vital Signs Vital Signs: Vital Signs - 24 hr 08/30/22 13:56 08/30/22 20:03 08/30/22 20:06 Temperature 97.8 F Pulse Rate 69 70 Respiratory Rate 16 Blood Pressure 96/49 L Pulse Oximetry 96 94 Oxygen Delivery Room Air Oxygen Flow Rate 08/30/22 20:00 08/30/22 22:05 08/31/22 05:38 Temperature 97.2 F L 98.0 F Pulse Rate 70 71 Respiratory Rate 16 16 Blood Pressure 122/51 L 122/48 L Pulse Oximetry 96 91 93 Oxygen Delivery Room Air Oxygen Flow Rate 08/31/22 08:21 08/31/22 09:37 08/31/22 09:38 Temperature Pulse Rate 71 71 Respiratory Rate Blood Pressure Pulse Oximetry 94 Oxygen Delivery Nasal Cannula Oxygen Flow Rate 1 08/31/22 08:00 Temperature Pulse Rate Respiratory Rate Blood Pressure Pulse Oximetry 94 Oxygen Delivery Nasal Cannula Oxygen Flow Rate 1 Intake/Output Intake/Output: Intake & Output 08/28/22 08/29/22 08/30/22 08/31/22 23:59 23:59 23:59 23:59 Intake Total 1677 161 660 2987 Output Total 500 400 300 Balance 1177 164 437 0409 Meds/Results Medications: Active Medications Generic Name Dose Route Start Last Admin Trade Name Freq PRN Reason Stop Dose Admin Acetaminophen 650 mg 08/23/22 00:43 Acetaminophen 325 Mg Tablet PO Q4H PRN Pain Rated 1-3 Albuterol 2 puff 08/23/22 00:43
[2022-08-31] MEDS: FUROSEMIDE 20 MG TABLET PO (17:47)
[2022-09-01] VITALS (8 sets, daily range): BP systolic 116–130; BP diastolic 53–55; PULSE 66–72; RESP 16–24; TEMP 36.4–36.6; O2SAT 78–96
[2022-09-01] MEDS: LEVOTHYROXINE SODIUM 100 MCG TABLET PO (05:56)
[2022-09-01] MEDS: LEVOTHYROXINE SODIUM 75 MCG TABLET PO (05:56)
[2022-09-01 06:21] LABS: Hematocrit 28.1 % (37.0-47.0); Mean Corpuscular Hemoglobin 26.6 pg (26-34); Mean Corpuscular Volume 83.1 fl (80-100); Mean Platelet Volume 8.4 fl (7.4-10.4); Platelet Count Result 246 k/mm3 (150-375); Red Blood Count 3.38 M/mm3 (4.2-5.4); Red Cell Distribution Width 15.4 % (11.5-14.5)
[2022-09-01 06:31] LABS: Albumin Level 2.7 g/dL (3.5-5.1); Anion Gap 2 mmol/L (8-16); Blood Urea Nitrogen 20 mg/dL (7-17); Calcium 7.8 mg/dL (8.4-10.2); Carbon Dioxide 32 mmol/L (22-30); Chloride 92 mmol/L (98-107); Estimated CRCL calculation 35 ml/min; Estimated Glomerular Filt Rate 52; Glucose 92 mg/dL (65-110); Phosphorus 4.5 mg/dL (2.5-4.5); Potassium 3.7 mmol/L (3.4-5.0); Sodium 126 mmol/L (137-145)
--- NOTE | 2022-09-01 08:56 | PCOTNOTE ---
Attempted to see pt for Occupational Therapy treatment. Pt refused to get out of bed and/or participate in self care/therapeutic tasks. Pt reports I am supposed to be getting out today. Pt was educated on the importance of continued therapy for strengthening and independence with daily tasks, however, pt continues to refuse. Will continue per POC duration/frequency tomorrow.
[2022-09-01] MEDS: FUROSEMIDE 40 MG TABLET PO (09:03)
[2022-09-01] MEDS: SACUBITRIL/VALSARTAN 24-26 MG TABLET 1 TAB PO ×2 (09:03→20:48)
[2022-09-01] MEDS: CYANOCOBALAMIN 1,000 MCG TABLET 1000 MCG PO (09:03)
[2022-09-01] MEDS: carvediloL 12.5 MG TABLET PO ×2 (09:04→20:48)
[2022-09-01] MEDS: CHOLECALCIFEROL 1,000 UNITS TABLET 2000 UNITS PO ×2 (09:04→16:42)
[2022-09-01] MEDS: MAGNESIUM OXIDE 400 MG TABLET PO ×2 (09:04→16:43)
[2022-09-01] MEDS: POTASSIUM CHLORIDE 10 MEQ TABLET.ER 20 MEQ PO (09:04)
[2022-09-01] MEDS: AMIODARONE HCL 200 MG TABLET PO (09:04)
[2022-09-01] MEDS: SODIUM CHLORIDE 1 GM TABLET PO ×2 (09:05→16:43)
[2022-09-01] MEDS: TOLNAFTATE 1% POWDER 45 GM BTL 1 APPLIC TOPICAL ×2 (09:06→20:48)
--- NOTE | 2022-09-01 10:14 | P.PNIM_ITS ---
Progress Note: A&P Assessment and Plan (1) Acute upper GI bleeding: Code(s): K92.2 - Gastrointestinal hemorrhage, unspecified Status: Acute Assessment and Plan: Hemoglobin stable. Monitor. (2) Hyponatremia: Code(s): E87.1 - Hypo-osmolality and hyponatremia Status: Acute Assessment and Plan: Continue sodium chloride tablets. Await plan from Nephrology has sodium is 123 today. (3) Anemia: Qualifiers: Anemia type: unspecified type Qualified Code(s): D64.9 - Anemia, unspecified Code(s): D64.9 - Anemia, unspecified Status: Acute Assessment and Plan: Improved (4) CHF (congestive heart failure): Qualifiers: Heart failure chronicity: unspecified Code(s): I50.9 - Heart failure, unspecified Status: Acute Assessment and Plan: Appears euvolemic. Continue cardiac regimen. (5) Essential hypertension: Code(s): I10 - Essential (primary) hypertension Status: Acute Assessment and Plan: Monitor (6) Hypothyroidism: Code(s): E03.9 - Hypothyroidism, unspecified Status: Acute (7) Atrial fibrillation: Qualifiers: Atrial fibrillation type: unspecified Qualified Code(s): I48.91 - Unspecified atrial fibrillation Code(s): I48.91 - Unspecified atrial fibrillation Status: Acute Subjective Date/time seen: 09/01/22 10:14 Sodium improved. No new complaints Exam Const: General: cooperative, healthy appearing, comfortable, no acute distress, well developed, alert, awake, Physically active, average body habitus, well nourished and other ( Drowsy and sleepy this morning) Nutritional Appearance: average body habitus and well nourished Orientation/consciousness: oriented to person, oriented to place, oriented to time and patient oriented x3 Limitations: no limitations HENMT: Head: normal to inspection, No palpable skull fracture present, normocephalic and atraumatic Ears: hearing grossly normal bilaterally and external ears normal Face/Nose/Sinus: Normal external nose present and Normal nares present Eyes: General: appearance normal, both eyes and all related structures Alignment and Position: alignment normal Periorbital: periorbital findings normal Eyelids: eyelids normal Sclera: sclerae normal Pupils: Equal, round and reactive pupils present EOM: EOMs intact bilaterally Neck: Neck: normal visual inspection, full ROM, no lymphadenopathy, trachea midline and supple Chest: Chest palpation & inspection: normal inspection of the chest Resp: Effort & Inspection: normal respiratory effort Auscultation: clear to auscultation bilaterally, no crackles, no rales, no rhonchi and no wheezes Percussion: percussion normal Cardio: Palpation: normal PMI Rate: regular rate Rhythm: regular rhythm Heart sounds: S1 normal heart sound present, S2 normal heart sound present and no murmurs Peripheral pulses: Peripheral pulses 2+ throughout and dorsalis pedis present GI: Inspection: normal to inspection Auscultation: normal bowel sounds Rectal Exam: deferred Back/Spine/Pelvis: Cervical Spine: cervical ROM normal Skin: General skin exam: normal color Lesions: no lesions Rashes: no rashes Trauma: no lacerations or abrasions Wounds: no wounds Hair: normal Nails: normal Neuro: General: oriented to person, oriented to place, oriented to time and patient oriented x3 Cranial nerves: Yes Equal, round and reactive pupi
--- NOTE | 2022-09-01 11:17 | P.PNNP_ITS ---
Progress Note: A&P Assessment and Plan (1) Hyponatremia: Code(s): E87.1 - Hypo-osmolality and hyponatremia Status: Acute Assessment and Plan: * hyponatremia. * acute on chronic (has been present at least as far back as January 2021) * baseline sodium runs ~ 128 - 134 (at her best) * admitted with a sodium of 123 with acute drop to 115 on 08/25/22 * acute drop due to fluids and chf (echo earlier showed low EF, AI, TR). * extensive evaluation on past hospitalization (01/2021) regarding this issue: * TSH elevated but on levothyroxine * cortisol borderline low but cosyntropin testing okay * CT of brain negative * CXR without masses/tumors; recent CXR results noted * on furos 40qd, nacl 1000 bid, * sodium parish to 126 on the fluid restriction. * Will continue same therapy. (2) Acute upper GI bleeding: Code(s): K92.2 - Gastrointestinal hemorrhage, unspecified Status: Acute Assessment and Plan: * low H/H on admission * guaiac positive * hb stable in the 8s * Gastroenterology following * EGD (on 08/27/22) with nonbleeding esophageal varices, gastritis, and gastric polyp * xarelto on hold (3) CHF (congestive heart failure): Qualifiers: Heart failure chronicity: unspecified Code(s): I50.9 - Heart failure, unspecified Status: Acute Assessment and Plan: * acute on chronic versus acute (?) * recent echo (08/23/22) with EF 35-40%, mild LVH, grade I diastolic dysfunction, mild biatrial enlargement, mild MR, mild-mod TR, RVSP 68 * Cardiology recommendations noted * already on diuretic therapy (4) Essential hypertension: Code(s): I10 - Essential (primary) hypertension Status: Acute Assessment and Plan: * better control at this time * follow trend of hemodynamics * continue current medications with recent changes by Cardiology (5) Atrial fibrillation: Qualifiers: Atrial fibrillation type: unspecified Qualified Code(s): I48.91 - Unspecified atrial fibrillation Code(s): I48.91 - Unspecified atrial fibrillation Status: Acute Assessment and Plan: * s/p pacemaker placement * on amiodarone * holding anticoagulation give #2 Will continue to follow. Subjective Date/time seen: 09/01/22 11:17 Interval history: alert, feels okay, eager for discharge Exam Narrative: General: elderly female in NAD Heart: normal S1 and S2; no rub Lungs: coarse and decreased at bases Abdomen: soft, nontender, nondistended, positive bowel sounds Extremities: 1+ edema Skin: no rash or subcu nodules Objective Data Vital Signs Vital Signs: Vital Signs - 24 hr 08/31/22 14:00 08/31/22 21:12 08/31/22 21:00 Temperature 97.5 F L Pulse Rate 70 70 Respiratory Rate 15 Blood Pressure 132/54 L Pulse Oximetry 94 Oxygen Delivery Nasal Cannula Oxygen Flow Rate 1 08/31/22 22:00 09/01/22 06:00 09/01/22 09:04 Temperature 97.8 F 97.9 F Pulse Rate 70 69 71 Respiratory Rate 24 H 16 Blood Pressure 140/58 L 130/53 L Pulse Oximetry 96 96 Oxygen Delivery Oxygen Flow Rate 09/01/22 09:04 09/01/22 08:00 Temperature Pulse Rate 71 Respiratory Rate Blood Pressure
--- NOTE | 2022-09-01 11:17 | PM.PNNEP ---
Progress Note: A&P Assessment and Plan (1) Hyponatremia: Code(s): E87.1 - Hypo-osmolality and hyponatremia Status: Acute Assessment and Plan: hyponatremia. acute on chronic (has been present at least as far back as January 2021) baseline sodium runs ~ 128 - 134 (at her best) admitted with a sodium of 123 with acute drop to 115 on 08/25/22 acute drop due to fluids and chf (echo earlier showed low EF, AI, TR). extensive evaluation on past hospitalization (01/2021) regarding this issue: TSH elevated but on levothyroxine cortisol borderline low but cosyntropin testing okay CT of brain negative CXR without masses/tumors; recent CXR results noted on furos 40qd, nacl 1000 bid, sodium parish to 126 on the fluid restriction. Will continue same therapy. (2) Acute upper GI bleeding: Code(s): K92.2 - Gastrointestinal hemorrhage, unspecified Status: Acute Assessment and Plan: low H/H on admission guaiac positive hb stable in the 8s Gastroenterology following EGD (on 08/27/22) with nonbleeding esophageal varices, gastritis, and gastric polyp xarelto on hold (3) CHF (congestive heart failure): Qualifiers: Heart failure chronicity: unspecified Code(s): I50.9 - Heart failure, unspecified Status: Acute Assessment and Plan: acute on chronic versus acute (?) recent echo (08/23/22) with EF 35-40%, mild LVH, grade I diastolic dysfunction, mild biatrial enlargement, mild MR, mild-mod TR, RVSP 68 Cardiology recommendations noted already on diuretic therapy (4) Essential hypertension: Code(s): I10 - Essential (primary) hypertension Status: Acute Assessment and Plan: better control at this time follow trend of hemodynamics continue current medications with recent changes by Cardiology (5) Atrial fibrillation: Qualifiers: Atrial fibrillation type: unspecified Qualified Code(s): I48.91 - Unspecified atrial fibrillation Code(s): I48.91 - Unspecified atrial fibrillation Status: Acute Assessment and Plan: s/p pacemaker placement on amiodarone holding anticoagulation give #2 Will continue to follow. Subjective Date/time seen: 09/01/22 11:17 Interval history: alert, feels okay, eager for discharge Exam Narrative: General: elderly female in NAD Heart: normal S1 and S2; no rub Lungs: coarse and decreased at bases Abdomen: soft, nontender, nondistended, positive bowel sounds Extremities: 1+ edema Skin: no rash or subcu nodules Objective Data Vital Signs Vital Signs: Vital Signs - 24 hr 08/31/22 14:00 08/31/22 21:12 08/31/22 21:00 Temperature 97.5 F L Pulse Rate 70 70 Respiratory Rate 15 Blood Pressure 132/54 L Pulse Oximetry 94 Oxygen Delivery Nasal Cannula Oxygen Flow Rate 1 08/31/22 22:00 09/01/22 06:00 09/01/22 09:04 Temperature 97.8 F 97.9 F Pulse Rate 70 69 71 Respiratory Rate 24 H 16 Blood Pressure 140/58 L 130/53 L Pulse Oximetry 96 96 Oxygen Delivery Oxygen Flow Rate 09/01/22 09:04 09/01/22 08:00 Temperature Pulse Rate 71 Respiratory Rate Blood Pressure Pulse Oximetry Oxygen Delivery Room Air Oxygen Flow Rate Intake/Output Intake/Output: Intake & Output 08/29/22 08/30/22 08/31/22 09/01/22 23:59 23:59 23:59 23:59 Intake Total 781 101 9280 240 Output Total 400 300 Balance 863 129 7820 240 Meds/Results Medications: Active Medications Generic Name Dose Route Start Last Admin Trade Name Freq PRN Reason Stop Dose Admin Acetaminophen 650 mg 08/23/22 00:43 Acetaminophen 325 Mg Tablet PO Q4H PRN Pain Rated 1-3 Albuterol 2 puff 08/23/22 00:43 08/25/22 21:09 Albuterol Sulfate (*Sp) Aerosol 1 Puff INHALATION 2 puff QID PRN Administration Shortness Of Breath Amiodarone HCl 200 mg 08/25/22 08:00 09/01/22 09:04 Amiodarone Hcl 200 Mg Tab
[2022-09-01] MEDS: FUROSEMIDE 20 MG TABLET PO (17:11)
[2022-09-02] VITALS (8 sets, daily range): BP systolic 94–112; BP diastolic 45–66; PULSE 67–80; RESP 16–18; TEMP 35.7–37.2; O2SAT 93–96
--- NOTE | 2022-09-02 03:02 | PC.NURSE ---
Daylight Savings Time For Daylight Savings Time Ending in the Fall - Clocks are moved back. For Daylight Savings Time Beginning in the Spring - Clocks are moved ahead. For [facility], the time of change occurs at 0200 hrs. Time is taken from the weather observer. This entry on the patient's chart recognizes the change in time reflected during documentation. Example: 2 entries for vital signs may be charted for 0200 hrs.
[2022-09-02] MEDS: LEVOTHYROXINE SODIUM 75 MCG TABLET PO (05:52)
[2022-09-02] MEDS: LEVOTHYROXINE SODIUM 100 MCG TABLET PO (05:52)
[2022-09-02 07:02] LABS: Hematocrit 29.2 % (37.0-47.0); Hemoglobin 9.3 g/dL (12.0-15.0); Mean Corpuscular HGB Conc 31.8 g/dl (32-36); Mean Corpuscular Hemoglobin 26.6 pg (26-34); Mean Corpuscular Volume 83.7 fl (80-100); Mean Platelet Volume 8.7 fl (7.4-10.4); Platelet Count Result 264 k/mm3 (150-375); Red Blood Count 3.49 M/mm3 (4.2-5.4); Red Cell Distribution Width 15.3 % (11.5-14.5)
[2022-09-02 07:05] LABS: Anion Gap 1 mmol/L (8-16); Blood Urea Nitrogen 20 mg/dL (7-17); Calcium 7.7 mg/dL (8.4-10.2); Carbon Dioxide 35 mmol/L (22-30); Chloride 92 mmol/L (98-107); Estimated CRCL calculation 34 ml/min; Estimated Glomerular Filt Rate 59; Glucose 90 mg/dL (65-110); Potassium 3.8 mmol/L (3.4-5.0); Sodium 128 mmol/L (137-145)
[2022-09-02] MEDS: POTASSIUM CHLORIDE 10 MEQ TABLET.ER 20 MEQ PO (08:06)
[2022-09-02] MEDS: BISACODYL 5 MG TABLET EC 10 MG PO (08:10)
[2022-09-02] MEDS: AMIODARONE HCL 200 MG TABLET PO (08:10)
[2022-09-02] MEDS: SACUBITRIL/VALSARTAN 24-26 MG TABLET 1 TAB PO ×2 (08:10→21:30)
[2022-09-02] MEDS: carvediloL 12.5 MG TABLET PO ×2 (08:11→21:30)
[2022-09-02] MEDS: CYANOCOBALAMIN 1,000 MCG TABLET 1000 MCG PO (08:11)
[2022-09-02] MEDS: SODIUM CHLORIDE 1 GM TABLET PO ×2 (08:11→17:05)
[2022-09-02] MEDS: CHOLECALCIFEROL 1,000 UNITS TABLET 2000 UNITS PO ×2 (08:11→17:05)
[2022-09-02] MEDS: MAGNESIUM OXIDE 400 MG TABLET PO ×2 (08:11→17:05)
[2022-09-02] MEDS: TOLNAFTATE 1% POWDER 45 GM BTL 1 APPLIC TOPICAL ×2 (08:12→21:30)
[2022-09-02] MEDS: FUROSEMIDE 40 MG TABLET PO (09:43)
--- NOTE | 2022-09-02 11:08 | P.PNNP_ITS ---
Progress Note: A&P Assessment and Plan (1) Hyponatremia: Code(s): E87.1 - Hypo-osmolality and hyponatremia Status: Acute Assessment and Plan: * hyponatremia. * acute on chronic (has been present at least as far back as January 2021) * baseline sodium runs ~ 128 - 134 (at her best) * admitted with a sodium of 123 with acute drop to 115 on 08/25/22 * acute drop due to fluids and chf (echo earlier showed low EF, AI, TR). * extensive evaluation on past hospitalization (01/2021) regarding this issue: * TSH elevated but on levothyroxine * cortisol borderline low but cosyntropin testing okay * CT of brain negative * CXR without masses/tumors; recent CXR results noted * on furos 40qd, nacl 1000 bid, As well as fluid restriction * sodium better at 128 today. * Will continue same therapy. (2) Acute upper GI bleeding: Code(s): K92.2 - Gastrointestinal hemorrhage, unspecified Status: Acute Assessment and Plan: * low H/H on admission * guaiac positive * hb stable in the 8s * Gastroenterology following * EGD (on 08/27/22) with nonbleeding esophageal varices, gastritis, and gastric polyp * xarelto on hold (3) CHF (congestive heart failure): Qualifiers: Heart failure chronicity: unspecified Code(s): I50.9 - Heart failure, unspecified Status: Acute Assessment and Plan: * acute on chronic versus acute (?) * recent echo (08/23/22) with EF 35-40%, mild LVH, grade I diastolic dysfunction, mild biatrial enlargement, mild MR, mild-mod TR, RVSP 68 * Cardiology recommendations noted * already on diuretic therapy (4) Essential hypertension: Code(s): I10 - Essential (primary) hypertension Status: Acute Assessment and Plan: * systolic 100-130 * continue same therapy (5) Atrial fibrillation: Qualifiers: Atrial fibrillation type: unspecified Qualified Code(s): I48.91 - Unspecified atrial fibrillation Code(s): I48.91 - Unspecified atrial fibrillation Status: Acute Assessment and Plan: * s/p pacemaker placement * on amiodarone * holding anticoagulation give #2 Will continue to follow. Subjective Date/time seen: 03/12/23 11:08 Interval history: alert, feels okay, Sitting up in a chair. No chest pain or shortness of breath Exam Narrative: General: elderly female in NAD Heart: normal S1 and S2; no rub or gallop Lungs: coarse and decreased at bases Abdomen: soft, nontender, nondistended, positive bowel sounds Extremities: 1+ edema and no cyanosis Skin: no rash or subcu nodules Objective Data Vital Signs Vital Signs: Vital Signs - 24 hr 09/01/22 12:01 09/01/22 12:03 09/01/22 14:00 Temperature 97.9 F Pulse Rate 70 Respiratory Rate 20 Blood Pressure 116/54 L Pulse Oximetry 78 L 90 95 Oxygen Delivery Room Air Nasal Cannula Oxygen Flow Rate 1 09/01/22 20:48 09/01/22 20:00 09/01/22 22:00 Temperature 97.5 F L Pulse Rate 66 72 Respiratory Rate 24 H Blood Pressure 118/55 L Pulse Oximetry 95 95 Oxygen Delivery Nasal Cannula Oxygen Flow Rate 1 09/02/22 06:00 09/02/22 08:10 09/02/22 08:11 Temperature 96.3 F L Pulse Rate 70 67 67
--- NOTE | 2022-09-02 11:08 | PM.PNNEP ---
Progress Note: A&P Assessment and Plan (1) Hyponatremia: Code(s): E87.1 - Hypo-osmolality and hyponatremia Status: Acute Assessment and Plan: hyponatremia. acute on chronic (has been present at least as far back as January 2021) baseline sodium runs ~ 128 - 134 (at her best) admitted with a sodium of 123 with acute drop to 115 on 08/25/22 acute drop due to fluids and chf (echo earlier showed low EF, AI, TR). extensive evaluation on past hospitalization (01/2021) regarding this issue: TSH elevated but on levothyroxine cortisol borderline low but cosyntropin testing okay CT of brain negative CXR without masses/tumors; recent CXR results noted on furos 40qd, nacl 1000 bid, As well as fluid restriction sodium better at 128 today. Will continue same therapy. (2) Acute upper GI bleeding: Code(s): K92.2 - Gastrointestinal hemorrhage, unspecified Status: Acute Assessment and Plan: low H/H on admission guaiac positive hb stable in the 8s Gastroenterology following EGD (on 08/27/22) with nonbleeding esophageal varices, gastritis, and gastric polyp xarelto on hold (3) CHF (congestive heart failure): Qualifiers: Heart failure chronicity: unspecified Code(s): I50.9 - Heart failure, unspecified Status: Acute Assessment and Plan: acute on chronic versus acute (?) recent echo (08/23/22) with EF 35-40%, mild LVH, grade I diastolic dysfunction, mild biatrial enlargement, mild MR, mild-mod TR, RVSP 68 Cardiology recommendations noted already on diuretic therapy (4) Essential hypertension: Code(s): I10 - Essential (primary) hypertension Status: Acute Assessment and Plan: systolic 100-130 continue same therapy (5) Atrial fibrillation: Qualifiers: Atrial fibrillation type: unspecified Qualified Code(s): I48.91 - Unspecified atrial fibrillation Code(s): I48.91 - Unspecified atrial fibrillation Status: Acute Assessment and Plan: s/p pacemaker placement on amiodarone holding anticoagulation give #2 Will continue to follow. Subjective Date/time seen: 09/02/22 11:08 Interval history: alert, feels okay, Sitting up in a chair. No chest pain or shortness of breath Exam Narrative: General: elderly female in NAD Heart: normal S1 and S2; no rub or gallop Lungs: coarse and decreased at bases Abdomen: soft, nontender, nondistended, positive bowel sounds Extremities: 1+ edema and no cyanosis Skin: no rash or subcu nodules Objective Data Vital Signs Vital Signs: Vital Signs - 24 hr 09/01/22 12:01 09/01/22 12:03 09/01/22 14:00 Temperature 97.9 F Pulse Rate 70 Respiratory Rate 20 Blood Pressure 116/54 L Pulse Oximetry 78 L 90 95 Oxygen Delivery Room Air Nasal Cannula Oxygen Flow Rate 1 09/01/22 20:48 09/01/22 20:00 09/01/22 22:00 Temperature 97.5 F L Pulse Rate 66 72 Respiratory Rate 24 H Blood Pressure 118/55 L Pulse Oximetry 95 95 Oxygen Delivery Nasal Cannula Oxygen Flow Rate 1 09/02/22 06:00 09/02/22 08:10 09/02/22 08:11 Temperature 96.3 F L Pulse Rate 70 67 67 Respiratory Rate 18 Blood Pressure 112/45 L Pulse Oximetry 93 Oxygen Delivery Oxygen Flow Rate 09/02/22 08:00 Temperature Pulse Rate Respiratory Rate Blood Pressure Pulse Oximetry 93 Oxygen Delivery Nasal Cannula Oxygen Flow Rate 1 Intake/Output Intake/Output: Intake & Output 08/30/22 08/31/22 09/01/22 09/03/22 23:59 23:59 23:59 00:59 Intake Total 916 1620 582 440 Output Total 400 300 150 150 Balance 516 1320 432 290 Meds/Results Medications: Active Medications Generic Name Dose Route Start Last Admin Trade Name Freq PRN Reason Stop Dose Admin Acetaminophen 650 mg 08/23/22 00:43 Acetaminophen 325 Mg Tablet PO Q4H PRN Pain Rated 1-3 Albuterol 2 puff 08/23/22 00:43 03/0
--- NOTE | 2022-09-02 12:12 | PM.DS ---
DS: Admitting Diagnosis Discharge Date September 02, 2022 Admitting Diagnosis Hypoxia, GI bleed, anemia, hyponatremia DS: Discharge Diagnosis Discharge Diagnosis (1) Acute upper GI bleeding: Code(s): K92.2 - Gastrointestinal hemorrhage, unspecified Status: Acute Assessment and Plan: Hemoglobin stable. Monitor. (2) Hyponatremia: Code(s): E87.1 - Hypo-osmolality and hyponatremia Status: Acute Assessment and Plan: Continue sodium chloride tablets. Await plan from Nephrology has sodium is 123 today. (3) Anemia: Qualifiers: Anemia type: unspecified type Qualified Code(s): D64.9 - Anemia, unspecified Code(s): D64.9 - Anemia, unspecified Status: Acute Assessment and Plan: Improved (4) CHF (congestive heart failure): Qualifiers: Heart failure chronicity: unspecified Code(s): I50.9 - Heart failure, unspecified Status: Acute Assessment and Plan: Appears euvolemic. Continue cardiac regimen. (5) Essential hypertension: Code(s): I10 - Essential (primary) hypertension Status: Acute Assessment and Plan: Monitor (6) Hypothyroidism: Code(s): E03.9 - Hypothyroidism, unspecified Status: Acute (7) Atrial fibrillation: Qualifiers: Atrial fibrillation type: unspecified Qualified Code(s): I48.91 - Unspecified atrial fibrillation Code(s): I48.91 - Unspecified atrial fibrillation Status: Acute DS: Summary Hospital Course Hospital Course: Patient is an 79-year-old female from facility came in with anemia GI bleed. EGD was performed a polyp was noted likely to be the source. She has not required any significant transfusion last couple days and hemoglobin has remained stable. Anticoagulation will be resumed on discharge. Otherwise she also has a acute on chronic exacerbation of her hyponatremia. I appreciate Nephrology help. She will continue on sodium chloride tabs. Sodium is now baseline. She has been completely asymptomatic during her hospitalization. Patient does have chronic CHF medications were adjusted on this hospitalization. She also will be sent home on home oxygen. Time Spent with Patient Time attestation: Total time spent providing and/or coordinating discharge services: Exam Const: General: cooperative, healthy appearing, comfortable, no acute distress, well developed, alert, awake, Physically active, average body habitus, well nourished and other ( Drowsy and sleepy this morning) Nutritional Appearance: average body habitus and well nourished Orientation/consciousness: oriented to person, oriented to place, oriented to time and patient oriented x3 Limitations: no limitations HENMT: Head: normal to inspection, No palpable skull fracture present, normocephalic and atraumatic Ears: hearing grossly normal bilaterally and external ears normal Face/Nose/Sinus: Normal external nose present and Normal nares present Eyes: General: appearance normal, both eyes and all related structures Alignment and Position: alignment normal Periorbital: periorbital findings normal Eyelids: eyelids normal Sclera: sclerae normal Pupils: Equal, round and reactive pupils present EOM: EOMs intact bilaterally Neck: Neck: normal visual inspection, full ROM, no lymphadenopathy, trachea midline and supple Chest: Chest palpation & inspection: normal inspection of the chest Resp: Effort & Inspection: normal respiratory effort Auscultation: clear to auscultation bilaterally, no crackles, no rales, no rhonchi and no wheezes Percussion: percussion normal Cardio: Palpation: normal PMI Rate: regular rate Rhythm: regular rhythm Heart sounds: S1 normal heart sound present, S2 normal heart sound present and no murmurs Peripheral pulses: Peripheral pulses 2+ throughout and dorsalis pedis present GI: Inspection: normal to inspection Auscultation: normal bowel sounds Rectal Exam: deferred B
[2022-09-02] MEDS: FUROSEMIDE 20 MG TABLET PO (17:05)
[2022-09-03] VITALS (8 sets, daily range): BP systolic 102–121; BP diastolic 44–53; PULSE 70–95; RESP 16–20; TEMP 36.5–36.6; O2SAT 83–98
[2022-09-03] MEDS: LEVOTHYROXINE SODIUM 75 MCG TABLET PO (05:21)
[2022-09-03] MEDS: LEVOTHYROXINE SODIUM 100 MCG TABLET PO (05:21)
[2022-09-03 07:17] LABS: Hematocrit 27.9 % (37.0-47.0); Hemoglobin 8.9 g/dL (12.0-15.0); Mean Corpuscular HGB Conc 31.9 g/dl (32-36); Mean Corpuscular Hemoglobin 27.1 pg (26-34); Mean Corpuscular Volume 84.8 fl (80-100); Mean Platelet Volume 8.4 fl (7.4-10.4); Platelet Count Result 235 k/mm3 (150-375); Red Blood Count 3.29 M/mm3 (4.2-5.4); Red Cell Distribution Width 15.5 % (11.5-14.5); White Blood Count 5.2 K/mm3 (4.5-10.0)
[2022-09-03 07:29] LABS: Albumin Level 2.7 g/dL (3.5-5.1); Anion Gap 1 mmol/L (8-16); Blood Urea Nitrogen 22 mg/dL (7-17); Calcium 7.9 mg/dL (8.4-10.2); Carbon Dioxide 35 mmol/L (22-30); Chloride 91 mmol/L (98-107); Estimated CRCL calculation 26 ml/min; Estimated Glomerular Filt Rate 42; Glucose 87 mg/dL (65-110); Phosphorus 3.5 mg/dL (2.5-4.5); Potassium 3.7 mmol/L (3.4-5.0); Sodium 127 mmol/L (137-145)
[2022-09-03] MEDS: SODIUM CHLORIDE 1 GM TABLET PO (08:52)
[2022-09-03] MEDS: POTASSIUM CHLORIDE 10 MEQ TABLET.ER 20 MEQ PO (08:52)
[2022-09-03] MEDS: CHOLECALCIFEROL 1,000 UNITS TABLET 2000 UNITS PO (08:52)
[2022-09-03] MEDS: MAGNESIUM OXIDE 400 MG TABLET PO (08:53)
[2022-09-03] MEDS: carvediloL 12.5 MG TABLET PO (08:53)
[2022-09-03] MEDS: CYANOCOBALAMIN 1,000 MCG TABLET 1000 MCG PO (08:53)
[2022-09-03] MEDS: FUROSEMIDE 40 MG TABLET PO (08:53)
[2022-09-03] MEDS: SACUBITRIL/VALSARTAN 24-26 MG TABLET 1 TAB PO (08:53)
[2022-09-03] MEDS: AMIODARONE HCL 200 MG TABLET PO (08:53)
[2022-09-03] MEDS: TOLNAFTATE 1% POWDER 45 GM BTL 1 APPLIC TOPICAL (08:54)
--- NOTE | 2022-09-03 10:05 | P.PNNP_ITS ---
Progress Note: A&P Assessment and Plan (1) Hyponatremia: Code(s): E87.1 - Hypo-osmolality and hyponatremia Status: Acute Assessment and Plan: * hyponatremia. * acute on chronic (has been present at least as far back as January 2021) * baseline sodium runs ~ 128 - 134 (at her best) * admitted with a sodium of 123 with acute drop to 115 on 08/25/22 * acute drop due to fluids and chf (echo earlier showed low EF, AI, TR). * extensive evaluation on past hospitalization (01/2021) regarding this issue: * TSH elevated but on levothyroxine * cortisol borderline low but cosyntropin testing okay * CT of brain negative * CXR without masses/tumors; recent CXR results noted * on furos 40qd, nacl 1000 bid, As well as fluid restriction * continue current tx. * if she no longer needs the furosemide then she can stop the salt tabs as well. (2) Acute upper GI bleeding: Code(s): K92.2 - Gastrointestinal hemorrhage, unspecified Status: Acute Assessment and Plan: * low H/H on admission * guaiac positive * hb stable in the 8s * Gastroenterology following * EGD (on 08/27/22) with nonbleeding esophageal varices, gastritis, and gastric polyp * xarelto on hold (3) CHF (congestive heart failure): Qualifiers: Heart failure chronicity: unspecified Code(s): I50.9 - Heart failure, unspecified Status: Acute Assessment and Plan: * acute on chronic versus acute (?) * recent echo (08/23/22) with EF 35-40%, mild LVH, grade I diastolic dysfunction, mild biatrial enlargement, mild MR, mild-mod TR, RVSP 68 * Cardiology recommendations noted * already on diuretic therapy * Will just keep on salt tablets as long as she is on diuretics. (4) Essential hypertension: Code(s): I10 - Essential (primary) hypertension Status: Acute Assessment and Plan: * systolic 100-130 * same meds (5) Atrial fibrillation: Qualifiers: Atrial fibrillation type: unspecified Qualified Code(s): I48.91 - Unspecified atrial fibrillation Code(s): I48.91 - Unspecified atrial fibrillation Status: Acute Assessment and Plan: * s/p pacemaker placement * on amiodarone * HR doing well at 70 Subjective Date/time seen: 09/03/22 10:05 Interval history: alert, feels okay, no complaints. eager for discharge. Exam Narrative: General: elderly female in NAD Heart: normal S1 and S2; no rub or gallop Lungs: fairly clear Abdomen: soft, nontender, nondistended, positive bowel sounds Extremities: 1+ edema and no cyanosis Skin: no rash Objective Data Vital Signs Vital Signs: Vital Signs - 24 hr 09/02/22 15:15 09/02/22 21:30 09/02/22 21:55 Temperature 98.1 F 98.9 F Pulse Rate 70 80 69 Respiratory Rate 16 16 Blood Pressure 94/48 L 111/66 Pulse Oximetry 96 96 Oxygen Delivery Oxygen Flow Rate 09/02/22 20:00 09/03/22 06:00 09/03/22 08:53 Temperature 98 F Pulse Rate 70 70 Respiratory Rate 16 Blood Pressure 121/53 L Pulse Oximetry 93 90 Oxygen Delivery Nasal Cannula Oxygen Flow Rate 1 09/03/22 08:53 Temperature Pulse Rate 70 Respiratory Rate Blood Pressure Pulse Oximetry
--- NOTE | 2022-09-03 10:05 | PM.PNNEP ---
Progress Note: A&P Assessment and Plan (1) Hyponatremia: Code(s): E87.1 - Hypo-osmolality and hyponatremia Status: Acute Assessment and Plan: hyponatremia. acute on chronic (has been present at least as far back as January 2021) baseline sodium runs ~ 128 - 134 (at her best) admitted with a sodium of 123 with acute drop to 115 on 08/25/22 acute drop due to fluids and chf (echo earlier showed low EF, AI, TR). extensive evaluation on past hospitalization (01/2021) regarding this issue: TSH elevated but on levothyroxine cortisol borderline low but cosyntropin testing okay CT of brain negative CXR without masses/tumors; recent CXR results noted on furos 40qd, nacl 1000 bid, As well as fluid restriction continue current tx. if she no longer needs the furosemide then she can stop the salt tabs as well. (2) Acute upper GI bleeding: Code(s): K92.2 - Gastrointestinal hemorrhage, unspecified Status: Acute Assessment and Plan: low H/H on admission guaiac positive hb stable in the 8s Gastroenterology following EGD (on 08/27/22) with nonbleeding esophageal varices, gastritis, and gastric polyp xarelto on hold (3) CHF (congestive heart failure): Qualifiers: Heart failure chronicity: unspecified Code(s): I50.9 - Heart failure, unspecified Status: Acute Assessment and Plan: acute on chronic versus acute (?) recent echo (08/23/22) with EF 35-40%, mild LVH, grade I diastolic dysfunction, mild biatrial enlargement, mild MR, mild-mod TR, RVSP 68 Cardiology recommendations noted already on diuretic therapy Will just keep on salt tablets as long as she is on diuretics. (4) Essential hypertension: Code(s): I10 - Essential (primary) hypertension Status: Acute Assessment and Plan: systolic 100-130 same meds (5) Atrial fibrillation: Qualifiers: Atrial fibrillation type: unspecified Qualified Code(s): I48.91 - Unspecified atrial fibrillation Code(s): I48.91 - Unspecified atrial fibrillation Status: Acute Assessment and Plan: s/p pacemaker placement on amiodarone HR doing well at 70 Subjective Date/time seen: 09/03/22 10:05 Interval history: alert, feels okay, no complaints. eager for discharge. Exam Narrative: General: elderly female in NAD Heart: normal S1 and S2; no rub or gallop Lungs: fairly clear Abdomen: soft, nontender, nondistended, positive bowel sounds Extremities: 1+ edema and no cyanosis Skin: no rash Objective Data Vital Signs Vital Signs: Vital Signs - 24 hr 09/02/22 15:15 09/02/22 21:30 09/02/22 21:55 Temperature 98.1 F 98.9 F Pulse Rate 70 80 69 Respiratory Rate 16 16 Blood Pressure 94/48 L 111/66 Pulse Oximetry 96 96 Oxygen Delivery Oxygen Flow Rate 09/02/22 20:00 09/03/22 06:00 09/03/22 08:53 Temperature 98 F Pulse Rate 70 70 Respiratory Rate 16 Blood Pressure 121/53 L Pulse Oximetry 93 90 Oxygen Delivery Nasal Cannula Oxygen Flow Rate 1 09/03/22 08:53 Temperature Pulse Rate 70 Respiratory Rate Blood Pressure Pulse Oximetry Oxygen Delivery Oxygen Flow Rate Intake/Output Intake/Output: Intake & Output 08/31/22 09/01/22 09/02/22 09/03/22 22:59 22:59 23:59 23:59 Intake Total Output Total 300 Balance -300 Meds/Results Medications: Active Medications Generic Name Dose Route Start Last Admin Trade Name Freq PRN Reason Stop Dose Admin Acetaminophen 650 mg 08/23/22 00:43 Acetaminophen 325 Mg Tablet PO Q4H PRN Pain Rated 1-3 Albuterol 2 puff 08/23/22 00:43 08/25/22 21:09 Albuterol Sulfate (*Sp) Aerosol 1 Puff INHALATION 2 puff QID PRN Administration Shortness Of Breath Amiodarone HCl 200 mg 08/25/22 08:00 09/03/22 08:53 Amiodarone Hcl 200 Mg Tablet PO 200 mg DAILY@0800 LORI Administration Bisacod
[2022-09-03] MEDS: ONDANSETRON HCL ODT 4 MG TABLET PO (10:12)
--- NOTE | 2022-09-03 11:54 | HOMEO2EVAL ---
Evaluation was performed at [facility] Home Oxygen Evaluation RC: Home Oxygen (O2) Evaluation Start: 09/02/22 11:38 Freq: ONCE Status: Active Protocol: RPE Activity Type Activity Date Activity User E-sign Co-sign Detail Recorded Client Recorded Date Recorded By Document 09/03/22 10:31 KRM [email or web address] 09/03/22 11:53 KRM Document 09/03/22 10:33 KRM [email or web address] 09/03/22 11:53 KRM Document 09/03/22 10:38 KRM [email or web address] 09/03/22 11:53 KRM 09/03/22 09/03/22 09/03/22 10:31 10:33 10:38 Home O2 Evaluation [Oxygen] -Test Phase Resting Resting Exercise -Oxygen Delivery Room Air Nasal Cannula Nasal Cannula -Oxygen Flow Rate (L/min) 1 1 [Pulse Oximetry] -Pulse Oximetry (90-100 %) 83 L 94 93 [Pulse Rate] -Pulse Rate (60-100 beats/min) 70 70 95 [Evaluation] -Activity Tolerance Fair [Exercise] -Ambulation Distance (feet) 10 -Ambulation Distance (meters) 3.04 [Comments] -Home Oxygen Evaluation Comments 1LPM AT REST AND WITH ACTIVITY. [Charges] -Treatment Charges O2 Evaluation - Inpatient
--- NOTE | 2022-09-03 11:54 | PM.DS ---
DS: Admitting Diagnosis Discharge Date September 03, 2022 Admitting Diagnosis Hypoxia anemia GI bleed hyponatremia DS: Discharge Diagnosis Discharge Diagnosis (1) Acute upper GI bleeding: Code(s): K92.2 - Gastrointestinal hemorrhage, unspecified Status: Acute Assessment and Plan: Hemoglobin stable. Monitor. (2) Hyponatremia: Code(s): E87.1 - Hypo-osmolality and hyponatremia Status: Acute Assessment and Plan: Continue sodium chloride tablets. Await plan from Nephrology has sodium is 123 today. (3) Anemia: Qualifiers: Anemia type: unspecified type Qualified Code(s): D64.9 - Anemia, unspecified Code(s): D64.9 - Anemia, unspecified Status: Acute Assessment and Plan: Improved (4) CHF (congestive heart failure): Qualifiers: Heart failure chronicity: unspecified Code(s): I50.9 - Heart failure, unspecified Status: Acute Assessment and Plan: Appears euvolemic. Continue cardiac regimen. (5) Essential hypertension: Code(s): I10 - Essential (primary) hypertension Status: Acute Assessment and Plan: Monitor (6) Hypothyroidism: Code(s): E03.9 - Hypothyroidism, unspecified Status: Acute (7) Atrial fibrillation: Qualifiers: Atrial fibrillation type: unspecified Qualified Code(s): I48.91 - Unspecified atrial fibrillation Code(s): I48.91 - Unspecified atrial fibrillation Status: Acute DS: Summary Hospital Course Hospital Course: Patient is an 79-year-old female from facility came in with anemia GI bleed.? EGD was performed a polyp was noted likely to be the source.? She has not required any significant transfusion last couple days and hemoglobin has remained stable.? Anticoagulation will be resumed on discharge.? Otherwise she also has a acute on chronic exacerbation of her hyponatremia.? I appreciate Nephrology help.? She will continue on sodium chloride tabs.? Sodium is now baseline.? She has been completely asymptomatic during her hospitalization.? Patient does have chronic CHF medications were adjusted on this hospitalization.? She also will be sent home on home oxygen. Time Spent with Patient Time attestation: Total time spent providing and/or coordinating discharge services: Exam Const: General: cooperative, healthy appearing, comfortable, no acute distress, well developed, alert, awake, Physically active, average body habitus, well nourished and other ( Drowsy and sleepy this morning) Nutritional Appearance: average body habitus and well nourished Orientation/consciousness: oriented to person, oriented to place, oriented to time and patient oriented x3 Limitations: no limitations HENMT: Head: normal to inspection, No palpable skull fracture present, normocephalic and atraumatic Ears: hearing grossly normal bilaterally and external ears normal Face/Nose/Sinus: Normal external nose present and Normal nares present Eyes: General: appearance normal, both eyes and all related structures Alignment and Position: alignment normal Periorbital: periorbital findings normal Eyelids: eyelids normal Sclera: sclerae normal Pupils: Equal, round and reactive pupils present EOM: EOMs intact bilaterally Neck: Neck: normal visual inspection, full ROM, no lymphadenopathy, trachea midline and supple Chest: Chest palpation & inspection: normal inspection of the chest Resp: Effort & Inspection: normal respiratory effort Auscultation: clear to auscultation bilaterally, no crackles, no rales, no rhonchi and no wheezes Percussion: percussion normal Cardio: Palpation: normal PMI Rate: regular rate Rhythm: regular rhythm Heart sounds: S1 normal heart sound present, S2 normal heart sound present and no murmurs Peripheral pulses: Peripheral pulses 2+ throughout and dorsalis pedis present GI: Inspection: normal to inspection Auscultation: normal bowel sounds Rectal Exam: deferred Back
--- NOTE | 2022-09-03 12:02 | PCRCNOTE ---
PT. REQUIRES 1LPM O2. FAXED INFO TO [facility] [phone], TANK TO BE DELIVERED TODAY.
== END 2022-09-03 14:20 | DRG 393 ==
LOC: ANHED 18:09 → ANHIMU 19:25 → ANH3MEDSUR 08-23 17:29
PROVIDERS: Internal Medicine Gastroenterology; Internal Medicine Nephrology; Nurse Practitioner; Admitting Provider Family Medicine; Emergency Provider Emergency Medicine; PCP Internal Medicine; Visit Provider Chiropractor
PROC: 0DJ08ZZ Inspection of Upper Intestinal Tract, Via Natural or Artificial Opening Endoscopic (ICD-10-PCS; CPT 43235; principal; 2022-08-27 11:30)
DX: K31.7 Polyp of stomach and duodenum (principal); I50.43 Acute on chronic combined systolic (congestive) and diastolic (congestive) heart failure; E87.1 Hypo-osmolality and hyponatremia; I42.9 Cardiomyopathy, unspecified; K21.9 Gastro-esophageal reflux disease without esophagitis; D64.9 Anemia, unspecified; I11.0 Hypertensive heart disease with heart failure; E03.9 Hypothyroidism, unspecified; I48.91 Unspecified atrial fibrillation; K29.70 Gastritis, unspecified, without bleeding; Z66 Do not resuscitate; Z95.0 Presence of cardiac pacemaker; Z79.01 Long term (current) use of anticoagulants
CPT/HCPCS: 36415; 36430; 36600; 71045; 71046; 80048; 80053; 80069; 82040; 82805; 83735; 83880; 83935; 84100; 84133; 84295; 84300; 84439; 84443; 84480; 84484; 85014; 85018; 85025; 85027; 85610; 85730; 85999; 86850; 86900; 86901; 86923; 87081; 88305; 93005; 94618; 94640; 96374; 97110; 97116; 97161; 97166; 97530; 97535; 99285; A9270; C8929; C9113; J1120; J1940; J2704; J7040; J7050; J7060; J7120; J7131; P9016; Q9957

== ENCOUNTER 2022-10-19 13:28 | Emergency (ER) | payer OTHER, SELFPAY ==
--- NOTE | ~2022-10-19 | CT_ITS ---
EXAMINATION: CT brain wo con INDICATION: Head injury COMPARISON: 06/07/2022 TECHNIQUE: Standard unenhanced head CT. The dose-length product (DLP) was 681.00 mGy-cm. The mA was a djusted according to patient size. Iterative reconstruction technique was employed. FINDINGS: There is no acute intraparenchymal hemorrhage. No evidence of mass lesion. No evidence of a cute infarction. There is moderate periventricular and subcortical hypodensity probably related to sm all vessel ischemic disease. There is moderate prominence of the sulci and ventricles related to cere bral atrophy. Intracranial calcified cerebral atherosclerosis is noted. There is a tiny left frontal scalp hematoma. There are no extra-axial collections. There is no mass effect or midline shift. Boo es in the right globe are likely from ocular lens surgery. The visualized sinuses and mastoid air lisbet ls are well aerated. IMPRESSION: 1. No acute intracranial abnormality. 2. Age related findings. Reviewed, dictated and finalized at location B.
[2022-10-19 13:32] VITALS: BP 137/63; PULSE 70; RESP 18; TEMP 36.7; O2SAT 99
[2022-10-19 15:58] VITALS: BP 153/58; PULSE 70; TEMP 36.6; O2SAT 98
--- NOTE | 2022-10-19 17:20 | ED.FALL ---
HPI - Fall General Chief Complaint: Fall Stated Complaint: Fall, head injury Time Seen by Provider: 10/19/22 16:30 History of Present Illness HPI Narrative: 87-year-old female presenting to the emergency department for evaluation after having a ground-level fall from her wheelchair. Patient states she was attempting to get dressed when she leaned forward and struck her head on the ground. Patient denies any loss of consciousness. Patient is on Xarelto. Related Data Home Medications Medication Instructions Recorded Confirmed acetaminophen 325 mg tablet 650 mg PO Q4H PRN Pain 02/03/21 08/22/22 cholecalciferol (vitamin D3) 25 2,000 unit PO BID 02/03/21 08/22/22 mcg (1,000 unit) tablet (Vitamin D3) furosemide 40 mg tablet 40 mg PO DAILY 02/03/21 08/22/22 albuterol sulfate 90 mcg/actuation 2 puff inhalation QID PRN SOB 06/07/22 08/22/22 aerosol inhaler (ProAir HFA) bisacodyl 5 mg tablet 10 mg PO DAILY PRN Constipation 06/07/22 08/22/22 carvedilol 6.25 mg tablet 12.5 mg PO BID 06/07/22 08/22/22 levothyroxine 175 mcg tablet 175 mcg PO DAILY 06/07/22 08/22/22 magnesium oxide 400 mg (241.3 mg 400 mg PO BID 06/07/22 08/22/22 magnesium) tablet polyethylene glycol 3350 17 gram 17 g PO DAILY PRN Constipation 06/07/22 08/22/22 oral powder packet (ClearLax) potassium chloride 10 mEq 20 meq PO DAILY 06/07/22 08/22/22 tablet,extended release rivaroxaban 20 mg tablet (Xarelto) 20 mg PO DAILY 06/07/22 08/22/22 sennosides 8.6 mg-docusate sodium 1 tab-cap PO BID PRN Constipation 06/07/22 08/22/22 50 mg tablet (Senna Plus) sodium chloride 0.65 % nasal spray 2 spray intranasal Q4H PRN 06/07/22 08/22/22 aerosol (Deep Sea Nasal) Allergic Symptoms sodium chloride 1,000 mg soluble 1,000 mg PO BID 06/07/22 08/22/22 tablet vibegron 75 mg tablet (Gemtesa) 75 mg PO DAILY 06/07/22 08/22/22 cyanocobalamin (vitamin B-12) 1,000 mcg PO DAILY 08/22/22 08/22/22 1,000 mcg tablet Allergies Allergy/AdvReac Type Severity Reaction Status Date / Time No Known Allergies Allergy Verified 10/19/22 13:28 Review of Systems Review of Systems: All systems reviewed & are unremarkable except as noted in HPI and below PMFSH Past Medical History Medical History Aortic aneurysm Artificial pacemaker Atrial fibrillation Diastolic heart failure secondary to hypertension Diverticulitis Essential hypertension Hepatitis Hypothyroidism Urinary incontinence Vitamin D deficiency Surgical History Surgical History H/O cataract extraction History of hysterectomy Family History Family History (Updated 08/23/22 @ 00:52 by Sylvia Albarran NP) Mother Essential hypertension Father Heart disease Sibling Heart disease Social History Social History Social History: Patient resides at [facility]. 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 She is single and has not had any children. She is a lifelong nonsmoker. She does not use any alcohol, marijuana or illicit drugs. Code status: DNR/DNI Healthcare power of assistant district attorney: Ana Maria Caballero Smoking status: Never smoker Alcohol intake: never Substance use: never Substance use type: does not use Lack of Transportation: No Lack of Food: Never True Current Housing: I Have Housing Concerned About Future Housing: No Difficulty Paying Gas/Electric Bills: No Difficulty Paying for Meds: No Currently Unemployed: No Education: Associate Degree Difficulty w/ Childcare or Family Care: No Spiritual care concerns: No Exam Narrative: APPEARANCE: Well appearing, no pain, no distress, well-nourished. HEAD: normocephalic, hematoma to left forehead with overlying abrasion. EYES: PERRLA/EOMI, conjunctivae clear. NOSE: Normal no drainage EARS:TMS clear with good light reflex. THROAT: Pharynx cl
[2022-10-19 18:00] VITALS: BP 152/73; PULSE 66; RESP 16; O2SAT 98
[2022-10-19 19:59] VITALS: BP 158/70; PULSE 70; O2SAT 93
--- NOTE | 2022-10-19 20:03 | PC.NURSE ---
this RN assumed care of patient at 192
== END 2022-10-19 21:28 ==
PROVIDERS: Emergency Provider Emergency Medicine; PCP Internal Medicine
DX: S00.83XA Contusion of other part of head, initial encounter (principal); I11.0 Hypertensive heart disease with heart failure; I50.30 Unspecified diastolic (congestive) heart failure; E03.9 Hypothyroidism, unspecified; I48.91 Unspecified atrial fibrillation; Z79.01 Long term (current) use of anticoagulants; W05.0XXA Fall from non-moving wheelchair, initial encounter
CPT/HCPCS: 70450; 99284

== ENCOUNTER 2023-08-22 13:56 | Emergency (ER) | payer OTHER, SELFPAY ==
[2023-08-22] VITALS (33 sets, daily range): BP systolic 91–141; BP diastolic 44–87; PULSE 69–87; RESP 14–37; TEMP 36.1–36.6; O2SAT 90–99
--- NOTE | ~2023-08-22 | XR_ITS ---
EXAMINATION: XR chest 1V portable DATE: 08/22/2023 15:22 INDICATION: Weakness. TECHNIQUE: A single frontal view of the chest was obtained. COMPARISON: Chest single view 09/02/2022, chest CT 07/11/2017 FINDINGS: There are airspace opacities in the mid and lower lung zones. No pleural effusion or pneumo thorax. Cardiomegaly is noted. There is a left chest wall pacer with leads in the right atrium and ri ght ventricle. IMPRESSION: 1. Airspace opacities in the mid and lower lung zones, consistent with atelectasis versus pneumonia. 2. Cardiomegaly. Reviewed, dictated and finalized at location A. OPERATOR IMPRESSION: 1. Airspace opacities in the mid and lower lung zones, consistent with atelecta sis versus pneumonia. 2. Cardiomegaly.
--- NOTE | 2023-08-22 15:04 | ECG_ITS ---
Measurements Intervals [place] Rate: 69 P: 232 DE: 252 QRS: 228 QRSD: 198 T: 93 QT: 495 QTc: 534 Interpretive Statements ELECTRONIC ATRIAL PACEMAKER ELECTRONIC VENTRICULAR PACEMAKER ABNORMAL RHYTHM ECG COMPARED TO ECG 08/26/2022 09:06:28 NO SIGNIFICANT CHANGES Electronically Signed On 08-22-2023 15:55:17 [employer] by Ronda Jane M.D.
[2023-08-22 15:35] LABS: Basophils Percent Auto 0.4 % (0.2-1.2); Eosinophils Absolute Auto 0.1 K/mm3 (0-0.3); Eosinophils Percent Auto 1.2 % (0-4.4); Immature Granulocyte Absolute 0.02 K/mm3 (0.00-0.031); Immature Granulocyte Percent A 0.4 % (0-0.5); Lymphocytes Absolute Auto 1.25 K/mm3 (0.9-3.2); Mean Corpuscular HGB Conc 28.3 g/dl (32-36); Mean Corpuscular Hemoglobin 22.5 pg (26-34); Mean Corpuscular Volume 79.6 fl (80-100); Mean Platelet Volume 8.6 fl (7.4-10.4); Monocytes Absolute Auto 0.7 K/mm3 (0.1-0.6); Platelet Count Result 300 k/mm3 (150-375); Red Cell Distribution Width 16.5 % (11.5-14.5)
--- NOTE | 2023-08-22 15:35 | PC.NURSE ---
Per staff at Dr. Sauceda office, patient has a [employer] pacemaker. They will fax over information regarding this.
[2023-08-22 15:43] LABS: Hemoglobin 5.4 g/dL (12.0-15.0)
[2023-08-22 15:44] LABS: Hematocrit 19.1 % (37.0-47.0); Hypochromasia 1+ (NORMAL); Ovalocytes 1+ (NORMAL); Platelet Estimate Adequate (Adequate); Schistocytes None Seen (NORMAL); Target Cells 2+ (NORMAL)
[2023-08-22 15:49] LABS: Alanine Aminotransferase 69 U/L (6-35); Albumin Level 3.2 g/dL (3.5-5.1); Alkaline Phosphatase 136 U/L (38-126); Anion Gap 1 mmol/L (8-16); Aspartate Amino Transferase 95 U/L (14-36); Bilirubin,Total 0.5 mg/dL (0.2-1.3); Blood Urea Nitrogen 32 mg/dL (7-17); Calcium 8.4 mg/dL (8.4-10.2); Carbon Dioxide 34 mmol/L (22-30); Chloride 98 mmol/L (98-107); Estimated CRCL calculation 21 ml/min; Estimated Glomerular Filt Rate 33; Glucose 105 mg/dL (65-110); Potassium 4.1 mmol/L (3.4-5.0); Sodium 133 mmol/L (137-145)
[2023-08-22 16:00] LABS: NT Pro B Type Natriuretic Pept 874 pg/mL (19.9-100); Troponin I < 0.012 ng/mL (0.000-0.034)
[2023-08-22 16:02] LABS: INR 3.1; Prothrombin Time 34.8 Seconds (11.1-14.7)
--- NOTE | 2023-08-22 16:27 | PC.NURSE ---
Signed consent on pts chart for blood transfusion.
--- NOTE | 2023-08-22 16:32 | PC.NURSE ---
Lasix held at this time due to pts BP 102/87. MD Benitez aware, states to hold medication until blood has been administered.
--- NOTE | 2023-08-22 17:32 | ED.WEAKNESS ---
HPI - Weakness General Chief complaint: Weakness <Baldo Benitez MD - Last Filed: 08/22/23 19:21> Stated complaint: general weakness in bilateral legs <Baldo Benitez MD - Last Filed: 08/22/23 19:21> Time Seen by Provider: 08/22/23 15:18 <Baldo Benitez MD - Last Filed: 08/22/23 19:21> History of Present Illness HPI Narrative: This is an 88-year-old female, with history of AFib status post pacemaker placement, and prior history of GI bleed, brought in by EMS for bilateral leg weakness. The patient was at her hairdresser and was not wearing her oxygen (2L at baseline) for approximately 1 hour. she denies chest pain, abdominal pain, nausea, vomiting, focal weakness or numbness. <Baldo Benitez MD - Last Filed: 08/22/23 19:21> Related Data Home medications: Home Medications Medication Instructions Recorded Confirmed acetaminophen 325 mg tablet 650 mg PO Q4H PRN Pain 02/03/21 08/22/22 cholecalciferol (vitamin D3) 25 2,000 unit PO BID 02/03/21 08/22/22 mcg (1,000 unit) tablet (Vitamin D3) furosemide 40 mg tablet 40 mg PO DAILY 02/03/21 08/22/22 albuterol sulfate 90 mcg/actuation 2 puff inhalation QID PRN SOB 06/07/22 08/22/22 aerosol inhaler (ProAir HFA) bisacodyl 5 mg tablet 10 mg PO DAILY PRN Constipation 06/07/22 08/22/22 carvedilol 6.25 mg tablet 12.5 mg PO BID 06/07/22 08/22/22 levothyroxine 175 mcg tablet 175 mcg PO DAILY 06/07/22 08/22/22 magnesium oxide 400 mg (241.3 mg 400 mg PO BID 06/07/22 08/22/22 magnesium) tablet polyethylene glycol 3350 17 gram 17 g PO DAILY PRN Constipation 06/07/22 08/22/22 oral powder packet (ClearLax) potassium chloride 10 mEq 20 meq PO DAILY 06/07/22 08/22/22 tablet,extended release rivaroxaban 20 mg tablet (Xarelto) 20 mg PO DAILY 06/07/22 08/22/22 sennosides 8.6 mg-docusate sodium 1 tab-cap PO BID PRN Constipation 06/07/22 08/22/22 50 mg tablet (Senna Plus) sodium chloride 0.65 % nasal spray 2 spray intranasal Q4H PRN 06/07/22 08/22/22 aerosol (Deep Sea Nasal) Allergic Symptoms sodium chloride 1,000 mg soluble 1,000 mg PO BID 06/07/22 08/22/22 tablet vibegron 75 mg tablet (Gemtesa) 75 mg PO DAILY 06/07/22 08/22/22 cyanocobalamin (vitamin B-12) 1,000 mcg PO DAILY 08/22/22 08/22/22 1,000 mcg tablet <Baldo Benitez MD - Last Filed: 08/22/23 19:21> Allergies/Adverse reactions: Allergies Allergy/AdvReac Type Severity Reaction Status Date / Time No Known Allergies Allergy Verified 08/22/23 13:57 <Baldo Benitez MD - Last Filed: 08/22/23 19:21> Review of Systems Review of Systems: CONSTITUTIONAL: Denies fever, chills, or sweats. CARDIOVASCULAR: Denies chest pain, palpitations, or edema. RESPIRATORY: Dyspnea Denies cough GASTROINTESTINAL: Denies abdominal pain, nausea, vomiting, or diarrhea. GENITOURINARY: Denies dysuria or hematuria. SKIN: Denies rash or itching. MUSCULOSKELETAL: Denies back pain, joint pain, or myalgia. NEUROLOGIC: Bilateral lower extremity weakness Denies headache, numbness, dizziness, or focal weakness PSYCHIATRIC: Denies anxiety or depression. <Baldo Benitez MD - Last Filed: 08/22/23 19:21> [facility] Past Medical History Medical History: Medical History Aortic aneurysm Artificial pacemaker Atrial fibrillation Diastolic heart failure secondary to hypertension Diverticulitis Essential hypertension Hepatitis Hypothyroidism Urinary incontinence Vitamin D deficiency <Baldo Benitez MD - Last Filed: 08/22/23 19:21> Surgical History Surgical History: Surgical History H/O cataract extraction History of hysterectomy <Baldo Benitez MD - Last Filed: 08/22/23 19:21> Family History Family History: Family History (Updated 08/23/22 @ 00:52 by Sylvia Albarran NP) Mother Essential hypertension Father Heart disease Sibling Hear
[2023-08-22] MEDS: SODIUM CHLORIDE 0.9% IV 250 ML 30 ML IV CONT (17:50)
[2023-08-22 18:17] LABS: Add Urine Microscopic? NO; Appearance Urine Clear (Clear); Bilirubin Urine Negative (Negative); Blood Urine Negative (Negative); Color Urine Yellow (Yellow); Glucose Urine UA Negative (Negative); Ketones Urine Negative (Negative); Leukocyte Esterase Ur Negative LEU/UL (Negative); Nitrate Urine Negative (Negative); Protein Urine Negative (Negative); Specific Grav Ur 1.015 (1.001-1.035); Urobilinogen Urine 0.2 mg/dL (<2.0); pH Urine 5.5 (5.0-9.0)
--- NOTE | 2023-08-22 19:36 | ECG_ITS ---
Measurements Intervals [place] Rate: 69 P: -89 WV: 261 QRS: -90 QRSD: 182 T: 61 QT: 493 QTc: 532 Interpretive Statements ELECTRONIC ATRIAL PACEMAKER WITH INHIBITION ELECTRONIC VENTRICULAR PACEMAKER BASELINE ARTIFACT- I, II, III, AVR, AVL, AVF, V1-V2 NO FURTHER INTERPRETATION IS POSSIBLE ATYPICAL ECG COMPARED TO ECG 08/22/2023 15:14:31 NO SIGNIFICANT CHANGES Electronically Signed On 08-23-2023 6:35:38 JEWEL GAUGER by Chung Soares D.O.
[2023-08-22 19:40] LABS: Troponin I < 0.012 ng/mL (0.000-0.034)
[2023-08-22] MEDS: TUBING, BLOOD SET 1 EACH XX (19:44)
[2023-08-22] MEDS: FUROSEMIDE INJ 40 MG/4 ML VIAL 20 MG IV PUSH (20:33)
[2023-08-22 20:57] LABS: Hematocrit 27.4 % (37.0-47.0); Hemoglobin 8.1 g/dL (12.0-15.0)
--- NOTE | 2023-08-22 21:27 | PC.NURSE ---
Attempted to call report to [facility], no one answered.
== END 2023-08-22 21:40 ==
PROVIDERS: Preventive Medicine Aerospace Medicine; Emergency Provider Emergency Medicine; PCP Internal Medicine
DX: R53.1 Weakness (principal); D64.9 Anemia, unspecified; I48.91 Unspecified atrial fibrillation; I11.0 Hypertensive heart disease with heart failure; I50.30 Unspecified diastolic (congestive) heart failure; E03.9 Hypothyroidism, unspecified; E55.9 Vitamin D deficiency, unspecified; R32 Unspecified urinary incontinence; Z99.81 Dependence on supplemental oxygen; Z66 Do not resuscitate; Z95.0 Presence of cardiac pacemaker; Z98.49 Cataract extraction status, unspecified eye; Z90.710 Acquired absence of both cervix and uterus; Z79.01 Long term (current) use of anticoagulants
CPT/HCPCS: 36415; 36430; 71045; 80053; 81003; 83880; 84484; 85014; 85018; 85025; 85610; 86850; 86900; 86901; 86923; 93005; 96361; 96374; 99285; J1940; J7050; P9016

== ENCOUNTER 2023-08-23 13:44 | Observation (INO) | payer OTHER, SELFPAY ==
[2023-08-23] VITALS (14 sets, daily range): BP systolic 114–148; BP diastolic 40–74; PULSE 70–97; RESP 13–25; TEMP 36.4–36.7; O2SAT 92–99; BMI 29.2
--- NOTE | ~2023-08-23 | XR_ITS ---
EXAMINATION: XR chest 1V portable INDICATION: Shortness of breath TECHNIQUE: Portable AP chest at 1817 hours COMPARISON: 08/22/2023 FINDINGS: Airspace opacities of the mid and lower lung zones persist without significant change. No p leural effusion or pneumothorax. Cardiomegaly is noted. A dual-lead cardiac pacemaker of the left turner st wall ends with leads in expected locations. IMPRESSION: 1. Stable airspace opacities of the mid and lower lung zones, consistent with atelectasis versus pneu monia. Reviewed, dictated and finalized at location F. URE ANALYSIS TECHNICIAN IMPRESSION: 1. Stable airspace opacities of the mid and lower lung zones, consistent with a telectasis versus pneumonia.
--- NOTE | ~2023-08-23 | XR_ITS ---
EXAMINATION: XR abdomen gastric tube insert DATE: 08/24/2023 13:32 INDICATION: Nasogastric tube placement. TECHNIQUE: A semiupright view of the abdomen was obtained. COMPARISON: Chest single view 08/23/2023 FINDINGS: The lower abdomen is excluded. The nasogastric tube tip is in the stomach. There is a left chest wall pacer with leads in the right atrium and right ventricle. There are airspace opacities at the lung bases. Cardiomegaly is noted. IMPRESSION: 1. Nasogastric tube tip in the stomach. 2. Airspace opacities at the lung bases, consistent with atelectasis versus pneumonia. 3. Cardiomegaly. Reviewed, dictated and finalized at location A. E LINING FINISHER IMPRESSION: 1. Nasogastric tube tip in the stomach. 2. Airspace opacities at the lung bases, consistent with atelectasis versus pne umonia. 3. Cardiomegaly.
[2023-08-23 17:08] LABS: Alveolar/Arterial O2 Gradient 50.9 mmHg; Base Excess ABG 7.7 mEq/l (+/-2.0); Carboxyhemoglobin 0.8 % THb (0-2.0); Fractional Inspired Oxygen 28 %; HCO3 ABG 34.7 mEq/l (22.0-26.0); Methemoglobin ABG 0.3 %THb (0-1.5); Oxygen Content ABG 12.1 %vol (16.0-22.0); Oxygen Saturation ABG 93.4 % (95.0-100.0); PO2 ABG 72.6 mmHg (80.0-100.0); PO2 FiO2 Ratio Arterial Blood 2.59 %; Reduced Hemoglobin 6.9 %THb (0-5.0); Total Hemoglobin 9.3 g/dL (12.0-18.0); pH ABG 7.349 (7.350-7.450)
[2023-08-23 17:09] LABS: PCO2 ABG 64.5 mmHg (35.0-45.0)
[2023-08-23 17:10] LABS: Modified Allen's Test Pass; Site Drawn RIGHT RADIAL
[2023-08-23 17:23] LABS: Basophils Percent Auto 0.6 % (0.2-1.2); Eosinophils Percent Auto 0.2 % (0-4.4); Hematocrit 27.5 % (37.0-47.0); Hemoglobin 8.2 g/dL (12.0-15.0); Immature Granulocyte Absolute 0.02 K/mm3 (0.00-0.031); Immature Granulocyte Percent A 0.4 % (0-0.5); Lymphocytes Absolute Auto 0.97 K/mm3 (0.9-3.2); Lymphocytes Percent Auto 20.1 % (18.3-44.2); Mean Corpuscular HGB Conc 29.8 g/dl (32-36); Mean Corpuscular Hemoglobin 24.7 pg (26-34); Mean Corpuscular Volume 82.8 fl (80-100); Mean Platelet Volume 8.6 fl (7.4-10.4); Monocytes Absolute Auto 0.6 K/mm3 (0.1-0.6); Monocytes Percent Auto 12.7 % (2.6-8.5); Neutrophils Absolute Auto 3.2 K/mm3 (1.3-6.7); Platelet Count Result 290 k/mm3 (150-375); Red Blood Count 3.32 M/mm3 (4.2-5.4); Red Cell Distribution Width 17.5 % (11.5-14.5); White Blood Count 4.8 K/mm3 (4.5-10.0)
--- NOTE | 2023-08-23 17:24 | ED.GENADULT ---
HPI - General Adult General Chief complaint: Weakness Stated complaint: generalized weakness Time Seen by Provider: 08/23/23 16:18 History of Present Illness HPI narrative: Patient is an 88-year-old female who presents ER with new confusion and weakness. Patient seen last night for anemia and received a blood transfusion. She went home was doing well but started to have confusion during the day. She thinks there are people in a room that are not there and she is confused about where she is at. This is atypical for her. Patient is chronically O2 dependent. She reports mild shortness of breath but no cough or congestion. No chest pain or chest pressure. Denies any dark stools. Related Data Home Medications Medication Instructions Recorded Confirmed acetaminophen 325 mg tablet 650 mg PO Q4H PRN Pain 02/03/21 08/22/22 cholecalciferol (vitamin D3) 25 2,000 unit PO BID 02/03/21 08/22/22 mcg (1,000 unit) tablet (Vitamin D3) furosemide 40 mg tablet 40 mg PO DAILY 02/03/21 08/22/22 albuterol sulfate 90 mcg/actuation 2 puff inhalation QID PRN SOB 06/07/22 08/22/22 aerosol inhaler (ProAir HFA) bisacodyl 5 mg tablet 10 mg PO DAILY PRN Constipation 06/07/22 08/22/22 carvedilol 6.25 mg tablet 12.5 mg PO BID 06/07/22 08/22/22 levothyroxine 175 mcg tablet 175 mcg PO DAILY 06/07/22 08/22/22 magnesium oxide 400 mg (241.3 mg 400 mg PO BID 06/07/22 08/22/22 magnesium) tablet polyethylene glycol 3350 17 gram 17 g PO DAILY PRN Constipation 06/07/22 08/22/22 oral powder packet (ClearLax) potassium chloride 10 mEq 20 meq PO DAILY 06/07/22 08/22/22 tablet,extended release rivaroxaban 20 mg tablet (Xarelto) 20 mg PO DAILY 06/07/22 08/22/22 sennosides 8.6 mg-docusate sodium 1 tab-cap PO BID PRN Constipation 06/07/22 08/22/22 50 mg tablet (Senna Plus) sodium chloride 0.65 % nasal spray 2 spray intranasal Q4H PRN 06/07/22 08/22/22 aerosol (Deep Sea Nasal) Allergic Symptoms sodium chloride 1,000 mg soluble 1,000 mg PO BID 06/07/22 08/22/22 tablet vibegron 75 mg tablet (Gemtesa) 75 mg PO DAILY 06/07/22 08/22/22 cyanocobalamin (vitamin B-12) 1,000 mcg PO DAILY 08/22/22 08/22/22 1,000 mcg tablet Allergies Allergy/AdvReac Type Severity Reaction Status Date / Time No Known Allergies Allergy Verified 08/22/23 13:57 Review of Systems Review of Systems: All systems reviewed & are unremarkable except as noted in HPI and below Constitutional: Constitutional: Reports no additional constitutional complaints ENT: Reports system reviewed and no additional complaints, except as documented Cardiovascular: Cardiovascular: Reports no additional cardiovascular complaints Respiratory: Respiratory: Reports no additional respiratory complaints Neurologic: Reports confusion, Denies syncope, Denies headache(s), Denies focal weakness and Denies numbness PMFSH Past Medical History Medical History Aortic aneurysm Artificial pacemaker Atrial fibrillation Diastolic heart failure secondary to hypertension Diverticulitis Essential hypertension Hepatitis Hypothyroidism Urinary incontinence Vitamin D deficiency Surgical History Surgical History H/O cataract extraction History of hysterectomy Family History Family History (Updated 08/23/22 @ 00:52 by Sylvia Albarran NP) Mother Essential hypertension Father Heart disease Sibling Heart disease Social History Social History Social History: Patient resides at [facility]. 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 She is single and has not had any children. She is a lifelong nonsmoker. She does not use any alcohol, marijuana or illicit drugs. Code status: DNR/DNI Healthcare power of vending technician: Ana Maria Caballero Smoking status: Never smoker Alcohol intake: never Substance use: never S
[2023-08-23 17:32] LABS: Alanine Aminotransferase 83 U/L (6-35); Albumin Level 3.4 g/dL (3.5-5.1); Alkaline Phosphatase 135 U/L (38-126); Anion Gap 3 mmol/L (8-16); Aspartate Amino Transferase 96 U/L (14-36); Bilirubin,Total 0.8 mg/dL (0.2-1.3); Blood Urea Nitrogen 25 mg/dL (7-17); Calcium 8.5 mg/dL (8.4-10.2); Carbon Dioxide 35 mmol/L (22-30); Chloride 98 mmol/L (98-107); Estimated CRCL calculation 26 ml/min; Estimated Glomerular Filt Rate 42; Glucose 99 mg/dL (65-110); Potassium 3.8 mmol/L (3.4-5.0); Sodium 136 mmol/L (137-145)
[2023-08-23 17:36] LABS: INR 2.6; Prothrombin Time 29.9 Seconds (11.1-14.7)
[2023-08-23 17:37] LABS: Partial Thromboplastin Time 38.3 SECONDS (22.3-36.8)
[2023-08-23 17:52] LABS: Anisocytosis 1+ (NORMAL); Hypochromasia 1+ (NORMAL); Ovalocytes 1+ (NORMAL); Platelet Estimate Adequate (Adequate); Schistocytes None Seen (NORMAL)
[2023-08-23 18:14] LABS: Alveolar/Arterial O2 Gradient 69.9 mmHg; Base Excess ABG 6.6 mEq/l (+/-2.0); Carboxyhemoglobin 1.3 % THb (0-2.0); Fractional Inspired Oxygen 30 %; HCO3 ABG 33.1 mEq/l (22.0-26.0); Methemoglobin ABG 0.1 %THb (0-1.5); Oxygen Content ABG 11.6 %vol (16.0-22.0); Oxygen Saturation ABG 93.8 % (95.0-100.0); Oxyhemoglobin 92.9 % THb (90.0-100.0); PCO2 ABG 60.1 mmHg (35.0-45.0); PO2 ABG 73.4 mmHg (80.0-100.0); PO2 FiO2 Ratio Arterial Blood 2.45 %; Reduced Hemoglobin 5.7 %THb (0-5.0); Total Hemoglobin 8.8 g/dL (12.0-18.0); pH ABG 7.359 (7.350-7.450)
[2023-08-23 18:15] LABS: Device NON-INVASIVE VENT; Modified Allen's Test Pass; Non-Invasive Expiratory Pressure 6 CMH2O; Non-Invasive Inspiratory Pressure 12 CMH2O; Non-Invasive Vent Rate 20 /MIN; Site Drawn RIGHT RADIAL
--- NOTE | 2023-08-23 21:51 | PM.IMHP ---
H&P: HPI History of Present Illness Date/Time: 08/23/23 21:51 Chief Complaint: AMS, Weakness Narrative: 88 y/o F presents here for evaluation of increased confusion and generalized weakness with PMH of aortic aneurysm, pacemaker, AFib, diastolic heart failure, HTN, hypothyroidism, and vitamin-D deficiency. Patient presents here via EMS from [place] in [place] for evaluation of increased confusion and generalized weakness. Patient was seen yesterday, , for bilateral lower extremity weakness. Patient was found to have a hemoglobin of 5.4, MCV and MCHC also low, and CXR showed airspace opacities in the mid lower lobe zones add cardiomegaly. She denied any evidence of GI bleed at that time. Pacemaker was interrogated and showed no acute events. Patient was agreeable to transfusion and received 2 units of PRBCs. Discovered to be DNR with comfort care focused treatment. Patient was ultimately discharged back to facility. Returns today for increased confusion and continued weakness that is nonfocal. Confusion presenting as believing people are in the room that are not present and confusion about place which is a deviation from her baseline. Additionally reporting mild shortness of breath with no associated cough, chest pain, or palpitations. Patient is currently orientated to self and aware she is in the hospital. During initial ED evaluation, patient was A&Ox3. Now complaining of body aches and diffuse discomfort. States her heart feels like it is pounding, tele showing NSR with ectopy. Majority of HPI obtained through chart review due to patient's current confusion level. Initial VS at presentation: 98.1 F, HR 73, RR 16, 120/61, and 99% on RA. ED workup showed hemoglobin of 8.2, no leukocytosis, INR 2.6, creatinine 1.2 (1.5 on ), and chronically modest elevation in LFTs. CXR showed stable airspace opacities of the mid and lower lung zones, similar to CXR on . Blood gas significant for pH 7.349, pCO2 64.5, pO2 72.6, HC03 34.7, O2 saturation 93.4%. Repeat post BiPAP showed modest improvement in pH, pCO2, pO2, O2 saturation, HC03. UA done yesterday and unremarkable. Review of Systems Review of Systems: ROS unobtainable: Yes unobtainable due to mental status [facility] Past Medical History Medical History (Updated 08/23/23 @ 22:14 by Ellie Zurita APRN) Acute upper GI bleeding Aortic aneurysm Artificial pacemaker Atrial fibrillation CHF (congestive heart failure) Diverticulitis Essential hypertension Hepatitis Hypothyroidism Urinary incontinence Vitamin D deficiency Surgical History Surgical History H/O cataract extraction History of hysterectomy Family History Family History Mother Essential hypertension Father Heart disease Sibling Heart disease Social History Social History Social History: Patient resides at [facility]. 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 She is single and has not had any children. She is a lifelong nonsmoker. She does not use any alcohol, marijuana or illicit drugs. Code status: DNR/DNI Healthcare power of prosecuting attorney: Ana Maria Caballero Smoking status: Never smoker Alcohol intake: never Substance use: never Substance use type: does not use Lack of Transportation: No Lack of Food: Never True Current Housing: I Have Housing Concerned About Future Housing: No Difficulty Paying Gas/Electric Bills: No Difficulty Paying for Meds: No Currently Unemployed: No Education: Associate Degree Difficulty w/ Childcare or Family Care: No Spiritual care concerns: No Meds Home Medications and Allergies Home Medications Medication Instructions Recorded Confirmed Type acetaminophen 325 mg tablet 650 mg PO Q4H PRN Pain 02/03/21 08/23/23 History cholecalciferol (
--- NOTE | 2023-08-23 22:22 | ADMGEN ---
This patient, Paula Gonzalez, was admitted to IMU Room 231-01 at 2200. Patient/family oriented to hospital policies and general routines including ID bracelet, bed and alarms, visiting hours, pain management, procedures, bathroom and other care routines, personal items, smoking policy, room service/diet, and visiting hours. Information on how to activate the Rapid Response Team has been discussed. Patient/Family are encouraged to report perceived risks to care and to ask questions if they do not understand what they are told or what they should do.
[2023-08-23] MEDS: IPRATROPIUM 0.5 MG/ALBUTEROL SULFATE 2.5 MG AMPUL.NEB 3 ML INHALATION (22:52)
[2023-08-23] MEDS: PANTOPRAZOLE SODIUM IV 40 MG VIAL IV PUSH (23:30)
[2023-08-23] MEDS: MORPHINE SULFATE (*CRX) 2 MG/ML INJ IV PUSH (23:38)
[2023-08-24] VITALS (19 sets, daily range): BP systolic 110–120; BP diastolic 50–69; PULSE 69–95; RESP 14–24; TEMP 36.1–36.7; O2SAT 95–100
[2023-08-24 00:15] LABS: Influenza A QL RT-PCR Negative (Negative); Influenza B QL RT-PCR Negative (Negative); RSV RNA, RT-PCR Negative (Negative); SARS-CoV-2 RNA PCR Negative (Negative)
[2023-08-24 05:17] LABS: Alanine Aminotransferase 89 U/L (6-35); Albumin Level 3.1 g/dL (3.5-5.1); Alkaline Phosphatase 114 U/L (38-126); Anion Gap 0 mmol/L (8-16); Aspartate Amino Transferase 103 U/L (14-36); Bilirubin,Total 0.7 mg/dL (0.2-1.3); Blood Urea Nitrogen 22 mg/dL (7-17); Calcium 8.4 mg/dL (8.4-10.2); Carbon Dioxide 34 mmol/L (22-30); Chloride 101 mmol/L (98-107); Estimated CRCL calculation 30 ml/min; Estimated Glomerular Filt Rate 42; Glucose 89 mg/dL (65-110); Potassium 3.7 mmol/L (3.4-5.0); Sodium 135 mmol/L (137-145)
[2023-08-24 05:21] LABS: Iron 38 ug/dL (37-170)
[2023-08-24 05:31] LABS: Percent Iron Saturation 9 % (20-50)
[2023-08-24 05:37] LABS: Alveolar/Arterial O2 Gradient 113.4 mmHg; Base Excess ABG 9.8 mEq/l (+/-2.0); Carboxyhemoglobin 0.7 % THb (0-2.0); Fractional Inspired Oxygen 40 %; HCO3 ABG 37.2 mEq/l (22.0-26.0); Methemoglobin ABG 0.3 %THb (0-1.5); Oxygen Content ABG 11.7 %vol (16.0-22.0); Oxygen Saturation ABG 96.1 % (95.0-100.0); Oxyhemoglobin 94.8 % THb (90.0-100.0); PO2 ABG 90.7 mmHg (80.0-100.0); PO2 FiO2 Ratio Arterial Blood 2.27 %; Reduced Hemoglobin 4.2 %THb (0-5.0); Total Hemoglobin 8.7 g/dL (12.0-18.0)
[2023-08-24 05:39] LABS: PCO2 ABG 70.5 mmHg (35.0-45.0); Site Drawn RIGHT RADIAL
[2023-08-24 05:40] LABS: Device BIPAP; Modified Allen's Test Pass
[2023-08-24 05:41] LABS: Expiratory Pressure 6 cmH2O; Inspiratory Pressure 12 cmH2O
[2023-08-24 06:48] LABS: Basophils Percent Auto 0.7 % (0.2-1.2); Eosinophils Percent Auto 0.5 % (0-4.4); Hematocrit 27.9 % (37.0-47.0); Hemoglobin 8.2 g/dL (12.0-15.0); Immature Granulocyte Absolute 0.02 K/mm3 (0.00-0.031); Immature Granulocyte Percent A 0.4 % (0-0.5); Lymphocytes Absolute Auto 0.96 K/mm3 (0.9-3.2); Lymphocytes Percent Auto 17.4 % (18.3-44.2); Mean Corpuscular HGB Conc 29.4 g/dl (32-36); Mean Corpuscular Hemoglobin 24.9 pg (26-34); Mean Corpuscular Volume 84.8 fl (80-100); Mean Platelet Volume 8.4 fl (7.4-10.4); Monocytes Absolute Auto 0.8 K/mm3 (0.1-0.6); Monocytes Percent Auto 14.5 % (2.6-8.5); Neutrophils Absolute Auto 3.7 K/mm3 (1.3-6.7); Neutrophils Percent Auto 66.5 % (45.5-73.1); Platelet Count Result 251 k/mm3 (150-375); Red Blood Count 3.29 M/mm3 (4.2-5.4); White Blood Count 5.5 K/mm3 (4.5-10.0)
[2023-08-24 07:06] LABS: Platelet Estimate Adequate (Adequate)
[2023-08-24 07:07] LABS: Hypochromasia 3+ (NORMAL); Schistocytes None Seen (NORMAL)
[2023-08-24] MEDS: IPRATROPIUM 0.5 MG/ALBUTEROL SULFATE 2.5 MG AMPUL.NEB 3 ML INHALATION ×2 (08:15→13:39)
[2023-08-24] MEDS: PANTOPRAZOLE SODIUM IV 40 MG VIAL IV PUSH (10:43)
--- NOTE | 2023-08-24 13:02 | PC.NURSE ---
Per Dr. Quarles call the POA et request them come to the hospital if possible to discuss the current POC. Ana Maria Caballero notified et will be on campus at 1430 today to speak with the Dr Quarles in person
--- NOTE | 2023-08-24 15:24 | PM.DS ---
DS: Admitting Diagnosis Discharge Date 08/24/2023: Admitting Diagnosis (1) Acute hypercapnic respiratory failure: ?Code(s): J96.02 - Acute respiratory failure with hypercapnia ?Status:?Acute ?Assessment and Plan: - baseline supplemental O2 requirement, 2L NC - ABG, initial: pH 7.349, pCO2 64.5, pO2 72.6, HCO3 34.7, O2 sat 93.4 %.? Patient placed on BiPAP. - ABG, repeat: pH 7.359, pCO2 60.1, pO2 73.4, HCO3 33.1, O2 sat 93.8 % - repeat ABG in a.m. - A/Ox self only, aware she is in the hospital. Mildly agitated.? No focal deficits on exam.? Low suspicion for CVA or bleed, consider head CT if no improvement with BiPAP.? Suspect disorientation more so due to delirium and hypercarbia. - CXR: stable airspace opacities of the mid and lower lung zones, consistent with atelectasis versus pneumonia. - continue to monitor oxygen saturations and neuro status - viral PCR pending (2) Anemia: ?Qualifiers: ?Anemia type:?unspecified type? Qualified Code(s):?D64.9 - Anemia, unspecified ?Code(s): D64.9 - Anemia, unspecified ?Status:?Acute ?Assessment and Plan: - hgb 8.2 - 5.4 on , transfuse 2 units and increased to 8.1 - previously 8.9 on 09/03/2022 - not currently on iron supplementation, initiate - iron, ferritin, TIBC panel ordered (3) Essential hypertension: ?Code(s): I10 - Essential (primary) hypertension ?Status:?Acute ?Assessment and Plan: - chronic, currently normotensive to soft - hold home HTN medications - monitor DS: Discharge Diagnosis Discharge Diagnosis (1) Terminal care: Code(s): Z51.5 - Encounter for palliative care Status: Acute (2) Hospice care patient: Code(s): Z51.5 - Encounter for palliative care Status: Acute (3) Acute hypercapnic respiratory failure: Code(s): J96.02 - Acute respiratory failure with hypercapnia Status: Acute (4) Hyponatremia: Code(s): E87.1 - Hypo-osmolality and hyponatremia Status: Acute (5) Anemia: Qualifiers: Anemia type: unspecified type Qualified Code(s): D64.9 - Anemia, unspecified Code(s): D64.9 - Anemia, unspecified Status: Acute (6) Epistaxis: Code(s): R04.0 - Epistaxis Status: Acute (7) Essential hypertension: Code(s): I10 - Essential (primary) hypertension Status: Acute (8) Cellulitis of leg, right: Code(s): L03.115 - Cellulitis of right lower limb Status: Acute (9) Hallucination: Code(s): R44.3 - Hallucinations, unspecified Status: Acute (10) Altered mental status: Code(s): R41.82 - Altered mental status, unspecified Status: Acute (11) Lower extremity edema: Code(s): R60.0 - Localized edema Status: Acute (12) Hyponatremia: Code(s): E87.1 - Hypo-osmolality and hyponatremia Status: Acute (13) Hypokalemia: Code(s): E87.6 - Hypokalemia Status: Acute (14) Chronic systolic heart failure: Code(s): I50.22 - Chronic systolic (congestive) heart failure Status: Acute DS: Summary Hospital Course Reason for hospitalization: Patient presents to the ER via EMS from [facility] in [place], [place] for evaluation of increased confusion and generalized weakness Hospital Course: H&P: HPI History of Present Illness Date/Time: 08/23/23? 21:51 Chief Complaint: AMS, Weakness Narrative: 88 y/o F presents here for evaluation of increased confusion and generalized weakness with PMH of aortic aneurysm, pacemaker, AFib, diastolic heart failure, HTN, hypothyroidism, and vitamin-D deficiency. Patient presents here via EMS from [facility] in [place] for evaluation of increased confusion and generalized weakness.? Patient was seen yesterday, , for bilateral lower extremity weakness.? Patient was found to have a hemoglobin of 5.4, MCV and MCHC also low, and CXR showed airspace opacities in the mid lower lobe zones ad
[2023-08-24] MEDS: CYANOCOBALAMIN 1,000 MCG TABLET 1000 MCG PO (15:50)
[2023-08-24] MEDS: RIVAROXABAN 20 MG TABLET PO (15:50)
[2023-08-24] MEDS: SACUBITRIL/VALSARTAN 24-26 MG TABLET 1 TAB PO (15:50)
[2023-08-24] MEDS: CHOLECALCIFEROL 1,000 UNITS TABLET 2000 UNITS PO (15:50)
[2023-08-24] MEDS: FUROSEMIDE 40 MG TABLET PO (15:51)
[2023-08-24] MEDS: POLYSACCHARIDE IRON COMPLEX 150 MG CAPSULE PO (15:51)
[2023-08-24] MEDS: carvediloL 12.5 MG TABLET PO (15:51)
[2023-08-24] MEDS: POTASSIUM CHLORIDE 20 MEQ ER TABLET PO (15:52)
[2023-08-24] MEDS: AMIODARONE HCL 200 MG TABLET PO (15:53)
[2023-08-24] MEDS: SODIUM CHLORIDE 1 GM TABLET PO (15:53)
[2023-08-24] MEDS: MAGNESIUM OXIDE 400 MG TABLET PO (15:56)
[2023-08-27 10:09] LABS: Device NASAL CANNULA
== END 2023-08-24 17:25 | disposition hospice, inpatient (51) ==
LOC: ANHED 19:13 → ANHIMU 08-24 01:06
PROVIDERS: Student in an Organized Health Care Education/Training Program; Admitting Provider Family Medicine; Emergency Provider Emergency Medicine; PCP Internal Medicine; Visit Provider Family Medicine
DX: J96.02 Acute respiratory failure with hypercapnia (principal); D64.9 Anemia, unspecified; I48.91 Unspecified atrial fibrillation; I11.0 Hypertensive heart disease with heart failure; I50.22 Chronic systolic (congestive) heart failure; R04.0 Epistaxis; E03.9 Hypothyroidism, unspecified; E55.9 Vitamin D deficiency, unspecified; Z20.822 Contact with and (suspected) exposure to COVID-19; L03.115 Cellulitis of right lower limb; R44.3 Hallucinations, unspecified; I71.9 Aortic aneurysm of unspecified site, without rupture; R91.8 Other nonspecific abnormal finding of lung field; R41.82 Altered mental status, unspecified; Z99.81 Dependence on supplemental oxygen; Z95.0 Presence of cardiac pacemaker; E87.6 Hypokalemia; R60.0 Localized edema; Z66 Do not resuscitate; Z79.1 Long term (current) use of non-steroidal anti-inflammatories (NSAID); Z79.51 Long term (current) use of inhaled steroids; Z79.01 Long term (current) use of anticoagulants; Z79.899 Other long term (current) drug therapy; Z82.49 Family history of ischemic heart disease and other diseases of the circulatory system
CPT/HCPCS: 36415; 36600; 71045; 80053; 82375; 82728; 82805; 83050; 83540; 83550; 85025; 85610; 85730; 87637; 94002; 94640; 96374; 96375; 99285; A9270; C9113; G0378; J2270

== ENCOUNTER 2023-08-24 17:26 | HOS | payer OTHER, SELFPAY ==
[2023-08-24 17:31] VITALS: BMI 28.2
[2023-08-24] MEDS: MORPHINE SULFATE INJ (*CRX) 50 MG in SODIUM CHLORIDE 0.9% IV 95 ML IV CONT (18:15)
--- NOTE | 2023-08-24 19:07 | PM.IMHP ---
H&P: HPI History of Present Illness Date/Time: 08/24/23 19:07 Chief Complaint: Uncontrolled dyspnea Narrative: 88-year-old female with known history of heart failure presented the emergency room due to lower extremity weakness July. Was found to have hemoglobin of 5.4 was transfused 2 units of packed cells. Also was found to have hypoxemic and hypercapnic respiratory failure with a pCO2 of 64. She was treated with BiPAP. She did not tolerate that well. Was not eating and drinking due to the BiPAP. Chest x-ray showed stable left mid to lower lung infiltrates. Pacemaker device check was unremarkable. Electrocardiogram showed paced rhythm. Echocardiogram showed EF 35-40% with moderate aortic insufficiency. After discussion with patient and her croft of family law attorney she opted for comfort care due to ongoing dyspnea and inability to tolerate the BiPAP. Her goal is to eat and drink and be able to return to her assisted living. Since starting low-dose IV morphine 0.5 milligrams/hour she has remained comfortable this afternoon. She continues to have generalized weakness. Review of Systems Review of Systems: ROS unobtainable: Yes unobtainable due to medical condition [facility] Past Medical History Medical History (Updated 08/24/23 @ 19:08 by Noah Ramos MD) Acute upper GI bleeding Aortic aneurysm Artificial pacemaker Atrial fibrillation CHF (congestive heart failure) Diverticulitis Essential hypertension Hepatitis Hypothyroidism Urinary incontinence Vitamin D deficiency Surgical History Surgical History H/O cataract extraction History of hysterectomy Family History Family History Mother Essential hypertension Father Heart disease Sibling Heart disease Social History Social History Social History: Patient resides at [facility]. 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 She is single and has not had any children. She is a lifelong nonsmoker. She does not use any alcohol, marijuana or illicit drugs. Code status: DNR/DNI Healthcare power of family law attorney: Ana Maria Caballero Smoking status: Never smoker Alcohol intake: never Substance use: never Substance use type: does not use Lack of Transportation: No Lack of Food: Never True Current Housing: I Have Housing Concerned About Future Housing: No Difficulty Paying Gas/Electric Bills: No Difficulty Paying for Meds: No Currently Unemployed: No Education: Associate Degree Difficulty w/ Childcare or Family Care: No Spiritual care concerns: No Meds Home Medications and Allergies Allergies Allergy/AdvReac Type Severity Reaction Status Date / Time No Known Allergies Allergy Verified 08/22/23 13:57 Exam Narrative: GEN: Pleasant elderly female sitting upright in hospital bed wearing oxygen at 3 liters/minute in no acute distress. HEENT: EOMI, PERRL, sclerae nonicteric, pharyngeal mucosa pink and intact NECK: No JVD, adenopathy, or thyromegaly CHEST: Clear to auscultation with decreased breath sounds at bases. Normal effort. HEART: NL S1/S2, regular, 3/6 systolic ejection murmur right upper sternal border radiating to carotids. ABDOMEN: BS+, soft, nontender, no mass, no bruits EXTREMITIES: No cyanosis, edema, or clubbing NEUROLOGIC: CN intact and symmetric to inspection. MUSCULOSKELETAL: Tone and strength symmetric. PSYCH: Alert. Oriented to person, place, and time. Assessment and Plan Assessment and plan (1) Palliative care encounter: Code(s): Z51.5 - Encounter for palliative care Status: Acute Assessment and Plan: Met inpatient hospice criteria due to requiring continuous IV morphine at 0.5 milligram/hour to control dyspnea PRN palliative regimen ordered Pending response to comfort meds consider restarting low d
[2023-08-24 20:13] VITALS: BP 110/49; PULSE 70; RESP 16; TEMP 36.6; O2SAT 91
[2023-08-24 21:45] VITALS: PULSE 70; RESP 16; O2SAT 91
[2023-08-24] MEDS: GLYCOPYRROLATE INJ (*SP) 0.2 MG/ML VIAL 0.1 MG IV PUSH (23:27)
--- NOTE | 2023-08-25 14:26 | PM.IMPN ---
Progress Note: A&P Assessment and Plan (1) Palliative care encounter: Code(s): Z51.5 - Encounter for palliative care Status: Acute Assessment and Plan: Met inpatient hospice criteria due to requiring continuous IV morphine at 0.5 milligram/hour to control dyspnea PRN palliative regimen ordered 08/25/2023 discussed with patient and friend her goal of symptom control and returning to her assisted living 08/25/2023 transitioned to po medications, including low-dose valsartan 20 mg daily and carvedilol 1.56 mg bid (2) Chronic systolic heart failure: Code(s): I50.22 - Chronic systolic (congestive) heart failure Status: Acute Assessment and Plan: EF 35-40% with moderately severe aortic insufficiency (3) Acute hypercapnic respiratory failure: Code(s): J96.02 - Acute respiratory failure with hypercapnia Status: Acute Assessment and Plan: Presumably due to congestive heart failure (4) Hyponatremia: Code(s): E87.1 - Hypo-osmolality and hyponatremia Status: Acute Assessment and Plan: Improved during acute hospitalization to low 130s (5) Anemia: Qualifiers: Anemia type: unspecified type Qualified Code(s): D64.9 - Anemia, unspecified Code(s): D64.9 - Anemia, unspecified Status: Acute Assessment and Plan: With heme-negative stool and no sign of bleeding Anticoagulation on hold (6) Essential hypertension: Code(s): I10 - Essential (primary) hypertension Status: Acute Assessment and Plan: Normotensive Subjective Date/time seen: 08/25/23 14:26 Interval history: Uneventful night. Tolerated diet. No chest pain or shortness of breath at rest. Doing well on room air without using BiPAP. Denied abdominal pain. Denied GI or issues. Denied swelling. Review of Systems Review of Systems: All systems reviewed & are unremarkable except as noted in HPI and below Exam Narrative: GEN: Pleasant elderly female sitting upright in hospital bed. HEENT: PERRL, sclerae nonicteric, pharyngeal mucosa pink and intact. NECK: No JVD. CHEST: Clear to auscultation with decreased breath sounds at bases. Normal effort. HEART: NL S1/S2, regular, 3/6 systolic ejection murmur right upper sternal border radiating to carotids. ABDOMEN: BS+, soft, nontender, no mass, no bruits EXTREMITIES: No cyanosis, edema, or clubbing NEUROLOGIC: CN intact and symmetric to inspection. MUSCULOSKELETAL: Tone and strength symmetric. PSYCH: Alert. Oriented to person, place, and time. Objective Data Vital Signs Vital Signs: Vital Signs - 24 hr 08/24/23 20:13 08/24/23 21:45 08/25/23 08:55 Temperature 97.8 F Pulse Rate 70 70 Respiratory Rate 16 16 Blood Pressure 110/49 L Pulse Oximetry 91 91 Oxygen Delivery Nasal Cannula Room Air Oxygen Flow Rate 3 Intake/Output Intake/Output: Intake & Output 08/22/23 08/23/23 08/24/23 08/25/23 23:59 23:59 23:59 23:59 Intake Total 0 360 Balance 0 360 Meds/Results Medications: Active Medications Generic Name Dose Route Start Last Admin Trade Name Freq PRN Reason Stop Dose Admin Artificial Tears 1 - 2 drop 08/24/23 17:45 Artificial Tears Ophth Soln 15 Ml Bottle EACH EYE Q12H PRN Dry Eye(s) Bisacodyl 10 mg 08/25/23 09:00 08/25/23 11:04 Bisacodyl 10 Mg Suppository RECTAL Not Given DAILY LORI Glycopyrrolate 0.1 mg 08/24/23 17:45 08/24/23 23:27 Glycopyrrolate Inj (*Sp) 0.2 Mg/Ml Vial IV PUSH 0.1 mg Q4H PRN Administration secretions Morphine Sulfate 50 mg/ Sodium 100 mls @ 1 mls/hr 08/24/23 17:45 08/24/23 18:15 Chloride IV CONT 0.5 mg/hr .Q24H LORI 1 mls/hr Administration 0.5 MG/HR Lorazepam 0.5 mg 08/24/23 17:45 Lorazepam Inj (*Crx) 2 Mg/Ml Vial IV PUSH Q4H PRN RESTLESSNESS Miscellaneous Information 1 each 08/25/23 00:01 08/24/23 19:57 Dulcolax Supp Ordered As Scheduled. P
[2023-08-25 16:59] VITALS: BP 123/64; PULSE 70; RESP 24; TEMP 36.3; O2SAT 94
[2023-08-25 20:39] VITALS: BP 121/43; PULSE 69; RESP 17; TEMP 36.7; O2SAT 97
[2023-08-25 21:23] VITALS: PULSE 69
[2023-08-25] MEDS: MORPHINE SULFATE ORAL CONC SOL (*CRX) 10 MG/0.5 ML SYRINGE 5 MG PO (21:23)
[2023-08-25] MEDS: carvediloL 1.56 MG TABLET PO (21:23)
[2023-08-26] MEDS: MORPHINE SULFATE ORAL CONC SOL (*CRX) 10 MG/0.5 ML SYRINGE 5 MG PO ×3 (05:21→21:00)
[2023-08-26 09:21] VITALS: PULSE 64; RESP 18; O2SAT 97
[2023-08-26] MEDS: VALSARTAN 20 MG TABLET PO (09:21)
[2023-08-26] MEDS: carvediloL 1.56 MG TABLET PO ×2 (09:21→20:55)
[2023-08-26] MEDS: BISACODYL 10 MG SUPPOSITORY RECTAL (09:25)
[2023-08-26 14:28] VITALS: BP 113/54; PULSE 70; RESP 18; TEMP 36.3; O2SAT 93
--- NOTE | 2023-08-26 16:09 | PM.DS ---
DS: Admitting Diagnosis Discharge Date 08/26/2023 Admitting Diagnosis uncontrolled dyspnea due to chf DS: Discharge Diagnosis Discharge Diagnosis (1) Palliative care encounter: Code(s): Z51.5 - Encounter for palliative care Status: Acute Assessment and Plan: Met inpatient hospice criteria due to requiring continuous IV morphine at 0.5 milligram/hour to control dyspnea PRN palliative regimen ordered 08/25/2023 discussed with patient and friend her goal of symptom control and returning to her assisted living 08/25/2023 transitioned to po medications, including low-dose valsartan 20 mg daily and carvedilol 1.56 mg bid 08/26/2023 equipment delivered to [facility] and patient wishes to return home with hospice. DS: Summary Hospital Course Hospital Course: Admitted to inpatient hospice service. Medications titrated to comfort. Tolerated diet and remained alert. Transitioned to oral medications. Discharged back to [facility] living on [facility]. Time Spent with Patient Time attestation: Total time spent providing and/or coordinating discharge services: Exam Narrative: GEN: Pleasant elderly female sitting upright in hospital bed. HEENT: PERRL, sclerae nonicteric, pharyngeal mucosa pink and intact. NECK: No JVD. CHEST: Clear to auscultation with decreased breath sounds at bases. Normal effort. HEART: NL S1/S2, regular, 3/6 systolic ejection murmur right upper sternal border radiating to carotids. ABDOMEN: BS+, soft, nontender, no mass, no bruits EXTREMITIES: No cyanosis, edema, or clubbing NEUROLOGIC: CN intact and symmetric to inspection. MUSCULOSKELETAL: Tone and strength symmetric. PSYCH: Alert. Oriented to person, place, and time. Discharge Plan Discharge Consulting providers: Noah Ramos Discharging Clinician: Noah Ramos Patient Disposition: Hospice - Home Activity: no straining Diet: heart healthy Stand Alone Forms: General Discharge Information Discharge Medications: New lorazepam 0.5 mg tablet 0.5 mg PO Q8H PRN (Reason: anxiety) Qty: 10 0RF morphine concentrate 100 mg/5 mL (20 mg/mL) solution 5 mg PO Q6H PRN (Reason: dyspnea) Qty: 15 0RF bisacodyl 10 mg Suppository 10 mg RECTAL DAILY Qty: 3 0RF valsartan 40 mg tablet 20 mg PO DAILY Qty: 10 0RF Artificial Tears([id number]) 1-0.2-0.2 % Drops 1 - 2 drp EACH EYE Q12H PRN (Reason: Dry Eye(S)) Qty: 3 0RF carvedilol 3.125 mg tablet 3.125 mg PO Q12H Qty: 20 0RF Rx Instructions: must administer with a meal/food Date of admission: 08/24/23 17:26 Primary Care Provider: Autumn,Thai Perez Admitting Provider: Noah Ramos Attending physician on admission: Noah Ramos Condition: Terminal
[2023-08-26 20:46] VITALS: BP 110/69; PULSE 70; RESP 18; TEMP 36.6; O2SAT 95
[2023-08-26 20:48] VITALS: O2SAT 95
[2023-08-26 20:55] VITALS: PULSE 70
--- NOTE | 2023-08-26 21:45 | PM.IMPN ---
Progress Note: A&P Assessment and Plan (1) Palliative care encounter: Code(s): Z51.5 - Encounter for palliative care Status: Acute Assessment and Plan: Met inpatient hospice criteria due to requiring continuous IV morphine at 0.5 milligram/hour to control dyspnea PRN palliative regimen ordered 08/25/2023 discussed with patient and friend her goal of symptom control and returning to her assisted living 08/25/2023 transitioned to po medications, including low-dose valsartan 20 mg daily and carvedilol 1.56 mg bid 08/26/2023 equipment to be delivered to [facility] and patient wishes to return home with hospice, however will not be ready in time for her to discharge today. Plan discharge 08/26. Subjective Date/time seen: 08/26/23 21:45 Interval history: Uneventful night. Tolerated diet. No chest pain or shortness of breath at rest. Doing well on room air without using BiPAP. Denied abdominal pain. Denied GI or issues. Denied swelling. Review of Systems Review of Systems: All systems reviewed & are unremarkable except as noted in HPI and below Exam Narrative: GEN: Pleasant elderly female sitting upright in hospital bed. HEENT: PERRL, sclerae nonicteric, pharyngeal mucosa pink and intact. NECK: No JVD. CHEST: Clear to auscultation with decreased breath sounds at bases. Normal effort. HEART: NL S1/S2, regular, 3/6 systolic ejection murmur right upper sternal border radiating to carotids. ABDOMEN: BS+, soft, nontender, no mass, no bruits EXTREMITIES: No cyanosis, edema, or clubbing NEUROLOGIC: CN intact and symmetric to inspection. MUSCULOSKELETAL: Tone and strength symmetric. PSYCH: Alert. Oriented to person, place, and time. Objective Data Vital Signs Vital Signs: Vital Signs - 24 hr 08/26/23 09:21 08/26/23 09:21 08/26/23 14:28 Temperature 97.3 F L Pulse Rate 64 70 Respiratory Rate 18 18 Blood Pressure 113/54 L Pulse Oximetry 97 93 Oxygen Delivery Room Air 08/26/23 20:46 08/26/23 20:55 Temperature 97.8 F Pulse Rate 70 70 Respiratory Rate 18 Blood Pressure 110/69 Pulse Oximetry 95 Oxygen Delivery Intake/Output Intake/Output: Intake & Output 03/01/24 08/24/23 08/25/23 08/26/23 23:59 23:59 23:59 23:59 Intake Total 0 360 0 Balance 0 360 0 Meds/Results Medications: Active Medications Generic Name Dose Route Start Last Admin Trade Name Freq PRN Reason Stop Dose Admin Artificial Tears 1 - 2 drop 08/24/23 17:45 Artificial Tears Ophth Soln 15 Ml Bottle EACH EYE Q12H PRN Dry Eye(s) Bisacodyl 10 mg 08/25/23 09:00 08/26/23 09:25 Bisacodyl 10 Mg Suppository RECTAL 10 mg DAILY LORI Administration Carvedilol 1.56 mg 08/25/23 21:00 08/26/23 20:55 Carvedilol 1.56 Mg Tablet PO 1.56 mg Q12HR LORI Administration Glycopyrrolate 0.1 mg 08/24/23 17:45 08/24/23 23:27 Glycopyrrolate Inj (*Sp) 0.2 Mg/Ml Vial IV PUSH 0.1 mg Q4H PRN Administration secretions Lorazepam 0.5 mg 08/24/23 17:45 Lorazepam Inj (*Crx) 2 Mg/Ml Vial IV PUSH Q4H PRN RESTLESSNESS Miscellaneous Information 1 each 08/25/23 00:01 08/25/23 21:30 Dulcolax Supp Ordered As Scheduled. Please Verify Should This Be Prn? XX 09/24/23 00:00 Not Given CLARIFY LORI Morphine Sulfate 1 mg 08/24/23 17:45 Morphine Sulfate (*Crx) 2 Mg/Ml Inj IV PUSH Q2H PRN Pain/SOB Morphine Sulfate 5 mg 08/25/23 22:00 08/26/23 21:00 Morphine Sulfate Oral Conc Radha (*Crx) 10 Mg/0.5 Ml Syringe PO 5 mg Q8HR LORI Administration Prochlorperazine Edisylate 10 mg 08/24/23 17:45 Prochlorperazine Edisylate 10 Mg/2 Ml Vial IV PUSH Q6H PRN Nausea And Vomiting Valsartan 20 mg 08/26/23 09:00 08/26/23 09:21 Valsartan 20 Mg Tablet PO 20 mg DAILY LORI Administration
[2023-08-27] MEDS: MORPHINE SULFATE ORAL CONC SOL (*CRX) 10 MG/0.5 ML SYRINGE 5 MG PO (05:08)
[2023-08-27 08:20] VITALS: RESP 18; O2SAT 95
[2023-08-27 08:37] VITALS: PULSE 72
[2023-08-27] MEDS: carvediloL 1.56 MG TABLET PO (08:37)
[2023-08-27] MEDS: VALSARTAN 20 MG TABLET PO (08:37)
[2023-08-27 09:05] VITALS: O2SAT 94
[2023-08-27 10:15] VITALS: BP 80/43; PULSE 70; RESP 18; TEMP 36.4; O2SAT 94
[2023-08-27 10:30] VITALS: BP 97/56
== END 2023-08-27 10:45 | disposition hospice, home (50) | DRG 189 ==
LOC: ANHIMU 17:29 → ANH2MED 19:53
PROVIDERS: Admitting Provider Internal Medicine; PCP Internal Medicine; Visit Provider Internal Medicine
DX: J96.02 Acute respiratory failure with hypercapnia (principal); E87.1 Hypo-osmolality and hyponatremia; I50.22 Chronic systolic (congestive) heart failure; J96.01 Acute respiratory failure with hypoxia; I11.0 Hypertensive heart disease with heart failure; D64.9 Anemia, unspecified; E03.9 Hypothyroidism, unspecified; E55.9 Vitamin D deficiency, unspecified; Z95.0 Presence of cardiac pacemaker; Z90.710 Acquired absence of both cervix and uterus
CPT/HCPCS: A9270; J1596; J2270